=== PATIENT | female | born 1980 | race Caucasian/White ===

== ENCOUNTER 2018-02-11 10:05 | Emergency (ER) | payer MEDICAID, OTHER ==
[~2018-02-11] VITALS: Ht 185.4 cm; Wt 127.0 kg
[~2018-02-11 10:05] MED LIST: ACHD5005 PO; AMOX500C2 PO; BPR100T PO; CEPH500C PO; CLIN300C3 PO; CPR500T PO; CYCL10TA9 PO; DESV100T PO; HYDR1CAP2 PO; HYDR1TAB PO; IBP800T PO; METH4TAB PO; NAPR-243 PO; NAPR-915 PO; PENI500T PO; PRD20T PO; SULF-222 PO; SULF1TAB35 PO; SULF1TAB38 PO; TRAM-42 PO; TRAM50TA2 PO; TRM50T PO
--- OUTSIDE RECORDS SUMMARY | 2018-02-11 10:12 | XMS REPORT ---
Author Author JENNIFER VU [facility] Address [address] [place] [address] Care Team Providers Care Mixer Operator Helper Hot Metal Name Role Phone JENNIFER VU Unavailable PROBLEMS Type Condition ICD9-CM Code [id number] Code Onset Dates Condition Status SNOMED Code Problem Acute pharyngitis 462 Active 920242605 Problem Obesity, unspecified 278.00 Active 575953872 Problem Nondependent tobacco use disorder 305.1 Active 247132272 Problem Depressive disorder, not elsewhere classified F32.9 Active 12448430 Problem Counseling on substance use and abuse V65.42 Active 934281853 Problem Morbid obesity due to excess calories E66.01 Active 219305359 Problem Screening examination for venereal disease V74.5 Active 318419137 Problem Unspecified breast screening V76.10 Active 592599693 Problem Severe single current episode of major depressive disorder, without psychotic features F32.2 Active 56759415 Problem Anxiety, generalized F41.1 Active 34841611 Problem Anxiety disorder, unspecified F41.9 Active 284245779 Problem Bipolar 1 disorder, depressed, moderate F31.32 Active 07959701 Problem Other dyspnea and respiratory abnormalities 786.09 Active 013260435 Problem Other malaise and fatigue 780.79 Active 316053445 Problem Routine general medical examination at health care facility V70.0 Active 395976381 Problem Diarrhea 787.91 Active 41652553 Problem Contact dermatitis and other eczema due to solvents 692.2 Active Problem Cellulitis and abscess of unspecified site 682.9 Active 499147898 Problem Unspecified fasciitis 729.4 Active 75787717 Problem Cellulitis and abscess of trunk 682.2 Active 367642186 Problem Pain in joint, ankle and foot 719.47 Active 815453930 Problem Acute upper respiratory infections of unspecified site 465.9 Active 16136686 ALLERGIES Substance Reaction Event Type Date Status Cephalexin Unknown Drug Allergy Dec, Active SOCIAL HISTORY No smoking Hx information available PLAN OF CARE Activity Details Follow Up prn Reason: VITAL SIGNS Height 73 in 2017-01-01 Weight 297.8 lbs 2017-01-01 Temperature 97.8 degrees Fahrenheit 2017-01-01 Heart Rate 74 bpm 2017-01-01 Respiratory Rate 20 2017-01-01 BMI 39.29 kg/m2 2017-01-01 Blood pressure systolic 124 mmHg 2017-01-01 Blood pressure diastolic 80 mmHg 2017-01-01 MEDICATIONS Medication Instructions Dosage Frequency Start Date End Date Duration Status Cetirizine HCl 10 MG Orally Once a day 1 tablet 24h Dec, 30 day (s) Active Albuterol Sulfate 90 mcg/actuation take 2 puffs by Inhalation route every 4 -6 hours as neededPRNcough or wheezing Nov, Active Lexapro 10 MG Orally Once a day 1 tablet 24h Active Augmentin 875-125 MG Orally every 12 hrs 1 tablet 12h Dec,Jan 10 day(s) Active RESULTS No Results PROCEDURES Procedure Date Ordered Related Diagnosis Body Site Office Visit, Est Pt., Level 3 Jan 01, 2017 IMMUNIZATIONS No Known Immunizations
--- OUTSIDE RECORDS SUMMARY | 2018-02-11 10:12 | XMS REPORT ---
Author Author KIRIT LIND Organization [facility] Address [address] [place] [address] Care Team Providers Care Networks Computer Consultant Name Role Phone KIRIT LIND Unavailable PROBLEMS Type Condition ICD9-CM Code [id number] Code Onset Dates Condition Status SNOMED Code Problem Acute pharyngitis 462 Active 078321453 Problem Obesity, unspecified 278.00 Active 881108114 Problem Nondependent tobacco use disorder 305.1 Active 350600095 Problem Depressive disorder, not elsewhere classified F32.9 Active 75425831 Problem Counseling on substance use and abuse V65.42 Active 363720751 Problem Morbid obesity due to excess calories E66.01 Active 267904879 Problem Screening examination for venereal disease V74.5 Active 467495516 Problem Unspecified breast screening V76.10 Active 247266924 Problem Severe single current episode of major depressive disorder, without psychotic features F32.2 Active 69701191 Problem Anxiety, generalized F41.1 Active 43698266 Problem Anxiety disorder, unspecified F41.9 Active 066089664 Problem Bipolar 1 disorder, depressed, moderate F31.32 Active 36880685 Problem Other dyspnea and respiratory abnormalities 786.09 Active 429137148 Problem Other malaise and fatigue 780.79 Active 706721852 Problem Routine general medical examination at health care facility V70.0 Active 780800145 Problem Diarrhea 787.91 Active 81748574 Problem Contact dermatitis and other eczema due to solvents 692.2 Active Problem Cellulitis and abscess of unspecified site 682.9 Active 194718536 Problem Unspecified fasciitis 729.4 Active 17990062 Problem Cellulitis and abscess of trunk 682.2 Active 608715964 Problem Pain in joint, ankle and foot 719.47 Active 254561783 Problem Acute upper respiratory infections of unspecified site 465.9 Active 34773521 ALLERGIES No Information SOCIAL HISTORY Never Assessed PLAN OF CARE VITAL SIGNS MEDICATIONS Medication Instructions Dosage Frequency Start Date End Date Duration Status Lexapro 10 mg Orally Once a day 1 tablet 24h 30 days Active RESULTS No Results PROCEDURES No Known procedures IMMUNIZATIONS No Known Immunizations MEDICAL (GENERAL) HISTORY Type Description Date Medical History Asthma Medical History ADHD Medical History Depression Surgical History Tonsillectomy & adenoidectomy 1996 Surgical History tubal ligation 2002 Hospitalization History past childbirth
--- OUTSIDE RECORDS SUMMARY | 2018-02-11 10:12 | XMS REPORT ---
Author Author TOM CARRERA [facility] [employer] Address Unknown Phone Unavailable Care Team Providers Care Paint Formulator Name Role Phone TOM CARRERA CP Unavailable Allergies No Known Allergies Problems Problem Type Condition Code Onset Dates Condition Status Problem Diarrhea 787.91 Active Problem Counseling on substance use and abuse V65.42 Active Problem Acute pharyngitis 462 Active Problem Cellulitis and abscess of unspecified site 682.9 Active Problem Unspecified fasciitis 729.4 Active Problem Contact dermatitis and other eczema due to solvents 692.2 Active Problem Other malaise and fatigue 780.79 Active Problem Unspecified breast screening V76.10 Active Problem Cellulitis and abscess of trunk 682.2 Active Problem Other dyspnea and respiratory abnormalities 786.09 Active Problem Routine general medical examination at health care facility V70.0 Active Problem Screening examination for venereal disease V74.5 Active Problem Nondependent tobacco use disorder 305.1 Active Problem Obesity, unspecified 278.00 Active Problem Acute upper respiratory infections of unspecified site 465.9 Active Problem Pain in joint, ankle and foot 719.47 Active Medications No Known Medications Results No Known Results Summary Purpose [employer] Submission
--- OUTSIDE RECORDS SUMMARY | 2018-02-11 10:12 | XMS REPORT ---
Author Author GUILLE YAO Organization [employer] Address Unknown Phone Unavailable Care Team Providers Care Dairy Tester Name Role Phone GUILLE YAO CP Unavailable Allergies, Adverse Reactions, Alerts Substance Reaction Event Type Cephalexin Info Not Available Drug Allergy Problems Problem Type Condition Code Onset Dates [...] Other dyspnea and respiratory abnormalities 786.09 Active Assessment Ringworm B35.9 Active Problem Routine general medical examination at health care facility V70.0 Active Problem Screening examination for venereal disease V74.5 Active Problem Nondependent tobacco use disorder 305.1 Active Problem Obesity, unspecified 278.00 Active Problem Acute upper respiratory infections of unspecified site 465.9 Active Problem Pain in joint, ankle and foot 719.47 Active Medications Medication Code System Code Instructions Start Date End Date Status Dosage Diflucan [facility] [address]-04 100 MG Orally on first day and then 1 a day for 13 more day March 30, 2016 2 tablet Lotrimin AF [facility] [address]-50 1 % Externally Twice a day March 30, 2016 April 13, 2016 1 application to affected area Procedures Procedure Coding System Code Date Office Visit, Est Pt., Level 3 CPT-4 75424 March 30, 2016 Vital Signs Date/Time: March 30, 2016 Temperature 97.8 F Weight 300.0 lbs Height 73 in BMI 39.58 Index Blood Pressure Diastolic 78 mmHg Blood Pressure Systolic 120 mmHg Cardiac Monitoring Heart Rate 68 bpm Results No Known Results Summary Purpose [employer] Submission
--- OUTSIDE RECORDS SUMMARY | 2018-02-11 10:12 | XMS REPORT ---
Author Author KEON MCGEE [facility] Address [address] [place] [address] Care Team Providers Care Graduate Studies Dean Name Role Phone KEON MCGEE Unavailable PROBLEMS Type Condition ICD9-CM Code JPJ33-AX Code Onset Dates Condition Status SNOMED Code Problem Acute pharyngitis 462 Active 789029453 Problem Obesity, unspecified 278.00 Active 257346273 Problem Nondependent tobacco use disorder 305.1 Active 698719406 Problem Depressive disorder, not elsewhere classified F32.9 Active 99962411 Problem Counseling on substance use and abuse V65.42 Active 248809118 Problem Morbid obesity due to excess calories E66.01 Active 734163076 Problem Screening examination for venereal disease V74.5 Active 453051504 Problem Unspecified breast screening V76.10 Active 624662947 Problem Severe single current episode of major depressive disorder, without psychotic features F32.2 Active 98013046 Problem Anxiety, generalized F41.1 Active 00121071 Problem Anxiety disorder, unspecified F41.9 Active 492162553 Problem Bipolar 1 disorder, depressed, moderate F31.32 Active 09516775 Problem Other dyspnea and respiratory abnormalities 786.09 Active 041568673 Problem Other malaise and fatigue 780.79 Active 846097508 Problem Routine general medical examination at health care facility V70.0 Active 446488550 Problem Diarrhea 787.91 Active 19298354 Problem Contact dermatitis and other eczema due to solvents 692.2 Active Problem Cellulitis and abscess of unspecified site 682.9 Active 663232250 Problem Unspecified fasciitis 729.4 Active 54800416 Problem Cellulitis and abscess of trunk 682.2 Active 257249782 Problem Pain in joint, ankle and foot 719.47 Active 123927917 Problem Acute upper respiratory infections of unspecified site 465.9 Active 27762911 ALLERGIES No Information SOCIAL HISTORY Never Assessed PLAN OF CARE Activity Details Follow Up Next available, 2 Weeks Reason:Depression VITAL SIGNS MEDICATIONS Unknown Medications RESULTS No Results PROCEDURES Procedure Date Ordered Result Body Site Psychotherapy, patient &/family, 30 minutes, established patient February 20, 2017 IMMUNIZATIONS No Known Immunizations MEDICAL (GENERAL) HISTORY Type Description Date Medical History Asthma Medical History ADHD Medical History Depression Surgical History Tonsillectomy & adenoidectomy 1996 Surgical History tubal ligation 2002 Hospitalization History past childbirth
--- OUTSIDE RECORDS SUMMARY | 2018-02-11 10:12 | XMS REPORT ---
Author Author KEON MCGEE [facility] Address [address] [place] [address] Care Team Providers Care Burr Bench Operator Name Role Phone KEON MCGEE Unavailable PROBLEMS Type Condition ICD9-CM Code XFD25-SG Code Onset Dates Condition Status SNOMED Code Problem Acute pharyngitis 462 Active 115205318 Problem Obesity, unspecified 278.00 Active 241213913 Problem Nondependent tobacco use disorder 305.1 Active 031919864 Problem Depressive disorder, not elsewhere classified F32.9 Active 06776594 Problem Counseling on substance use and abuse V65.42 Active 531260069 Problem Morbid obesity due to excess calories E66.01 Active 889016341 Problem Screening examination for venereal disease V74.5 Active 498963788 Problem Unspecified breast screening V76.10 Active 800928810 Problem Severe single current episode of major depressive disorder, without psychotic features F32.2 Active 50477368 Problem Anxiety, generalized F41.1 Active 44369988 Problem Anxiety disorder, unspecified F41.9 Active 734303722 Problem Bipolar 1 disorder, depressed, moderate F31.32 Active 26263058 Problem Other dyspnea and respiratory abnormalities 786.09 Active 262852744 Problem Other malaise and fatigue 780.79 Active 966260333 Problem Routine general medical examination at health care facility V70.0 Active 169915775 Problem Diarrhea 787.91 Active 92835795 Problem Contact dermatitis and other eczema due to solvents 692.2 Active Problem Cellulitis and abscess of unspecified site 682.9 Active 164296640 Problem Unspecified fasciitis 729.4 Active 90540586 Problem Cellulitis and abscess of trunk 682.2 Active 483086637 Problem Pain in joint, ankle and foot 719.47 Active 771735663 Problem Acute upper respiratory infections of unspecified site 465.9 Active 82042047 ALLERGIES Substance Reaction Event Type Date Status Cephalexin Unknown Drug Allergy Jan, Active SOCIAL HISTORY Never Assessed PLAN OF CARE Activity Details Follow Up Next available, 2 Weeks Reason:depression anxiety VITAL SIGNS MEDICATIONS Unknown Medications RESULTS No Results PROCEDURES Procedure Date Ordered Result Body Site Psych diagnostic evaluation, new patient February 11, 2017 IMMUNIZATIONS No Known Immunizations MEDICAL (GENERAL) HISTORY Type Description Date Medical History Asthma Medical History ADHD Medical History Depression Surgical History Tonsillectomy & adenoidectomy 1996 Surgical History tubal ligation 2002 Hospitalization History past childbirth
--- OUTSIDE RECORDS SUMMARY | 2018-02-11 10:13 | XMS REPORT ---
Author Author YARA OWENS Organization [employer] Address Unknown Phone Unavailable Care Team Providers Care Medical Assistant Supervisor Name Role Phone YARA OWENS CP Unavailable Allergies, Adverse Reactions, Alerts Substance [...] dyspnea and respiratory abnormalities 786.09 Active Assessment Anger R45.4 Active Problem Routine general medical examination at health care facility V70.0 Active Problem Screening examination for venereal disease V74.5 Active Problem Nondependent tobacco use disorder 305.1 Active Problem Obesity, unspecified 278.00 Active Problem Acute upper respiratory infections of unspecified site 465.9 Active Problem Pain in joint, ankle and foot 719.47 Active Medications Medication Code System Code Instructions Start Date End Date Status Dosage Albuterol Sulfate [facility] [address]-34 90 mcg/actuation Nov 14, 2012 take 2 puffs by Inhalation route every 4-6 hours as needed PRNcough or wheezing Procedures Procedure Coding System Code Date Office Visit, Est Pt., Level 3 CPT-4 02313 Jul 28, 2016 Vital Signs Date/Time: Jul 28, 2016 Cardiac Monitoring Heart Rate 94 bpm Weight 290.6 lbs Height 73 in BMI 38.34 Index Blood Pressure Diastolic 82 mmHg Blood Pressure Systolic 130 mmHg Results No Known Results Summary Purpose [employer] Submission
--- OUTSIDE RECORDS SUMMARY | 2018-02-11 10:13 | XMS REPORT ---
Author Author VANESSA CARLOS [facility] Address [address] [place] [address] Care Team Providers Care Habilitation Assistant Name Role Phone VANESSA CARLOS Unavailable PROBLEMS Type Condition ICD9-CM Code VRW79-TO Code Onset Dates Condition Status SNOMED Code Problem Acute pharyngitis 462 Active 557237919 Problem Obesity, unspecified 278.00 Active 720473118 Problem Nondependent tobacco use disorder 305.1 Active 367171127 Problem Depressive disorder, not elsewhere classified F32.9 Active 66245622 Problem Counseling on substance use and abuse V65.42 Active 834205390 Problem Morbid obesity due to excess calories E66.01 Active 410879015 Problem Screening examination for venereal disease V74.5 Active 258767322 Problem Unspecified breast screening V76.10 Active 824298367 Problem Severe single current episode of major depressive disorder, without psychotic features F32.2 Active 04833786 Problem Anxiety, generalized F41.1 Active 09402693 Problem Anxiety disorder, unspecified F41.9 Active 250319078 Problem Bipolar 1 disorder, depressed, moderate F31.32 Active 29261067 Problem Other dyspnea and respiratory abnormalities 786.09 Active 159598360 Problem Other malaise and fatigue 780.79 Active 805413387 Problem Routine general medical examination at health care facility V70.0 Active 245478124 Problem Diarrhea 787.91 Active 70506430 Problem Contact dermatitis and other eczema due to solvents 692.2 Active Problem Cellulitis and abscess of unspecified site 682.9 Active 525124278 Problem Unspecified fasciitis 729.4 Active 46567401 Problem Cellulitis and abscess of trunk 682.2 Active 525159898 Problem Pain in joint, ankle and foot 719.47 Active 694802352 Problem Acute upper respiratory infections of unspecified site 465.9 Active 09438471 ALLERGIES Substance Reaction Event Type Date Status Cephalexin Unknown Drug Allergy April, Active SOCIAL HISTORY Never Assessed PLAN OF CARE VITAL SIGNS Height 73 in 2017-04-17 Weight 311.4 lbs 2017-04-17 Temperature 97.6 degrees Fahrenheit 2017-04-17 Heart Rate 76 bpm 2017-04-17 Respiratory Rate 20 2017-04-17 BMI 41.08 kg/m2 2017-04-17 Blood pressure systolic 120 mmHg 2017-04-17 Blood pressure diastolic 80 mmHg 2017-04-17 MEDICATIONS Medication Instructions Dosage Frequency Start Date End Date Duration Status Doxycycline Hyclate 100 mg Orally every 12 hrs 1 capsule 12h April, April, 10 days Active Promethazine-Codeine 6.25-10 MG/5ML Orally every 6 hrs 5 ml as needed 6h April, Active RESULTS No Results PROCEDURES No Known procedures IMMUNIZATIONS No Known Immunizations MEDICAL (GENERAL) HISTORY Type Description Date Medical History Asthma Medical History ADHD Medical History Depression Surgical History Tonsillectomy & adenoidectomy 1996 Surgical History tubal ligation 2002 Hospitalization History past childbirth
--- OUTSIDE RECORDS SUMMARY | 2018-02-11 10:13 | XMS REPORT ---
Author Author KIRIT LIND Organization [facility] Address [address] [place] [address] Care Team Providers Care Bilingual Interpreter Name Role Phone KIRIT LIND Unavailable PROBLEMS Type Condition ICD9-CM Code PJL36-UK Code Onset Dates Condition Status SNOMED Code Problem Acute pharyngitis 462 Active 464392654 Problem Obesity, unspecified 278.00 Active 787184246 Problem Nondependent tobacco use disorder 305.1 Active 550688136 Problem Depressive disorder, not elsewhere classified F32.9 Active 45231629 Problem Counseling on substance use and abuse V65.42 Active 171040084 Problem Morbid obesity due to excess calories E66.01 Active 920483950 Problem Screening examination for venereal disease V74.5 Active 554358370 Problem Unspecified breast screening V76.10 Active 877461023 Problem Severe single current episode of major depressive disorder, without psychotic features F32.2 Active 27205924 Problem Anxiety, generalized F41.1 Active 41755090 Problem Anxiety disorder, unspecified F41.9 Active 333709827 Problem Bipolar 1 disorder, depressed, moderate F31.32 Active 29351305 Problem Other dyspnea and respiratory abnormalities 786.09 Active 004244514 Problem Other malaise and fatigue 780.79 Active 221361280 Problem Routine general medical examination at health care facility V70.0 Active 867174794 Problem Diarrhea 787.91 Active 25228386 Problem Contact dermatitis and other eczema due to solvents 692.2 Active Problem Cellulitis and abscess of unspecified site 682.9 Active 489555124 Problem Unspecified fasciitis 729.4 Active 46588037 Problem Cellulitis and abscess of trunk 682.2 Active 688520798 Problem Pain in joint, ankle and foot 719.47 Active 052402291 Problem Acute upper respiratory infections of unspecified site 465.9 Active 26413316 ALLERGIES No Information SOCIAL HISTORY Never Assessed PLAN OF CARE VITAL SIGNS MEDICATIONS Unknown Medications RESULTS No Results PROCEDURES No Known procedures IMMUNIZATIONS No Known Immunizations MEDICAL (GENERAL) HISTORY Type Description Date Medical History Asthma Medical History ADHD Medical History Depression Surgical History Tonsillectomy & adenoidectomy 1996 Surgical History tubal ligation 2003 Hospitalization History past childbirth
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
--- NOTE | 2018-02-11 10:54 | ED General ---
General Chief Complaint: Ear Problems Stated Complaint: EAR ACHE,EAR BLEEDING PER PT Nursing Triage Note: PT CO OF L EAR PAIN AND DRAINAGE SINCE YESTERDAY, PT STATES HAS FELT FEVERISH AT TIMES Nursing Sepsis Screen: No Definite Risk Source of Information: Patient Exam Limitations: No Limitations History of Present Illness Date Seen by Provider: Feb 11, 2018 Time Seen by Provider: 10:36 Initial Comments This 37-year-old woman presents to the emergency room with complaints of intense left ear pain that started around 03:00 yesterday. She had upper respiratory infection last week as well. She took ibuprofen and 01:00 and Benadryl but pain is still intense. She has had associated nausea without vomiting. She has some persistent nasal congestion. Allergies and Home Medications Allergies Coded Allergies: cephalexin (Verified Allergy, Unknown, 02/11/18) clindamycin (Verified Allergy, Unknown, 10/27/16) Home Medications Amoxicillin 500 Mg Tablet, 1,000 MG PO BID Prescribed by: TJ PARADA on 02/11/18 1057 Naproxen 500 Mg Tablet, 500 MG PO BID Prescribed by: DARVIN WOODARD on 10/27/16 1853 Ondansetron 4 Mg Tab.rapdis, 4 MG SL Q4H PRN for NAUSEA/VOMITING-1ST LINE Prescribed by: TJ PARADA on 02/11/18 1059 Tramadol HCl 50 Mg Tablet, 50 MG PO Q4H Prescribed by: DARVIN WOODARD on 10/27/16 1853 Tramadol HCl 50 Mg Tablet, 50 MG PO Q6H PRN for PAIN-BREAKTHROUGH Prescribed by: TJ PARADA on 02/11/18 1058 Patient Home Medication List Home Medication List Reviewed: Yes Constitutional: no symptoms reported EENTM: see HPI Respiratory: no symptoms reported Cardiovascular: no symptoms reported Gastrointestinal: see HPI Genitourinary: no symptoms reported : No Musculoskeletal: no symptoms reported Skin: no symptoms reported Psychiatric/Neurological: No Symptoms Reported Hematologic/Lymphatic: No Symptoms Reported Past Ktdoeyf-Tdqwup-Nfnkar Hx Patient Social History Alcohol Use: Rarely Uses Recreational Drug Use: No Smoking Status: Current Everyday Smoker Type Used: Cigarettes Recent Foreign Travel: No Contact w/Someone Who Travel: No Recent Infectious Disease Expo: No Recent Hopitalizations: No Physical Abuse: No Sexual Abuse: No Immunizations Up To Date Tetanus Booster (TDap): Less than 5yrs Seasonal Allergies Seasonal Allergies: Yes Surgeries History of Surgeries: Yes Surgeries: Adenoidectomy, Tonsillectomy, Tubal Ligation Respiratory History of Respiratory Disorde: Yes Respiratory Disorders: Asthma Cardiovascular History of Cardiac Disorders: Yes Cardiac Disorders: Hypertension Neurological History of Neurological Disord: No Reproductive System Hx Reproductive Disorders: No Sexually Transmitted Disease: No [employer] History: Tubal Ligation Genitourinary History of Genitourinary Disor: No Gastrointestinal History of Gastrointestinal Di: No Musculoskeletal History of Musculoskeletal Dis: Yes Musculoskeletal Disorders: Arthritis Endocrine History of Endocrine Disorders: No HEENT History of HEENT Disorders: No Cancer History of Cancer: No Psychosocial History of Psychiatric Problem: Yes Behavioral Health Disorders: Anxiety, Bipolar, Depression Suicide Risk Score: 0 Integumentary History of Skin or Integumenta: No Blood Transfusions History of Blood Disorders: No Adverse Reaction to a Blood Tr: No Physical Exam Vital Signs Vital Signs - First Documented 02/11/18 10:10 Temp 98.4 Pulse 77 Resp 18 B/P (MAP) 144/98 (113) Pulse Ox 99 Capillary Refill : Less Than 3 Seconds General Appearance: WD/WN, Mild Distress (Tearful) HEENT: PERRL/EOMI, Normal ENT Inspection, Pharynx Normal, TM Abnormal (L) ( suspected ruptured tympanic membrane with some associated erythema and purulent drainage in the canal.) Neck: Normal Inspection, Supple, Tender Lateral Respiratory: Lungs Clear, Normal Breath Sounds, No Accessory Muscle Use, No Respiratory Distress Cardiovascular: Regular Rate, Rhythm, No Edema, No Murmur Extremity: Normal Inspection Neurologic/Psychiatric: Alert, Oriented x3, No Motor/Sensory Deficits, Normal 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, 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 Norm as Tested Skin: Normal Color, Warm/Dry Progress/Results/Core Measures Suspected Sepsis Recent Fever Within 48 Hours: No Infection Criteria Present: None New/Unexplained Altered Menta: No Sepsis Screen: No Definite Risk Sepsis Diagnosis: SIRS Temperature:98.4 Pulse: 77 Respiratory Rate: 18 Blood Pressure 144 /98 Mean: 113 Results/Orders My Orders Orders - TJ CHAMBERS MD Ketorolac Injection (Toradol Injection) (02/11/18 11:00) Medications Given in ED Current Medications Medications Dose Ordered Sig/Michelle Route Start Time Stop Time Status Last Admin Dose Admin Ketorolac Tromethamine 30 mg ONCE ONCE IM 02/11/18 11:00 02/11/18 11:01 DC 02/11/18 10:56 30 MG Vital Signs/I&O Vital Sign - Last 12Hours 02/11/18 10:10 Temp 98.4 Pulse 77 Resp 18 B/P (MAP) 144/98 (113) Pulse Ox 99 Capillary Refill : Less Than 3 Seconds Blood Pressure Mean: 113 Progress Note : Progress Note Patient was treated with Toradol and antibiotics prescribed. Follow-up for reexamination was stressed. Departure Impression Impression: Primary Impression: Left otitis media with spontaneous rupture of eardrum Additional Impression: Nausea Disposition: HOME, SELF-CARE Condition: Improved Departure-Patient Inst. Decision time for Depature: 10:45 Referrals: [facility] (PCP/Family) Primary Care Physician Patient Instructions: Ear Infections (Otitis Media) (DC), Ruptured Eardrum (DC) Add. Discharge Instructions: Use ibuprofen up to 600 mg every 6 hours as needed for pain. Add Tylenol ( acetaminophen) up to 1000 mg every 6 hours as needed for additional pain relief. Use Ultram (tramadol) for pain not relieved by wnou-orc-ojatere medications. Complete the entire course of your antibiotics as prescribed. Follow-up with your primary care provider in 1 to 2 weeks to have your ear reexamined. Call today to schedule the appointment. Return to care if symptoms worsen. Do not place Q-tips or any other foreign objects in your ear. You may use cotton balls on the external ear to catch drainage, but do not place them in the ear canal. Keep the ear as dry as possible until healed. Do not submerge under water. All discharge instructions reviewed with patient and/or family. Voiced understanding. Scripts Ondansetron (Zofran Odt) 4 Mg Tab.rapdis 4 MG SL Q4H Y for NAUSEA/VOMITING-1ST LINE, #10 TAB Prov: TJ CHAMBERS MD 02/11/18 Tramadol HCl (Ultram) 50 Mg Tablet 50 MG PO Q6H Y for PAIN-BREAKTHROUGH, #8 TAB Prov: TJ CHAMBERS MD 02/11/18 Amoxicillin (Amoxicillin) 500 Mg Tablet 1000 MG PO BID, #40 TAB Prov: TJ CHAMBERS MD 02/11/18 Work/School Note: Work Release Form Date Seen in the Emergency Department: Feb 11, 2018 Return to Work: Feb 12, 2018 Restrictions: No Restrictions TJ CHAMBERS MD Feb 11, 2018 10:54
[2018-02-11] MEDS ORDERED: AMOX500T2 PO ×2 (10:57→11:19)
[2018-02-11] MEDS ORDERED: TRAM-42 PO (10:58)
[2018-02-11] MEDS ORDERED: ONDA4TAB8 SL ×2 (10:59→11:19)
[2018-02-11] MEDS ORDERED: KETOROLAC 30 MG/ML VIAL IM ONE (11:00)
[2018-02-11 11:17] VITALS: BP 144/98
== END 2018-02-11 11:17 | disposition home or self-care (01) ==
LOC: EDUNIT# 10:05 → ER 10:07
DX: H66.92 Otitis media, unspecified, left ear (principal); R11.0 Nausea; F41.9 Anxiety disorder, unspecified; F31.9 Bipolar disorder, unspecified; I10 Essential (primary) hypertension; J45.909 Unspecified asthma, uncomplicated; F17.210 Nicotine dependence, cigarettes, uncomplicated; Z98.51 Tubal ligation status; Z90.89 Acquired absence of other organs; Z88.1 Allergy status to other antibiotic agents
CPT/HCPCS: 96372; 99282

== ENCOUNTER 2018-02-17 20:11 | Emergency (ER) | payer OTHER ==
[~2018-02-17] VITALS: Ht 185.4 cm; Wt 127.0 kg
[~2018-02-17 20:11] MED LIST changes: +AMOX500T2 PO; +ONDA4TAB8 SL
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
[2018-02-17] MEDS ORDERED: RX-CIPROFLOXACIN (CILOXAN) 0.3% OP SOLN 2.5 ML OP STA (20:26)
[2018-02-17] MEDS ORDERED: RX-HYDROCODONE/APAP 5/325 MG #4 TAB PK PO PRN (20:30)
[2018-02-17] MEDS ORDERED: HYDR-757 PO (20:30)
--- NOTE | 2018-02-17 20:30 | ED EENT ---
History of Present Illness General Chief Complaint: Ear Problems Stated Complaint: L EARDRUM PAIN Nursing Triage Note: PT HERE TO REPORT PERSISTANT PAIN L EAR SINCE ED VISIT 02/11/18. PT HAD ONSET 02/10/18, NO INJURY Source: patient Exam Limitations: no limitations History of Present Illness Date Seen by Provider: Feb 17, 2018 Time Seen by Provider: 20:27 Initial Comments To ER with left ear pain. She was seen here on the for a spontaneous rupture of the left tympanic membrane. She was given amoxicillin, Ultram. She is out of the Ultram but states he didn't really help anyway. She is still on the antibiotics. Timing/Duration: abrupt Severity: moderate Allergies and Home Medications Allergies Coded Allergies: cephalexin (Verified Allergy, Unknown, 02/11/18) clindamycin (Verified Allergy, Unknown, 10/27/16) Home Medications Amoxicillin 500 Mg Tablet, 1,000 MG PO BID Prescribed by: TJ PARADA on 02/11/18 1119 Hydrocodone/Acetaminophen 1 Each Tablet, 1 EACH PO Q4H PRN for PAIN-MODERATE Prescribed by: HUGH RONQUILLO on 02/17/18 2030 Naproxen 500 Mg Tablet, 500 MG PO BID Prescribed by: DARVIN WOODARD on 10/27/16 1853 Ondansetron 4 Mg Tab.rapdis, 4 MG SL Q4H PRN for NAUSEA/VOMITING-1ST LINE Prescribed by: TJ PARADA on 02/11/18 1119 Patient Home Medication List Home Medication List Reviewed: Yes Review of Systems Constitutional: see HPI Eyes: No Symptoms Reported Ears: See HPI, Pain Nose: no symptoms reported Mouth: no symptoms reported Throat: no symptoms reported Respiratory: no symptoms reported Cardiovascular: no symptoms reported Musculoskeletal: no symptoms reported Past Ijinyny-Xawloo-Ishtlz Hx Patient Social History Alcohol Use: Occasionally Uses Recreational Drug Use: No Smoking Status: Current Everyday Smoker Type Used: Cigarettes 2nd Hand Smoke Exposure: No Recent Foreign Travel: No Contact w/Someone Who Travel: No Recent Infectious Disease Expo: No Recent Hopitalizations: No Immunizations Up To Date Tetanus Booster (TDap): Less than 5yrs Seasonal Allergies Seasonal Allergies: Yes Surgeries History of Surgeries: Yes Surgeries: Adenoidectomy, Tonsillectomy, Tubal Ligation Respiratory History of Respiratory Disorde: Yes Respiratory Disorders: Asthma Cardiovascular History of Cardiac Disorders: Yes Cardiac Disorders: Hypertension Neurological History of Neurological Disord: No Reproductive System Hx Reproductive Disorders: No Sexually Transmitted Disease: No CARDIOLOGY ASSOCIATE History: Tubal Ligation Genitourinary History of Genitourinary Disor: No Gastrointestinal History of Gastrointestinal Di: No Musculoskeletal History of Musculoskeletal Dis: Yes Musculoskeletal Disorders: Arthritis Endocrine History of Endocrine Disorders: No HEENT History of HEENT Disorders: No Cancer History of Cancer: No Psychosocial History of Psychiatric Problem: Yes Behavioral Health Disorders: Anxiety, Bipolar, Depression Integumentary History of Skin or Integumenta: No Blood Transfusions History of Blood Disorders: No Adverse Reaction to a Blood Tr: No Physical Exam Vital Signs Vital Signs - First Documented 02/17/18 20:14 Temp 98.8 Pulse 81 Resp 16 B/P (MAP) 142/95 (111) Pulse Ox 97 O2 Delivery Room Air General Appearance: WD/WN, no apparent distress Eyes: bilateral eye normal inspection, bilateral eye PERRL, bilateral eye EOMI Ears: right ear auricle normal, right ear canal normal, left ear other (the tympanic membrane appears intact but there is maceration and erythema of the external ear canal), bilateral ear TM normal Neck: non-tender, full range of motion Respiratory: no respiratory distress, no accessory muscle use Gastrointestinal: normal bowel sounds, non tender Neurologic/Psychiatric: alert, normal mood/affect, oriented x 3 Skin: normal color, warm/dry Progress/Results/Core Measures Results/Orders My Orders Orders - HUGH RONQUILLO APRN Rx-Ciprofloxacin Ophth Soln (Rx-Ciloxan (02/17/18 20:26) Rx-Hydrocodone/Apap 5-325 Mg (Rx-Vicodin (02/17/18 20:30) Medications Given in ED Current Medications Medications Dose Ordered Sig/Michelle Route Start Time Stop Time Status Last Admin Dose Admin Acetaminophen/ Hydrocodone Bitart 1 ea Q4H PRN PO 02/17/18 20:30 02/17/18 20:34 DC 02/17/18 20:33 1 EA Vital Signs/I&O Vital Sign - Last 12Hours 02/17/18 02/17/18 20:14 20:33 Temp 98.8 98.8 Pulse 81 81 Resp 16 16 B/P (MAP) 142/95 (111) 142/95 (111) Pulse Ox 97 97 O2 Delivery Room Air Blood Pressure Mean: 111 Departure Impression Impression: Primary Impression: Otitis externa Disposition: 01 HOME, SELF-CARE Condition: Stable Departure-Patient Inst. Decision time for Depature: 20:28 Referrals: [facility] (PCP/Family) Primary Care Physician Patient Instructions: Outer Ear Infection (DC) Add. Discharge Instructions: 1. Apply the antibiotic drops twice daily for 7 days. Follow-up with your doctor this week. All discharge instructions reviewed with patient and/or family. Voiced understanding. Scripts Hydrocodone/Acetaminophen (Leblanc 5-325 Tablet) 1 Each Tablet 1 EACH PO Q4H Y for PAIN-MODERATE, #10 TAB Prov: HUGH RONQUILLO APRN 02/17/18 HUGH RONQUILLO APRN Feb 17, 2018 20:30
[2018-02-17 20:33] VITALS: BP 142/95
== END 2018-02-17 20:33 | disposition home or self-care (01) ==
LOC: EDUNIT# 20:11 → ER 20:12
DX: H60.92 Unspecified otitis externa, left ear (principal); F41.9 Anxiety disorder, unspecified; F31.9 Bipolar disorder, unspecified; I10 Essential (primary) hypertension; J45.909 Unspecified asthma, uncomplicated; F17.210 Nicotine dependence, cigarettes, uncomplicated; Z98.51 Tubal ligation status; Z90.89 Acquired absence of other organs; Z88.1 Allergy status to other antibiotic agents
CPT/HCPCS: 99283

== ENCOUNTER 2018-03-14 00:04 | Emergency (ER) | payer OTHER ==
[~2018-03-14] VITALS: Ht 185.4 cm; Wt 127.0 kg
[~2018-03-14 00:04] MED LIST changes: +HYDR-757 PO
--- OUTSIDE RECORDS SUMMARY | 2018-03-14 00:09 | XMS REPORT ---
Author Author KIRIT LIND Organization [facility] Address [address] [place] [address] Care Team Providers Care Coal Trimmer Name Role Phone KIRIT LIND Unavailable PROBLEMS Type Condition ICD9-CM Code DOA12-IK Code Onset Dates Condition Status SNOMED Code Problem Morbid obesity due to excess calories E66.01 Active 815732972 Problem Bipolar 1 disorder, depressed, moderate F31.32 Active 32283620 Problem Severe single current episode of major depressive disorder, without psychotic features F32.2 Active 63961113 Problem Anxiety, generalized F41.1 Active 85907291 ALLERGIES No Information ENCOUNTERS Encounter Location Date Diagnosis [facility] [address] [address] Jan, Other infective acute otitis externa of left ear H60.392 ; Left foot pain M79.672 and Anxiety F41.9 [facility] [address] [address] Jan, Acute suppurative otitis media of left ear with spontaneous rupture of tympanic membrane, recurrence not specified H66.012 [facility] [address] [place] [id number] [place] [address] Jan, [facility] [address] [address] Sep, [facility] [id number] [place] [address] May, Sore throat J02.9 [facility] [id number] [place] [address] April, Depressive disorder, not elsewhere classified F32.9 [facility] [address] [address] April, [place] eye disease of left eye H10.022 and Bronchitis J40 [address] [address] April, [place] [address] [address] April, Well woman exam Z01.[address] [address] Mar, Anxiety disorder, unspecified F41.9 ; Morbid obesity due to excess calories E66.01 and Left foot pain M79.[address] [address] Jan, [place] [address] [address] Jan, Anxiety, generalized F41.1 ; Severe single current episode of major depressive disorder, without psychotic features F32.2 and Bipolar 1 disorder, depressed, moderate F31.32 [place] [address] [place] [id number] [place] [address] Jan, Anxiety, generalized F41.1 ; Severe single current episode of major depressive disorder, without psychotic features F32.2 and Bipolar 1 disorder, depressed, moderate F31.32 [facility] [place] [id number] [place] [address] Dec, Acute non-recurrent frontal sinusitis J01.[address] [facility] [address] [place], [place] [id number] [place] [address] Oct, Acute non-recurrent frontal sinusitis J01.10 [facility] [address] [place] [address] Jul, Anger R45.4 [facility] [address] [place] [phone] 15 May, 2016 Allergy, insect bite Z91.038 and Tinea pedis of left foot B35.3 [facility] [address] [id number] [place] [address] 29 Mar, 2016 Ringworm B35.9 [facility] [address] [id number] [place] [address] 26 Sep, 2015 [facility] [address] [facility] [id number] [place] [address] 14 Mar, 2015 [facility] [address] [id number] [place] [address] 13 Mar, 2015 [facility] [address] [id number] [place] [address] 14 Dec, 2014 [facility] [address] [facility] [id number] [place] [address] Dec, [facility] [address] [facility] [id number] [place] [address] 31 Nov, 2014 [facility] [address] [facility] [id number] [place] [address] 31 Nov, 2014 [facility] [address] [facility] [id number] [place] [address] 17 Nov, 2014 [facility] [address] [facility] [id number] [place] [address] 17 Nov, 2014 [facility] [address] [facility] [id number] [place] [address] 16 Nov, 2014 [facility] [address] [facility] [id number] [place] [address] 16 Nov, 2014 [facility] [address] [facility] [id number] [place] [address] 15 Nov, 2014 [facility] [address] [facility] [id number] [place] [address] 15 Nov, 2014 [facility] [address] [facility] [id number] [place] [address] 09 Sep, 2014 [facility] [address] [id number] [place] [address] Sep, [facility] [address] [id number] [place] [address] Mar, [facility] [address] [id number] [place] [address] 15 Mar, 2014 [facility] [address] [id number] [place] [address] Nov, [facility] [address] [id number] [place] Nov, [facility] [address] [id number] [place] [address] Nov, [facility] [address] [id number] [place] [address] Nov, [facility] [address] [id number] [place] [address] Nov, [facility] [address] [id number] [place] [address] Nov, [facility] [address] [id number] [place] [address] Nov, [facility] [address] [facility] [id number] [place] [address] Oct, [facility] [address] [id number] [place] [address] Oct, [facility] [address] [id number] [place] [address] Oct, [facility] [address] [id number] [place] [address] Oct, [facility] [address] [id number] [place] [address] Oct, [facility] [address] [id number] [place] [address] Oct, [facility] [address] [id number] [place] [address] Sep, [facility] [place] [facility] [address] [id number] [place] [address] May, [facility] [place] [facility] [address] [id number] [place] [address] May, [facility] [place] [facility] [address] [id number] [place] [address] May, [facility] [place] [facility] [address] [id number] [place] [address] Mar, [facility] [place] [facility] [address] [id number] [place] [address] 15 Dec, 2012 [facility] [place] [facility] [address] [id number] [place] [address] Dec, [facility] [place] [facility] [address] [id number], [place] [address] Dec, [facility] [place] [facility] [address] [id number] [place] [address] Dec, [facility] [place] [facility] [address] [id number], [place] [address] Dec, [facility] [place] [facility] [address] [id number], [place] [address] Dec, [facility] [place] [facility] [address] [id number], [place] [address] 05 Dec, 2012 [facility] [place] [facility] [address] [id number], [place] [address] Dec, [facility] [place] [facility] [address] [id number], [place] [address] Dec, [facility] [place] [facility] [address] [id number], [place] [address] 14 Nov, 2012 [facility] [place] [facility] [address] [id number], [place] [address] Nov, [facility] [address] [facility] [id number] [place] [address] Sep, [facility] [address] [facility] [id number] [place] [address] Sep, IMMUNIZATIONS No Known Immunizations SOCIAL HISTORY Never Assessed REASON FOR VISIT Well Woman Exam, vaginal discharge -- megan cloud, wants to be check for std's PLAN OF CARE Activity Details Follow Up 1 Year with [employer] Reason: VITAL SIGNS Height 73 in 2017-04-04 Weight 312.0 lbs 2017-04-04 Temperature 97.3 degrees Fahrenheit 2017-04-04 BMI 41.16 kg/m2 2017-04-04 Blood pressure systolic 136 mmHg 2017-04-04 Blood pressure diastolic 82 mmHg 2017-04-04 MEDICATIONS Medication Instructions Dosage Frequency Start Date End Date Duration Status Lexapro 20 MG Orally Once a day 1 tablet 24h 30 days Active Albuterol Sulfate 90 mcg/actuation take 2 puffs by Inhalation route every 4 -6 hours as neededPRNcough or wheezing Nov, Active RESULTS Name Result Date Reference Range CULTURE, GENITAL 2017-04-04 Genital Culture, Routine Final report Result 1 TRICHOMONAS (IN HOUSE) 2017-04-04 TRICHOMONAS negative Control + Lot # [id number] Exp date 05/01/18 PDF Report 2017-04-05 PDF Report1 LCLS BACTERIAL VAGINOSIS (IN HOUSE) 2017-04-04 RESULTS negative Control + Lot # [id number] Exp date 09/2017 PAP TEST W/ HPV REGARDLESS 2017-04-05 DIAGNOSIS: Specimen adequacy: Clinician provided ICD10: Performed by: . . Pathologist provided ICD10: Note: HPV, high-risk Negative Negative GC/CHLAM PROBE (STATE) 2017-04-04 CHLAMYDIA negative GC negative PROCEDURES Procedure Date Ordered Result Body Site SPECIMEN HANDLING April 04, 2017 CULTURE, BACTERIA, OTHER April 04, 2017 FAUSTIN VAG, DNA, DIR PROBE April 04, 2017 No Charge April 04, 2017 TRICHOMONAS ASSAY W/OPTIC April 04, 2017 INSTRUCTIONS MEDICATIONS ADMINISTERED No Known Medications MEDICAL (GENERAL) HISTORY Type Description Date Medical History Asthma Medical History ADHD Medical History Depression Surgical History Tonsillectomy & adenoidectomy 1996 Surgical History tubal ligation 2002 Hospitalization History past childbirth
--- OUTSIDE RECORDS SUMMARY | 2018-03-14 00:11 | XMS REPORT | Continuity of Care Document ---
Author Author [facility] Address Unknown Phone Unavailable Allergies Active Description Code Type Severity Reaction Onset Reported/Identified Relationship to Patient Clinical Status Yes NKANo Known Allergies NKA Miscellaneous Allergy Mild N/A 05/01/2010 Yes amoxicillin [id number] Drug Allergy Moderate RASH 12/10/2011 Yes Cephalexin Drug Allergy 12/16/2012 Yes Cephalexin Drug Allergy N/A N/A 12/16/2012 Yes clindamycin [id number] Drug Allergy Unknown N/A 10/27/2016 Yes cephalexin [id number] Drug Allergy Unknown N/A 02/11/2018 Medications There [...] GARCIA DO 724.5 BACKACHE UNSPECIFIED 08/09/2008 BIN GOLF COURSE EQUIPMENT OPERATOR, RASHEL R 241.0 THYROID NODULE 08/09/2008 RASHEL [...] CELLULITIS AND ABSCESS OF UNSPECIFIED SITES 12/03/2012 CARMNE OBRIEN APRN 692.2 CONTACT DERMATITIS AND OTHER [...] SIOMARA PITTS MD 462 ACUTE PHARYNGITIS 11/15/2014 SOIMARA PITTS MD V65.42 COUNSELING - SMOKING CESSATION [...] Charles Ot 729.5 04/06/2015 MARK ANTHONY LING CANCER PROGRAM DIRECTOR Ot 728.71 04/06/2015 MARK ANTHONY LING CANCER PROGRAM DIRECTOR Ot V57.1 04/14/2015 MARK ANTHONY LING CANCER PROGRAM DIRECTOR Ot 728.71 04/14/2015 MARK ANTHONY LING CANCER PROGRAM DIRECTOR Ot V57.1 04/14/2015 MARK ANTHONY LING CANCER PROGRAM DIRECTOR Ot 728.71 04/14/2015 MARK ANTHONY LING CANCER PROGRAM DIRECTOR Ot V57.1 05/02/2015 MARK ANTHONY LING CANCER PROGRAM DIRECTOR Ot 728.71 05/02/2015 MARK ANTHONY LING CANCER PROGRAM DIRECTOR Ot V57.1 05/02/2015 MARK ANTHONY LING CANCER PROGRAM DIRECTOR Ot 728.71 05/02/2015 MARK ANTHONY LING CANCER PROGRAM DIRECTOR Ot V57.1 05/04/2015 MARK ANTHONY LING CANCER PROGRAM DIRECTOR Ot 728.71 05/04/2015 MARK ANTHONY LING CANCER PROGRAM DIRECTOR Ot V57.1 05/17/2015 MARK ANTHONY LING CANCER PROGRAM DIRECTOR Ot 728.71 PLANTAR FIBROMATOSIS 05/17/2015 MARK ANTHONY LING CANCER PROGRAM DIRECTOR Ot V57.1 PHYSICAL THERAPY NEC 07/03/2015 ALBA [...] Soto Ot 715.37 LOC OSTEOARTH NOS-ANKLE 10/27/2016 GELLENDER , PAULINE Soto Ot 729.5 PAIN IN LIMB 10/27/2016 YAMILET DO, DRAVIN K Ot F17.210 NICOTINE DEPENDENCE, CIGARETTES, UNCOMPL [...] DARVIN K Ot Y92.[address] IN [facility] NON-INSTITUT (PRIVATE 10/27/2016 YAMILET DO, [...] DARVIN K Ot Y92.[address] IN [facility] NON-INSTITUT (PRIVATE 10/30/2016 YAMILET DO, DARVIN K Ot Y93.9 ACTIVITY, UNSPECIFIED 10/30/2016 YAMILET DO, DARVIN K Ot Y99.8 OTHER EXTERNAL CAUSE STATUS 02/11/2018 REYES SALVADOR, TJ Ayala Ot F17.210 NICOTINE DEPENDENCE, CIGARETTES, UNCOMPL 02/11/2018 REYES SALVADOR, TJ Ayala Ot F31.9 BIPOLAR DISORDER, UNSPECIFIED 02/11/2018 TJ CHAMBERS MD Ot F41.9 ANXIETY DISORDER, UNSPECIFIED 02/11/2018 TJ CHAMBERS MD Ot H66.92 OTITIS MEDIA, UNSPECIFIED, LEFT EAR 02/11/2018 TJ CHAMBERS MD Ot H92.02 OTALGIA, LEFT EAR 02/11/2018 TJ CHAMBERS MD Ot I10 ESSENTIAL (PRIMARY) HYPERTENSION 02/11/2018 TJ CHAMBERS MD Ot J45.909 UNSPECIFIED ASTHMA, UNCOMPLICATED 02/11/2018 TJ CHAMBERS MD Ot R11.0 NAUSEA 02/11/2018 TJ CHAMBERS MD Ot Z88.1 ALLERGY STATUS TO OTHER ANTIBIOTIC AGENT 02/11/2018 TJ CHAMBERS MD Ot Z90.89 ACQUIRED ABSENCE OF OTHER ORGANS 02/11/2018 TJ CHAMBERS MD Ot Z98.51 TUBAL LIGATION STATUS 02/11/2018 PAULINE WILLIS DO Ot 715.37 LOC OSTEOARTH NOS-ANKLE 02/11/2018 PAULINE WILLIS DO Ot 729.5 PAIN IN LIMB 02/13/2018 REYES SALVADOR, TJ Ayala Ot F17.210 NICOTINE DEPENDENCE, CIGARETTES, UNCOMPL 02/13/2018 TJ CHAMBERS MD Ot F31.9 BIPOLAR DISORDER, UNSPECIFIED 02/13/2018 TJ CHAMBERS MD Ot F41.9 ANXIETY DISORDER, UNSPECIFIED 02/13/2018 TJ CHAMBERS MD Ot H66.92 OTITIS MEDIA, UNSPECIFIED, LEFT EAR 02/13/2018 TJ CHAMBERS MD Ot H92.02 OTALGIA, LEFT EAR 02/13/2018 TJ CHAMBERS MD Ot I10 ESSENTIAL (PRIMARY) HYPERTENSION 02/13/2018 TJ CHAMBERS MD Ot J45.909 UNSPECIFIED ASTHMA, UNCOMPLICATED 02/13/2018 TJ CHAMBERS MD Ot R11.0 NAUSEA 02/13/2018 TJ CHAMBERS MD T Ot Z88.1 ALLERGY STATUS TO OTHER ANTIBIOTIC AGENT 02/13/2018 TJ CHAMBERS MD T Ot Z90.89 ACQUIRED ABSENCE OF OTHER ORGANS 02/13/2018 TJ CHAMBERS MD T Ot Z98.51 TUBAL LIGATION STATUS 02/13/2018 TJ CHAMBERS MD T Ot F17.210 NICOTINE DEPENDENCE, CIGARETTES, UNCOMPL 02/13/2018 TJ CHAMBERS MD T Ot F31.9 BIPOLAR DISORDER, UNSPECIFIED 02/13/2018 TJ CHAMBERS MD T Ot F41.9 ANXIETY DISORDER, UNSPECIFIED 02/13/2018 TJ CHAMBERS MD T Ot H66.92 OTITIS MEDIA, UNSPECIFIED, LEFT EAR 02/13/2018 TJ CHAMBERS MD T Ot H92.02 OTALGIA, LEFT EAR 02/13/2018 TJ CHAMBERS MD T Ot I10 ESSENTIAL (PRIMARY) HYPERTENSION 02/13/2018 TJ CHAMBERS MD T Ot J45.909 UNSPECIFIED ASTHMA, UNCOMPLICATED 02/13/2018 TJ CHAMBERS MD T Ot R11.0 NAUSEA 02/13/2018 TJ CHAMBERS MD T Ot Z88.1 ALLERGY STATUS TO OTHER ANTIBIOTIC AGENT 02/13/2018 TJ CHAMBERS MD T Ot Z90.89 ACQUIRED ABSENCE OF OTHER ORGANS 02/13/2018 TJ CHAMBERS MD T Ot Z98.51 TUBAL LIGATION STATUS 02/17/2018 HUGH RONQUILLO GOLF COURSE EQUIPMENT OPERATOR Ot F17.210 NICOTINE DEPENDENCE, CIGARETTES, UNCOMPL 02/17/2018 HUGH RONQUILLO GOLF COURSE EQUIPMENT OPERATOR Ot F31.9 BIPOLAR DISORDER, UNSPECIFIED 02/17/2018 HUGH RONQUILLO GOLF COURSE EQUIPMENT OPERATOR Ot F41.9 ANXIETY DISORDER, UNSPECIFIED 02/17/2018 HUGH RONQUILLO GOLF COURSE EQUIPMENT OPERATOR Ot H60.92 UNSPECIFIED OTITIS EXTERNA, LEFT EAR 02/17/2018 HUGH RONQUILLO GOLF COURSE EQUIPMENT OPERATOR Ot H92.02 OTALGIA, LEFT EAR 02/17/2018 HUGH RONQUILLO GOLF COURSE EQUIPMENT OPERATOR Ot I10 ESSENTIAL (PRIMARY) HYPERTENSION 02/17/2018 HUGH RONQUILLO GOLF COURSE EQUIPMENT OPERATOR Ot J45.909 UNSPECIFIED ASTHMA, UNCOMPLICATED 02/17/2018 HUGH RONQUILLO APRN Ot Z88.1 ALLERGY STATUS TO OTHER ANTIBIOTIC AGENT 02/17/2018 HUGH RONQUILLO APRN Ot Z90.89 ACQUIRED ABSENCE OF OTHER ORGANS 02/17/2018 HUGH RONQUILLO APRN Ot Z98.51 TUBAL LIGATION STATUS 02/19/2018 HUGH RONQUILLO APRN Ot F17.210 NICOTINE DEPENDENCE, CIGARETTES, UNCOMPL 02/19/2018 HUGH RONQUILLO APRN Ot F31.9 BIPOLAR DISORDER, UNSPECIFIED 02/19/2018 HUGH RONQUILLO APRN Ot F41.9 ANXIETY DISORDER, UNSPECIFIED 02/19/2018 HUGH RONQUILLO APRN Ot H60.92 UNSPECIFIED OTITIS EXTERNA, LEFT EAR 02/19/2018 HUGH RONQUILLO APRN Ot H92.02 OTALGIA, LEFT EAR 02/19/2018 HUGH RONQUILLO APRN Ot I10 ESSENTIAL (PRIMARY) HYPERTENSION 02/19/2018 HUGH RONQUILLO APRN Ot J45.909 UNSPECIFIED ASTHMA, UNCOMPLICATED 02/19/2018 HUGH RONQUILLO APRN Ot Z88.1 ALLERGY STATUS TO OTHER ANTIBIOTIC AGENT 02/19/2018 HUGH RONQUILLO APRN Ot Z90.89 ACQUIRED ABSENCE OF OTHER ORGANS 02/19/2018 HUGH RONQUILLO APRN Ot Z98.51 TUBAL LIGATION STATUS 03/14/2018 PAULINE WILLIS DO Ot 715.37 LOC OSTEOARTH NOS-ANKLE 03/14/2018 PAULINE WILLIS DO Ot 729.5 PAIN IN LIMB Procedures Code Description [place] [address] CMP 11/14/2012 50105 TSH 11/14/2012 46103 CBC 11/14/2012 68103 PULMONARY FUNCTION TEST (IN- HOUSE) 11/14/2012 47666 OXIMETRY 11/14/2012 48370 CULTURE UROGENITAL 12/03/2012 10438 GC/CHLAM PROBE (STATE) 12/03/2012 69469 PAP SMEAR 12/03/2012 Q0091 PAP SMEAR OBTAIN SMEAR 12/03/2012 44911 CULTURE WOUND (AEROBIC) 12/10/2012 08355 XRAY FOOT RIGHT 2 VIEWS 05/05/2013 96532 PULMONARY FUNCTION TEST (IN- HOUSE) 05/29/2013 78695 BRONCHODILATION PRE/POST 05/29/2013 58222 RESPIRATORY FLOW VOLUME LOOP 05/29/2013 70783 PULMONARY EDUCATION 05/29/2013 91612 ROUTINE VENIPUNCTURE 10/22/2013 18125 PAP SMEAR 10/22/2013 19876 URINE TEST (IN- HOUSE) 10/22/2013 48464 URINE DRUG SCREEN (IN-HOUSE ) 10/22/2013 04122 CBC 10/22/2013 2932380 GFR CALC (RESULT ONLY) 10/22/2013 03755 CMP 10/22/2013 40454 LIPID PANEL 10/22/2013 07692 TSH 10/22/2013 63938 HEPATITIS PROFILE 10/22/2013 82011 HIV ANTIBODIES (RML) 10/23/2013 10051 SYPHILLIS TEST 10/23/2013 83207 CULTURE UROGENITAL 10/25/2013 80006 ROUTINE VENIPUNCTURE 11/16/2014 15133 XRAY FOOT RIGHT 2 VIEWS 11/16/2014 52258 TSH 11/16/2014 30011 CBC 11/16/2014 3880891 GFR CALC (RESULT ONLY) 11/16/2014 09582 CMP 11/16/2014 18189 LIPID PANEL 11/16/2014 Results Test Result Range Genital Culture, Routine - 04/04/17 17:16 Genital Culture, Routine Note Pap Lb, HPV-hr - 04/05/17 00:00 HPV, high-risk Negative Negative DIAGNOSIS: Comment Specimen adequacy: Comment Clinician provided ICD10: Comment Performed by: Comment . . Pathologist provided ICD10: Comment Note: Comment Encounters ACCT No. Visit Date/Time Discharge Status Pt. Type Provider Facility Loc./Unit Complaint [id number] 11/16/2014 10:57:00 11/16/2014 23:59:59 CLS Outpatient SIOMARA PITTS MD [id number] 11/16/2014 10:57:00 11/16/2014 23:59:59 CLS Outpatient SIOMARA PITTS MD [id number] 10/22/2013 10:51:00 10/22/2013 23:59:59 CLS Outpatient EVE GARCIA DO [id number] 10/22/2013 10:51:00 10/22/2013 23:59:59 CLS Outpatient RASHEL STEWARD APRN [id number] 05/05/2013 16:03:00 05/05/2013 23:59:59 CLS Outpatient CHERELLE WEEKS APRN [id number] 12/16/2012 13:34:00 12/16/2012 23:59:59 CLS Outpatient CARMEN OBRIEN APRN [id number] 12/10/2012 15:14:00 12/10/2012 23:59:59 CLS Outpatient [id number] 12/03/2012 10:14:00 12/03/2012 23:59:59 CLS Outpatient EVE GARCIA DO [id number] 11/14/2012 14:42:00 11/14/2012 23:59:59 CLS Outpatient [id number] 05/29/2013 15:54:00 Document Registration [id number] 05/29/2013 09:39:00 Document Registration [id number] 05/05/2013 16:03:00 Document Registration [id number] 04/08/2017 13:05:00 Document Registration [id number] 02/17/2018 20:12:00 02/17/2018 20:33:00 DIS Emergency HUGH RONQUILLO APRN [facility] ER L EARDRUM PAIN [id number] 02/11/2018 10:07:00 02/11/2018 11:17:00 DIS Emergency REYES SALVADOR, TJ Ayala [facility] ER EAR ACHE,EAR BLEEDING PER PT [id number] 10/27/2016 18:21:00 10/27/2016 19:05:00 DIS Emergency YAMILET DARVIN SAENZ [facility] ER L FOOT/LEG PAIN [id number] 12/01/2015 12:40:00 12/01/2015 14:29:00 DIS Emergency HUGH RONQUILLO APRN [facility] ER BOTH HANDS ALLERGIC REACTION [id number] 07/03/2015 21:57:00 07/04/2015 00:26:00 DIS Emergency MERE HAYNES [facility] ER NAUSEA/NOT FEELING WELL [id number] 05/03/2015 10:35:00 05/17/2015 10:38:00 DIS Outpatient MARK ANTHONY LING [facility] REHAB B FOOT PAIN PLANTAR FASCITIS [id number] 02/25/2015 15:59:00 02/25/2015 23:59:59 CLS Outpatient PAULINE WILLIS DO [facility] RAD FEET PAIN LAST 4 MONTHS [id number] 06/18/2013 16:57:00 06/18/2013 23:59:59 CLS Outpatient [id number] 05/31/2013 18:33:00 05/31/2013 19:40:00 DIS Emergency MERE HAYNES [facility] ER BITE ON L LEG [id number] 05/30/2013 04:57:00 05/30/2013 05:40:00 DIS Emergency BIBI JEWELL MD [facility] ER SOA,HUMAN BITE ON LEFT LEG [id number] 03/14/2018 00:06:00 ACT Emergency YAMILET DO, DARVIN K [facility] ER POSS PNEUMONIA [id number] 02/25/2015 15:59:00 Document Registration [id number] 12/10/2011 13:03:00 Document Registration [id number] 12/09/2011 23:39:00 Document Registration [id number] 05/08/2011 15:32:00 Document Registration [id number] 05/07/2011 07:42:00 Document Registration [id number] 04/12/2011 22:00:00 Document Registration [id number] 10/07/2010 18:05:00 Document Registration [id number] 07/21/2010 08:52:00 Document Registration [id number] 05/01/2010 16:54:00 Document Registration [id number] 04/10/2010 11:58:00 Document Registration [id number] 07/04/2015 01:39:55 ACT Document Registration [id number] 02/24/2018 09:40:00 02/24/2018 23:59:59 [facility] [id number] 04/10/2017 18:08:00 Document Registration
[2018-03-14] MEDS ORDERED: ESCI20TA45 (00:18)
[2018-03-14] MEDS ORDERED: BENZONATATE 100 MG (TESSALON) CAPSULE PO SCH (00:30)
[2018-03-14] MEDS ORDERED: PROMETHAZINE/ CODEINE SYRUP 5 ML UDC PO ONE (00:30)
[2018-03-14] MEDS ORDERED: RX-DOXYCYCLINE 100 MG (VIBRAMYCIN) TAB PPK#2 PO STA (01:42)
[2018-03-14] MEDS ORDERED: AMOX-358 PO (01:48)
[2018-03-14] MEDS ORDERED: BENZ-13 PO (01:48)
[2018-03-14] MEDS ORDERED: FLUT9.9S NS (01:48)
[2018-03-14] MEDS ORDERED: METH4TAB PO (01:48)
[2018-03-14] MEDS ORDERED: BUDE90AE2 IH (01:48)
[2018-03-14] MEDS ORDERED: D-ME118S7 PO (01:48)
--- NOTE | 2018-03-14 01:48 | ED Cough/URI ---
General Chief Complaint: Cough/Cold/Flu Symptoms Stated Complaint: POSS PNEUMONIA Source: patient Exam Limitations: no limitations History of Present Illness Date Seen by Provider: Mar 14, 2018 Time Seen by Provider: 00:20 Initial Comments PT ARRIVES VIA POV FROM HOME C/O NON-PRODUCTIVE COUGH AND CONGESTION X 5-6 DAYS, WORSE FOR THE LAST COUPLE OF DAYS C/O SINUS PAIN AND YELLOW DRAINAGE C/O LEFT EAR PAIN--HAD LEFT EARDRUM RUPTURE APPROXIMATELY A MONTH AGO, HAS APPOINTMENT WITH DR. JACKSON C/O SORE THROAT C/O YELLOW DRAINAGE FROM EYES HAS HAD SUBJECTIVE FEVER AND NIGHT SWEATS. STATES SHE CAN'T SLEEP DUE TO COUGH AND AT TIMES CAN'T CATCH HER BREATH DUE TO COUGH NO CHEST PAIN PT HAS HISTORY OF ASTHMA, AND HAS ALBUTEROL INHALER, LAST USED AROUND 1999 TONIGHT. HAS ALSO USED SON'S NEBULIZER X 1 TONIGHT--NO SIGNIFICANT IMPROVEMENT PT CONTINUES TO SMOKE 1 PPD LMP 2 WEEKS AGO. NORMAL. S/P BTL PCP: [facility] Allergies and Home Medications Allergies Coded Allergies: cephalexin (Verified Allergy, Unknown, 02/11/18) clindamycin (Verified Allergy, Unknown, 10/27/16) Home Medications Amoxicillin/Potassium Clav 1 Each Tablet, 1 EACH PO BID Prescribed by: DARVIN WOODARD on 03/14/18147 Benzonatate 100 Mg Capsule, 1-2 TAB PO TID Prescribed by: DARVIN WOODARD on 03/14/18147 Budesonide 90 Mcg Aer.pow.ba, 90 MCG IH BID Prescribed by: DARVIN WOODARD on 03/14/18147 D-Methorphan Hb/Prometh HCl 118 Ml Syrup, 1-2 TSP PO Q4H Prescribed by: DARVIN WOODARD on 03/14/18147 Fluticasone Propionate 9.9 Ml [place].susp, 2 SPRAYS NS BID Prescribed by: DARVIN WOODARD on 03/14/18147 Methylprednisolone 4 Mg Tab.ds.pk, 4 MG PO UD Prescribed by: DARVIN WOODARD on 03/14/18147 Patient Home Medication List Home Medication List Reviewed: Yes Review of Systems Constitutional: see HPI, diaphoresis, fever, malaise, weakness EENTM: see HPI, hearing loss (ON LEFT), ear pain, nose congestion, throat pain Respiratory: see HPI, cough, short of breath, wheezing Cardiovascular: no symptoms reported Gastrointestinal: no symptoms reported Genitourinary: no symptoms reported : No LMP: Mar 02, 2018 Musculoskeletal: no symptoms reported Skin: no symptoms reported Psychiatric/Neurological: No Symptoms Reported Hematologic/Lymphatic: No Symptoms Reported Immunological/Allergic: no symptoms reported Past Ytsxwqw-Lifwpb-Fegwxi Hx Patient Social History Alcohol Use: Denies Use Recreational Drug Use: No Smoking Status: Current Everyday Smoker (1 PPD) Type Used: Cigarettes (1 PPD) 2nd Hand Smoke Exposure: No Recent Foreign Travel: No Contact w/Someone Who Travel: No Recent Hopitalizations: No Immunizations Up To Date Tetanus Booster (TDap): Less than 5yrs Seasonal Allergies Seasonal Allergies: Yes Past Medical History Surgeries: Yes Adenoidectomy, Tonsillectomy, Tubal Ligation Respiratory: Yes Asthma Cardiac: Yes Hypertension Neurological: No : No Reproductive Disorders: No [employer] 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 LEFT TM INFLAMED AND DULL/SCLEROTIC. NASAL MUCOSAL EDEMA, CLEAR RHINORRHEA. MODERATE RIGHT MAXILLARY SINUS TENDERNESS. ) Neck: non-tender, full range of motion, supple, normal inspection; No lymphadenopathy (R), No lymphadenopathy (L) Respiratory: normal breath sounds, no respiratory distress, no accessory muscle use Cardiovascular: regular rate, rhythm, no murmur Gastrointestinal: normal bowel sounds, non tender, soft Extremities: normal inspection, no pedal edema, normal capillary refill Neurologic/Psychiatric: machine inker II-XII nml as tested, no motor/sensory deficits, alert, normal mood/affect, oriented x 3 Skin: normal color, warm/dry Progress/Results/Core Measures Suspected Sepsis SIRS Temperature: Pulse: Respiratory Rate: Blood Pressure / Mean: Results/Orders Micro Results Microbiology 03/14/18 Influenza Types A,B Antigen (KATELYNN) - Final, Complete My Orders Orders - DARVIN WOODARD DO Influenza A And B Antigens (03/14/18 00:27) Chest Pa/Lat (2 View) (03/14/18 00:27) Benzonatate Capsule (Tessalon Perles) (03/14/18 00:30) Promethazine/ Codeine Syrup (Phenergan W (03/14/18 00:30) Rx-Doxycycline Tablet (Rx-Vibramycin Tab (03/14/18 01:42) Amoxicillin/Clavulanate Tablet (Augmenti (03/14/18 07:00) Amoxicillin/Clavulanate Tablet (Augmenti (03/14/18 01:55) Medications Given in ED Current Medications Medications Dose Ordered Sig/Michelle Route Start Time Stop Time Status Last Admin Dose Admin Promethazine HCl/ Codeine 5 ml ONCE ONCE PO 03/14/18 00:30 03/14/18 00:32 DC 03/14/18 00:37 5 ML Vital Signs/I&O 03/14/18 03/14/18 03/14/18 00:12 00:12 06:38 Temp 98.1 98.1 Pulse 97 97 Resp 20 20 B/P (MAP) 149/92 (111) 149/92 (111) Pulse Ox 98 98 O2 Delivery Room Air Room Air Room Air Capillary Refill : Progress Note : Progress Note COUGH RESOLVED WITH MEDICATIONS Diagnostic Imaging Comments CXR--NO ACUTE PROCESS, PENDING RADIOLOGIST REVIEW Reviewed: Reviewed by Me Departure Impression Primary Impression: Bronchitis Additional Impressions: Sinusitis Left otitis media Disposition: HOME, SELF-CARE Condition: Improved Departure-Patient Inst. Referrals: [facility] (PCP/Family) Primary Care Physician Patient Instructions: Acute Bronchitis, Adult (DC), Sinusitis, Adult (DC) Add. Discharge Instructions: TYLENOL AND MOTRIN NEEDED FOR PAIN OR FEVER CONTINUE ALBUTEROL INHALER PRESCRIBED--2 PUFFS EVERY 4 HOURS NEEDED FOR BREATHING, WITH SPACER LOTS OF CLEAR LIQUIDS--WATER, BROTH, JELLO, GATORADE FOLLOW UP WITH YOUR DR IN 3-4 DAYS IF NO BETTER All discharge instructions reviewed with patient and/or family. Voiced understanding. Scripts Benzonatate (Tessalon Perle) 100 Mg Capsule 1-2 TAB PO TID for Cough, #30 CAP Prov: DARVIN WOODARD DO 03/14/18 Budesonide (Pulmicort Flexhaler) 90 Mcg Aer.pow.ba 90 MCG IH BID, #1 GM Prov: DARVIN WOODARD DO 03/14/18 D-Methorphan Hb/Prometh HCl (Promethazine-Dm Syrup) 118 Ml Syrup 1-2 TSP PO Q4H for Cough, #120 ML Prov: DARVIN WOODARD DO 03/14/18 Methylprednisolone (Medrol) 4 Mg Tab.ds.pk 4 MG PO UD, #1 PKG Prov: DARVIN WOODARD DO 03/14/18 Fluticasone Propionate (Flonase Allergy Relief) 9.9 Ml [place].susp 2 SPRAYS NS BID, #1 SPRAY Prov: DARVIN WOODARD DO 03/14/18 Amoxicillin/Potassium Clav (Augmentin 875-125 Tablet) 1 Each Tablet 1 EACH PO BID for INFECTION, #20 TAB Prov: DARVIN WOODARD DO 03/14/18 DARVIN WOODARD DO Mar 14, 2018 01:48
[2018-03-14] MEDS ORDERED: AUGMENTIN 875 MG TAB (AMOXICILLIN/CLAVULANATE) ONE (01:55)
[2018-03-14 06:38] VITALS: BP 149/92
--- NOTE | 2018-03-14 06:54 | Diagnostic Imaging Report ---
INDICATION: Cough and congestion. COMPARISON: None FINDINGS: 2 views of the chest are obtained. Heart size is normal. The pulmonary vessels appear unremarkable. There is no pneumothorax, mediastinal widening or pleural fluid. Lungs are clear. Osseous structures appear unremarkable. IMPRESSION: Negative chest. Dictated by: Dictated on workstation # [id number]
[2018-03-14] MEDS ORDERED: AUGMENTIN 875 MG TAB (AMOXICILLIN/CLAVULANATE) PO SCH (07:00)
== END 2018-03-14 02:01 | disposition home or self-care (01) ==
LOC: EDUNIT# 00:04 → ER 00:06
DX: J40 Bronchitis, not specified as acute or chronic (principal); J32.9 Chronic sinusitis, unspecified; H66.92 Otitis media, unspecified, left ear; F41.9 Anxiety disorder, unspecified; F31.9 Bipolar disorder, unspecified; I10 Essential (primary) hypertension; F17.210 Nicotine dependence, cigarettes, uncomplicated; Z98.51 Tubal ligation status; Z90.89 Acquired absence of other organs; Z88.1 Allergy status to other antibiotic agents
CPT/HCPCS: 71046; 87804

== ENCOUNTER 2018-03-28 00:33 | Emergency (ER) | payer OTHER ==
[~2018-03-28] VITALS: Ht 185.4 cm; Wt 127.0 kg
[~2018-03-28 00:33] MED LIST changes: +AMOX-358 PO; +BENZ-13 PO; +BUDE90AE2 IH; +D-ME118S7 PO; +ESCI20TA45; +FLUT9.9S NS
[2018-03-28] MEDS ORDERED: HYDROcodone/APAP 7.5 MG/325 MG (LORTAB, LORCET PLUS) TABLET PO STA (00:52)
[2018-03-28] MEDS ORDERED: KETOROLAC 60 MG/2 ML VIAL IM STA (00:52)
--- NOTE | 2018-03-28 00:58 | ED Lower Extremity ---
General Chief Complaint: Lower Extremity Stated Complaint: POSS BLOOD CLOT,RT LEG,PAIN Nursing Triage Note: pt presents to er with complaint of severe right lower leg pain. Nursing Sepsis Screen: No Definite Risk Source: patient Exam Limitations: no limitations History of Present Illness Date Seen by Provider: Mar 28, 2018 Time Seen by Provider: 00:45 Initial Comments Here with report of right leg pain that starts at the bottom of her foot goes up to above the knee. This is been going on for several days but much worse tonight. She did try ibuprofen 400 mg several hours ago as well as a bath and Epsom salts and then ice packs afterwards and this has relieved her pain. 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 She states that she works 6-7 days a week. No report of swelling or injury. Onset: other (last several days) Severity: moderate Pain/Injury Location: right leg Method of Injury: unknown Modifying Factors: Improves With Immobilization; Worse With Movement Allergies and Home Medications Allergies Coded Allergies: cephalexin (Verified Allergy, Unknown, 02/11/18) clindamycin (Verified Allergy, Unknown, 10/27/16) Patient Home Medication List Home Medication List Reviewed: Yes Constitutional: see HPI; No chills, No fever Respiratory: No cough, No short of breath Cardiovascular: No chest pain, No edema Gastrointestinal: No abdominal pain, No nausea, No vomiting Musculoskeletal: see HPI; No back pain; joint pain, muscle pain Skin: No change in color, No lesions Psychiatric/Neurological: No Symptoms Reported All Other Systems Reviewed Negative Unless Noted: Yes Past Trbnrwa-Suyqww-Ebnzel Hx Past Med/Social Hx: Reviewed Nursing Past Med/Soc Hx Patient Social History Alcohol Use: Occasionally Uses Recreational Drug Use: No Smoking Status: Current Everyday Smoker Type Used: Cigarettes 2nd Hand Smoke Exposure: No Recent Foreign Travel: No Contact w/Someone Who Travel: No Recent Infectious Disease Expo: No Recent Hopitalizations: No Immunizations Up To Date Tetanus Booster (TDap): Less than 5yrs Seasonal Allergies Seasonal Allergies: Yes Past Medical History Surgeries: Yes Adenoidectomy, Tonsillectomy, Tubal Ligation Respiratory: Yes Asthma Cardiac: Yes Hypertension Neurological: No 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 Sexually Transmitted Disease: No Genitourinary: No Gastrointestinal: No Musculoskeletal: Yes Arthritis Endocrine: No HEENT: No Cancer: No Psychosocial: Yes Anxiety, Bipolar, Depression Integumentary: No Blood Disorders: No Adverse Reaction/Blood Tranf: No Family Medical History Reviewed Nursing Family Hx No Pertinent Family Hx Physical Exam Vital Signs Vital Signs - First Documented 03/28/18 00:41 Temp 96.4 Pulse 64 Resp 20 B/P (MAP) 127/76 (93) Pulse Ox 98 O2 Delivery Room Air Capillary Refill : Less Than 3 Seconds General Appearance: WD/WN, no apparent distress Cardiovascular: regular rate, rhythm, no murmur Respiratory: lungs clear, normal breath sounds Gastrointestinal: non tender, soft Back: normal inspection, no CVA tenderness, no vertebral tenderness Legs: bilateral leg other (legs are of equal size. No redness noted. Reports tenderness to the right leg from the foot to above the knee. No appreciable swelling noted.) Neurologic/Psychiatric: alert, oriented x 3 Skin: normal color, warm/dry Progress/Results/Core Measures Lab Results Laboratory Tests Test 03/28/18 01:00 Range/Units White Blood Count 9.9 4.3-11.0 10^3/uL Red Blood Count 4.04 L 4.35-5.85 10^6/uL Hemoglobin 13.0 11.5-16.0 G/DL Hematocrit 39 35-52 % Mean Corpuscular Volume 96 80-99 FL Mean Corpuscular Hemoglobin 32 25-34 PG Mean Corpuscular Hemoglobin Concent 34 32-36 G/DL Red Cell Distribution Width 12.9 10.0-14.5 % Platelet Count 269 130-400 10^3/uL Mean Platelet Volume 10.7 H 7.4-10.4 FL Neutrophils (%) (Auto) 56 42-75 % Lymphocytes (%) (Auto) 32 12-44 % Monocytes (%) (Auto) 10 0-12 % Eosinophils (%) (Auto) 2 0-10 % Basophils (%) (Auto) 0 0-10 % Neutrophils # (Auto) 5.5 1.8-7.8 X 10^3 Lymphocytes # (Auto) 3.2 1.0-4.0 X 10^3 Monocytes # (Auto) 1.0 0.0-1.0 X 10^3 Eosinophils # (Auto) 0.2 0.0-0.3 10^3/uL Basophils # (Auto) 0.0 0.0-0.1 10^3/uL D-Dimer 0.28 0.00-0.49 UG/ML Sodium Level 140 135-145 MMOL/L Potassium Level 3.8 3.6-5.0 MMOL/L Chloride Level 108 H 98-107 MMOL/L Carbon Dioxide Level 22 21-32 MMOL/L Anion Gap 10 5-14 MMOL/L Blood Urea Nitrogen 17 7-18 MG/DL Creatinine 0.76 0.60-1.30 MG/DL Estimat Glomerular Filtration Rate > 60 BUN/Creatinine Ratio 22 Glucose Level 100 70-105 MG/DL Calcium Level 8.7 8.5-10.1 MG/DL My Orders Orders - BIBI JEWELL MD Basic Metabolic Panel (03/28/18 00:52) Cbc With Automated Diff (03/28/18 00:52) Fibrin Degradation Products (03/28/18 00:52) Hydrocodone/Apap 7.5/325 Tab (Lortab 7. (03/28/18 00:52) Ketorolac Injection (Toradol Injection) (03/28/18 00:52) Vital Signs/I&O 03/28/18 00:41 Temp 96.4 Pulse 64 Resp 20 B/P (MAP) 127/76 (93) Pulse Ox 98 O2 Delivery Room Air Blood Pressure Mean: 93 Progress Note : Progress Note Seen and evaluated. Due to complaints, we will evaluate for the possibility of blood clots. Patient is not short of air and she is with normal heart rate. She is afebrile. No evidence of infection. The leg is not swollen. I believe she is low risk for blood clot but we will check d-dimer and basic labs. Toradol 60 mg IM and hydrocodone 7.5 one tab by mouth given. Monitor patient. 0145: States pain a little bit better but not resolved. No indication of blood clots by lab and no indication of electrolyte abnormality or infection either. Patient does complain of pain that emanates from the base of the foot and this may be plantar fasciitis with referred pain as well. We did discuss that. We discussed outpatient treatment options. I will prescribe Naprosyn and tramadol for severe pain. Discharged home with return precautions. Patient verbalize understanding of instructions and agreement with plan. I did apply Antoine wrap per patient request for comfort. Departure Impression Primary Impression: Plantar fasciitis Additional Impression: Leg pain, right Disposition: HOME, SELF-CARE Condition: Stable Departure-Patient Inst. Decision time for Depature: 01:46 Referrals: [facility] (PCP/Family) Primary Care Physician Patient Instructions: Heel Pain (Caused by Plantar Fasciitis) (DC), Plantar Fasciitis Exercises Add. Discharge Instructions: All discharge instructions reviewed with patient and/or family. Voiced understanding. Take medications as directed. You may also take Tylenol/acetaminophen 1000 mg every 8 hours as needed for pain. Follow-up with your doctor for further evaluation and recheck in the next few days. Return for worse pain, fever, vomiting, weakness, rhythm problems or other concerns as needed. BIBI JEWELL MD Mar 28, 2018 00:58
[2018-03-28 01:10] LABS: BASOPHILS % (AUTO) 0 % (0-10); EOSINOPHILS # (AUTO) 0.2 10^3/uL (0.0-0.3); EOSINOPHILS % (AUTO) 2 % (0-10); HEMATOCRIT 39 % (35-52); LYMPHOCYTES # (AUTO) 3.2 X 10^3 (1.0-4.0); LYMPHOCYTES % (AUTO) 32 % (12-44); MEAN CORPUSCULAR HEMOGLOBIN 32 PG (25-34); MEAN CORPUSCULAR HGB CONC 34 G/DL (32-36); MEAN CORPUSCULAR VOLUME 96 FL (80-99); MEAN PLATELET VOLUME 10.7 FL (7.4-10.4); MONOCYTES % (AUTO) 10 % (0-12); NEUTROPHILS # (AUTO) 5.5 X 10^3 (1.8-7.8); NEUTROPHILS % (AUTO) 56 % (42-75); PLATELET COUNT 269 10^3/uL (130-400); RED BLOOD COUNT 4.04 10^6/uL (4.35-5.85); RED CELL DISTRIBUTION WIDTH 12.9 % (10.0-14.5); WHITE BLOOD COUNT 9.9 10^3/uL (4.3-11.0)
[2018-03-28 01:27] LABS: BUN/CREATININE RATIO 22; CALCIUM 8.7 MG/DL (8.5-10.1); CARBON DIOXIDE 22 MMOL/L (21-32); CHLORIDE 108 MMOL/L (98-107); CREATININE SERUM 0.76 MG/DL (0.60-1.30); GFR ESTIMATED > 60; GLUCOSE 100 MG/DL (70-105); POTASSIUM 3.8 MMOL/L (3.6-5.0); SODIUM 140 MMOL/L (135-145)
[2018-03-28] MEDS ORDERED: NAPR-1071 PO (01:49)
[2018-03-28] MEDS ORDERED: TRAM50TA2 PO (01:49)
[2018-03-28 01:55] VITALS: BP 127/76
== END 2018-03-28 01:55 | disposition home or self-care (01) ==
LOC: EDUNIT# 00:33 → ER 00:36
DX: M72.2 Plantar fascial fibromatosis (principal); J45.909 Unspecified asthma, uncomplicated; I10 Essential (primary) hypertension; F31.9 Bipolar disorder, unspecified; F41.9 Anxiety disorder, unspecified; F17.210 Nicotine dependence, cigarettes, uncomplicated; Z88.1 Allergy status to other antibiotic agents; Z90.89 Acquired absence of other organs; Z98.51 Tubal ligation status
CPT/HCPCS: 36415; 80048; 85025; 85379; 96372; 99284

== ENCOUNTER 2019-05-03 16:37 | Emergency (ER) | payer OTHER ==
[~2019-05-03] VITALS: Ht 185.4 cm; Wt 136.1 kg
[~2019-05-03 16:37] MED LIST changes: -BENZ-13 PO; +BENZ100C18 PO; +HYDR-4226 PO; -HYDR-757 PO; +NAPR-1071 PO
[2019-05-03 16:56] VITALS: BP 115/106
--- NOTE | 2019-05-03 17:00 | NUR ---
NOTIFIED OF BUSY ER WITH LONG WAIT TIME.
--- NOTE | 2019-05-03 17:45 | NUR ---
DR KASPER IN ROOM
[2019-05-03] MEDS ORDERED: BUPIVACAINE 0.5% 30 ML (SENSORCAINE) VIAL INJ ONE (18:00)
[2019-05-03] MEDS ORDERED: LIDOCAINE/EPI 2% 1:100,00 (XYLOCAINE) 20 ML VIAL INJ ONE (18:00)
[2019-05-03] MEDS ORDERED: methylPREDNISolone 80 MG/ML (DEPO MEDROL) VIAL IA ONE (18:00)
--- NOTE | 2019-05-03 18:09 | ED Lower Extremity ---
General Chief Complaint: Lower Extremity Stated Complaint: R SIDE SCIATICA/R LEG SWELLING/FEVER Nursing Triage Note: COMPLAINS OF RIGHT SCIATICA PAIN STARTING AT 1800 / Nursing Sepsis Screen: No Definite Risk Source: patient Exam Limitations: no limitations History of Present Illness Date Seen by Provider: May 03, 2019 Time Seen by Provider: 17:50 Initial Comments Patient presents ER by private conveyance with chief complaint of one-day worsening progressively re-incidence of her sciatic pain and low back pain. She says sciatic pains down her right leg radiating down to her heel. She has some numbness in her right lower leg. She is able to walk as I had any falls no recent trauma back injuries or car wrecks. 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 She works at the [employer]. She spent all day yesterday taking hot baths using topical creams and trying to sleep it off in bed. She does not use Tylenol but she does have Naprosyn at home. She diarrhea and denies any saddle anesthesia, urinary incontinence or hesitancy, bowel in continence. She's had imaging done before at the urgent care she says but when she brought this problem up with her primary care doctor she says they did not do anything about it. She does however have a referral to a specialist at [facility] at the end of the month for her back pain. 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 She's had her tubes tied. Allergies and Home Medications Allergies Coded Allergies: cephalexin (Verified Allergy, Unknown, 02/11/18) clindamycin (Verified Allergy, Unknown, 10/27/16) Home Medications Naproxen 500 Mg Tablet, 500 MG PO BID PRN for PAIN-MILD TO MODERATE Prescribed by: BIBI JEWELL on 03/28/18148 Tramadol HCl 50 Mg Tablet, 50 MG PO Q6H PRN for PAIN Prescribed by: BIBI JEWELL on 03/28/18148 Patient Home Medication List Home Medication List Reviewed: Yes Review of Systems Constitutional: No chills, No malaise EENTM: No ear discharge, No ear pain Respiratory: No cough, No short of breath Cardiovascular: No chest pain, No edema Gastrointestinal: No abdominal pain, No nausea Genitourinary: No discharge, No dysuria : No Control/STD Prophylaxis: Other (tubal ligation) Past Qbbxbgl-Anyyjn-Djvnfa Hx Patient Social History Alcohol Use: Occasionally Uses Recreational Drug Use: No Smoking Status: Current Everyday Smoker Type Used: Cigarettes 2nd Hand Smoke Exposure: No Recent Foreign Travel: No Contact w/Someone Who Travel: No Recent Infectious Disease Expo: No Recent Hopitalizations: No Immunizations Up To Date Tetanus Booster (TDap): Less than 5yrs Seasonal Allergies Seasonal Allergies: Yes Past Medical History Surgeries: Yes Adenoidectomy, Tonsillectomy, Tubal Ligation Respiratory: Yes Asthma Cardiac: Yes Hypertension Neurological: No : No Last Menstrual Period: April 29, 2019 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 oz. [id number]; 44.19 BMI Method:Stated General Appearance: WD/WN, obese HEENT: PERRL/EOMI, pharynx normal Neck: full range of motion, normal inspection Cardiovascular: normal peripheral pulses, regular rate, rhythm, no edema Respiratory: no respiratory distress, no accessory muscle use Back: normal inspection, vertebral tenderness (lumbar spine midline as well as the right L5-S1 facet joint direct palpation re-creates her symptoms down her leg.) Hips: bilateral hip non-tender, bilateral hip normal inspection, bilateral hip normal range of motion, bilateral hip no evidence of injury Legs: bilateral leg other (multiple varicosities but no swelling left to right.) Ankles: left ankle other (modest size 4 cm palpable varicosity left posterior ankle) Feet: bilateral foot non-tender, bilateral foot normal inspection, bilateral foot normal range of motion, bilateral foot no evidence of injury Reflexes: 2+ knee (R), 2+ knee (L) Neurologic/Tendon: normal sensation, normal motor functions, responds to pain Neurologic/Psychiatric: alert, normal mood/affect, oriented x 3 Skin: normal color, warm/dry Procedures/Interventions Progress Patient's skin was cleaned thoroughly with Betadine and alcohol. Risks, benefits and alternatives were explained and she consented to the procedure. We then used a 3-1/2 inch 22-gauge spinal needle to deliver the 80 mg of Depo-Medrol and 2- 1/2 cc of half percent Marcaine and 2 and half cc of 2% lidocaine with epinephrine to the L5-S1 facet joint on the right side. Patient began to experience some relief. Progress/Results/Core Measures Results/Orders My Orders Orders - JASMEET KASPER Bupivacaine 0.5% Injection (Sensorcaine (05/03/19 18:00) Lidocaine/Epi 2% 1:100,000 (Xylocaine/Ep (05/03/19 18:00) Methylprednisolone Acetate Inj (Depo-Med (05/03/19 18:00) Vital Signs/I&O 05/03/19 16:56 Temp 98.0 Pulse 68 Resp 16 B/P (MAP) 115/106 (109) Pulse Ox 96 O2 Delivery Room Air Blood Pressure Mean: 109 Progress Progress Note : Time: 18:09 Progress Note Recurrent encourage her to do at least 2-4 weeks of Naprosyn full-strength johnson ly. We will give her an injection in her back and some Marcaine, lidocaine and Depo-Medrol and put her on prednisone for the next few days. Departure Impression Primary Impression: Lumbago with sciatica, right side Qualified Codes: M54.41 - Lumbago with sciatica, right side Disposition: 01 HOME, SELF-CARE Condition: Stable Departure-Patient Inst. Decision time for Depature: 18:24 Referrals: [facility] (PCP/Family) Primary Care Physician Patient Instructions: Low Back Pain (DC) Add. Discharge Instructions: Start taking the Naprosyn 2 capsules [id number] 220 mg twice a day on a schedule for the next 2-4 weeks. If you have a history of acid reflux then you should probably lease picker some omeprazole and take once a day as well. You can lease picker the prednisone and take it 2 tablets daily for the next 5 days. Use heating pads while home or work you can use topical creams such as icy hot. Wear a back brace on the days that helps. If you have muscle spasms you can take the cyclobenzaprine 1 tablet every 8 hours. This medication may cause drowsiness. Keep your follow-up appointment with specialist. Consider following up with a chiropractor. Return to the ER if you have loss of control of your bowels or bladder, inability to walk or complete numbness of both legs. If at the end of 2-4 weeks or still having pain you should also consider follow- up with primary care and discuss things like physical therapy. All discharge instructions reviewed with patient and/or family. Voiced understanding. Scripts Prednisone (Prednisone) 20 Mg Tab 40 MG PO DAILY for 5 Days, #10 TAB 0 Refills Prov: JASMEET KASPER 05/03/19 Naproxen (Naprosyn) 500 Mg Tablet 500 MG PO BID for 30 Days, #60 TAB 0 Refills Prov: JASMEET KASPER 05/03/19 Cyclobenzaprine HCl (Cyclobenzaprine HCl) 10 Mg Tablet 10 MG PO Q8H PRN for SPASMS, #15 TAB 0 Refills Prov: JASMEET KASPER 05/03/19 JASMEET KASPER May 03, 2019 18:09
[2019-05-03] MEDS ORDERED: PRD20T PO (18:26)
[2019-05-03] MEDS ORDERED: NAPR-1071 PO (18:26)
[2019-05-03] MEDS ORDERED: CYCL10TA9 PO (18:26)
[2019-05-03] MEDS ORDERED: KETOROLAC 30 MG/ML VIAL IM ONE (19:15)
--- NOTE | 2019-05-06 10:16 | NUR ---
CM/SS. Patient called Care Management to request assistance with Rx. Reviewed ED visit from 05/03/19, apparently patient had not yet gotten Rx filled. Patient is current with [facility]. Explored with them about getting Rx, patient would need to be seen there before approval of prescriptions and any assistance through their pharmacy. Patient demographics indicate insurance but patient claims she does not have it at this time. PALS: Approved for two Rx only, faxed voucher to [facility]. Patient to get Naproxen OTC. Updated patient of limited assistance, referred her back to [facility] for followup care and further assist. She indicates she has appt with specialist 06/02/19.
== END 2019-05-03 19:26 | disposition home or self-care (01) ==
LOC: EDUNIT# 16:37 → ER 16:39
DX: M54.41 Lumbago with sciatica, right side (principal); J45.909 Unspecified asthma, uncomplicated; I10 Essential (primary) hypertension; F41.9 Anxiety disorder, unspecified; F31.9 Bipolar disorder, unspecified; F17.210 Nicotine dependence, cigarettes, uncomplicated; Z88.1 Allergy status to other antibiotic agents; Z90.89 Acquired absence of other organs; Z98.51 Tubal ligation status
CPT/HCPCS: 96372; 99283

== ENCOUNTER 2019-07-01 13:24 | Emergency (ER) | payer BC, OTHER ==
[~2019-07-01] VITALS: Ht 185.4 cm; Wt 147.9 kg
[2019-07-01] MEDS ORDERED: METH-313 PO (14:09)
[2019-07-01] MEDS ORDERED: PRD20T PO (14:09)
[2019-07-01] MEDS ORDERED: NAPR-1071 PO (14:09)
--- NOTE | 2019-07-01 14:09 | ED Back Pain ---
General Chief Complaint: General Problems/Pain Stated Complaint: SHOULDER PAIN Nursing Triage Note: PATIENT STATES THAT SHE HAS A HISTORY OF SCIATIC PAIN. RECENTLY SHE HAS HAD PAIN THAT RADIATES TO HER SHOULDER BLADES. SHE STATES THE PAIN IS UNBARABLE. SHE ALSO REPORTS INCREASED ANXIETY, INCREASED WEIGHT GAIN AND PAIN IN HER FEET. SHE STATES SHE HAD LABS AT [facility] LAST WEEK THAT WERE ALL NORMAL. Nursing Sepsis Screen: No Definite Risk Source of Information: Patient Exam Limitations: No Limitations History of Present Illness Date Seen by Provider: Jul 01, 2019 Time Seen by Provider: 14:04 Initial Comments ER with low back pain that has recently started to spread up her back Affecting both of her shoulder blades. No recent injury or falls. She is scheduled to see a "specialist" and Angel who is scheduling her for an MRI. Location: Lumbar Spine, Paraspinous Muscles, T-Spine Timing/Duration: 1 Week, Getting Worse Severity: Moderate Pain/Injury Location: Back Associated Symptoms: denies symptoms Allergies and Home Medications Allergies Coded Allergies: cephalexin (Verified Allergy, Unknown, 02/11/18) clindamycin (Verified Allergy, Unknown, 10/27/16) Home Medications Cyclobenzaprine HCl 10 Mg Tablet, 10 MG PO Q8H PRN for SPASMS Prescribed by: JASMEET KASPER on 05/03/191825 Naproxen 500 Mg Tablet, 500 MG PO BID PRN for PAIN-MILD TO MODERATE Prescribed by: BIBI JEWELL on 03/28/18148 Naproxen 500 Mg Tablet, 500 MG PO BID Prescribed by: JASMEET KASPER on 05/03/191825 Prednisone 20 Mg Tab, 40 MG PO DAILY Prescribed by: JASMEET KASPER on 05/03/191825 Tramadol HCl 50 Mg Tablet, 50 MG PO Q6H PRN for PAIN Prescribed by: BIBI JEWELL on 03/28/18148 Patient Home Medication List Home Medication List Reviewed: Yes Review of Systems Constitutional: see HPI EENTM: see HPI Respiratory: no symptoms reported Cardiovascular: no symptoms reported Genitourinary: no symptoms reported Musculoskeletal: see HPI, back pain Skin: no symptoms reported Psychiatric/Neurological: No Symptoms Reported Past Zekmftj-Videhu-Uwsdsc Hx Patient Social History Alcohol Use: Occasionally Uses Recreational Drug Use: No Smoking Status: Current Everyday Smoker Type Used: Cigarettes 2nd Hand Smoke Exposure: No Recent Foreign Travel: No Contact w/Someone Who Travel: No Recent Infectious Disease Expo: No Recent Hopitalizations: No Immunizations Up To Date Tetanus Booster (TDap): Less than 5yrs Seasonal Allergies Seasonal Allergies: Yes Past Medical History Surgeries: Yes Adenoidectomy, Tonsillectomy, Tubal Ligation Respiratory: Yes Asthma Cardiac: Yes Hypertension Neurological: No Reproductive Disorders: No 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 0oz. 147.673111zr; 44.19 BMI Method:Stated General Appearance: No Apparent Distress, WD/WN Neck: Full Range of Motion, Normal Inspection Respiratory: No Accessory Muscle Use, No Respiratory Distress Gastrointestinal: Non Tender, Soft Back: Normal Inspection Extremity: Normal Capillary Refill, Normal Inspection Neurologic/Psychiatric: Alert, Oriented x3 Skin: Normal Color, Warm/Dry Progress/Results/Core Measures Results/Orders Vital Signs/I&O 07/01/19 13:38 Temp 96.6 Pulse 81 Resp 22 B/P (MAP) 143/102 (116) Pulse Ox 98 Blood Pressure Mean: 116 Departure Impression Primary Impression: Back pain Qualified Codes: M54.6 - Pain in thoracic spine Disposition: 01 HOME, SELF-CARE Condition: Stable Departure-Patient Inst. Decision time for Depature: 14:08 Referrals: [facility] (PCP/Family) Primary Care Physician Patient Instructions: Upper Back Pain (DC) Add. Discharge Instructions: 1. Stop the Flexeril, replace it with methocarbamol. 2. Return to ER for any concerns, follow-up with your doctor this week. All discharge instructions reviewed with patient and/or family. Voiced understanding. Scripts Methocarbamol (Robaxin-750) 750 Mg Tablet 750 MG PO Q4H PRN for PAIN-MODERATE TO SEVERE, #30 TAB Prov: HUGH RONQUILLO APRN 07/01/19 Naproxen (Naprosyn) 500 Mg Tablet 500 MG PO BID PRN for PAIN-MODERATE TO SEVERE, #30 TAB 0 Refills Prov: HUGH RONQUILLO APRN 07/01/19 Prednisone (Prednisone) 20 Mg Tab 40 MG PO DAILY, #6 TAB 0 Refills Prov: HUGH RONQUILLO APRN 07/01/19 Work/School Note: Work Release Form Date Seen in the Emergency Department: Jul 01, 2019 Return to Work: Jul 03, 2019 HUGH RONQUILLO APRN Jul 01, 2019 14:09
[2019-07-01] MEDS ORDERED: KETOROLAC 30 MG/ML VIAL IM ONE (14:15)
[2019-07-01 14:20] VITALS: BP 143/102
[2019-07-03] MEDS ORDERED: NITR-65 PO (18:00)
== END 2019-07-01 14:21 | disposition home or self-care (01) ==
LOC: EDUNIT# 13:24 → ER 13:25
DX: M54.5 Low back pain (principal); M54.6 Pain in thoracic spine; I10 Essential (primary) hypertension; J45.909 Unspecified asthma, uncomplicated; F41.9 Anxiety disorder, unspecified; F31.9 Bipolar disorder, unspecified; F17.210 Nicotine dependence, cigarettes, uncomplicated; Z90.89 Acquired absence of other organs; Z98.51 Tubal ligation status; Z88.1 Allergy status to other antibiotic agents; Z79.52 Long term (current) use of systemic steroids
CPT/HCPCS: 96372; 99284

== ENCOUNTER 2019-07-03 15:20 | Emergency (ER) | payer BC | END 2019-07-03 18:16 | disposition home or self-care (01) | LOC: ER 15:20 ==

== ENCOUNTER 2019-08-19 12:59 | Emergency (ER) | payer BC ==
[~2019-08-19] VITALS: Ht 182 cm; Wt 148.0 kg
[~2019-08-19 12:59] MED LIST changes: -D-ME118S7 PO; +METH-313 PO; +NITR-65 PO; +PROM118S4 PO
[2019-08-19] MEDS ORDERED: PROMETHAZINE INJ 25 MG/ML (PHENERGAN) AMP IVP ONE (15:00)
[2019-08-19] MEDS ORDERED: NS IV 1000 ML 1,000 ML IV SCH (15:00)
--- NOTE | 2019-08-19 15:08 | ED General ---
General Chief Complaint: General Problems/Pain Stated Complaint: POSS DEHYDRATION;LOWER BACK PAIN Nursing Triage Note: STATES SHE THINKS SHE GOT TO HOT AT WORK YESTERDAY AND IS DEHYDRATED. HAS NOT FELT WELL SINCE AND CONTINUES TO VOMIT DESPITE THE MEDS THAT WERE GIVEN AT THE CLINIC YESTERDAY. HAS NOT VOMITED IN THE 1.5 HRS THAT SHE HAS BEEN HERE. ALSO COMPLAINS OF SCIATICA AND WOULD LIKE A STEROID SHOT. Nursing Sepsis Screen: No Definite Risk Source of Information: Patient Exam Limitations: No Limitations History of Present Illness Date Seen by Provider: Aug 19, 2019 Time Seen by Provider: 15:06 Initial Comments To ER with nausea and fatigue, she suspects she is dehydrated. This occurred after exposure to excessive heat yesterday in her in air-conditioned environment at [employer] here in [place]. She was given Zofran for nausea by primary care yesterday evening which didn't help. She is not nauseous now however. Timing/Duration: 1-2 Days Severity: Moderate Allergies and Home Medications Allergies Coded Allergies: cephalexin (Verified Allergy, Unknown, 02/11/18) clindamycin (Verified Allergy, Unknown, 10/27/16) Patient Home Medication List Home Medication List Reviewed: Yes Review of Systems Review of Systems Constitutional: see HPI EENTM: see HPI Respiratory: no symptoms reported Cardiovascular: no symptoms reported Gastrointestinal: nausea Genitourinary: no symptoms reported Musculoskeletal: no symptoms reported Skin: no symptoms reported Past Xoywnvs-Eqzkvo-Wkhrpi Hx Patient Social History Alcohol Use: Occasionally Uses Recreational Drug Use: No Drug of Choice: THC Smoking Status: Current Everyday Smoker Type Used: Cigarettes 2nd Hand Smoke Exposure: No Recent Foreign Travel: No Contact w/Someone Who Travel: No Recent Infectious Disease Expo: No Recent Hopitalizations: No Immunizations Up To Date Tetanus Booster (TDap): Less than 5yrs Seasonal Allergies Seasonal Allergies: Yes Past Medical History Surgeries: Yes Adenoidectomy, Tonsillectomy, Tubal Ligation Respiratory: Yes Asthma Cardiac: Yes Hypertension Neurological: No Last Menstrual Period: Aug 16, 2019 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 0oz. 144.383500mu; 44.00 BMI Method:Stated General Appearance: No Apparent Distress, WD/WN Eyes: Bilateral Eye Normal Inspection, Bilateral Eye PERRL, Bilateral Eye EOMI Neck: Full Range of Motion, Normal Inspection Respiratory: Normal Breath Sounds, No Accessory Muscle Use, No Respiratory Distress Cardiovascular: Regular Rate, Rhythm, Normal Peripheral Pulses Gastrointestinal: Normal Bowel Sounds, Non Tender, Soft Extremity: Normal Capillary Refill, Normal Inspection Neurologic/Psychiatric: Alert, Oriented x3 Skin: Normal Color, Warm/Dry Progress/Results/Core Measures Suspected Sepsis Recent Fever Within 48 Hours: No Infection Criteria Present: None New/Unexplained Altered Menta: No Sepsis Screen: No Definite Risk SIRS Temperature: Pulse: 83 Respiratory Rate: 16 Laboratory Tests 08/19/19 15:00: White Blood Count 8.2 Blood Pressure 162 /105 Mean: 124 Laboratory Tests 08/19/19 15:00: Creatinine 0.65, Platelet Count 242 Results/Orders Lab Results Laboratory Tests Test 08/19/19 15:00 Range/Units White Blood Count 8.2 4.3-11.0 10^3/uL Red Blood Count 4.31 L 4.35-5.85 10^6/uL Hemoglobin 13.4 11.5-16.0 G/DL Hematocrit 41 35-52 % Mean Corpuscular Volume 96 80-99 FL Mean Corpuscular Hemoglobin 31 25-34 PG Mean Corpuscular Hemoglobin Concent 32 32-36 G/DL Red Cell Distribution Width 13.0 10.0-14.5 % Platelet Count 242 130-400 10^3/uL Mean Platelet Volume 10.8 H 7.4-10.4 FL Neutrophils (%) (Auto) 59 42-75 % Lymphocytes (%) (Auto) 26 12-44 % Monocytes (%) (Auto) 11 0-12 % Eosinophils (%) (Auto) 4 0-10 % Basophils (%) (Auto) 0 0-10 % Neutrophils # (Auto) 4.8 1.8-7.8 X 10^3 Lymphocytes # (Auto) 2.1 1.0-4.0 X 10^3 Monocytes # (Auto) 0.9 0.0-1.0 X 10^3 Eosinophils # (Auto) 0.4 H 0.0-0.3 10^3/uL Basophils # (Auto) 0.0 0.0-0.1 10^3/uL Sodium Level 137 135-145 MMOL/L Potassium Level 3.8 3.6-5.0 MMOL/L Chloride Level 106 98-107 MMOL/L Carbon Dioxide Level 27 21-32 MMOL/L Anion Gap 4 L 5-14 MMOL/L Blood Urea Nitrogen 7 7-18 MG/DL Creatinine 0.65 0.60-1.30 MG/DL Estimat Glomerular Filtration Rate > 60 BUN/Creatinine Ratio 11 Glucose Level 85 70-105 MG/DL Calcium Level 8.7 8.5-10.1 MG/DL My Orders Orders - HUGH RONQUILLO APRN Cbc With Automated Diff (08/19/19 15:00) Basic Metabolic Panel (08/19/19 15:00) Ed Iv/Invasive Line Start (08/19/19 15:00) Promethazine Injection (Phenergan Injec (08/19/19 15:00) Ns Iv 1000 Ml (Sodium Chloride 0.9%) (08/19/19 15:00) Vital Signs/I&O 08/19/19 13:16 Temp 36.7 Pulse 83 Resp 16 B/P (MAP) 162/105 (124) Pulse Ox 98 O2 Delivery Room Air Capillary Refill : Less Than 3 Seconds Blood Pressure Mean: 124 Departure Impression Primary Impression: Malaise and fatigue Disposition: 01 HOME, SELF-CARE Condition: Stable Departure-Patient Inst. Decision time for Depature: 15:08 Referrals: [facility] (PCP/Family) Primary Care Physician Patient Instructions: Fatigue (DC) Scripts Naproxen (Naprosyn) 500 Mg Tablet 500 MG PO BID PRN for PAIN-MODERATE, #30 TAB 0 Refills Prov: HUGH RONQUILLO APRN 08/19/19 Work/School Note: Work Release Form Date Seen in the Emergency Department: Aug 20, 2019 Return to Work: Aug 19, 2019 HUGH RONQUILLO APRN Aug 19, 2019 15:08
[2019-08-19 15:17] LABS: BASOPHILS % (AUTO) 0 % (0-10); EOSINOPHILS # (AUTO) 0.4 10^3/uL (0.0-0.3); EOSINOPHILS % (AUTO) 4 % (0-10); HEMATOCRIT 41 % (35-52); HEMOGLOBIN 13.4 G/DL (11.5-16.0); LYMPHOCYTES # (AUTO) 2.1 X 10^3 (1.0-4.0); LYMPHOCYTES % (AUTO) 26 % (12-44); MEAN CORPUSCULAR HEMOGLOBIN 31 PG (25-34); MEAN CORPUSCULAR HGB CONC 32 G/DL (32-36); MEAN CORPUSCULAR VOLUME 96 FL (80-99); MEAN PLATELET VOLUME 10.8 FL (7.4-10.4); MONOCYTES # (AUTO) 0.9 X 10^3 (0.0-1.0); MONOCYTES % (AUTO) 11 % (0-12); NEUTROPHILS # (AUTO) 4.8 X 10^3 (1.8-7.8); NEUTROPHILS % (AUTO) 59 % (42-75); PLATELET COUNT 242 10^3/uL (130-400); WHITE BLOOD COUNT 8.2 10^3/uL (4.3-11.0)
--- NOTE | 2019-08-19 15:30 | NUR ---
APPX 3/4 OF FLUIDS HAVE WENT IN. ENCOURAGED PT TO STRAIGHTEN ARM. PT STATES SHE IS DRINKING FLUIDS WITHOUT NAUSEA.
[2019-08-19 15:41] LABS: BUN/CREATININE RATIO 11; CALCIUM 8.7 MG/DL (8.5-10.1); CARBON DIOXIDE 27 MMOL/L (21-32); CHLORIDE 106 MMOL/L (98-107); CREATININE SERUM 0.65 MG/DL (0.60-1.30); GFR ESTIMATED > 60; GLUCOSE 85 MG/DL (70-105); POTASSIUM 3.8 MMOL/L (3.6-5.0); SODIUM 137 MMOL/L (135-145)
[2019-08-19] MEDS ORDERED: NAPR-1071 PO (15:49)
[2019-08-19 15:50] VITALS: BP 162/105
== END 2019-08-19 15:50 | disposition home or self-care (01) ==
LOC: EDUNIT# 12:59 → ER 13:00
DX: R53.81 Other malaise (principal); R53.83 Other fatigue; I10 Essential (primary) hypertension; J45.909 Unspecified asthma, uncomplicated; F31.9 Bipolar disorder, unspecified; F41.9 Anxiety disorder, unspecified; F17.210 Nicotine dependence, cigarettes, uncomplicated; Z88.1 Allergy status to other antibiotic agents; Z90.89 Acquired absence of other organs; Z98.51 Tubal ligation status
CPT/HCPCS: 36415; 80048; 85025; 96360

== ENCOUNTER 2019-09-12 20:11 | Emergency (ER) | payer BC ==
[~2019-09-12] VITALS: Ht 186 cm; Wt 151.6 kg
[2019-09-12] MEDS ORDERED: GABA-488 PO (20:24)
[2019-09-12] MEDS ORDERED: VENL37.52 PO (20:24)
[2019-09-12] MEDS ORDERED: BUSP5TAB59 PO (20:24)
[2019-09-12 20:55] LABS: BASOPHILS % (AUTO) 0 % (0-10); EOSINOPHILS # (AUTO) 0.3 10^3/uL (0.0-0.3); EOSINOPHILS % (AUTO) 3 % (0-10); HEMATOCRIT 42 % (35-52); HEMOGLOBIN 13.9 G/DL (11.5-16.0); LYMPHOCYTES # (AUTO) 2.1 X 10^3 (1.0-4.0); LYMPHOCYTES % (AUTO) 26 % (12-44); MEAN CORPUSCULAR HEMOGLOBIN 32 PG (25-34); MEAN CORPUSCULAR HGB CONC 33 G/DL (32-36); MEAN CORPUSCULAR VOLUME 96 FL (80-99); MEAN PLATELET VOLUME 10.7 FL (7.4-10.4); MONOCYTES # (AUTO) 0.8 X 10^3 (0.0-1.0); MONOCYTES % (AUTO) 10 % (0-12); NEUTROPHILS # (AUTO) 4.8 X 10^3 (1.8-7.8); NEUTROPHILS % (AUTO) 60 % (42-75); PLATELET COUNT 237 10^3/uL (130-400); RED CELL DISTRIBUTION WIDTH 13.1 % (10.0-14.5)
[2019-09-12 21:13] LABS: BUN/CREATININE RATIO 17; CALCIUM 9.1 MG/DL (8.5-10.1); CARBON DIOXIDE 23 MMOL/L (21-32); CHLORIDE 109 MMOL/L (98-107); CREATININE SERUM 0.81 MG/DL (0.60-1.30); GFR ESTIMATED > 60; GLUCOSE 98 MG/DL (70-105); POTASSIUM 4.1 MMOL/L (3.6-5.0); SODIUM 141 MMOL/L (135-145)
--- NOTE | 2019-09-12 21:15 | ED Lower Extremity ---
General Chief Complaint: Lower Extremity Stated Complaint: PAIN IN FEET AND LEGS Nursing Triage Note: C/O SWELLING/ITCHING/NUMBNESS TO BILATERAL LOWER EXT. X2 WEEKS, DENIES INJURY Nursing Sepsis Screen: No Definite Risk Source: patient Exam Limitations: no limitations History of Present Illness Date Seen by Provider: Sep 12, 2019 Time Seen by Provider: 21:11 Initial Comments To ER with bilateral lower extremity swelling itching and tingling for about 2 weeks. She also needs a work note. Onset: other Severity: moderate Pain/Injury Location: bilateral leg Modifying Factors: Worse With Movement Allergies and Home Medications Allergies Coded Allergies: cephalexin (Verified Allergy, Unknown, 02/11/18) clindamycin (Verified Allergy, Unknown, 10/27/16) Home Medications Naproxen 500 Mg Tablet, 500 MG PO BID PRN for PAIN-MODERATE Prescribed by: HUGH RONQUILLO on 08/19/19 1549 Patient Home Medication List Home Medication List Reviewed: Yes Review of Systems Constitutional: see HPI EENTM: see HPI Respiratory: no symptoms reported Cardiovascular: no symptoms reported Genitourinary: no symptoms reported Musculoskeletal: see HPI Psychiatric/Neurological: No Symptoms Reported Past Fvmdzxl-Ecqxbj-Gdqnms Hx Patient Social History Alcohol Use: Denies Use Recreational Drug Use: No Drug of Choice: THC Smoking Status: Current Everyday Smoker Type Used: Cigarettes 2nd Hand Smoke Exposure: No Recent Foreign Travel: No Contact w/Someone Who Travel: No Recent Infectious Disease Expo: No Recent Hopitalizations: No Physical Abuse: No Sexual Abuse: No Mistreated: No Fear: No Immunizations Up To Date Tetanus Booster (TDap): Less than 5yrs Seasonal Allergies Seasonal Allergies: Yes Past Medical History Surgeries: Yes Adenoidectomy, Tonsillectomy, Tubal Ligation Respiratory: Yes Asthma Cardiac: Yes Hypertension Neurological: No : No 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 0oz. 144.200417fc; 43.00 BMI Method:Stated General Appearance: WD/WN, no apparent distress Respiratory: no respiratory distress, no accessory muscle use Hips: bilateral hip non-tender, bilateral hip normal inspection, bilateral hip normal range of motion Legs: bilateral leg other (prominent varicosities in both lower extremities with no erythema ecchymosis or sign of acute injury) Knees: bilateral knee non-tender, bilateral knee normal inspection, bilateral knee normal range of motion Ankles: bilateral ankle non-tender, bilateral ankle normal inspection, bilateral ankle normal range of motion Feet: bilateral foot non-tender (dorsalis pedis +1 bilateral) Neurologic/Psychiatric: alert, normal mood/affect, oriented x 3 Skin: normal color, warm/dry Progress/Results/Core Measures Results/Orders Lab Results Laboratory Tests Test 09/12/19 20:45 Range/Units White Blood Count 8.0 4.3-11.0 10^3/uL Red Blood Count 4.40 4.35-5.85 10^6/uL Hemoglobin 13.9 11.5-16.0 G/DL Hematocrit 42 35-52 % Mean Corpuscular Volume 96 80-99 FL Mean Corpuscular Hemoglobin 32 25-34 PG Mean Corpuscular Hemoglobin Concent 33 32-36 G/DL Red Cell Distribution Width 13.1 10.0-14.5 % Platelet Count 237 130-400 10^3/uL Mean Platelet Volume 10.7 H 7.4-10.4 FL Neutrophils (%) (Auto) 60 42-75 % Lymphocytes (%) (Auto) 26 12-44 % Monocytes (%) (Auto) 10 0-12 % Eosinophils (%) (Auto) 3 0-10 % Basophils (%) (Auto) 0 0-10 % Neutrophils # (Auto) 4.8 1.8-7.8 X 10^3 Lymphocytes # (Auto) 2.1 1.0-4.0 X 10^3 Monocytes # (Auto) 0.8 0.0-1.0 X 10^3 Eosinophils # (Auto) 0.3 0.0-0.3 10^3/uL Basophils # (Auto) 0.0 0.0-0.1 10^3/uL Sodium Level 141 135-145 MMOL/L Potassium Level 4.1 3.6-5.0 MMOL/L Chloride Level 109 H 98-107 MMOL/L Carbon Dioxide Level 23 21-32 MMOL/L Anion Gap 9 5-14 MMOL/L Blood Urea Nitrogen 14 7-18 MG/DL Creatinine 0.81 0.60-1.30 MG/DL Estimat Glomerular Filtration Rate > 60 BUN/Creatinine Ratio 17 Glucose Level 98 70-105 MG/DL Calcium Level 9.1 8.5-10.1 MG/DL My Orders Orders - HUGH RONQUILLO APRN Cbc With Automated Diff (09/12/19 20:39) Basic Metabolic Panel (09/12/19 20:39) Vital Signs/I&O 09/12/19 20:16 Temp 36.7 Pulse 91 Resp 20 B/P (MAP) 138/82 (100) Pulse Ox 100 O2 Delivery Room Air Blood Pressure Mean: 100 Departure Impression Primary Impression: Venous insufficiency of both lower extremities Disposition: 01 HOME, SELF-CARE Condition: Stable Departure-Patient Inst. Decision time for Depature: 21:14 Referrals: [facility] [place] (PCP/Family) Primary Care Physician Patient Instructions: Varicose Veins and Other Vein Disease in the Legs Add. Discharge Instructions: 1. Wear the compression stockings during the day, off at night All discharge instructions reviewed with patient and/or family. Voiced understanding. Work/School Note: Work Release Form Date Seen in the Emergency Department: O ct 2018 Return to Work: Sep 13, 2019 HUGH RONQUILLO APRN Sep 12, 2019 21:15
[2019-09-12 21:23] VITALS: BP 138/82
== END 2019-09-12 21:25 | disposition home or self-care (01) ==
LOC: EDUNIT# 20:11 → ER 20:13
DX: I87.2 Venous insufficiency (chronic) (peripheral) (principal); I10 Essential (primary) hypertension; J45.909 Unspecified asthma, uncomplicated; F41.9 Anxiety disorder, unspecified; F31.9 Bipolar disorder, unspecified; F17.210 Nicotine dependence, cigarettes, uncomplicated; Z90.89 Acquired absence of other organs; Z98.51 Tubal ligation status; Z88.1 Allergy status to other antibiotic agents
CPT/HCPCS: 36415; 80048; 85025

== ENCOUNTER 2019-09-21 14:27 | Emergency (ER) | payer BC ==
[~2019-09-21] VITALS: Ht 185 cm; Wt 147.0 kg
[~2019-09-21 14:27] MED LIST changes: +BUSP5TAB59 PO; +GABA-488 PO; +VENL37.52 PO
--- NOTE | 2019-09-21 15:20 | ED General ---
General Chief Complaint: General Problems/Pain Stated Complaint: FEET/LEG NUMBNESS;LOWER BACK PAIN Nursing Triage Note: Pt ambulates to triage with C/O bilat leg numbness/pain x 1 month. Pt states she was seen in ER last week and was directed to wear HIGINIO hose and states that has not helped. Pt rates pain 8/10 with stabbing sensation. Pt also states she has chronic lower back pain. Nursing Sepsis Screen: No Definite Risk History of Present Illness Date Seen by Provider: Sep 21, 2019 Time Seen by Provider: 14:50 Initial Comments 39-year-old female presents for bilateral leg pain. She is previously been seen for chronic low back pain and venous insufficiency. She didn't follow- up with her PCP last week and is supposed to wearing HIGINIO hose. She does not have them at this time. She denies any new injuries. She is requesting a work note. Timing/Duration: Intermittent Severity: Mild Associated Systoms: Denies Symptoms Allergies and Home Medications Allergies Coded Allergies: cephalexin (Verified Allergy, Unknown, 02/11/18) clindamycin (Verified Allergy, Unknown, 10/27/16) Home Medications Naproxen 500 Mg Tablet, 500 MG PO BID PRN for PAIN-MODERATE Prescribed by: HUGH RONQUILLO on 08/19/19 1549 Patient Home Medication List Home Medication List Reviewed: Yes Review of Systems Review of Systems Constitutional: no symptoms reported, see HPI Cardiovascular: see HPI, other (varicosities bilateral lower extremities) Musculoskeletal: back pain (chronic) All Other Systems Reviewed Negative Unless Noted: Yes Past Qkjpzks-Ubdjjd-Grflwa Hx Past Med/Social Hx: Reviewed Nursing Past Med/Soc Hx Patient Social History Drug of Choice: THC Type Used: Cigarettes 2nd Hand Smoke Exposure: No Recent Foreign Travel: No Contact w/Someone Who Travel: No Recent Infectious Disease Expo: No Recent Hopitalizations: No Physical Abuse: No Sexual Abuse: No Mistreated: No Fear: No Immunizations Up To Date Tetanus Booster (TDap): Less than 5yrs Seasonal Allergies Seasonal Allergies: Yes Past Medical History Surgeries: Yes Adenoidectomy, Tonsillectomy, Tubal Ligation Respiratory: Yes Asthma Cardiac: No Hypertension Neurological: No Reproductive Disorders: 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 0oz. 144.705519vq; 42.00 BMI Method:Stated General Appearance: No Apparent Distress, WD/WN Neck: Full Range of Motion, Normal Inspection, Non Tender Respiratory: Chest Non Tender, Lungs Clear, Normal Breath Sounds Cardiovascular: Regular Rate, Rhythm, No Murmur, Normal Peripheral Pulses Back: Normal Inspection, No Vertebral Tenderness; No Decreased Range of Motion; Muscle Spasm; No Vertebral Tenderness Extremity: Normal Capillary Refill, Normal Inspection, Normal Range of Motion, Non Tender, No Calf Tenderness, Pedal Edema (1+), Other (multiple varicosities noted in bilateral lower extremities. Pedal pulses 2+ and symmetric.) Neurologic/Psychiatric: Alert, Oriented x3, No Motor/Sensory Deficits, Normal Mood/Affect Skin: Normal Color, Warm/Dry Comments Patient able to ambulate with a steady gait. She can rise on to her toes and heels for ambulation. Power is grade V/V L4-S1. Neg SLR. Progress/Results/Core Measures Suspected Sepsis Recent Fever Within 48 Hours: No Infection Criteria Present: None New/Unexplained Altered Menta: No Sepsis Screen: No Definite Risk SIRS Temperature: Pulse: 88 Respiratory Rate: 18 Blood Pressure 135 /83 Mean: 100 Results/Orders My Orders Orders - DENNIS STUART Ketorolac Injection (Toradol Injection) (09/21/19 15:21) Vital Signs/I&O 09/21/19 09/21/19 14:42 15:37 Temp 36.2 36.2 Pulse 88 88 Resp 18 18 B/P (MAP) 135/83 (100) 135/83 (100) Pulse Ox 98 98 O2 Delivery Room Air Room Air Capillary Refill : Less Than 3 Seconds Blood Pressure Mean: 100 Departure Impression Primary Impression: Back pain Qualified Codes: M54.42 - Lumbago with sciatica, left side; M54.41 - Lumbago with sciatica, right side; G89.29 - Other chronic pain Additional Impression: Venous (peripheral) insufficiency Disposition: 01 HOME, SELF-CARE Condition: Improved Departure-Patient Inst. Decision time for Depature: 15:00 Referrals: [facility] (PCP) Primary Care Physician Patient Instructions: Lateral Epicondylitis Exercises, Varicose Veins (DC) Add. Discharge Instructions: Alternate between ibuprofen 600 mg and Tylenol 650 mg every 4 hours for pain. Elevate your legs for 1-2 hours after work each day, lie on the floor and put legs up on the couch. Wear the support hose at all times when standing. Take Aspirin 81 mg, one daily. See a return checker who specializes in Peripheral Vascular/Varicose Veins, Obtain Referral from your PCP. Return to the emergency department for new, urgent health care needs. All discharge instructions reviewed with patient and/or family. Voiced understanding. Copy Copies To 1: KIRIT LIND MD, AMY ARNP Sep 21, 2019 15:20
[2019-09-21] MEDS ORDERED: KETOROLAC 30 MG/ML VIAL IM STA (15:21)
[2019-09-21 15:37] VITALS: BP 135/83
== END 2019-09-21 15:37 | disposition home or self-care (01) ==
LOC: EDUNIT# 14:27 → ER 14:28
DX: M54.5 Low back pain (principal); I87.2 Venous insufficiency (chronic) (peripheral); I10 Essential (primary) hypertension; F41.9 Anxiety disorder, unspecified; F31.9 Bipolar disorder, unspecified; Z88.1 Allergy status to other antibiotic agents; Z90.89 Acquired absence of other organs; Z98.51 Tubal ligation status
CPT/HCPCS: 99284

== ENCOUNTER 2020-01-12 15:36 | Emergency (ER) | payer SELFPAY ==
[~2020-01-12] VITALS: Ht 185 cm; Wt 150.0 kg
[2020-01-12] MEDS ORDERED: AMOX500C2 PO (16:27)
--- NOTE | 2020-01-12 16:28 | ED General ---
General Chief Complaint: General Problems/Pain Stated Complaint: TOOTH PAIN Nursing Triage Note: PT CO OF DENTAL PAIN HAD TOOTH PULLED ON 01/07 R BOTTOM TOOTH. CO OF R EAR PAIN. PT STATES HAS HAD FEVER SINCE TOOTH PULLED. PT REPORTS HAVING VAGINAL DISCHARGE WHITE IN COLOR. HAS HAD SINCE OCT. Nursing Sepsis Screen: No Definite Risk Source of Information: Patient Exam Limitations: No Limitations History of Present Illness Date Seen by Provider: Jan 12, 2020 Time Seen by Provider: 16:24 Initial Comments To ER with reports of right hand facial pain. This began after having a right lower molar pulled on 01/07/20, not on antibiotics. She is also had some vaginal discharge since October. No abdominal pain. Timing/Duration: 1-2 Days Severity: Moderate Associated Systoms: Denies Symptoms Allergies and Home Medications Allergies Coded Allergies: cephalexin (Verified Allergy, Unknown, 02/11/18) clindamycin (Verified Allergy, Unknown, 10/27/16) Home Medications Amoxicillin 500 Mg Capsule, 500 MG PO TID Prescribed by: HUGH RONQUILLO on 01/12/20 1627 Patient Home Medication List Home Medication List Reviewed: Yes Review of Systems Review of Systems Constitutional: see HPI EENTM: see HPI, dental problems, mouth pain; No mouth swelling Respiratory: no symptoms reported Cardiovascular: no symptoms reported Genitourinary: see HPI, discharge Musculoskeletal: no symptoms reported Skin: no symptoms reported, change in hair/nails Past Wg[place]pus-Pfgtbg-Cozkki Hx Patient Social History Alcohol Use: Rarely Uses Recreational Drug Use: No Drug of Choice: THC Smoking Status: Current Everyday Smoker Type Used: Cigarettes 2nd Hand Smoke Exposure: No Recent Foreign Travel: No Contact w/Someone Who Travel: No Recent Infectious Disease Expo: No Recent Hopitalizations: No Physical Abuse: No Sexual Abuse: No Immunizations Up To Date Tetanus Booster (TDap): Less than 5yrs Seasonal Allergies Seasonal Allergies: Yes Past Medical History Surgeries: Yes Adenoidectomy, Tonsillectomy, Tubal Ligation Respiratory: Yes Asthma Cardiac: No Hypertension Neurological: No Last Menstrual Period: Dec 16, 2019 Reproductive Disorders: No 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 0oz. 144.737236qc; 43.00 BMI Method:Stated General Appearance: No Apparent Distress, WD/WN, Obese Eyes: Bilateral Eye Normal Inspection, Bilateral Eye PERRL, Bilateral Eye EOMI HEENT: PERRL/EOMI, TMs Normal Neck: Full Range of Motion, Normal Inspection Respiratory: No Accessory Muscle Use, No Respiratory Distress Cardiovascular: Regular Rate, Rhythm, Normal Peripheral Pulses Gastrointestinal: Normal Bowel Sounds, Non Tender, Soft Genital/Rectal: Other (pelvic exam done with Sharee RN at the bedside to ensure there was no vaginal foreign body as the cause of discharge such as retained tampon. There was no retained tampon or other foreign body. No cervical motion tenderness, there was some whitish mucousy discharge.) Extremity: Normal Capillary Refill, Normal Inspection Neurologic/Psychiatric: Alert, Oriented x3 Skin: Normal Color, Warm/Dry Progress/Results/Core Measures Suspected Sepsis Recent Fever Within 48 Hours: Yes Infection Criteria Present: None New/Unexplained Altered Menta: No Sepsis Screen: No Definite Risk SIRS Temperature: Pulse: 69 Respiratory Rate: 18 Blood Pressure 132 /83 Mean: 99 Results/Orders Micro Results Microbiology 01/12/20 Wet Prep - Final, Complete My Orders Orders - HUGH RONQUILLO APRN Wet Prep (01/12/20 16:22) Genital Culture (01/12/20 16:22) Influenza A And B Antigens (01/12/20 16:41) Vital Signs/I&O 01/12/20 15:47 Temp 36.7 Pulse 69 Resp 18 B/P (MAP) 132/83 (99) Pulse Ox 100 Capillary Refill : Less Than 3 Seconds Blood Pressure Mean: 99 Departure Communication (Admissions) To the paracervical injection of 2 mL of 0.5% bupivacaine without epinephrine using a 27-gauge 1.5 inch needle at the C6 location 1 cm lateral to either side of the spinous process. This resulted in successful alleviation of her facial pain. Impression Primary Impression: Pain, dental Additional Impression: Vaginal discharge Disposition: 01 HOME, SELF-CARE Condition: Stable Departure-Patient Inst. Decision time for Depature: 16:27 Referrals: [facility] (PCP/Family) Primary Care Physician Patient Instructions: Vaginal Discharge in Adults, Dental Pain (DC) Add. Discharge Instructions: Tylenol and ibuprofen for pain. Antibiotics as directed. Follow-up with your doctor next week All discharge instructions reviewed with patient and/or family. Voiced understan manuel. Scripts Metronidazole (Flagyl) 500 Mg Tablet 500 MG PO BID, #14 TAB Prov: HUGH RONQUILLO APRN 01/12/20 Amoxicillin (Amoxicillin) 500 Mg Capsule 500 MG PO TID, #21 CAP 0 Refills Prov: HUGH RONQUILLO APRN 01/12/20 Work/School Note: Work Release Form Date Seen in the Emergency Department: Jan 12, 2020 Return to Work: Jan 13, 2020 HUGH RONQUILLO APRN Jan 12, 2020 16:27
[2020-01-12] MEDS ORDERED: METR500T PO (17:00)
[2020-01-12 17:25] VITALS: BP 132/83
--- OUTSIDE RECORDS SUMMARY | 2020-01-22 12:12 | XMS REPORT ---
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 Name Role Phone RASHEL Coffey Unavailable PROBLEMS Type Condition ICD9-CM Code XBJ32-BD Code Onset Dates Condition S tatus SNOMED Code Problem Morbid obesity due to excess calories E66.01 Active 108643658 Problem Anxiety, generalized F41.1 Active 93978979 Problem Major depressive disorder, recurrent sev ere without psychotic features F33.2 Active 04133112 Problem FILIBERTO (generalized anxiety disorder) F41.1 Active 11021789 Problem Tarsal tunnel syndrome of right side G57.51 Active 227699914609158 Problem 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 Active 76826153 Problem Anesthesia of skin R20.0 Active 3 28925313 Problem BMI 45.0-49.9, adult Z68.42 Active 719775142 Problem Paresthesia of skin R20.2 Active 80170002 Problem Sciatica of left side M54.32 Active 56296982 Problem Acute bilateral low back pain with left-sided sciatica M54.42 Active 064882920 Problem Acute bilateral low back pain with left-sided sciatica M54.42 Active 373412863 Problem Excessive daytime sleepiness G47.19 A ctive [id number] ALLERGIES No Information ENCOUNTERS Encounter Location Date Diagnosis [facility] [address] [id number] [place] [address] Jan, Acute bilateral low back pain with left- sided sciatica M54.42 ; Morbid obesity due to excess calories E66.01 and BMI 45.0-49.9, adult Z68.42 [facility] [address] [id number] [place] [id number] Jan, Dental examination Z01.20 and Caries K02 .9 [place] [address] [address] Jan, [place] [address] [address] Nov, Acute bilateral low back pain with left- sided sciatica M54.42 [place] [address] [address] Sep, [place] [address] [place] [id number] Sep, Bilateral lower extremity edema R60.0 ; 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 and Acute bilateral low back pain with left- sided sciatica M54.42 [place] [address] [address] 17 Aug, 2019 Non-intractable vomiting with nausea, un specified vomiting type R11.2 and Pruritic rash L28.2 [place] [address] [address] Aug, [place] [address] [address] 04 Aug, 2019 History of UTI Z87.440 ; Sleep apnea-lik e behavior G47.39 ; Excessive daytime sleepiness G47.19 and Morbid obesity E66.01 [facility] [place] [id number] [place] [address] Jul, Bronchitis J40 and Morbid ob esity E66.01 [place] [address] [address] Jul, Major depressive disorder, recurrent sev ere without psychotic features F33.2 ; FILIBERTO (generalized anxiety disorder) F41.1 and Morbid obesity E66.[address] [address] Jul, Urinary frequency R35.0 ; Morbid obesity E66.01 ; Major depressive disorder, recurrent severe without psychotic features F33.2 and Anxiety, generalized F41.1 [facility] [place] [address] [place] [address] Jul, Morbid obesity E66.01 and [place] I symptoms R39.9 [facility] [address] [address] Jun, [facility] [address] [address] Jun, Major depressive disorder, recurrent sev ere without psychotic features F33.2 ; FILIBERTO (generalized anxiety disorder) F41.1 ; Morbid obesity due to excess calories E66.01 ; Acute bilateral low back pain with left-sided sciatica M54.42 ; Fatigue, unspecified type R53.83 ; Tarsal tunnel syndrome of right side G57.51 and Morbid obesity E66.01 [facility] [address] [address] Jun, [facility] [address] [address] Jun, [facility] [address] [address] Jun, Fatigue, unspecified type R53.83 ; Pain in right foot M79.671 ; Pain of left foot M79.672 ; Morbid obesity E66.01 and Major depressive disorder, recurrent severe without psychotic features F33.2 [facility] [address] [address] Jun, [facility] [address] [address] Jun, Major depressive disorder, recurrent sev ere without psychotic features F33.2 [facility] [address] [address] May, [facility] [address] [address] April, [facility] [address] [address] April, [facility] [address] [address] April, Major depressive disorder, recurrent sev ere without psychotic features F33.2 and FILIBERTO (generalized anxiety disorder) F41.1 [place] [address] [address] April, Possible exposure to STD Z20.2 ; High ri sk heterosexual behavior Z72.51 and Morbid obesity E66.01 [place] [address] [address] April, Major depressive disorder, recurrent sev ere without psychotic features F33.2 ; FILIBERTO (generalized anxiety disorder) F41.1 and Morbid obesity E66.01 [facility] [address] [address] Mar, Acute hemorrhoid K64.9 and M orbid obesity E66.01 [place] [address] [address] Mar, Major depressive disorder, recurrent sev ere without psychotic features F33.2 ; FILIBERTO (generalized anxiety disorder) F41.1 and Morbid obesity E66.01 [place] [address] [address] Mar, [place] [address] [address] Mar, Major depressive disorder, recurrent sev ere without psychotic features F33.2 ; FILIBERTO (generalized anxiety disorder) F41.1 and Morbid obesity E66.01 [facility] [address] [place] [id number] [place] [address] Jan, Unspecified staphylococcus a s the cause of diseases classified elsewhere B95.8 and Cellulitis, unspecified L03.90 [place] [address] [address] Jan, Major depressive disorder, recurrent sev ere without psychotic features F33.2 ; FILIBERTO (generalized anxiety disorder) F41.1 and Morbid obesity E66.01 [place] [address] [address] Jan, [place] [address] [address] Jan, [place] [address] [address] Sep, [place] [address] [address] May, [place] [address] [address] April, Morbid obesity due to excess calories E6 6.01 ; Anxiety F41.9 ; Paresthesia of skin R20.2 and Anesthesia of skin R20.0 [place] [address] [address] Mar, [place] [address] [address] Jan, Other infective acute otitis externa of left ear H60.392 ; Left foot pain M79.672 and Anxiety F41.9 [facility] [address] [address] Jan, Acute suppurative otitis med ia of left ear with spontaneous rupture of tympanic membrane, recurrence not specified H66.012 [place] [address] [address] Jan, [place] [address] [address] Sep, [facility] [address] [place] [id number] [address] [place] [address] May, Sore throat J02.9 [place] [address] [address] April, Depressive disorder, not elsewhere class ified F32.9 [facility] [address] [place], [place] [id number] [address] [place] [address] April, [place] eye disease of left eye H10.022 and Bronchitis J40 [place] [address] [address] April, [address] [address] April, Well woman exam Z01.419 [place] [address] [address] Mar, Anxiety disorder, unspecified F41.9 ; Mo rbid obesity due to excess calories E66.01 and Left foot pain M79.672 [place] [address] [address] Jan, [place] [address] [address] Jan, Anxiety, generalized F41.1 ; Severe sing le current episode of major depressive disorder, without psychotic features F32.2 and Bipolar 1 disorder, depressed, moderate F31.32 [place] [address] [address] Jan, Anxiety, generalized F41.1 ; Severe sing le current episode of major depressive disorder, without psychotic features F32.2 and Bipolar 1 disorder, depressed, moderate F31.32 [facility] [address] [place] [address] Dec, Acute non-recurrent frontal sinusitis J01.10 [facility] [address] [place] [address] Oct, Acute non-recurrent frontal sinusitis J01.10 [facility] [address] [place] [address] Jul, Anger R45.4 [facility] [address] [place] [address] 15 May, 2016 Allergy, insect bite Z91.038 and Tinea pedis of left foot B35.3 [facility] [address] [place] [address] Mar, Ringworm B35.9 [facility] [address] [id number] [place] [address] 26 Sep, 2015 [facility] [address] [id number] [place] [address] 14 Mar, 2015 [facility] [address] [id number] [place] [address] 13 Mar, 2015 [facility] [address] [id number] [place] [address] 14 Dec, 2014 [facility] [address] [id number] [place] [address] 14 Dec, 2014 [facility] [address] [id number] [place] [address] 31 Nov, 2014 [facility] [address] [id number] [place] [address] 31 Nov, 2014 [facility] [address] [id number] [place] [address] 17 Nov, 2014 [facility] [address] [id number] [place] [address] 17 Nov, 2014 [facility] [address] [id number] [place] [address] 16 Nov, 2014 [facility] [address] [id number] [place] [address] 16 Nov, 2014 [facility] [address] [id number] [place] [address] 15 Nov, 2014 [facility] [address] [id number] [place] [address] 15 Nov, 2014 [facility] [address] [id number] [place] [address] 09 Sep, 2014 [facility] [address] [id number] [place] [address] 09 Sep, 2014 [facility] [address] [id number] [place] [address] 15 Mar, 2014 [facility] [address] [id number] [place] [address] 15 Mar, 2014 [facility] [address] [id number] [place] [address] Nov, [facility] [address] [id number] [place] [address] Nov, [facility] [address] [id number] [place] [address] Nov, [facility] [address] [id number] [place] [address] Nov, [facility] [address] [id number] [place] [address] Nov, [facility] [address] [id number] [place] [address] Nov, [facility] [address] [id number] [place] [address] Nov, [facility] [address] [id number] [place] [address] Oct, [facility] [address] [id number] [place] [address] Oct, [facility] [address] [id number] [place] [address] Oct, [facility] [address] [id number] [place] [address] Oct, [facility] [address] [place] [id number] [place] [address] Oct, [facility] [address] [id number] [place] [address] Oct, [facility] [address] [id number] [place] [address] Sep, [facility] [address] [id number] [place] [address] May, [facility] [address] [id number] [place] [address] May, [facility] [address] [place] [id number] [place] [address] 04 May, 2013 [facility] [address] [place] [id number] [place] [address] Mar, [facility] [address] [place] [id number] [place] [address] 15 Dec, 2012 [facility] [address] [place] [id number] [place] [address] Dec, [facility] [address] [place] [id number] [place] [address] Dec, [facility] [address] [place] [id number] [place] [address] Dec, [facility] [address] [place] [id number] [place] [address] Dec, [facility] [address] [place] [id number] [place] [address] Dec, [facility] [address] [place] [id number] [place] [address] Dec, [facility] [address] [place] [id number] [place] [address] Dec, [facility] [address] [place] [id number] [place] [address] Dec, [facility] [address] [place] [id number] [place] [address] Nov, [facility] [address] [place] [id number] [place] [address] Nov, [facility] [address] [place] [id number] [place] [address] Sep, [facility] [address] [place] [id number] [place] [address] Sep, IMMUNIZATIONS No Known Immunizations SOCIAL HISTORY Never Assessed REASON FOR VISIT PLAN OF CARE VITAL SIGNS MEDICATIONS Unknown Medications RESULTS No Results PROCEDURES No Known procedures INSTRUCTIONS MEDICATIONS ADMINISTERED No Known Medications MEDICAL (GENERAL) HISTORY Type Description Date Medical History Asthma Medical History ADHD Medical History Depression Surgical History Tonsillectomy & adenoidectomy 1996 Surgical History tubal ligation 2002 Hospitalization History past childbirth
--- OUTSIDE RECORDS SUMMARY | 2020-01-22 12:14 | XMS REPORT | Continuity of Care Document ---
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 SALVADOR, JASMEET [place] Ot F41. 9 ANXIETY DISORDER, UNSPECIFIED 05/09/2019 JASMEET KASPER MD Ot I10 ESSENTIAL (PRIMARY) HYPERTENSION 05/09/2019 JASMEET KASPER MD Ot J45.909 UNSPECIFIED ASTHMA, UNCOMPLICATED 05/09/2019 MAJO SALVADOR, JASMEET [place] Ot M54. 41 LUMBAGO WITH SCIATICA, RIGHT SIDE 05/09/2019 JASMEET KASPER MD Ot M54. 5 LOW BACK PAIN 05/09/2019 MAJO SALVADOR, JASMEET [place] Ot Z88. 1 ALLERGY STATUS TO OTHER ANTIBIOTIC AGENT 05/09/2019 MAJO SALVADOR, JASMEET [place] Ot Z90. 89 ACQUIRED ABSENCE OF OTHER ORGANS 05/09/2019 MAJO SALVADOR, JASMEET [place] Ot Z98. 51 TUBAL LIGATION STATUS 05/27/2019 GELLENDER DO, PAULINE A Ot 715.37 LOC OSTEOARTH NOS-ANKLE 05/27/2019 GELLENDER DO, PAULINE A Ot 729.5 PAIN IN LIMB 07/01/2019 GELLENDER DO, PAULINE A Ot 715.37 LOC OSTEOARTH NOS-ANKLE 07/01/2019 GELLENDER DO, PAULINE A Ot 729.5 PAIN IN LIMB 07/01/2019 HUGH RONQUILLO APRN Ot F17.210 NICOTINE DEPENDENCE, CIGARETTES, UNCOMPL 07/01/2019 HUGH RONQUILLO APRN Ot F31 .9 BIPOLAR DISORDER, UNSPECIFIED 07/01/2019 HUGH RONQUILLO APRN Ot F41 .9 ANXIETY DISORDER, UNSPECIFIED 07/01/2019 HUGH RONQUILLO APRN Ot I10 ESSENTIAL (PRIMARY) HYPERTENSION 07/01/2019 HUGH RONQUILLO APRN Ot J45.909 UNSPECIFIED ASTHMA, UNCOMPLICATED 07/01/2019 HUGH RONQUILLO APRN Ot M54 .5 LOW BACK PAIN 07/01/2019 HUGH RONQUILLO APRN Ot M54 .6 PAIN IN THORACIC SPINE 07/01/2019 HUGH RONQUILLO APRN Ot M54 .9 DORSALGIA, UNSPECIFIED 07/01/2019 HUGH RONQUILLO APRN Ot Z79.52 GROUP HOME (CURRENT) USE OF 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 07/01/2019 HUGH RONQUILLO APRN Ot Z88 .1 ALLERGY STATUS TO OTHER ANTIBIOTIC AGENT 07/01/2019 HUGH RONQUILLO APRN Ot Z90.89 ACQUIRED ABSENCE OF OTHER ORGANS 07/01/2019 HUGH RONQUILLO APRN Ot Z98.51 TUBAL LIGATION STATUS 07/03/2019 HUGH RONQUILLO APRN Ot F17.210 NICOTINE DEPENDENCE, CIGARETTES, UNCOMPL 07/03/2019 HUGH RONQUILLO APRN Ot F31 .9 BIPOLAR DISORDER, UNSPECIFIED 07/03/2019 HUGH RONQUILLO APRN Ot F41 .9 ANXIETY DISORDER, UNSPECIFIED 07/03/2019 HUGH RONQUILLO APRN Ot I10 ESSENTIAL (PRIMARY) HYPERTENSION 07/03/2019 HUGH RONQUILLO APRN Ot J45.909 UNSPECIFIED ASTHMA, UNCOMPLICATED 07/03/2019 HUGH RONQUILLO APRN Ot M54 .5 LOW BACK PAIN 07/03/2019 HUGH RONQUILLO APRN Ot M54 .6 PAIN IN THORACIC SPINE 07/03/2019 HUGH RONQUILLO APRN Ot M54 .9 DORSALGIA, UNSPECIFIED 07/03/2019 HUGH RONQUILLO APRN Ot 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 07/03/2019 HUGH RONQUILLO APRN Ot Z88 .1 ALLERGY STATUS TO OTHER ANTIBIOTIC AGENT 07/03/2019 HUGH RONQUILLO APRN Ot Z90.89 ACQUIRED ABSENCE OF OTHER ORGANS 07/03/2019 HUGH RONQUILLO APRN Ot Z98.51 TUBAL LIGATION STATUS 07/03/2019 PAULINE WILLIS DO Ot 715.37 LOC OSTEOARTH NOS-ANKLE 07/03/2019 PAULINE WILLIS DO Ot 729.5 PAIN IN LIMB 07/03/2019 DARVIN WOODARD DO Ot F12.10 CANNABIS ABUSE, UNCOMPLICATED 07/03/2019 DARVIN WOODARD DO Ot F17.210 NICOTINE DEPENDENCE, CIGARETTES, UNCOMPL 07/03/2019 DARVIN WOODARD DO Ot F31.9 BIPOLAR DISORDER, UNSPECIFIED 07/03/2019 DARVIN WOODARD DO Ot F41.9 ANXIETY DISORDER, UNSPECIFIED 07/03/2019 JOSELYN WOODARD DOA Nicolas Ot I10 ESSENTIAL (PRIMARY) HYPERTENSION 07/03/2019 YAMILET DO, ADRVIN K Ot J45.909 UNSPECIFIED ASTHMA, UNCOMPLICATED 07/03/2019 YAMILET DO, DARVIN K Ot M54.5 LOW BACK PAIN 07/03/2019 YAMILET DO, DARVIN K Ot M54.9 DORSALGIA, UNSPECIFIED 07/03/2019 YAMILET DO, DARVIN K Ot N39.0 URINARY TRACT INFECTION, SITE NOT SPECIF 07/03/2019 VINING DO DARVIN K Ot 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 07/03/2019 VINING DO DARVIN K Ot Z87.828 PERSONAL HISTORY OF OTH (HEALED) PHYSICA 07/03/2019 VINING DO DARVIN K Ot Z88.1 ALLERGY STATUS TO OTHER ANTIBIOTIC AGENT 07/03/2019 VINING DO DARVIN K Ot Z90.89 ACQUIRED ABSENCE OF OTHER ORGANS 07/03/2019 VINING DO DARVIN K Ot Z98.51 TUBAL LIGATION STATUS 07/08/2019 YAMILET DOJOSELYNA K Ot F12.10 CANNABIS ABUSE, UNCOMPLICATED 07/08/2019 [facility], DARVIN K Ot F17.210 NICOTINE DEPENDENCE, CIGARETTES, UNCOMPL 07/08/2019 VINING DO DARVIN K Ot F31.9 BIPOLAR DISORDER, UNSPECIFIED 07/08/2019 [facility] DARVIN K Ot F41.9 ANXIETY DISORDER, UNSPECIFIED 07/08/2019 VINING DO DARVIN K Ot I10 ESSENTIAL (PRIMARY) HYPERTENSION 07/08/2019 VINING DO, DARVIN K Ot J45.909 UNSPECIFIED ASTHMA, UNCOMPLICATED 07/08/2019 YAMILET DO, DARVIN K Ot M54.5 LOW BACK PAIN 07/08/2019 VINING DO, DARVIN K Ot M54.9 DORSALGIA, UNSPECIFIED 07/08/2019 YAMILET DO DARVIN K Ot N39.0 URINARY TRACT INFECTION, SITE NOT SPECIF 07/08/2019 YAMILET DO DARVIN K Ot Z79.52 GROUP HOME (CURRENT) USE OF 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 07/08/2019 VINING DO DARVIN K Ot Z87.828 PERSONAL HISTORY OF OTH (HEALED) PHYSICA 07/08/2019 YAMILET DO DARVIN K Ot Z88.1 ALLERGY STATUS TO OTHER ANTIBIOTIC AGENT 07/08/2019 VINING DO DARVIN K Ot Z90.89 ACQUIRED ABSENCE OF OTHER ORGANS 07/08/2019 YAMILET DARVIN SAENZ Ot Z98.51 TUBAL LIGATION STATUS 07/08/2019 YAMILET DARVIN SAENZ Ot F12.10 CANNABIS ABUSE, UNCOMPLICATED 07/08/2019 YAMILET DARVIN SAENZ Ot F17.210 NICOTINE DEPENDENCE, CIGARETTES, UNCOMPL 07/08/2019 YAMILET DARVIN SAENZ Ot F31.9 BIPOLAR DISORDER, UNSPECIFIED 07/08/2019 YAMILET DARVIN SAENZ Nicolas Ot F41.9 ANXIETY DISORDER, UNSPECIFIED 07/08/2019 YAMILET JOSELYN SAENZA Nicolas Ot I10 ESSENTIAL (PRIMARY) HYPERTENSION 07/08/2019 YAMILET DARVIN Nicolas Ot J45.909 UNSPECIFIED ASTHMA, UNCOMPLICATED 07/08/2019 YAMILET DARVIN SAENZ Ot M54.5 LOW BACK PAIN 07/08/2019 YAMILET DARVIN Valenzuela Ot M54.9 DORSALGIA, UNSPECIFIED 07/08/2019 YAMILET DARVIN SAENZ Ot N39.0 URINARY TRACT INFECTION, SITE NOT SPECIF 07/08/2019 YAMILET SAENZ DARVIN Valenzuela Ot 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 07/08/2019 YAMILET DARVIN Valenzuela Ot Z87.828 PERSONAL HISTORY OF OTH (HEALED) PHYSICA 07/08/2019 YAMILET DARVIN SAENZ Ot Z88.1 ALLERGY STATUS TO OTHER ANTIBIOTIC AGENT 07/08/2019 YAMILET DARVIN SAENZ Ot Z90.89 ACQUIRED ABSENCE OF OTHER ORGANS 07/08/2019 YAMILET DARVIN SAENZ Ot Z98.51 TUBAL LIGATION STATUS 08/19/2019 HUGH RONQUILLO APRN Ot F17.210 NICOTINE DEPENDENCE, CIGARETTES, UNCOMPL 08/19/2019 HUGH RONQUILLO APRN Ot F31 .9 BIPOLAR DISORDER, UNSPECIFIED 08/19/2019 HUGH RONQUILLO APRN Ot F41 .9 ANXIETY DISORDER, UNSPECIFIED 08/19/2019 HUGH RONQUILLO APRN Ot I10 ESSENTIAL (PRIMARY) HYPERTENSION 08/19/2019 HUGH RONQUILLO APRN Ot J45.909 UNSPECIFIED ASTHMA, UNCOMPLICATED 08/19/2019 HUGH RONQUILLO APRN Ot R53.81 OTHER MALAISE 08/19/2019 HUGH RONQUILLO APRN Ot R53.83 OTHER FATIGUE 08/19/2019 HUGH RONQUILLO APRN Ot Z88 .1 ALLERGY STATUS TO OTHER ANTIBIOTIC AGENT 08/19/2019 HUGH RONQUILLO APRN Ot Z90.89 ACQUIRED ABSENCE OF OTHER ORGANS 08/19/2019 HUGH RONQUILLO APRN Ot Z98.51 TUBAL LIGATION STATUS 08/21/2019 HUGH RONQUILLO APRN Ot F17.210 NICOTINE DEPENDENCE, CIGARETTES, UNCOMPL 08/21/2019 HUGH RONQUILLO APRN Ot F31 .9 BIPOLAR DISORDER, UNSPECIFIED 08/21/2019 HUGH RONQUILLO APRN Ot F41 .9 ANXIETY DISORDER, UNSPECIFIED 08/21/2019 HUGH RONQUILLO APRN Ot I10 ESSENTIAL (PRIMARY) HYPERTENSION 08/21/2019 HUGH RONQUILLO APRN Ot J45.909 UNSPECIFIED ASTHMA, UNCOMPLICATED 08/21/2019 HUGH RONQUILLO APRN Ot R53.81 OTHER MALAISE 08/21/2019 HUGH RONQUILLO APRN Ot R53.83 OTHER FATIGUE 08/21/2019 HUGH RONQUILLO APRN Ot Z88 .1 ALLERGY STATUS TO OTHER ANTIBIOTIC AGENT 08/21/2019 HUGH RONQUILLO APRN Ot Z90.89 ACQUIRED ABSENCE OF OTHER ORGANS 08/21/2019 HUGH RONQUILLO APRN Ot Z98.51 TUBAL LIGATION STATUS 09/12/2019 HUGH RONQUILLO APRN Ot F17.210 NICOTINE DEPENDENCE, CIGARETTES, UNCOMPL 09/12/2019 HUGH RONQUILLO APRN Ot F31 .9 BIPOLAR DISORDER, UNSPECIFIED 09/12/2019 HUGH RONQUILLO APRN Ot F41 .9 ANXIETY DISORDER, UNSPECIFIED 09/12/2019 HUGH RONQUILLO APRN Ot I10 ESSENTIAL (PRIMARY) HYPERTENSION 09/12/2019 HUGH RONQUILLO APRN Ot I87 .2 VENOUS INSUFFICIENCY (CHRONIC) (PERIPHER 09/12/2019 HUGH RONQUILLO APRN Ot J45.909 UNSPECIFIED ASTHMA, UNCOMPLICATED 09/12/2019 HUGH RONQUILLO APRN Ot M79.671 PAIN IN RIGHT FOOT 09/12/2019 HUGH RONQUILLO APRN Ot Z88 .1 ALLERGY STATUS TO OTHER ANTIBIOTIC AGENT 09/12/2019 HUGH RONQUILLO APRN Ot Z90.89 ACQUIRED ABSENCE OF OTHER ORGANS 09/12/2019 HUGH RONQUILLO APRN Ot Z98.51 TUBAL LIGATION STATUS 09/16/2019 HUGH RONQUILLO DOLL DRESSER Ot F17.210 NICOTINE DEPENDENCE, CIGARETTES, UNCOMPL 09/16/2019 HUGH RONQUILLO APRN Ot F31 .9 BIPOLAR DISORDER, UNSPECIFIED 09/16/2019 HUGH RONQUILLO DOLL DRESSER Ot F41 .9 ANXIETY DISORDER, UNSPECIFIED 09/16/2019 HUGH RONQUILLO DOLL DRESSER Ot I10 ESSENTIAL (PRIMARY) HYPERTENSION 09/16/2019 HUGH RONQUILLO APRN Ot I87 .2 VENOUS INSUFFICIENCY (CHRONIC) (PERIPHER 09/16/2019 HUGH RONQUILLO APRN Ot J45.909 UNSPECIFIED ASTHMA, UNCOMPLICATED 09/16/2019 HUGH RONQUILLO APRN Ot M79.671 PAIN IN RIGHT FOOT 09/16/2019 HUGH RONQUILLO APRN Ot Z88 .1 ALLERGY STATUS TO OTHER ANTIBIOTIC AGENT 09/16/2019 HUGH RONQUILLO APRN Ot Z90.89 ACQUIRED ABSENCE OF OTHER ORGANS 09/16/2019 HUGH RONQUILLO APRN Ot Z98.51 TUBAL LIGATION STATUS 09/21/2019 PAULINE WILLIS DO Ot 715.37 LOC OSTEOARTH NOS-ANKLE 09/21/2019 PAULINE WILLIS DO Ot 729.5 PAIN IN LIMB 09/21/2019 NARCISO [employer] SALES REPRESENTATIVE Ot F31.9 BIPOLAR DISORDER, UNSPECIFIED 09/21/2019 NARCISO, DEN[employer] SALES REPRESENTATIVE Ot F41.9 ANXIETY DISORDER, UNSPECIFIED 09/21/2019 NARCISO, [employer] SALES REPRESENTATIVE Ot I10 ESSENTIAL (PRIMARY) HYPERTENSION 09/21/2019 NARCISO, DEN[employer]IS [employer] SALES REPRESENTATIVE Ot I87.2 VENOUS INSUFFICIENCY (CHRONIC) (PERIPHER 09/21/2019 NARCISO, [employer] SALES REPRESENTATIVE Ot M54.5 LOW BACK PAIN 09/21/2019 NARCISO, DEN[employer] SALES REPRESENTATIVE Ot Z88.1 ALLERGY STATUS TO OTHER ANTIBIOTIC AGENT 09/21/2019 NARCISO, [employer] SALES REPRESENTATIVE Ot Z90.89 ACQUIRED ABSENCE OF OTHER ORGANS 09/21/2019 NARCISO, [employer] SALES REPRESENTATIVE Ot Z98.51 TUBAL LIGATION STATUS 09/24/2019 NARCISO, [employer] SALES REPRESENTATIVE Ot F31.9 BIPOLAR DISORDER, UNSPECIFIED 09/24/2019 NARCISO, [employer] SALES REPRESENTATIVE Ot F41.9 ANXIETY DISORDER, UNSPECIFIED 09/24/2019 NARCISO, [employer] SALES REPRESENTATIVE Ot I10 ESSENTIAL (PRIMARY) HYPERTENSION 09/24/2019 NARCISO, [employer] SALES REPRESENTATIVE Ot I87.2 VENOUS INSUFFICIENCY (CHRONIC) (PERIPHER 09/24/2019 DENNIS STUART Ot M54.5 LOW BACK PAIN 09/24/2019 DENNIS STUART Ot Z88.1 ALLERGY STATUS TO OTHER ANTIBIOTIC AGENT 09/24/2019 DENNIS STUART Ot Z90.89 ACQUIRED ABSENCE OF OTHER ORGANS 09/24/2019 DENNIS STUART Ot Z98.51 TUBAL LIGATION STATUS Procedures Code Description [place] [address] CMP 11/14/2012 31692 TSH 11/14/2012 82405 CBC 11/14/2012 93622 PULM ONARY FUNCTION TEST (IN- HOUSE) 11/14/2012 77039 OXIMETRY 11/14/2012 96433 CULT URE UROGENITAL 12/03/2012 74809 GC/C HLAM PROBE (STATE) 12/03/2012 35043 PAP SMEAR 12/03/2012 Q0091 PAP SMEAR OBTAIN SMEAR 12/03/2012 69875 CULT URE WOUND (AEROBIC) 12/10/2012 32520 XRAY FOOT RIGHT 2 VIEWS 05/05/2013 87227 PULM ONARY FUNCTION TEST (IN- HOUSE) 05/29/2013 39575 BRON CHODILATION PRE/POST 05/29/2013 13368 RESP IRATORY FLOW VOLUME LOOP 05/29/2013 38546 PULM ONARY EDUCATION 05/29/2013 30670 ROUT INE VENIPUNCTURE 10/22/2013 63413 PAP SMEAR 10/22/2013 72619 URIN E TEST (IN- HOUSE) 10/22/2013 78362 URIN E DRUG SCREEN (IN-HOUSE) 10/22/2013 94091 CBC 10/22/2013 7180044 GF R CALC (RESULT ONLY) 10/22/2013 04749 CMP 10/22/2013 11050 LIPI D PANEL 10/22/2013 11901 TSH 10/22/2013 72088 HEPA TITIS PROFILE 10/22/2013 25271 HIV ANTIBODIES (RML) 10/23/2013 00786 SYPH ILLIS TEST 10/23/2013 52578 CULT URE UROGENITAL 10/25/2013 80267 ROUT INE VENIPUNCTURE 11/16/2014 21445 XRAY FOOT RIGHT 2 VIEWS 11/16/2014 01453 TSH 11/16/2014 44411 CBC 11/16/2014 5504859 GF R CALC (RESULT ONLY) 11/16/2014 75516 CMP 11/16/2014 82965 LIPI D PANEL 11/16/2014 Results Test Result Range Influenza virus A and B antigen detectio n - 03/14/18 00:37 FLU RESULT NEGATIVE FOR INFLUENZA A AND B ANTIGENS BY IA NR Complete blood count (CBC) with automate d white blood cell (WBC) differential - 03/28/18 01:00 Blood leukocytes automated count (number/volume) 9.9 10*3/uL 4.3-11.0 Blood erythrocytes automated count (number/volume) 4.04 10*6/uL 4.35-5.85 Venous blood hemoglobin measurement (mass/volume) 13.0 g/dL 11.5-16.0 Blood hematocrit (volume fraction) 39 % 35-52 Automated erythrocyte mean corpuscular volume 96 [ foz_us] 80-99 Automated erythrocyte mean corpuscular h emoglobin (mass per erythrocyte) 32 pg 25-34 Automated erythrocyte mean corpuscular h emoglobin concentration measurement (mass/volume) 34 g/dL 32-36 Automated erythrocyte distribution width ratio 12. 9 % 10.0- 14.5 Automated blood platelet count (count/volume) 269 10*3/uL 130-400 Automated blood platelet mean volume measurement 10.7 [foz_us] 7.4-10.4 Automated blood neutrophils/100 leukocytes 56 % 42-75 Automated blood lymphocytes/100 leukocytes 32 % 12-44 Blood monocytes/100 leukocytes 10 % 0-12 Automated blood eosinophils/100 leukocytes 2 % 0-10 Automated blood basophils/100 leukocytes 0 % 0-10 Blood neutrophils automated count (number/volume) 5.5 10*3 1.8-7.8 Blood lymphocytes automated count (number/volume) 3.2 10*3 1.0-4.0 Blood monocytes automated count (number/volume) 1. 0 10*3 0.0-1.0 Automated eosinophil count 0.2 10*3/uL 0 .0-0.3 Automated blood basophil count (count/volume) 0.0 10*3/uL 0.0-0.1 Fibrin D-dimer FEU measurement in platel et poor plasma (mass/volume) - 03/28/18 01:00 Fibrin D-dimer FEU measurement in platelet poor plasma (mass/volume) 0.28 ug/mL 0.00-0.49 Whole blood basic metabolic panel - 03/03 06/18 01:00 Serum or plasma sodium measurement (moles/volume) 140 mmol/L 135-145 Serum or plasma potassium measurement (moles/volume) 3.8 mmol/L 3.6-5.0 Serum or plasma chloride measurement (moles/volume) 108 mmol/L 98-107 Carbon dioxide 22 mmol/L 21-32 Serum or plasma anion gap determination (moles/volume) 10 mmol/L 5-14 Serum or plasma urea nitrogen measurement (mass/volume ) 17 mg/dL 7-18 Serum or plasma creatinine measurement (mass/volume) 0.76 mg/dL 0.60-1.30 Serum or plasma urea nitrogen/creatinine mass ratio 22 NRG Serum or plasma creatinine measurement w ith calculation of estimated glomerular filtration rate > NRG Serum or plasma glucose measurement (mass/volume) 100 mg/dL 70-105 Serum or plasma calcium measurement (mass/volume) 8.7 mg/dL 8.5-10.1 TSH - 04/22/18 15:34 TSH 1.39 mIU/L NRG HEP C ANTIBODY - 04/22/19 13:36 HEPATITIS C ANTIBODY NON-REACTIVE NON-R EACTIVE SIGNAL TO CUT-OFF 0.02 <1.00 GC/CHLAMYDIA (SWAB OR URINE)-RAPID - 13:36 CHLAMYDIA TRACHOMATIS RNA, TMA NOT DETECTED NOT DETECTED NEISSERIA GONORRHOEAE RNA, TMA NOT DETECTED NOT DETECTED COMMENT NRG CBC - 06/26/19 14:22 WHITE BLOOD CELL COUNT 9.1 Thousand/uL 3 .8-10.8 RED BLOOD CELL COUNT 4.36 Million/uL 3.8 0-5.10 HEMOGLOBIN 13.8 g/dL 11.7-15.5 HEMATOCRIT 42.0 % 35.0-45.0 MCV 96.3 fL 80.0-100.0 MCH 31.7 pg 27.0-33.0 MCHC 32.9 g/dL 32.0-36.0 RDW 12.0 % 11.0-15.0 PLATELET COUNT 270 Thousand/uL 140-400 MPV 11.3 fL 7.5-12.5 ABSOLUTE NEUTROPHILS 5524 cells/uL 1500- 7800 ABSOLUTE LYMPHOCYTES 2384 cells/uL 850-3 900 ABSOLUTE MONOCYTES 928 cells/uL 200-950 ABSOLUTE EOSINOPHILS 228 cells/uL 15-500 ABSOLUTE BASOPHILS 36 cells/uL 0-200 NEUTROPHILS 60.7 % NRG LYMPHOCYTES 26.2 % NRG MONOCYTES 10.2 % NRG EOSINOPHILS 2.5 % NRG BASOPHILS 0.4 % NRG Complete urinalysis with reflex to cultu re - 07/03/19 16:05 Urine color determination YELLOW NRG Urine clarity determination CLEAR NR G Urine pH measurement by test strip 6 5-9 Specific gravity of urine by test strip 1.020 1.016-1.022 Urine protein assay by test strip, semi-quantitative NEGATIVE NEGATIVE Urine glucose detection by automated test strip NE GATIVE NEGATIVE Erythrocytes detection in urine sediment by light micr oscopy 4+ NEGATIVE Urine ketones detection by automated test strip NE GATIVE NEGATIVE Urine nitrite detection by test strip NEGATIVE NEGATIVE Urine total bilirubin detection by test strip NEGA TIVE NEGATIVE Urine urobilinogen measurement by automated test strip (mass/volume) NORMAL NORMAL Urine leukocyte esterase detection by dipstick 1+ NEGATIVE Automated urine sediment erythrocyte cou nt by microscopy (number/high power field) [HPF] NRG Automated urine sediment leukocyte count by microscopy (number/high power field) [HPF] NRG Bacteria detection in urine sediment by light microsco py TRACE NRG Squamous epithelial cells detection in u rine sediment by light microscopy 10-25 NRG Crystals detection in urine sediment by light microsco py NONE NRG Casts detection in urine sediment by light microscopy NONE NRG Mucus detection in urine sediment by light microscopy SMALL NRG Complete urinalysis with reflex to culture YES NRG Urine drug screening test - 07/03/19 16: 05 Urine phencyclidine detection by screening method NEGATIVE NEGATIVE Urine benzodiazepines detection by screening method NEGATIVE NEGATIVE Urine cocaine detection NEGATIVE NEGATI VE Urine amphetamines detection by screening method N EGATIVE NEGATIVE Urine methamphetamine detection by screening method NEGATIVE NEGATIVE Urine cannabinoids detection by screening method P OSITIVE NEGATIVE Urine opiates detection by screening method NEGATI VE NEGATIVE Urine barbiturates detection NEGATIVE N EGATIVE Screening urine tricyclic antidepressants detection NEGATIVE NEGATIVE Urine methadone detection by screening method NEGA TIVE NEGATIVE Urine oxycodone detection NEGATIVE NEGA TIVE Urine propoxyphene detection NEGATIVE N EGATIVE Bacterial urine culture - 07/03/19 16:05 Bacterial urine culture [id number] NRG COLONY COUNT >100,000/ML NRG FTX;REPORTABLE SEE COMMENTS NRG CULTURE, URINE - 07/17/19 11:37 CULTURE, URINE, ROUTINE SEE NOTE NRG CULTURE, URINE - 08/05/19 16:33 CULTURE, URINE, ROUTINE SEE NOTE NRG Complete blood count (CBC) with automate d white blood cell (WBC) differential - 08/19/19 15:00 Blood leukocytes automated count (number/volume) 8.2 10*3/uL 4.3-11.0 Blood erythrocytes automated count (number/volume) 4.31 10*6/uL 4.35-5.85 Venous blood hemoglobin measurement (mass/volume) 13.4 g/dL 11.5-16.0 Blood hematocrit (volume fraction) 41 % 35-52 Automated erythrocyte mean corpuscular volume 96 [ foz_us] 80-99 Automated erythrocyte mean corpuscular h emoglobin (mass per erythrocyte) 31 pg 25-34 Automated erythrocyte mean corpuscular h emoglobin concentration measurement (mass/volume) 32 g/dL 32-36 Automated erythrocyte distribution width ratio 13. 0 % 10.0- 14.5 Automated blood platelet count (count/volume) 242 10*3/uL 130-400 Automated blood platelet mean volume measurement 10.8 [foz_us] 7.4-10.4 Automated blood neutrophils/100 leukocytes 59 % 42-75 Automated blood lymphocytes/100 leukocytes 26 % 12-44 Blood monocytes/100 leukocytes 11 % 0-12 Automated blood eosinophils/100 leukocytes 4 % 0-10 Automated blood basophils/100 leukocytes 0 % 0-10 Blood neutrophils automated count (number/volume) 4.8 10*3 1.8-7.8 Blood lymphocytes automated count (number/volume) 2.1 10*3 1.0-4.0 Blood monocytes automated count (number/volume) 0. 9 10*3 0.0-1.0 Automated eosinophil count 0.4 10*3/uL 0 .0-0.3 Automated blood basophil count (count/volume) 0.0 10*3/uL 0.0-0.1 Whole blood basic metabolic panel - 08/02 07/20 15:00 Serum or plasma sodium measurement (moles/volume) 137 mmol/L 135-145 Serum or plasma potassium measurement (moles/volume) 3.8 mmol/L 3.6-5.0 Serum or plasma chloride measurement (moles/volume) 106 mmol/L 98-107 Carbon dioxide 27 mmol/L 21-32 Serum or plasma anion gap determination (moles/volume) 4 mmol/L 5-14 Serum or plasma urea nitrogen measurement (mass/volume ) 7 mg/dL 7-18 Serum or plasma creatinine measurement (mass/volume) 0.65 mg/dL 0.60-1.30 Serum or plasma urea nitrogen/creatinine mass ratio 11 NRG Serum or plasma creatinine measurement w ith calculation of estimated glomerular filtration rate > NRG Serum or plasma glucose measurement (mass/volume) 85 mg/dL 70-105 Serum or plasma calcium measurement (mass/volume) 8.7 mg/dL 8.5-10.1 Complete blood count (CBC) with automate d white blood cell (WBC) differential - 09/12/19 20:45 Blood leukocytes automated count (number/volume) 8.0 10*3/uL 4.3-11.0 Blood erythrocytes automated count (number/volume) 4.40 10*6/uL 4.35-5.85 Venous blood hemoglobin measurement (mass/volume) 13.9 g/dL 11.5-16.0 Blood hematocrit (volume fraction) 42 % 35-52 Automated erythrocyte mean corpuscular volume 96 [ foz_us] 80-99 Automated erythrocyte mean corpuscular h emoglobin (mass per erythrocyte) 32 pg 25-34 Automated erythrocyte mean corpuscular h emoglobin concentration measurement (mass/volume) 33 g/dL 32-36 Automated erythrocyte distribution width ratio 13. 1 % 10.0- 14.5 Automated blood platelet count (count/volume) 237 10*3/uL 130-400 Automated blood platelet mean volume measurement 10.7 [foz_us] 7.4-10.4 Automated blood neutrophils/100 leukocytes 60 % 42-75 Automated blood lymphocytes/100 leukocytes 26 % 12-44 Blood monocytes/100 leukocytes 10 % 0-12 Automated blood eosinophils/100 leukocytes 3 % 0-10 Automated blood basophils/100 leukocytes 0 % 0-10 Blood neutrophils automated count (number/volume) 4.8 10*3 1.8-7.8 Blood lymphocytes automated count (number/volume) 2.1 10*3 1.0-4.0 Blood monocytes automated count (number/volume) 0. 8 10*3 0.0-1.0 Automated eosinophil count 0.3 10*3/uL 0 .0-0.3 Automated blood basophil count (count/volume) 0.0 10*3/uL 0.0-0.1 Whole blood basic metabolic panel - 09/01 01/20 20:45 Serum or plasma sodium measurement (moles/volume) 141 mmol/L 135-145 Serum or plasma potassium measurement (moles/volume) 4.1 mmol/L 3.6-5.0 Serum or plasma chloride measurement (moles/volume) 109 mmol/L 98-107 Carbon dioxide 23 mmol/L 21-32 Serum or plasma anion gap determination (moles/volume) 9 mmol/L 5-14 Serum or plasma urea nitrogen measurement (mass/volume ) 14 mg/dL 7-18 Serum or plasma creatinine measurement (mass/volume) 0.81 mg/dL 0.60-1.30 Serum or plasma urea nitrogen/creatinine mass ratio 17 NRG Serum or plasma creatinine measurement w ith calculation of estimated glomerular filtration rate > NRG Serum or plasma glucose measurement (mass/volume) 98 mg/dL 70-105 Serum or plasma calcium measurement (mass/volume) 9.1 mg/dL 8.5-10.1 Influenza virus A and B antigen detectio n - 01/12/20 15:56 FLU RESULT NEGATIVE FOR INFLUENZA A AND B ANTIGENS BY IA NRG Microscopic examination by wet preparati on - 01/12/20 16:20 WET PREP RESULTS NO YEAST OBSERVED, NO TRICH OMONAS OBSERVED NRG Bacteria identification in genital speci men by aerobe culture - 01/12/20 16:20 FREE TEXT EXTERNAL SEE COMMENTS NRG QUANTITY OF GROWTH Many NRG Bacteria identification in genital specimen by aerobe culture [id number] NRG Encounters ACCT No. Visit Date/Time Discharge Status Pt. Type Provider Facility Loc./Unit Complaint [id number] 01/14/2020 11:40:00 01/14/2020 23:59:5 9 CLS Outpatient [facility] [id number] 08/05/2019 15:40:00 Document Registration [id number] 07/17/2019 10:40:00 Document Registration [id number] 06/26/2019 13:40:00 Document Registration [id number] 04/22/2019 13:20:00 Document Registration [id number] 04/22/2018 14:40:00 Document Registration [id number] 01/12/2020 15:37:00 17:25:00 DIS Emergency HUGH RONQUILLO APRN [facility] ER TOOTH PAIN [id number] 09/21/2019 14:28:00 15:37:00 DIS Emergency NARCISO DENNIS BLANCA [facility] ER FEET/LEG NUMBNESS;LOWER BACK PAIN [id number] 09/12/2019 20:13:00 21:25:00 DIS Emergency HUGH RONQUILLO APRN [facility] ER PAIN IN FEET AND LEGS [id number] 08/19/2019 13:00:00 15:50:00 DIS Emergency HUGH RONQUILLO APRN [facility] ER POSS DEHYDRATION;LOWER BACK PAIN [id number] 07/03/2019 15:20:00 18:16:00 DIS Emergency DARVIN WOODARD DO [facility] ER SCIATIC NERVE PAIN [id number] 07/01/2019 13:25:00 14:21:00 DIS Emergency HUGH RONQUILLO APRN [facility] ER SHOULDER PAIN [id number] 05/03/2019 16:39:00 19:26:00 DIS Emergency JASMEET KASPER MD [facility] ER R SIDE SCIATICA/R LEG S WELLING/FEVER [id number] 04/30/2018 14:20:00 23:59:59 CLS Preadvan LIND MD, KIRIT addison [facility] RAD PARESTHESIA OF SKIN [id number] 03/28/2018 00:36:00 018 01:55:00 DIS Emergency BIBI JEWELL MD [facility] ER POSS BLOOD CLOT ,RT LEG,PAIN [id number] 03/14/2018 00:06:00 018 02:01:00 DIS Emergency DARVIN WOODARD DO [facility] ER POSS PNEUMONIA [id number] 02/17/2018 20:12:00 018 20:33:00 DIS Emergency HUGH RONQUILLO APRN [facility] ER L EARDRUM PAIN [id number] 02/11/2018 10:07:00 018 11:17:00 DIS Emergency TJ CHAMBERS MD [facility] ER EAR ACHE,EAR BL EEDING PER PT [id number] 10/27/2016 18:21:00 016 19:05:00 DIS Emergency DARVIN WOODARD DO [facility] ER L FOOT/LEG PAIN [id number] 12/01/2015 12:40:00 015 14:29:00 DIS Emergency HUGH RONQUILLO APRN [facility] ER BOTH HANDS ALLERGIC BALDEV CTION [id number] 07/03/2015 21:57:00 015 00:26:00 DIS Emergency MERE HAYNES [facility] ER NAUSEA/NOT FEELING WEL L [id number] 05/03/2015 10:35:00 015 10:38:00 DIS Outpatient MARK ANTHONY LING [facility] REHAB B FOOT PAIN PLANTAR FAS CITIS [id number] 02/25/2015 15:59:00 015 23:59:59 CLS Outpatient PAULINE WILLIS DO [facility] RAD FEET PAIN LAST 4 MONTHS [id number] 06/18/2013 16:57:00 013 23:59:59 CLS Outpatient [id number] 05/31/2013 18:33:00 013 19:40:00 DIS Emergency MERE HAYNES [facility] ER BITE ON L LEG [id number] 05/30/2013 04:57:00 013 05:40:00 DIS Emergency BIBI JEWELL MD [facility] ER SOA,HUMAN BITE ON LEFT LEG [id number] 02/25/2015 15:59:00 Document Registration [id number] 12/10/2011 13:03:00 Document Registration [id number] 12/09/2011 23:39:00 Document Registration [id number] 05/08/2011 15:32:00 Document Registration [id number] 05/07/2011 07:42:00 Document Registration [id number] 04/12/2011 22:00:00 Document Registration [id number] 10/07/2010 18:05:00 Document Registration [id number] 07/21/2010 08:52:00 Document Registration [id number] 05/01/2010 16:54:00 Document Registration [id number] 04/10/2010 11:58:00 Document Registration [id number] 11/16/2014 10:57:00 11/16/2014 23:59: 59 CLS Outpatient SIOMARA PITTS MD [id number] 11/16/2014 10:57:00 11/16/2014 23:59: 59 CLS Outpatient SIOMARA PITTS MD [id number] 10/22/2013 10:51:00 10/22/2013 23:59: 59 CLS Outpatient EVE GARCIA DO [id number] 10/22/2013 10:51:00 10/22/2013 23:59: 59 CLS Outpatient RASHEL STEWARD APRN [id number] 05/05/2013 16:03:00 05/05/2013 23:59: 59 CLS Outpatient CHERELLE WEEKS APRN [id number] 12/16/2012 13:34:00 12/16/2012 23:59: 59 CLS Outpatient CARMEN OBRIEN APRN [id number] 12/10/2012 15:14:00 12/10/2012 23:59: 59 CLS Outpatient [id number] 12/03/2012 10:14:00 12/03/2012 23:59: 59 CLS Outpatient EVE GARCIA DO [id number] 11/14/2012 14:42:00 11/14/2012 23:59: 59 CLS Outpatient [id number] 05/29/2013 15:54:00 Document Registration [id number] 05/29/2013 09:39:00 Document Registration [id number] 05/05/2013 16:03:00 Document Registration
== END 2020-01-12 17:25 | disposition home or self-care (01) ==
LOC: EDUNIT# 15:36 → ER 15:37
DX: K08.89 Other specified disorders of teeth and supporting structures (principal); N93.9 Abnormal uterine and vaginal bleeding, unspecified; F17.210 Nicotine dependence, cigarettes, uncomplicated; Z88.1 Allergy status to other antibiotic agents
CPT/HCPCS: 87070; 87077; 87205; 87210; 87804

== ENCOUNTER 2020-09-13 19:20 | Emergency (ER) | payer MEDICAID, OTHER ==
[~2020-09-13] VITALS: Ht 185.4 cm; Wt 127.0 kg
[~2020-09-13 19:20] MED LIST changes: +METR500T PO; -PROM118S4 PO; +PROM118S5 PO
--- NOTE | 2020-09-13 20:39 | ED Abdominal Pain ---
General Stated Complaint: RIGHT SIDED PAIN;R LOWER ABD PAIN;LOW BACK PAIN Source of Information: Patient Exam Limitations: No Limitations History of Present Illness Date Seen by Provider: Sep 13, 2020 Time Seen by Provider: 20:38 Initial Comments To ER with right lower abdomen, middle low back pain for 4 days. She also has vaginal discharge. No fevers chills or vomiting. Timing/Duration: 3-4 Days Severity/Quality: Moderate Location: RLQ Radiation: No Radiation Activities at Onset: None Allergies and Home Medications Allergies Coded Allergies: cephalexin (Verified Allergy, Unknown, 02/11/18) clindamycin (Verified Allergy, Unknown, 10/27/16) Home Medications Amoxicillin 500 Mg Capsule, 500 MG PO TID Prescribed by: HUGH RONQUILLO on 01/12/20 1627 Metronidazole 500 Mg Tablet, 500 MG PO BID Prescribed by: HUGH RONQUILLO on 01/12/20 1700 Patient Home Medication List Home Medication List Reviewed: Yes Review of Systems Review of Systems Constitutional: see HPI EENTM: No Symptoms Reported Respiratory: No Symptoms Reported Cardiovascular: No Symptoms Reported Gastrointestinal: See HPI, Abdominal Pain Genitourinary: No Symptoms Reported Musculoskeletal: no symptoms reported Skin: no symptoms reported Psychiatric/Neurological: No Symptoms Reported Endocrine: No Symptoms Reported Hematologic/Lymphatic: No Symptoms Reported Past Wdeqxyj-Bdzjjf-Tsutcq Hx Patient Social History Drug of Choice: THC Type Used: Cigarettes 2nd Hand Smoke Exposure: No Recent Foreign Travel: No Contact w/Someone Who Travel: No Recent Hopitalizations: No Immunizations Up To Date Tetanus Booster (TDap): Less than 5yrs Seasonal Allergies Seasonal Allergies: Yes Past Medical History Surgeries: Yes Adenoidectomy, Tonsillectomy, Tubal Ligation Respiratory: Yes Asthma Cardiac: No Hypertension Neurological: No Reproductive Disorders: No 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 0oz. 144.114606la; 43.00 BMI Method:Stated General Appearance: WD/WN, no apparent distress Respiratory: normal breath sounds, no respiratory distress, no accessory muscle use Gastrointestinal: normal bowel sounds, soft, tenderness Genital/Rectal: other (patient self swab for wet prep and gonorrhea chlamydia) Extremities: normal range of motion, non-tender Neurologic/Psychiatric: alert, normal mood/affect, oriented x 3 Skin: normal color, warm/dry Progress/Results/Core Measures Results/Orders Lab Results Laboratory Tests Test 09/13/20 20:30 09/13/20 20:40 09/13/20 20:50 Range/Units White Blood Count 10.5 4.3-11.0 10^3/uL Red Blood Count 4.69 3.80-5.11 10^6/uL Hemoglobin 14.4 11.5-16.0 g/dL Hematocrit 43 35-52 % Mean Corpuscular Volume 92 80-99 fL Mean Corpuscular Hemoglobin 31 25-34 pg Mean Corpuscular Hemoglobin Concent 33 32-36 g/dL Red Cell Distribution Width 12.6 10.0-14.5 % Platelet Count 264 130-400 10^3/uL Mean Platelet Volume 11.4 9.0-12.2 fL Immature Granulocyte % (Auto) 0 % Neutrophils (%) (Auto) 72 42-75 % Lymphocytes (%) (Auto) 17 12-44 % Monocytes (%) (Auto) 9 0-12 % Eosinophils (%) (Auto) 1 0-10 % Basophils (%) (Auto) 0 0-10 % Neutrophils # (Auto) 7.5 1.8-7.8 10^3/uL Lymphocytes # (Auto) 1.8 1.0-4.0 10^3/uL Monocytes # (Auto) 1.0 0.0-1.0 10^3/uL Eosinophils # (Auto) 0.1 0.0-0.3 10^3/uL Basophils # (Auto) 0.0 0.0-0.1 10^3/uL Immature Granulocyte # (Auto) 0.0 0.0-0.1 10^3/uL Sodium Level 138 135-145 MMOL/L Potassium Level 3.8 3.6-5.0 MMOL/L Chloride Level 105 98-107 MMOL/L Carbon Dioxide Level 24 21-32 MMOL/L Anion Gap 9 5-14 MMOL/L Blood Urea Nitrogen 11 7-18 MG/DL Creatinine 0.81 0.60-1.30 MG/DL Estimat Glomerular Filtration Rate > 60 BUN/Creatinine Ratio 14 Glucose Level 101 70-105 MG/DL Calcium Level 9.3 8.5-10.1 MG/DL Corrected Calcium 9.3 8.5-10.1 MG/DL Total Bilirubin 0.5 0.1-1.0 MG/DL Aspartate Amino Transf (AST/SGOT) 17 5-34 U/L Alanine Aminotransferase (ALT/SGPT) 17 0-55 U/L Alkaline Phosphatase 64 40-136 U/L Total Protein 7.3 6.4-8.2 GM/DL Albumin 4.0 3.2-4.5 GM/DL Urine Color YELLOW Urine Clarity SL CLOUDY Urine pH 6.0 5-9 Urine Specific [place] 1.025 H 1.016-1.022 Urine Protein NEGATIVE NEGATIVE Urine Glucose (UA) NEGATIVE NEGATIVE Urine Ketones NEGATIVE NEGATIVE Urine Nitrite NEGATIVE NEGATIVE Urine Bilirubin NEGATIVE NEGATIVE Urine Urobilinogen 1.0 < = 1.0 MG/DL Urine Leukocyte Esterase 2+ H NEGATIVE Urine RBC (Auto) 2+ H NEGATIVE Urine RBC 2-5 H /HPF Urine WBC 5-10 H /HPF Urine Squamous Epithelial Cells 10-25 H /HPF Urine Crystals PRESENT H /LPF Urine Amorphous Sediment FEW FRANKIE URATES H /LPF Urine Bacteria FEW H /HPF Urine Casts NONE /LPF Urine Mucus SMALL H /LPF Urine Culture Indicated YES Urine Opiates Screen NEGATIVE NEGATIVE Urine Oxycodone Screen NEGATIVE NEGATIVE Urine Methadone Screen NEGATIVE NEGATIVE Urine Propoxyphene Screen NEGATIVE NEGATIVE Urine Barbiturates Screen NEGATIVE NEGATIVE Ur Tricyclic Antidepressants Screen NEGATIVE NEGATIVE Urine Phencyclidine Screen NEGATIVE NEGATIVE Urine Amphetamines Screen NEGATIVE NEGATIVE Urine Methamphetamines Screen NEGATIVE NEGATIVE Urine Benzodiazepines Screen NEGATIVE NEGATIVE Urine Cocaine Screen NEGATIVE NEGATIVE Urine Cannabinoids Screen POSITIVE H NEGATIVE My Orders Orders - HUGH RONQUILLO APRN Cbc With Automated Diff (09/13/20 20:36) Comprehensive Metabolic Panel (09/13/20 20:36) Ed Iv/Invasive Line Start (09/13/20 20:36) Ua Culture If Indicated (09/13/20 20:36) Drug Screen Stat (Urine) (09/13/20 20:36) Wet Prep (09/13/20 20:36) Neisseria Gonorrhea Swab (09/13/20 20:36) Chlamydia Trachomatis Swab (09/13/20 20:36) Ketorolac Injection (Toradol Injection) (09/13/20 20:45) Orphenadrine Inj (Ed Only) (Norflex Inje (09/13/20 20:45) Urine Culture (09/13/20 20:50) Medications Given in ED Current Medications Medications Dose Ordered Sig/Michelle Route Start Time Stop Time Status Last Admin Dose Admin Ketorolac Tromethamine 60 mg ONCE ONCE IM 09/13/20 20:45 09/13/20 20:46 DC 09/13/20 21:01 60 MG Orphenadrine Citrate 60 mg ONCE ONCE IM 09/13/20 20:45 09/13/20 20:46 DC 09/13/20 21:03 60 MG Vital Signs/I&O 09/13/20 20:23 Temp 36.1 Pulse 74 Resp 20 B/P (MAP) 149/108 (122) Pulse Ox 97 O2 Delivery Room Air Departure Impression Primary Impression: Back pain Additional Impression: Abdominal pain Disposition: HOME, SELF-CARE Condition: Stable Departure-Patient Inst. Decision time for Depature: 22:22 Referrals: [facility] (PCP/Family) Primary Care Physician Patient Instructions: Acute Pain, Adult Add. Discharge Instructions: 1. Follow-up with your doctor this week. Antibiotics as directed. Return to ER for any concerns. Scripts Naproxen (Naprosyn) 500 Mg Tablet 500 MG PO BID PRN for PAIN-MODERATE (5-7), #30 TAB 0 Refills Prov: HUGH RONQUILLO APRN 09/13/20 Sulfamethoxazole/Trimethoprim (Bactrim Ds Tablet) 1 Each Tablet 1 EACH PO BID, #10 TAB Prov: HUGH RONQUILLO APRN 09/13/20 Work/School Note: Work Release Form Date Seen in the Emergency Department: Sep 13, 2020 Return to Work: Sep 14, 2020 HUGH RONQUILLO APRN Sep 13, 2020 20:39
[2020-09-13] MEDS ORDERED: ORPHENADRINE 60 MG/2 ML (NORFLEX) AMP (ED ONLY) IM ONE (20:45)
[2020-09-13] MEDS ORDERED: KETOROLAC 60 MG/2 ML VIAL IM ONE (20:45)
[2020-09-13 20:56] LABS: BASOPHILS % (AUTO) 0 % (0-10); EOSINOPHILS # (AUTO) 0.1 10^3/uL (0.0-0.3); EOSINOPHILS % (AUTO) 1 % (0-10); HEMATOCRIT 43 % (35-52); HEMOGLOBIN 14.4 g/dL (11.5-16.0); LYMPHOCYTES # (AUTO) 1.8 10^3/uL (1.0-4.0); LYMPHOCYTES % (AUTO) 17 % (12-44); MEAN CORPUSCULAR HEMOGLOBIN 31 pg (25-34); MEAN CORPUSCULAR HGB CONC 33 g/dL (32-36); MEAN CORPUSCULAR VOLUME 92 fL (80-99); MEAN PLATELET VOLUME 11.4 fL (9.0-12.2); MONOCYTES % (AUTO) 9 % (0-12); NEUTROPHILS # (AUTO) 7.5 10^3/uL (1.8-7.8); NEUTROPHILS % (AUTO) 72 % (42-75); PLATELET COUNT 264 10^3/uL (130-400); WHITE BLOOD COUNT 10.5 10^3/uL (4.3-11.0)
[2020-09-13 21:14] LABS: BILIRUBIN,URINE NEGATIVE (NEGATIVE); CLARITY,URINE SL CLOUDY; COLOR,URINE YELLOW; GLUCOSE, URINE (UA) NEGATIVE (NEGATIVE); KETONES,URINE NEGATIVE (NEGATIVE); LEUKOCYTE ESTERASE ,URINE 2+ (NEGATIVE); NITRITE,URINE NEGATIVE (NEGATIVE); PROTEIN,URINE NEGATIVE (NEGATIVE)
[2020-09-13 21:23] LABS: ALANINE AMINOTRANSFERASE 17 U/L (0-55); ALKALINE PHOSPHATASE 64 U/L (40-136); BILIRUBIN,TOTAL 0.5 MG/DL (0.1-1.0); BUN/CREATININE RATIO 14; CALCIUM 9.3 MG/DL (8.5-10.1); CARBON DIOXIDE 24 MMOL/L (21-32); CHLORIDE 105 MMOL/L (98-107); CREATININE SERUM 0.81 MG/DL (0.60-1.30); GFR ESTIMATED > 60; GLUCOSE 101 MG/DL (70-105); POTASSIUM 3.8 MMOL/L (3.6-5.0); SODIUM 138 MMOL/L (135-145); TOTAL PROTEIN 7.3 GM/DL (6.4-8.2)
[2020-09-13 22:07] LABS: AMPHETAMINE SCREEN, URINE NEGATIVE (NEGATIVE); BARBITURATE SCREEN URINE NEGATIVE (NEGATIVE); BENZODIAZEPINES SCREEN URINE NEGATIVE (NEGATIVE); CANNABINOID SCREEN, URINE POSITIVE (NEGATIVE); COCAINE SCREEN URINE NEGATIVE (NEGATIVE); METHADONE STAT NEGATIVE (NEGATIVE); METHAMPHETAMINE SCREEN URINE S NEGATIVE (NEGATIVE); OPIATE SCREEN URINE NEGATIVE (NEGATIVE); OXYCODONE STAT NEGATIVE (NEGATIVE); PROPOXYPHENE STAT NEGATIVE (NEGATIVE); TRICYCLIC ANTIDEPRESSANTS SCRE NEGATIVE (NEGATIVE)
[2020-09-13 22:15] LABS: BACTERIA,URINE FEW /HPF
[2020-09-13 22:16] LABS: AMORPHOUS SEDIMENT,UR FEW AMOR URATES /LPF
[2020-09-13] MEDS ORDERED: NAPR-1071 PO (22:24)
[2020-09-13] MEDS ORDERED: SULF1TAB35 PO (22:24)
[2020-09-13 22:31] VITALS: BP 147/120
== END 2020-09-13 22:31 | disposition home or self-care (01) ==
LOC: EDUNIT# 19:20 → ER 19:23
DX: M54.5 Low back pain (principal); R10.31 Right lower quadrant pain; Z88.1 Allergy status to other antibiotic agents
CPT/HCPCS: 36415; 80053; 80306; 81000; 85025; 87088; 87210; 87491; 87591

== ENCOUNTER 2020-09-29 21:11 | Emergency (ER) | payer MEDICAID ==
[~2020-09-29] VITALS: Ht 185 cm; Wt 158.7 kg
[2020-09-29] MEDS ORDERED: KETOROLAC 60 MG/2 ML VIAL IM ONE (23:00)
[2020-09-29] MEDS ORDERED: ORPHENADRINE 60 MG/2 ML (NORFLEX) AMP (ED ONLY) IM ONE (23:00)
[2020-09-29] MEDS ORDERED: diphenhydrAMINE 50 MG/ML INJ (BENADRYL) IM ONE (23:00)
[2020-09-30 00:07] LABS: BILIRUBIN,URINE NEGATIVE (NEGATIVE); CLARITY,URINE CLEAR; COLOR,URINE RED; GLUCOSE, URINE (UA) NEGATIVE (NEGATIVE); KETONES,URINE TRACE (NEGATIVE); LEUKOCYTE ESTERASE ,URINE TRACE (NEGATIVE); NITRITE,URINE POSITIVE (NEGATIVE); PROTEIN,URINE 2+ (NEGATIVE)
[2020-09-30 00:16] LABS: BACTERIA,URINE TRACE /HPF; RBC,URINE TNTC /HPF; WBC,URINE RARE /HPF
[2020-09-30 00:23] LABS: AMPHETAMINE SCREEN, URINE NEGATIVE (NEGATIVE); BARBITURATE SCREEN URINE NEGATIVE (NEGATIVE); BENZODIAZEPINES SCREEN URINE NEGATIVE (NEGATIVE); CANNABINOID SCREEN, URINE POSITIVE (NEGATIVE); COCAINE SCREEN URINE NEGATIVE (NEGATIVE); METHADONE STAT NEGATIVE (NEGATIVE); METHAMPHETAMINE SCREEN URINE S NEGATIVE (NEGATIVE); OPIATE SCREEN URINE NEGATIVE (NEGATIVE); OXYCODONE STAT NEGATIVE (NEGATIVE); PROPOXYPHENE STAT NEGATIVE (NEGATIVE); TRICYCLIC ANTIDEPRESSANTS SCRE NEGATIVE (NEGATIVE)
[2020-09-30] MEDS ORDERED: RX-CYCLOBENZAPRINE 10 MG (FLEXERIL) TAB PPK#3 PO STA (01:58)
[2020-09-30] MEDS ORDERED: RX-NAPROXEN (NAPROSYN) 250 MG TAB PPK#4 PO STA (01:58)
[2020-09-30] MEDS ORDERED: CYCL10TA9 PO (02:00)
[2020-09-30] MEDS ORDERED: METH4TAB PO (02:00)
--- NOTE | 2020-09-30 02:01 | ED Lower Extremity ---
General Chief Complaint: General Problems/Pain Stated Complaint: R SIDED PAIN IN LEGS AND ARM/LOWER BACK PAIN Nursing Triage Note: TO ED VIA POV AND REQUEST AID OUT OF PRIVATE VEHICLE AND INTO W/C. MX PAIN COMPLAINTS TO RIGHT SIDE OF BODY. Nursing Sepsis Screen: No Definite Risk Source: patient History of Present Illness Date Seen by Provider: Sep 29, 2020 Allergies and Home Medications Allergies Coded Allergies: cephalexin (Verified Allergy, Unknown, 02/11/18) clindamycin (Verified Allergy, Unknown, 10/27/16) Home Medications Amoxicillin 500 Mg Capsule, 500 MG PO TID Prescribed by: HUGH RONQUILLO on 01/12/20 1627 Cyclobenzaprine HCl 10 Mg Tablet, 10 MG PO Q8H PRN for SPASMS Prescribed by: DARVIN WOODARD on 09/30/20 020 Methylprednisolone 4 Mg Tab.ds.pk, 4 MG PO UD PER DOSE PACK INSTRUCTIONS Prescribed by: DARVIN WOODARD on 09/30/20 0200 Metronidazole 500 Mg Tablet, 500 MG PO BID Prescribed by: HUGH RONQUILLO on 01/12/20 1700 Naproxen 500 Mg Tablet, 500 MG PO BID PRN for PAIN-MODERATE (5-7) Prescribed by: HUGH RONQUILLO on 09/13/20 222 Sulfamethoxazole/Trimethoprim 1 Each Tablet, 1 EACH PO BID Prescribed by: HUGH RONQUILLO on 09/13/202223 Past Nyyrwhj-Zxutkp-Hdqeyq Hx Patient Social History Alcohol Use: Denies Use Recreational Drug Use: Yes Drug of Choice: THC Type Used: Cigarettes 2nd Hand Smoke Exposure: No Recent Foreign Travel: No Contact w/Someone Who Travel: No Recent Infectious Disease Expo: No Recent Hopitalizations: No Immunizations Up To Date Tetanus Booster (TDap): Less than 5yrs Seasonal Allergies Seasonal Allergies: Yes Past Medical History Surgeries: Yes Adenoidectomy, Tonsillectomy, Tubal Ligation Respiratory: Yes Asthma Cardiac: No Hypertension Neurological: No 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 0oz. 144.795472ii; 46.00 BMI Method:Stated Procedures/Interventions Splinting and Joint Reduction : Antoine wrap: Yes (RIGHT KNEE) Progress/Results/Core Measures Results/Orders Lab Results Laboratory Tests Test 09/29/20 23:55 Range/Units Urine Color RED H Urine Clarity CLEAR Urine pH 5.0 5-9 Urine Specific [place] >=1.030 1.016-1.022 Urine Protein 2+ H NEGATIVE Urine Glucose (UA) NEGATIVE NEGATIVE Urine Ketones TRACE H NEGATIVE Urine Nitrite POSITIVE H NEGATIVE Urine Bilirubin NEGATIVE NEGATIVE Urine Urobilinogen 1.0 < = 1.0 MG/DL Urine Leukocyte Esterase TRACE H NEGATIVE Urine RBC (Auto) 3+ H NEGATIVE Urine RBC TNTC H /HPF Urine WBC RARE /HPF Urine Squamous Epithelial Cells 2-5 /HPF Urine Crystals NONE /LPF Urine Bacteria TRACE /HPF Urine Casts NONE /LPF Urine Mucus SMALL H /LPF Urine Culture Indicated NO Urine Opiates Screen NEGATIVE NEGATIVE Urine Oxycodone Screen NEGATIVE NEGATIVE Urine Methadone Screen NEGATIVE NEGATIVE Urine Propoxyphene Screen NEGATIVE NEGATIVE Urine Barbiturates Screen NEGATIVE NEGATIVE Ur Tricyclic Antidepressants Screen NEGATIVE NEGATIVE Urine Phencyclidine Screen NEGATIVE NEGATIVE Urine Amphetamines Screen NEGATIVE NEGATIVE Urine Methamphetamines Screen NEGATIVE NEGATIVE Urine Benzodiazepines Screen NEGATIVE NEGATIVE Urine Cocaine Screen NEGATIVE NEGATIVE Urine Cannabinoids Screen POSITIVE H NEGATIVE My Orders Orders - DARVIN WOODARD DO Ketorolac Injection (Toradol Injection) (09/29/20 23:00) Orphenadrine Inj (Ed Only) (Norflex Inje (09/29/20 23:00) Diphenhydramine Injection (Benadryl Inje (09/29/20 23:00) Urine Bedside (09/29/20 23:53) Drug Screen Stat (Urine) (09/29/20 23:53) Ua Culture If Indicated (09/29/20 23:53) Knee, Right, 3 Views (09/30/20 00:01) Ct Thoracic Spine Wo (09/30/20 00:01) Ct Lumbar Spine Wo (09/30/20 00:01) Rx-Cyclobenzaprine Tablet (Rx-Flexeril T (09/30/20 01:58) Rx-Naproxen (Rx-Naprosyn) (09/30/20 01:58) Antoine Bandage (09/30/20 01:58) Medications Given in ED Current Medications Medications Dose Ordered Sig/Michelle Route Start Time Stop Time Status Last Admin Dose Admin Diphenhydramine HCl 50 mg ONCE ONCE IM 09/29/20 23:00 09/29/20 23:02 DC 09/29/20 23:42 50 MG Ketorolac Tromethamine 60 mg ONCE ONCE IM 09/29/20 23:00 09/29/20 23:02 DC 09/29/20 23:42 60 MG Orphenadrine Citrate 60 mg ONCE ONCE IM 09/29/20 23:00 09/29/20 23:02 DC 09/29/20 23:42 60 MG Vital Signs/I&O 09/29/20 09/30/20 22:00 02:23 Temp 36.9 36.9 Pulse 89 78 Resp 16 16 B/P (MAP) 127/85 (99) 125/84 (99) Pulse Ox 99 O2 Delivery Room Air Room Air Blood Pressure Mean: 99 Progress Progress Note : Progress Note GIVEN TORADOL, NORFLEX, BENADRYL WITH MUCH IMPROVEMENT IN PAIN. PT ABLE TO AMBULATE OUT OF ER ON HER OWN. Diagnostic Imaging Comments XRAYS RIGHT KNEE--NO ACUTE PROCESS, ARTHRITIC CHANGES, PENDING RADIOLOGIST REVIEW CT THORACIC SPINE--MILD DEGENERATIVE CHANGES, NO ACUTE PROCESS, [place] [facility] [place] 0148 CT LUMBAR SPINE--SEVERE RIGHT FORAMINAL STENOSIS L4-L5 AND L5-S1 FROM FACET/DISC DISEASE. MILD SPINAL CANAL STENOSIS AT L3-L4 AND L4-L5 FROM DISC BULGING--UNCHANGED FROM PREVIOUS STUDY--PER [facility] VIA FAX AT 0148 Reviewed: Reviewed by Me Departure Impression Primary Impression: Exacerbation of chronic back pain Additional Impression: EXACERABATION OF CHRONIC KNEE PAIN Disposition: HOME, SELF-CARE Condition: Improved Departure-Patient Inst. Referrals: [facility] (PCP/Family) Primary Care Physician Patient Instructions: Chronic Knee Pain (DC), Chronic Pain (DC), Low Back Pain (DC) Add. Discharge Instructions: ANTOINE WRAP TO KNEE NEEDED FOR PAIN ALTERNATE ICE AND HEAT TO SORE AREAS AT 20 MINUTE INTERVALS FOLLOW UP WITH [facility] IN 2-3 DAYS FOR FURTHER CARE All discharge instructions reviewed with patient and/or family. Voiced understanding. Scripts Cyclobenzaprine HCl (Cyclobenzaprine HCl) 10 Mg Tablet 10 MG PO Q8H PRN for SPASMS, #15 TAB 0 Refills Prov: DARVIN WOODARD DO 09/30/20 Methylprednisolone (Medrol) 4 Mg Tab.ds.pk 4 MG PO UD for 6 Days, #21 PKG PER DOSE PACK INSTRUCTIONS Prov: DARVIN WOODARD DO 09/30/20 DARVIN WOODARD DO Sep 30, 2020 02:01
[2020-09-30 02:23] VITALS: BP 125/84
--- NOTE | 2020-09-30 06:29 | Diagnostic Imaging Report ---
PROCEDURE: CT thoracic spine without contrast. TECHNIQUE: Multiple axial computerized tomography images were obtained from the base of the thoracic spine to the vertex without intravenous contrast. Auto Exposure Controls were utilized during the CT exam to meet ALARA standards for radiation dose reduction. INDICATION: Back pain. FINDINGS: Thoracic stature is normal. The alignment anatomic. There is mild rodriguez thoracic spondylosis without substantial degrees of canal or foraminal stenosis. No paraspinal mass, hemorrhage or fluid collection. No fracture. No bony destruction. IMPRESSION: Mild degenerative changes aligned anatomically. No acute appearing bony abnormality. Dictated by: Dictated on workstation # [id number]
--- NOTE | 2020-09-30 06:29 | Diagnostic Imaging Report ---
PROCEDURE: CT lumbar spine without contrast. TECHNIQUE: Multiple contiguous axial images were obtained through the lumbar spine without the use of intravenous contrast. Sagittal and coronal reformations were then performed. Auto Exposure Controls were utilized during the CT exam to meet ALARA standards for radiation dose reduction. INDICATION: Right leg pain. Exam compared with abdominal pelvic CT dated 07/03/2019; that study includes sagittal and coronal reconstructions. Lumbar vertebral statures are normal. The alignment is anatomic. No acute or suspect endplate irregularity. No suspicious lytic or sclerotic lesion. The pedicles and pars intact. There are degenerative changes greatest at L4-L5 and L5-S1. At L4-L5, there is vacuum gas phenomena, disc space narrowing, disc bulge and endplate osteophytes with severe right neural foraminal stenosis and at least some magnitude of impingement upon the right lateral recess. The canal is at least moderately stenosed. At L5-S1, there is mild canal stenosis with moderate to severe right neural foraminal narrowing and at least mild lateral recess impingement. When compared with prior, no convincing change, however, nonemergent correlating MRI recommended particularly if symptoms have progressed. IMPRESSION: 1. Stable alignment. No acute bony pathology. Lower lumbar degenerative changes result in substantial degrees of right-sided exit and descending nerve root encroachment at the L4-L5 and L5-S1 levels. 2. No acute appearing bony abnormality. Dictated by: Dictated on workstation # [id number]
--- NOTE | 2020-09-30 07:29 | Diagnostic Imaging Report ---
Indication: Pain. Findings: There are osteoarthritic changes to the knee. No fracture or dislocation however identified. Impression: No acute-appearing abnormality Dictated by: Dictated on workstation # [id number]
[2020-09-30] MEDS ORDERED: TRAM-42 PO (23:52)
[2020-09-30] MEDS ORDERED: TIZA4TAB4 PO (23:52)
[2020-10-01] MEDS ORDERED: NITR-65 PO (00:49)
== END 2020-09-30 02:23 | disposition home or self-care (01) ==
LOC: EDUNIT# 21:11 → ER 21:13
DX: G89.29 Other chronic pain (principal); M54.9 Dorsalgia, unspecified; M25.561 Pain in right knee; J45.909 Unspecified asthma, uncomplicated; Z79.52 Long term (current) use of systemic steroids; Z88.1 Allergy status to other antibiotic agents
CPT/HCPCS: 72128; 72131; 73562; 80306; 81000; 84703

== ENCOUNTER 2020-09-30 22:41 | Emergency (ER) | payer MEDICAID ==
[~2020-09-30] VITALS: Ht 185 cm; Wt 158.0 kg
[2020-09-30 23:30] VITALS: BP 132/90
[2020-09-30] MEDS ORDERED: ORPHENADRINE 60 MG/2 ML (NORFLEX) AMP (ED ONLY) IM ONE (23:45)
[2020-09-30] MEDS ORDERED: diphenhydrAMINE 50 MG/ML INJ (BENADRYL) IM ONE (23:45)
[2020-09-30] MEDS ORDERED: KETOROLAC 60 MG/2 ML VIAL IM ONE (23:45)
--- NOTE | 2020-09-30 23:48 | ED General ---
General Stated Complaint: RIGHT KNEE/LEG PAIN Allergies and Home Medications Allergies Coded Allergies: cephalexin (Verified Allergy, Unknown, 02/11/18) clindamycin (Verified Allergy, Unknown, 10/27/16) Home Medications Amoxicillin 500 Mg Capsule, 500 MG PO TID Prescribed by: HUGH RONQUILLO on 01/12/20 1627 Cyclobenzaprine HCl 10 Mg Tablet, 10 MG PO Q8H PRN for SPASMS Prescribed by: DARVIN WOODARD on 09/30/20 020 Methylprednisolone 4 Mg Tab.ds.pk, 4 MG PO UD PER DOSE PACK INSTRUCTIONS Prescribed by: DARVIN WOODARD on 09/30/20 020 Metronidazole 500 Mg Tablet, 500 MG PO BID Prescribed by: HUGH RONQUILLO on 01/12/20 1700 Naproxen 500 Mg Tablet, 500 MG PO BID PRN for PAIN-MODERATE (5-7) Prescribed by: HUGH RONQUILLO on 09/13/20 222 Sulfamethoxazole/Trimethoprim 1 Each Tablet, 1 EACH PO BID Prescribed by: HUGH RONQUILLO on 09/13/20 222 Tizanidine HCl 4 Mg Tablet, 4 MG PO TID Prescribed by: DARVIN WOODARD on 09/30/20 235 Tramadol HCl 50 Mg Tablet, 50 MG PO Q4H Prescribed by: DARVIN WOODARD on 09/30/20 235 Past Kyirljk-Junlvm-Mlvpyz Hx Patient Social History Drug of Choice: THC Type Used: Cigarettes 2nd Hand Smoke Exposure: No Recent Foreign Travel: No Contact w/Someone Who Travel: No Recent Hopitalizations: No Immunizations Up To Date Tetanus Booster (TDap): Less than 5yrs Seasonal Allergies Seasonal Allergies: Yes Past Medical History Surgeries: Yes Adenoidectomy, Tonsillectomy, Tubal Ligation Respiratory: Yes Asthma Cardiac: No Hypertension Neurological: No Reproductive Disorders: No [employer]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 0oz. 144.772237ho; 46.00 BMI Method:Stated Progress/Results/Core Measures Suspected Sepsis SIRS Temperature: Pulse: Respiratory Rate: Blood Pressure / Mean: Results/Orders Lab Results Laboratory Tests Test 10/01/20 00:07 Range/Units Urine Color RED H Urine Clarity SL CLOUDY Urine pH 5.0 5-9 Urine Specific Matthews 1.015 L 1.016-1.022 Urine Protein 3+ H NEGATIVE Urine Glucose (UA) NEGATIVE NEGATIVE Urine Ketones 1+ H NEGATIVE Urine Nitrite POSITIVE H NEGATIVE Urine Bilirubin 1+ H NEGATIVE Urine Urobilinogen 1.0 < = 1.0 MG/DL Urine Leukocyte Esterase 1+ H NEGATIVE Urine RBC (Auto) 3+ H NEGATIVE Urine RBC TNTC H /HPF Urine WBC 5-10 H /HPF Urine Squamous Epithelial Cells 2-5 /HPF Urine Crystals NONE /LPF Urine Bacteria MODERATE H /HPF Urine Casts NONE /LPF Urine Mucus SMALL H /LPF Urine Culture Indicated YES Urine Opiates Screen NEGATIVE NEGATIVE Urine Oxycodone Screen NEGATIVE NEGATIVE Urine Methadone Screen NEGATIVE NEGATIVE Urine Propoxyphene Screen NEGATIVE NEGATIVE Urine Barbiturates Screen NEGATIVE NEGATIVE Ur Tricyclic Antidepressants Screen NEGATIVE NEGATIVE Urine Phencyclidine Screen NEGATIVE NEGATIVE Urine Amphetamines Screen NEGATIVE NEGATIVE Urine Methamphetamines Screen NEGATIVE NEGATIVE Urine Benzodiazepines Screen NEGATIVE NEGATIVE Urine Cocaine Screen NEGATIVE NEGATIVE Urine Cannabinoids Screen POSITIVE H NEGATIVE My Orders Orders - DARVIN WOODARD DO Ketorolac Injection (Toradol Injection) (09/30/20 23:45) Orphenadrine Inj (Ed Only) (Norflex Inje (09/30/20 23:45) Diphenhydramine Injection (Benadryl Inje (09/30/20 23:45) Drug Screen Stat (Urine) (09/30/20 23:46) Ua Culture If Indicated (09/30/20 23:46) Antoine Bandage (09/30/20 23:50) Walker (09/30/20 23:50) Rx-Tramadol Hcl (Rx-Ultram) (09/30/20 23:53) Urine Culture (10/01/20 00:07) Medications Given in ED Current Medications Medications Dose Ordered Sig/Michelle Route Start Time Stop Time Status Last Admin Dose Admin Diphenhydramine HCl 50 mg ONCE ONCE IM 09/30/20 23:45 09/30/20 23:47 DC 10/01/20 00:19 50 MG Ketorolac Tromethamine 60 mg ONCE ONCE IM 09/30/20 23:45 09/30/20 23:47 DC 10/01/20 00:20 60 MG Orphenadrine Citrate 60 mg ONCE ONCE IM 09/30/20 23:45 09/30/20 23:47 DC 10/01/20 00:20 60 MG Vital Signs/I&O 09/30/20 23:30 Temp 37.7 Pulse 73 Resp 18 B/P (MAP) 132/90 (104) Pulse Ox 80 O2 Delivery Room Air Capillary Refill : Progress Note : Progress Note GIVEN NORFLEX, TORADOL, BENADRYL, HYDROXYZINE ANTOINE WRAP APPLIED Departure Impression Primary Impression: Exacerbation of chronic back pain Additional Impressions: EXACERBATION OF CHRONIC RIGHT KNEE PAIN UTI (urinary tract infection) Disposition: HOME, SELF-CARE Condition: Stable Departure-Patient Inst. Referrals: [facility] (PCP) Primary Care Physician KIRIT LIND MD (Family) Primary Care Physician Patient Instructions: Chronic Pain (DC), Getting In and Out of a Tub or Shower With Walker, Going Up and Down Curbs or Stairs With a Walker or Crutches, How to Use a Walker, How to Use an Elastic Bandage, Urinary Tract Infection, Adult (DC) Add. Discharge Instructions: ANTOINE WRAP TO KNEE AND USE WALKER AT ALL TIMES ICE TO AREA AT 20 MINUTE INTERVALS. YOU MAY ALSO ALTERNATE ICE WITH MOIST HEAT AT 20 MINUTE INTERVALS STOP FLEXERIL CONTINUE YOUR PREDNISONE PRESCRIBED FOLLOW UP WITH [facility] IN 2-3 DAYS FOR FURTHER CARE, OR SOONER OF WORSE Scripts Nitrofurantoin Monohyd/M-Cryst (Macrobid 100 mg Capsule) 100 Mg Capsule 1 TAB PO BID, #20 CAP Prov: YAMILETDARVIN K DO 10/01/20 Tramadol HCl (Ultram) 50 Mg Tablet 50 MG PO Q4H for Pain, #15 TAB Prov: YAMILETDARVIN K DO 09/30/20 Tizanidine HCl (Tizanidine HCl) 4 Mg Tablet 4 MG PO TID, #15 TAB Prov: JOSELYN WOODARDA K DO 09/30/20 YAMILETDARVIN K DO Sep 30, 2020 23:48
[2020-09-30] MEDS ORDERED: TIZA4TAB4 PO (23:52)
[2020-09-30] MEDS ORDERED: TRAM-42 PO (23:52)
[2020-09-30] MEDS ORDERED: RX-TRAMADOL 50 MG (ULTRAM) TAB PPK#4 PO PRN (23:53)
[2020-10-01 00:18] LABS: BILIRUBIN,URINE 1+ (NEGATIVE); CLARITY,URINE SL CLOUDY; COLOR,URINE RED; GLUCOSE, URINE (UA) NEGATIVE (NEGATIVE); KETONES,URINE 1+ (NEGATIVE); LEUKOCYTE ESTERASE ,URINE 1+ (NEGATIVE); NITRITE,URINE POSITIVE (NEGATIVE); PROTEIN,URINE 3+ (NEGATIVE)
[2020-10-01 00:20] LABS: BACTERIA,URINE MODERATE /HPF; RBC,URINE TNTC /HPF
[2020-10-01 00:28] LABS: AMPHETAMINE SCREEN, URINE NEGATIVE (NEGATIVE); BARBITURATE SCREEN URINE NEGATIVE (NEGATIVE); BENZODIAZEPINES SCREEN URINE NEGATIVE (NEGATIVE); CANNABINOID SCREEN, URINE POSITIVE (NEGATIVE); COCAINE SCREEN URINE NEGATIVE (NEGATIVE); METHADONE STAT NEGATIVE (NEGATIVE); METHAMPHETAMINE SCREEN URINE S NEGATIVE (NEGATIVE); OPIATE SCREEN URINE NEGATIVE (NEGATIVE); OXYCODONE STAT NEGATIVE (NEGATIVE); PROPOXYPHENE STAT NEGATIVE (NEGATIVE); TRICYCLIC ANTIDEPRESSANTS SCRE NEGATIVE (NEGATIVE)
--- NOTE | 2020-10-01 00:30 | NUR ---
Pt dorsalis pedis pulses intact. PMS intact bilaterally to lower extremities although pt reports pain with movement.
[2020-10-01] MEDS ORDERED: NITR-65 PO (00:49)
--- NOTE | 2020-10-01 01:45 | NUR ---
Pt ambulating from ER using walker without incident. Pt states she feels much better; rating her pain 5/10.
== END 2020-10-01 01:46 | disposition home or self-care (01) ==
LOC: EDUNIT# 22:41 → ER 22:42
DX: G89.29 Other chronic pain (principal); M54.9 Dorsalgia, unspecified; M25.561 Pain in right knee; J45.909 Unspecified asthma, uncomplicated; N39.0 Urinary tract infection, site not specified; Z88.1 Allergy status to other antibiotic agents
CPT/HCPCS: 80306; 81000; 87088; 99282

== ENCOUNTER 2020-10-03 15:58 | Emergency (ER) | payer MEDICAID ==
[~2020-10-03] VITALS: Ht 185.4 cm; Wt 158.7 kg
[2020-10-03 15:58] VITALS: BP 118/101
[~2020-10-03 15:58] MED LIST changes: +TIZA4TAB4 PO
[2020-10-03] MEDS ORDERED: GABAPENTIN 300 MG (NEURONTIN) CAP PO ONE (17:00)
[2020-10-03] MEDS ORDERED: ORPHENADRINE 60 MG/2 ML (NORFLEX) AMP (ED ONLY) IV ONE (17:00)
[2020-10-03] MEDS ORDERED: KETOROLAC 30 MG/ML VIAL IVP ONE (17:00)
--- NOTE | 2020-10-03 17:09 | ED Neurological Problem ---
General Chief Complaint: Lower Extremity Stated Complaint: R LEG PAIN Nursing Triage Note: Pt to ED via EMS for severe right leg pain. Pt reports pain radiates into right arm. Pt reports being discharged from hospital two days ago for same symptoms. Pt did not get Tramadol prescription filled because pt states, "It slipped my mind to call the pharmacy." Pt reports getting an injection in the ED last week that caused pt's L ring finger to swell. Nursing Sepsis Screen: No Definite Risk Source: patient Exam Limitations: no limitations (RODERICK HAWKINS STUDENT) History of Present Illness Date Seen by Provider: Oct 03, 2020 Time Seen by Provider: 16:26 Initial Comments Ms. Morton is 40 y/o F who presents to the ED with chief complaint of right sided body pain. She reports that she has had pain for 1 week on the right side of the body. She said that this pain has dramatically worsened since she was last seen in the ED on Saturday 3 days ago. She rates the pain as 10/10. She said that she also has numbness on the right side of her LE and UE. She also reports numbness on her LLE. She said that she was supposed to go to the health clinic today to grab her prescriptions for pain management and antibiotics for her UTI and gonorrhea infection. However she was unable to do this due to the pain. She said the pain feels like "knives stabbing my kneecap" and said that she cannot put weight on her right knee. She also reports some skin lesions that have appeared recently. She has 4th finger pain and tenderness on her left hand. She said this started 3 days ago after she got back from the ED and that it feels like her "finger is going to burst." She denies any fever, HARRIS, chest pain, shortness of breath, nausea, vomiting, or change in bowel movements. She does report decreased appetite and urinary frequency. (RODERICK HAWKINS MED STUDENT) Allergies and Home Medications Allergies Coded Allergies: cephalexin (Verified Allergy, Unknown, 02/11/18) clindamycin (Verified Allergy, Unknown, 10/27/16) hydroxyzine (Verified Allergy, Unknown, Rash, 10/03/20) Home Medications Amoxicillin 500 Mg Capsule, 500 MG PO TID Prescribed by: HUGH RONQUILLO on 01/12/20 5346 Cyclobenzaprine HCl 10 Mg Tablet, 10 MG PO Q8H PRN for SPASMS Prescribed by: DARVIN WOODARD on 09/30/20 020 Methylprednisolone 4 Mg Tab.ds.pk, 4 MG PO UD PER DOSE PACK INSTRUCTIONS Prescribed by: DARVIN WOODARD on 09/30/20 020 Metronidazole 500 Mg Tablet, 500 MG PO BID Prescribed by: HUGH RONQUILLO on 01/12/20 1700 Naproxen 500 Mg Tablet, 500 MG PO BID PRN for PAIN-MODERATE (5-7) Prescribed by: HUGH RONQUILLO on 09/13/20 222 Nitrofurantoin Monohyd/M-Cryst 100 Mg Capsule, 1 TAB PO BID Prescribed by: DARVIN WOODARD on 10/01/20 0049 Sulfamethoxazole/Trimethoprim 1 Each Tablet, 1 EACH PO BID Prescribed by: HUGH RONQUILLO on 09/13/202223 Tizanidine HCl 4 Mg Tablet, 4 MG PO TID Prescribed by: DARVIN WOODARD on 09/30/202351 Tramadol HCl 50 Mg Tablet, 50 MG PO Q4H Prescribed by: DARVIN WOODARD on 09/30/202352 Patient Home Medication List Home Medication List Reviewed: Yes (RODERICK HAWKINS MED STUDENT) Review of Systems Review of Systems Constitutional: No chills, No diaphoresis, No fever, No weakness Eyes: Denies Blurred Vision Ears, Nose, Mouth, Throat: no symptoms reported Respiratory: No cough, No short of breath Cardiovascular: No chest pain, No edema, No palpitations Gastrointestinal: No abdominal pain, No constipation, No diarrhea; loss of appetite; No nausea, No vomiting Genitourinary: No decreased output, No dysuria; frequency; No hematuria Musculoskeletal: back pain, muscle pain, neck pain Skin: lesions Psychiatric/Neurological: See HPI; Denies Headache; Numbness, Unable to Move Lower Ext (RLE pain with movement) Endocrine: Increased Thrist, Increased Urine (RODERICK HAWKINS MED STUDENT) Past Ocpaxqv-Anqumu-Zovczq Hx Patient Social History Alcohol Use: Occasionally Uses Recreational Drug Use: Yes (smoked 2 hrs STRADDLE BUG) Drug of Choice: THC Type Used: Cigarettes 2nd Hand Smoke Exposure: No Recent Foreign Travel: No Contact w/Someone Who Travel: No Recent Infectious Disease Expo: No Recent Hopitalizations: Yes (09/20 for R leg pain) (RODERICK HAWKINS STUDENT) Immunizations Up To Date Tetanus Booster (TDap): Less than 5yrs (RODERICK HAWKINS STUDENT) Seasonal Allergies Seasonal Allergies: Yes (RODERICK HAWKINS) Past Medical History Surgeries: Yes Adenoidectomy, Tonsillectomy, Tubal Ligation Respiratory: Yes Asthma Cardiac: No Hypertension Neurological: No Reproductive Disorders: No 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 Sexually Transmitted Disease: No Genitourinary: No Gastrointestinal: No Musculoskeletal: Yes Arthritis Endocrine: No HEENT: No Cancer: No Psychosocial: Yes Anxiety, Bipolar, Depression Integumentary: No Blood Disorders: No Adverse Reaction/Blood Tranf: No (RODERICK HAWKINS) Family Medical History No Pertinent Family Hx (RODERICK HAWKINS) Physical Exam Vital Signs Vital Signs - First Documented 10/03/20 15:58 Temp 36.6 Pulse 87 Resp 25 B/P (MAP) 118/101 (107) Pulse Ox 99 O2 Delivery Room Air (TJ CHAMBERS MD) Vital Signs Capillary Refill : Less Than 3 Seconds (RODERICK HAWKINS STUDENT) Height, Weight, BMI Height: 6'1.00" Weight: 318lbs. 0oz. 144.800605sg; 46.00 BMI Method:Stated General Appearance: moderate distress, obese HEENT: normal ENT inspection Neck: full range of motion, normal inspection Respiratory: chest non-tender, lungs clear, normal breath sounds, no respiratory distress, no accessory muscle use Cardiovascular: regular rate, rhythm, no murmur Gastrointestinal: normal bowel sounds, non tender, soft Back: No CVA tenderness (R), No CVA tenderness (L); decreased range of motion (Exam limited by pain with movement) Extremities: No normal range of motion, No non-tender (Exam limited by body habitus: very TTP of right knee and unable to flex right knee due to pain. no signs of eccymosis or erythema. Unable to assess signs of knee effusion due to body habitus) Motor/Sensory: no motor deficit, no sensory deficit Skin: ecchymosis (TTP at left 4th finger and base of 4th finger with erythema and warmth concerning for tenosynovitis), rash (Purpuritic, non-blanchable sub- centimeter lesions on distal extremities, no pus but appear to be in different stages of healing. ) (RODERICK HAWKINS MED STUDENT) Focused Exam Lactate Level 10/03/20 17:20: Lactic Acid Level 0.98 (TJ CHAMBERS MD) Lactic Acid Level Laboratory Tests Test 10/03/20 17:20 Lactic Acid Level 0.98 MMOL/L (0.50-2.00) (TJ CHAMBERS MD) Procedures/Interventions Progress After verbal informed consent patient agrees to aspiration of the right knee. Body habitus and swelling made identification of landmarks very difficult. After palpation of the knee an attempt was made at aspiration with an 18-gauge inch and a half needle. This was unsuccessful. Ultrasound was then used to specifically identify the patella. The insertion site was adjusted. An 18- gauge spinal needle was then used to aspirate the joint. Approximately 25 mL of greenish tinted purulent synovial fluid was aspirated. Patient did experience relief from the aspiration. The fluid was sent to the lab for analysis and cultures. Sterile procedure was used with Betadine prep and sterile gloves. L idocaine injections were used for local anesthetic. Morphine was used to pretreat prior to the procedure. (TJ CHAMBERS MD) Progress/Results/Core Measures Results/Orders Lab Results Laboratory Tests Test 10/03/20 17:00 10/03/20 17:20 10/03/20 17:40 10/03/20 19:26 Range/Units White Blood Count 13.2 H 4.3-11.0 10^3/uL Red Blood Count 4.23 3.80-5.11 10^6/uL Hemoglobin 13.1 11.5-16.0 g/dL Hematocrit 39 35-52 % Mean Corpuscular Volume 91 80-99 fL Mean Corpuscular Hemoglobin 31 25-34 pg Mean Corpuscular Hemoglobin Concent 34 32-36 g/dL Red Cell Distribution Width 13.1 10.0-14.5 % Platelet Count 296 130-400 10^3/uL Mean Platelet Volume 11.1 9.0-12.2 fL Immature Granulocyte % (Auto) 1 % Neutrophils (%) (Auto) 77 H 42-75 % Lymphocytes (%) (Auto) 10 L 12-44 % Monocytes (%) (Auto) 12 0-12 % Eosinophils (%) (Auto) 0 0-10 % Basophils (%) (Auto) 0 0-10 % Neutrophils # (Auto) 10.2 H 1.8-7.8 10^3/uL Lymphocytes # (Auto) 1.3 1.0-4.0 10^3/uL Monocytes # (Auto) 1.6 H 0.0-1.0 10^3/uL Eosinophils # (Auto) 0.0 0.0-0.3 10^3/uL Basophils # (Auto) 0.0 0.0-0.1 10^3/uL Immature Granulocyte # (Auto) 0.1 0.0-0.1 10^3/uL Prothrombin Time 16.8 H 12.2-14.7 SEC INR Comment 1.3 0.8-1.4 Activated Partial Thromboplast Time 33 24-35 SEC Sodium Level 138 135-145 MMOL/L Potassium Level 2.8 L 3.6-5.0 MMOL/L Chloride Level 98 98-107 MMOL/L Carbon Dioxide Level 29 21-32 MMOL/L Anion Gap 11 5-14 MMOL/L Blood Urea Nitrogen 10 7-18 MG/DL Creatinine 0.64 0.60-1.30 MG/DL Estimat Glomerular Filtration Rate > 60 BUN/Creatinine Ratio 16 Glucose Level 103 70-105 MG/DL Calcium Level 9.2 8.5-10.1 MG/DL Corrected Calcium 9.7 8.5-10.1 MG/DL Total Bilirubin 1.1 H 0.1-1.0 MG/DL Aspartate Amino Transf (AST/SGOT) 8 5-34 U/L Alanine Aminotransferase (ALT/SGPT) 12 0-55 U/L Alkaline Phosphatase 72 40-136 U/L C-Reactive Protein High Sensitivity 29.20 H 0.00-0.50 MG/DL Total Protein 7.2 6.4-8.2 GM/DL Albumin 3.4 3.2-4.5 GM/DL Serum Test, Qualitative NEGATIVE NEGATIVE Lactic Acid Level 0.98 0.50-2.00 MMOL/L Urine Color YELLOW Urine Clarity CLEAR Urine pH 6.5 5-9 Urine Specific [place] <=1.005 1.016-1.022 Urine Protein NEGATIVE NEGATIVE Urine Glucose (UA) NEGATIVE NEGATIVE Urine Ketones 1+ H NEGATIVE Urine Nitrite NEGATIVE NEGATIVE Urine Bilirubin NEGATIVE NEGATIVE Urine Urobilinogen 1.0 < = 1.0 MG/DL Urine Leukocyte Esterase NEGATIVE NEGATIVE Urine RBC (Auto) 2+ H NEGATIVE Urine RBC 2-5 H /HPF Urine WBC NONE /HPF Urine Squamous Epithelial Cells RARE /HPF Urine Crystals NONE /LPF Urine Bacteria NEGATIVE /HPF Urine Casts NONE /LPF Urine Mucus NEGATIVE /LPF Urine Culture Indicated NO Body Fluid Crystals NOT SEEN Test 10/03/20 19:27 Range/Units (TJ CHAMBERS MD) Micro Results Microbiology 10/03/20 Gram Stain, Resulted Pending 10/03/20 Body Fluid Culture - Preliminary, Resulted No growth 10/03/20 Blood Culture - Preliminary, Resulted No growth 10/03/20 Blood Culture - Preliminary, Resulted No growth (TJ CHAMBERS MD) My Orders Orders - TJ CHAMBERS MD Ua Culture If Indicated (10/03/20 16:45) Ed Iv/Invasive Line Start (10/03/20 16:46) Ketorolac Injection (Toradol Injection) (10/03/20 17:00) Orphenadrine Inj (Ed Only) (Norflex Inje (10/03/20 17:00) Gabapentin Capsule/Tablet (Neurontin Cap (10/03/20 17:00) Cbc With Automated Diff (10/03/20 16:49) Comprehensive Metabolic Panel (10/03/20 16:49) Hs C Reactive Protein (10/03/20 16:49) Blood Culture (10/03/20 17:17) Protime With Inr (10/03/20 17:17) Partial Thromboplastin Time (10/03/20 17:17) Chest 1 View, Ap/Pa Only (10/03/20 17:17) Vital Signs Adult Sepsis Patie Q15M (10/03/20 17:17) Remove Rings In Anticipation O (10/03/20 17:17) Lactic Acid Analyzer (10/03/20 17:17) Hcg,Qualitative Serum (10/03/20 17:36) Lidocaine 1% Inj 20 Ml (Xylocaine 1% Inj (10/03/20 18:00) Ceftriaxone For Iv Use (Rocephin For I (10/03/20 18:00) Vancomycin Injection (Vancomycin Injecti (10/03/20 18:00) Potassium Chloride (Tablet) (Klor Con Ta (10/03/20 18:00) Ns Iv 1000 Ml (Sodium Chloride 0.9%) (10/03/20 18:00) Morphine Injection (Morphine Injection (10/03/20 18:01) Potassium Chloride (Tablet) (K Dur Table (10/03/20 18:15) Vancomycin Injection (Vancomycin Injecti (10/03/20 19:00) Doxycycline Injection (Vibramycin Inject (10/03/20 20:30) General/Regular (10/03/20 Dinner) Body Fluid Culture (10/03/20 20:35) Crystals,Body Fluid (10/03/20 20:35) Neisseria Gonorrhea Swab (10/03/20 20:38) (TJ CHAMBERS MD) Medications Given in ED (TJ CHAMBERS MD) Vital Signs/I&O 10/03/20 15:58 Temp 36.6 Pulse 87 Resp 25 B/P (MAP) 118/101 (107) Pulse Ox 99 O2 Delivery Room Air (TJ CHAMBERS MD) Blood Pressure Mean: 107 Progress Progress Note : Progress Note Ms. Morton is a 40 y/o F who presented to the ED with chief complaint of right sided UE and LE pain especially in the R knee. With the 4th finger tenosynovitis, multiple non-blanching purpuritic spots and right knee pain we considered disseminated gonococcal infection since patient has not had treatment for her positive culture on 09/13. This could also be complicated by the L4-L5 foramen stenosis seen on CT a couple days ago. We will do infectious workup and consult [facility] for treatment of disseminated gonococcal infection with a cephalosporin allergy. Discussed patient's potential disseminated gonococcal infection with cephalosporin allergy with [facility] ID Dr. Fernando. She thought we can try to administer the ceftriaxone since this is a different formulation from the keflex that she is allergic to. She recommended that we treat with rocephin, doxycycline, vancomycin and aspirating right knee. Then we can customize treatment to knee aspiration. (RODERICK HAWKINS MED STUDENT) Progress Note : Time: 20:45 Progress Note Care of the patient is being transitioned to Dr. Jewell at this time while awaiting transfer. See notes in the medical student attestation below. (TJ CHAMBERS MD) Progress Note : Progress Note 045: I assumed care of the patient pending transfer. I did start 20-gauge Angiocath to the area above the left antecubital space via ultrasound guidance with good draw and flush. Patient's pain is improved. Pending transfer. (BIBI JEWELL MD) Diagnostic Imaging Diagonstic Imaging: Xray Plain Films/CT/US/NM/MRI: chest Comments [facility], [place] NAME: WINSOME MORTON [facility] REC#: [id number] PT STATUS: REG ER : 1980 PHYSICIAN: TJ CHAMBERS MD ADMIT DATE: 10/03/20/ER Signed Date of Exam:10/03/20 CHEST 1 VIEW, AP/PA ONLY INDICATION: Sepsis COMPARISON: 03/14/2018 TECHNIQUE: Single radiograph of the chest dated 10/03/2020 FINDINGS: The cardiac silhouette is mildly enlarged. Minimal central pulmonary vascular congestion. The lungs however appear clear of focal pulmonary opacity. No significant pleural effusion. No pneumothorax. No acute osseous abnormality. IMPRESSION: 1. Prominence of the cardiac silhouette and pulmonary vasculature, likely accentuated by patient body habitus. 2. No focal pulmonary opacity. 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 Shania Fernando (ID) at [facility] Transfer Facility: [facility] Method of Transfer: EMS (TJ CHAMBERS MD) Departure-Patient Inst. Referrals: [facility] (PCP) Primary Care Physician KIRIT LIND MD (Family) Primary Care Physician Medical student attestation and attending note: I have personally interviewed and examined this patient along with the Roderick Hawkins, MS4. I have reviewed his documentation and agree with his history, physical, and assessments except where otherwise noted. This 40-year-old woman presents to the emergency room with a complicated history. She was seen in the emergency room September 29 and for back pain and radicular symptoms. She was treated accordingly. She did have improvement at the time of treatment but her symptoms rebounded. Today she presents with worsening back pain as well as numbness and pain shooting down the right leg and numbness in the left leg and right arm. Additionally she is now having severe pain in the right knee. She is not able to ambulate independently. She has tenderness to palpation of the right knee pain with any range of motion of the right knee. She additionally was diagnosed with gonorrhea on September 13 and has not yet been treated. Patient also notes a painful, swollen, ecchymotic region around the base of the left fourth finger and extending onto the palm are surface of the head. She additionally has small subcentimeter pruritic spots scattered throughout the distal extremities as well as a patch of erythema on the left dorsal foot. These collection of symptoms and findings are concerning for disseminated gonorrhea. I have contacted Dr. Shania Fernando with infectious disease at [facility]. She recommends aspiration of the knee as well as treatment with Rocephin, doxycycline, and vancomycin. Although patient has a Keflex allergy, Rocephin is felt to likely be tolerable as they are from different generations of the cephalosporin class. Rocephin was given slowly through a mini infuser and patient experienced no problems. Admission was discussed with Dr. Schwartz who is very hesitant to admit the patient at our facility due to the potential for orthopedic complications and lack of infectious disease consultation at our facility. [facility] and [facility] in [place] are both on admission diversion. [facility] was contacted back and transfer was accepted. Patient is receiving her first dose of antibiotics in the emergency room. Aspiration of the right knee was successful with much difficulty. Patient's body habitus and edema made identification of landmarks very difficult. Ultrasound was used to identify the patella and aspiration was then performed with an 18-gauge spinal needle after verbal informed consent. Approximately 25 to 30 mL of greenish colored purulent synovial fluid was aspirated. Patient experienced significant relief from the aspiration. Cultures were ordered on the knee aspiration including a gonorrhea swab. We are awaiting bed assignment at [facility] which may take many hours. Transfer should occur after bed assignment. Patient was treated for hypokalemia with oral potassium. The presence of neuroforaminal stenosis and chronic back pain complicates her presentation. As discussed with Dr. Fernando, further spinal imaging with MRI may be appropriate if symptoms persist after treatment of gonorrhea. Exam: General: Alert, oriented, moderate distress HEENT: Normocephalic and atraumatic Heart: Regular rate and rhythm without murmur Lungs: Clear to auscultation bilaterally with normal effort Abdomen: Soft, nontender Extremities: Right knee quite tender and edematous with no erythema, bruising, or rashes. Significant pain with any movement of the right knee. Skin: Pruritic lesions on the distal extremities that are nonblanching and subcentimeter in size. Blotchy erythema to the dorsum of the left foot. Neuropsych: Alert, oriented, no focal deficits noted. (TJ CHAMBERS MD) Copy Copies To 1: KIRIT LIND MD, VAN A MED STUDENT Oct 03, 2020 17:09 TJ CHAMBERS MD Oct 03, 2020 20:35 BIBI JEWELL MD Oct 03, 2020 21:37
[2020-10-03 17:17] LABS: BASOPHILS % (AUTO) 0 % (0-10); EOSINOPHILS % (AUTO) 0 % (0-10); HEMATOCRIT 39 % (35-52); HEMOGLOBIN 13.1 g/dL (11.5-16.0); LYMPHOCYTES # (AUTO) 1.3 10^3/uL (1.0-4.0); LYMPHOCYTES % (AUTO) 10 % (12-44); MEAN CORPUSCULAR HEMOGLOBIN 31 pg (25-34); MEAN CORPUSCULAR HGB CONC 34 g/dL (32-36); MEAN CORPUSCULAR VOLUME 91 fL (80-99); MEAN PLATELET VOLUME 11.1 fL (9.0-12.2); MONOCYTES # (AUTO) 1.6 10^3/uL (0.0-1.0); MONOCYTES % (AUTO) 12 % (0-12); NEUTROPHILS # (AUTO) 10.2 10^3/uL (1.8-7.8); NEUTROPHILS % (AUTO) 77 % (42-75); PLATELET COUNT 296 10^3/uL (130-400); WHITE BLOOD COUNT 13.2 10^3/uL (4.3-11.0)
[2020-10-03 17:20] LABS: ALBUMIN 3.4 GM/DL (3.2-4.5); CHLORIDE 98 MMOL/L (98-107); POTASSIUM 2.8 MMOL/L (3.6-5.0); SODIUM 138 MMOL/L (135-145)
[2020-10-03 17:21] LABS: CALCIUM 9.2 MG/DL (8.5-10.1)
[2020-10-03 17:23] LABS: GLUCOSE 103 MG/DL (70-105); TOTAL PROTEIN 7.2 GM/DL (6.4-8.2)
[2020-10-03 17:24] LABS: BILIRUBIN,TOTAL 1.1 MG/DL (0.1-1.0); CARBON DIOXIDE 29 MMOL/L (21-32)
[2020-10-03 17:26] LABS: ALKALINE PHOSPHATASE 72 U/L (40-136); CREATININE SERUM 0.64 MG/DL (0.60-1.30); GFR ESTIMATED > 60
[2020-10-03 17:27] LABS: BUN/CREATININE RATIO 16
[2020-10-03 17:29] LABS: ALANINE AMINOTRANSFERASE 12 U/L (0-55); INR 1.3 (0.8-1.4); PROTHROMBIN TIME PATIENT 16.8 SEC (12.2-14.7)
[2020-10-03 17:53] LABS: BILIRUBIN,URINE NEGATIVE (NEGATIVE); CLARITY,URINE CLEAR; COLOR,URINE YELLOW; GLUCOSE, URINE (UA) NEGATIVE (NEGATIVE); KETONES,URINE 1+ (NEGATIVE); LEUKOCYTE ESTERASE ,URINE NEGATIVE (NEGATIVE); NITRITE,URINE NEGATIVE (NEGATIVE); PH,URINE 6.5 (5-9); PROTEIN,URINE NEGATIVE (NEGATIVE)
[2020-10-03] MEDS ORDERED: cefTRIAXone FOR IV USE 1,000 MG in WATER (STERILE) FOR INJECTION 10 ML IV ONE (18:00)
[2020-10-03] MEDS ORDERED: VANCOMYCIN INJECTION 1,000 MG in NS (IVPB) 250 ML IV SCH (18:00)
[2020-10-03] MEDS ORDERED: LIDOCAINE 1% INJ 20 ML 20 ML VIAL INJ ONE (18:00)
[2020-10-03] MEDS ORDERED: KCL 10 MEQ TAB (MICRO K) PO ONE (18:00)
[2020-10-03] MEDS ORDERED: NS IV 1000 ML 1,000 ML IV SCH (18:00)
[2020-10-03] MEDS ORDERED: morphine INJ 10 MG/ML 1ML (SYR OR VIAL) IVP STA (18:01)
[2020-10-03 18:08] LABS: BACTERIA,URINE NEGATIVE /HPF; SQUAMOUS EPITHELIAL CELL,UR RARE /HPF
[2020-10-03] MEDS ORDERED: KCL 20 MEQ TAB (K-DUR) PO ONE (18:15)
--- NOTE | 2020-10-03 18:56 | NUR ---
Pt tolerated Rocephin well.
--- NOTE | 2020-10-03 18:57 | NUR ---
Dr. Virk in room to drain knee.
[2020-10-03] MEDS ORDERED: VANCOMYCIN 2000 MG/NS 500 ML IVPB IV NR ×2 (19:00)
[2020-10-03] MEDS ORDERED: DOXYCYCLINE INJECTION 100 MG in NS (IVPB) 100 ML IV ONE (20:30)
--- NOTE | 2020-10-03 20:45 | NUR ---
Called captain for [facility]. Unable to take pt to due to other transfer at this time.
--- NOTE | 2020-10-03 20:55 | NUR ---
Called [facility] re transfer to [facility] to call back.
--- NOTE | 2020-10-03 21:07 | NUR ---
Will from [facility] accepted transfer of pt to .
--- NOTE | 2020-10-03 21:18 | Diagnostic Imaging Report ---
INDICATION: Sepsis COMPARISON: 03/14/2018 TECHNIQUE: Single radiograph of the chest dated 10/03/2020 FINDINGS: The cardiac silhouette is mildly enlarged. Minimal central pulmonary vascular congestion. The lungs however appear clear of focal pulmonary opacity. No significant pleural effusion. No pneumothorax. No acute osseous abnormality. IMPRESSION: 1. Prominence of the cardiac silhouette and pulmonary vasculature, likely accentuated by patient body habitus. 2. No focal pulmonary opacity. Dictated by: Dictated on workstation # [id number]
--- NOTE | 2020-10-03 22:50 | NUR ---
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
== END 2020-10-03 22:27 | disposition short-term general hospital (02) ==
LOC: EDUNIT# 15:58 → ER 15:59
DX: A54.9 Gonococcal infection, unspecified (principal); M54.12 Radiculopathy, cervical region; M54.16 Radiculopathy, lumbar region; E87.6 Hypokalemia; M00.861 Arthritis due to other bacteria, right knee; E66.9 Obesity, unspecified; J45.909 Unspecified asthma, uncomplicated; Z68.42 Body mass index [BMI] 45.0-49.9, adult; Z88.1 Allergy status to other antibiotic agents; Z88.8 Allergy status to other drugs, medicaments and biological substances; Z79.52 Long term (current) use of systemic steroids
CPT/HCPCS: 36415; 51701; 71045; 80053; 81000; 83605; 84703; 85025; 85610; 85730; 86141; 87040; 87070; 87205; 87591; 89060

== ENCOUNTER 2020-10-14 13:23 | Inpatient (IN) | payer MEDICAID ==
[~2020-10-14] VITALS: Ht 182.9 cm; Wt 155.4 kg
--- NOTE | 2020-10-14 10:40 | NUR ---
THE MED REC WAS ENTERED USING THE DISCHARGE ORDERS FROM - AFTER MEDICATIONS ARE CONTINUED I WILL SPEAK WITH THE PT AND MAKE CHANGES TO THE MED REC/NOTES IF NEEDED ROCEPHIN 1 GM EVERY 24 HOURS WAS LISTED ON THE DISCHARGE BUT IT DID NOT SAY HOW MANY DOSES TO GIVE. I CALLED AND SPOKE WITH HER NURSE AND WAS TOLD SHE COULD NOT TELL HOW MANY DOSES THE DISCHARGING PHYSICIAN WAS ORDERING. I DOCUMENTED THIS ON THE MED REC THAT THERE WAS NOT A DURATION LISTED ON THE DISCHARGE ORDERS Addendum: 10/18/20 at 1421 by SUDHEER YE CPhT SPOKE WITH THE PT AND WENT THRU THE EXT MED HISTORY TO FINALIZE THE MED REC MEDICATIONS THAT WERE REMOVED DUE TO PT NOT TAKING PRIOR TO : TYLENOL ROCEPHIN VOLTAREN GEL HYDROXYZINE NICOTINE PATCH ROXICODONE MIRALAX TIZANIDINE ALBUTEROL HFA WAS REMOVED FROM THE MED REC- PT SAYS SHE HAD USED ONE IN THE PAST BUT IT WAS HER SONS AND SHE DID NOT BELIEVE HE HAD A CURRENT INHALER TO USE. PT INDICATES THE ONLY MEDICATIONS SHE TAKES ARE CYCLOBENZAPRINE 10MG AND NAPROXEN 500MG THAT BOTH SHOW ON THE EXT MED HISTORY.
--- NOTE | 2020-10-14 12:45 | NUR ---
PRAVEENWINSOME admitted to room 228-1, with an admitting diagnosis of SEPTIC ARTHRITIS OF RIGHT KNEE, on 10/14/20 from via , accompanied by STAFF.WINSOME MORTON introduced to surroundings, call light, bed controls, phone, TV, temperature control, lights, meal times, smoking policy, visitor policy, side rail policy, bathrooms and showers. Patient Rights given to patient in the handbook.WINSOME MORTON verbalizes understanding that [facility] is not responsible for the loss or damage to any personal effects or valuables that are kept in the patients posession during their hospitalization. The following Patient Care Plans were discussed with the PATIENT: Discharge Planning, IMPAIRED MOBILITY,ALTERED COMFORT, and SELF CARE DEFICIT. WINSOME MORTON verbalizes understanding of Interdisciplinary Patient Education. Patient and/or family were informed about the Rapid Response Team and its purpose. Patient received Patient Rights Booklet, which includes Privacy Act Statement and Data Collection Information Summary. REPORT FROM LALO WARD AT
[2020-10-14] MEDS: ACETAMINOPHEN 325 MG TABLET PO PRN (13:01)
[2020-10-14] MEDS: ALPRAZolam 0.25 MG (XANAX) TAB PO PRN (13:19)
[~2020-10-14 13:23] MED LIST changes: +ACET325C7 PO; +ACETAMINOPHEN 325 MG TABLET ONE; +ACETAMINOPHEN 500 MG TAB (TYLENOL) PO PRN; +ALPRAZolam 0.25 MG (XANAX) TAB ONE; +BISACODYL 10 MG SUPP (DULCOLAX) PR PRN; +CALCIUM CARBONATE 500 MG (TUMS) TAB.CHEW PO PRN; +CFTR1V IJ; +CYCLOBENZAPRINE 10 MG (FLEXERIL) TAB PO PRN; +DICL100G18 TOP; +DOCUSATE SODIUM 100 MG (COLACE) CAP PO PRN; +ENOXAPARIN 40 MG/0.4 ML (LOVENOX) SYR SC SCH; +FLEET ENEMA ADULT 1 EA BTL PR PRN; +HYDR-700 PO; +LACTULOSE SYRUP 10GM/15ML (ENULOSE) 30ML UDC PO PRN; +LOPERAMIDE 2 MG (IMODIUM) TABLET PO PRN; +MELATONIN 3 MG TABLET PO PRN; +NICO-588 TD; +NON-FORMULARY MEDICATION 1 EA EA (Acetaminophen (Tylenol) 650 MG) PO SCH; +NON-FORMULARY MEDICATION 1 EA EA (Hydroxyzine HCl 25 MG) PO PRN; +ONDANSETRON 4 MG (ZOFRAN) ORAL DISSOLVE TAB PO PRN; +OXYC-473 PO; +POLY17PO6 PO; +RT-ALBUINH IH; +RT-ALBUTEROL SULF 2.5 MG/3 ML PRE-MIX VIAL IH PRN; +diphenhydrAMINE 25 MG TAB (BENADRYL) PO PRN; +guaiFENesin/CODEINE (ROBITUSSIN AC) 10ML UDC PO PRN; +polyethylene glycoL POWDER 17 GM (MIRALAX) PACK PO PRN
--- NOTE | 2020-10-14 13:32 | NUR ---
[facility] NON ADMINISTERED. ADMINISTERED AT 0830 THIS AM 10/14/20 PER REPORT OF JONE RN, MICHA. LAST OXYIR 0730 TODAY. PATIENT ARRIVED AND C/O PAIN DURING TRANSPORT. Wayne STRICKLAND, NOTIFIED DR KLEIN OF ARRIVAL AND PATIENT C/O PAIN AND ANXIETY. THIS RN ATTEMPTED TO COMFORT PATIENT AND DEEP BREATHING EXERCISES AND PROVIDED PRESENCE. PATIENT LIFTED RIGHT LEG WITH GAIT BELT, THIS RN PROPELLED WC. PATIENT IS ELABORATE WITH STORIES, WITH MANIC LIKE RAMBLING. PATIENT MEDICATED WITH ACETAMINOPHEN @1306 FOR C/O 9/10 PAIN IN RIGHT LEG, XANAX FOR C/O ANXIETY ; PATIENT STATES, "I'M REALLY STRESSING MAN, I NEED MY ANXIETY MEDICINE OR SOMETHING," DURING TRANSPORT TO FLOOR. OXYCODONE @1317. PATIENT IS COOPERATIVE AND EAGER TO REGAIN HER INDEPENDENCE. WORKING WITH THERAPY AT THIS TIME. CONT TO MONITOR.
--- NOTE | 2020-10-14 13:50 | NUR ---
PATIENT REPORTS RELIEF FROM XANAX AND PAIN
--- NOTE | 2020-10-14 14:16 | Occupational Therapy Eval ---
OT Evaluation-General/PLF Medical Diagnosis Admission Date Oct 14, 2020 at 13:23 Medical Diagnosis: R knee pain/ infection Onset Date: Oct 04, 2020 Therapy Diagnosis Therapy Diagnosis: Decreased ADL status Height/Weight Height (Feet): 6 Height (Inches): 1.00 Weight (Pounds): 318 Weight (Ounces): 0 Precautions Precautions/Isolations: Standard Precautions Weight Bear Status Weight Bearing Restriction: Weight Bearing/Tolerated Referral Physician: Efren Referral Reason: Activity Tolerance, Self Care, Evaluation/Treatment, Strengthening/ROM Medical History Additional Medical History RLE numbness, chronic LBP, hypokalemia, bipolar disorder Current History Septic R knee, s/p I&D (10/04) 09/13 + gonorrhea w/out tx Reviewed History: Yes Social History Home: Single Level Current Living Status: Friend (and spouse) Entry Into Home: Stairs Without Railing Steps Into Home: 2 Steps Inside Home: 0 ADL-Prior Level of Function SCALE: Activities may be completed with or without assistive devices. 0-Zdadzdafks-eggdwql completes the activity by him/herself with no assistance from a helper. 5-Set-up or Clean-up Assistance-helper sets up or cleans up; patient completes activity. [place] assists only prior to or following the activity. 4-Supervision or Touching Assistance-helper provides verbal cues and/or touching/steadying and/or contact guard assistance as patient completes activity. Assistance may be provided throughout the activity or intermittently. 3-Partial/Moderate Assistance-helper does LESS THAN HALF the effort. [place] lifts, holds or supports trunk or limbs, but provides less than half the effort. 2-Substantial/Maximal Assistance-helper does MORE THAN HALF the effort. [place] lifts or holds trunk or limbs and provides more than half the effort. 9-Uabninque-lxdjxs does ALL the effort. Patient does none of the effort to comp lete the activity. Or, the assistance of 2 or more helpers is required for the patient to complete the activity. If activity was not attempted, code reason: 7-Patient Refused. 9-Not Applicable-not attempted and the patient did not perform the activity before the current illness, exacerbation or injury. 10-Not Attempted due to Environmental Limitations-(lack of equipment, weather restraints, etc.). 88-Not Attempted due to Medical Conditions or Safety Concerns. ADL PLOF Comments IND without AD Self Care: Independent Functional Cognition: Independent Occupation: unemployed Drive Self: No OT Current Status Subjective Pt in w/c upon OT entry. Alert/ oriented. Requires cues for redirection and attention to task. Pt states pain in R knee, does not rate. PT eval: [id number] OT eval: [id number] OT/ PT co-treat: [id number]: co-treat with PT addressing fx ambulation/ LE move ment and balance and OT addressing attention, redirection, ADL tasks. Mental Status/Objective Patient Orientation: Person, Place, Situation, Normal For Age Current Glasses/Contacts: No Dentures/Partials: Yes Hand Dominance: Right Upper Extremity ROM WFL BUE Upper Extremity Coordination WFL BUE, pain in L hand Upper Extremity Sensation WFL BUE Upper Extremity Strength WFL BUE ADL-Treatment Eating (QC): 6 Oral Hygiene (QC): 6 Shower/Bathe Self (QC): 4 (SBA all standing, SUP in sit on sc) Upper Body Dressing (QC): 3 (min A bra doffing, dons shirt with ind) Lower Body Dressing (QC): 3 (min A doffing/ donning RLE, CGA in stance for hiking over hipsPt threads over BLE in sit with SBA, able to bring over hips with CGA.) On/Off Footwear (QC): 2 (RLE Max A, LLE IND.) Toileting Hygiene (QC): 4 (CGA in stance.) Other Treatments 1, EVM (10), ADL 5 (90) PT eval: [id number] OT eval: [id number] OT/ PT co-treat: [id number]: co-treat with PT addressing fx ambulation/ LE movement and balance and OT addressing attention, redirection, ADL tasks. Pt in w/c. Pt very distracted and talkative. Pt oriented, requires cues for attention to task and multiple redirective cues. Pt in w/c and Sit to stand with SBA. Pt ambulates to toilet (standard), sits with control and CGA. Pt attempts BM. Pt unsuccessful. Completes undressing on toilet. Sit to stand from toilet with min A. Pt completes shower transfer by side stepping into shower. Pt sits with control. Completes showering on sc. Pt requires increased time for all activities due to pain and attention to task. Pt goes to w/c post-shower. Pt unable to wheel self due to decreased LE strength to keep LEs elevated. Pt com pletes bed mob with min A (RLE). Pt in bed end of session, all needs met, call lightin reach. Education OT Patient Education: Correct positioning, Modified ADL techniques, Progress toward Goal/Update tx plan, Purpose of tx/functional activities, Safety issues, Transfer techniques, Use of adapted equipment Teaching Recipient: Patient Teaching Methods: Demonstration, Discussion Response to Teaching: Verbalize Understanding, Return Demonstration OT Short Term Goals Short Term Goals Time Frame: Oct 21, 2020 Shower/bathe self: 5 Lower body dressin OT Carousel Attendant Goals Carousel Attendant Goals Time Frame: Oct 28, 2020 Eating (QC): 6 Oral Hygiene (QC): 6 Toileting Hygiene (QC): 6 Shower/Bathe Self (QC): 6 Upper Body Dressing (QC): 6 Lower Body Dressing (QC): 6 On/Off Footwear (QC): 6 Additional Goals: 1-Demonstrate ADL Tasks, 2-Verbalize Understanding, 3-ImproveStrength/Jc 1=Demonstrate adherence to instructed precautions during ADL tasks. 2=Patient will verbalize/demonstrate understanding of assistive devices/modifications for ADL. 3=Patient will improve strength/tolerance for activity to enable patient to perform ADL's. OT Education/Plan Problem List/Assessment Assessment: Decreased Activ Tolerance, Decreased Safety Aware, Decreased UE Strength, Dependent Transfers, Edema, Impaired Bed Mobility, Impaired Funct Balance, Impaired I ADL's, Impaired Self-Care Skills Discharge Recommendations Plan/Recommendations: Continue POC Therapy Discharge Recommendati: Home & Family Treatment Plan/Plan of Care Treatment,Training & Education: Yes Patient would benefit from OT for education, treatment and training to promote independence in ADL's, mobility, safety and/or upper extremity function for ADL's. Plan of Care: ADL Retraining, Caregiver Training, Concurrent Therapy, Functional Mobility, Group Exercise/Act as Ind, UE Funct Exercise/Act, UE Neuromus Re-Ed/Coord, W/C Management Training Treatment Duration: Oct 28, 2020 Frequency: At least 5 of 7 days/Wk (IRF) Estimated Hrs Per Day: 1.5 hours per day Agreement: Yes Rehab Potential: Fair Time/GCodes Start Time: 13:15 Stop Time: 14:55 Total Time Billed (hr/min): 100 Billed Treatment Time 1, EVM (10), ADL 5 (90) PT eval: [id number] OT eval: [id number] OT/ PT co-treat: [id number]: co-treat with PT addressing fx ambulation/ LE movem ent and balance and OT addressing attention, redirection, ADL tasks. AMINAH NARAYAN OTR Oct 14, 2020 14:16
[2020-10-14] MEDS: DICLOFENAC 1% GEL 100 GM (VOLTAREN) TUBE TOP SCH ×3 (14:32→21:03)
[2020-10-14] MEDS: SENNA W/DOCUSATE (SENOKOT S) TABLET PO SCH ×2 (14:46→21:01)
[2020-10-14] MEDS: polyethylene glycoL POWDER 17 GM (MIRALAX) PACK PO SCH ×2 (14:46→21:00)
--- NOTE | 2020-10-14 15:00 | Physical Therapy Evaluation ---
PT Evaluation-General Medical Diagnosis Admission Date Oct 14, 2020 at 13:23 Medical Diagnosis: Right knee pain/infection Onset Date: Oct 04, 2020 Therapy Diagnosis Therapy Diagnosis: Impaired mobility and strength Height/Weight Height (Feet): 6 Height (Inches): 1.00 Weight (Pounds): 318 Weight (Ounces): 0 Precautions Precautions/Isolations: Fall Prevention, Standard Precautions Weight Bear Status Right Lower Extremity: Right Full Weight Bearing Left Lower Extremity: Left Full Weight Bearing Referral Physician: Efren Reason for Referral: Evaluation/Treatment Medical History Additional Medical History Additional Medical History RLE numbness, chronic LBP, hypokalemia, bipolar disorder Current History Septic R knee, s/p I&D (10/04) 09/13 + gonorrhea w/out tx Reviewed History: Yes Social History Home: Single Level Current Living Status: Friend (+ son) Entry Into Home: Stairs Without Railing PT Steps Into Home: 3 PT Steps Inside Home: 0 Prior Prior Level of Function SCALE: Activities may be completed with or without assistive devices. 7-Ynezgwnzpc-fksjgdu completes the activity by him/herself with no assistance from a helper. 5-Set-up or Clean-up Assistance-helper sets up or cleans up; patient completes activity. [place] assists only prior to or following the activity. 4-Supervision or Touching Assistance-helper provides verbal cues and/or touching/steadying and/or contact guard assistance as patient completes act ivity. Assistance may be provided throughout the activity or intermittently. 3-Partial/Moderate Assistance-helper does LESS THAN HALF the effort. [place] lifts, holds or supports trunk or limbs, but provides less than half the effort. 2-Substantial/Maximal Assistance-helper does MORE THAN HALF the effort. [place] lifts or holds trunk or limbs and provides more than half the effort. 7-Uihteynyu-rhvuzf does ALL the effort. Patient does none of the effort to complete the activity. Or, the assistance of 2 or more helpers is required for the patient to complete the activity. If activity was not attempted, code reason: 7-Patient Refused. 9-Not Applicable-not attempted and the patient did not perform the activity before the current illness, exacerbation or injury. 10-Not Attempted due to Environmental Limitations-(lack of equipment, weather restraints, etc.). 88-Not Attempted due to Medical Conditions or Safety Concerns. Bed Mobility: 6 Transfers (B,C,W/C): 6 Gait: 6 Stairs: 6 Wheelchair Mobility: 9 Indoor Mobility (Ambulation): Independent Stairs: Independent Prior Devices Use: None PT Evaluation-Current Subjective Pt presents sitting upright in wheelchair. Pt agrees to PT. Pt reports 10/10 pain in R knee. Pt/Family Goals Return home Objective Patient Orientation: Person, Place, Time, Eyes Open, Situation ROM/Strength ROM Lower Extremities Limited R knee flex/ext Strength Lower Extremities NT due to pain Sensory Vision: Functional Hearing: Functional Sensation Left Lower Extremity: Intact Transfers Roll Left & Right (QC): 3 Sit to Lying (QC): 3 Lying to Sitting/Side of Bed(Q: 3 Sit to Stand (QC): 4 Chair/Cnf-zz-Ncjmw Xfer(QC): 3 Toilet Transfer (QC): 3 Car Transfer (QC): 88 Gait Does the Patient Walk?: Yes Mode of Locomotion: Walk Anticipated Mode of Locomotion: Walk Walk 10 feet (QC): 4 Walk 50 ft with 2 Turns(QC): 88 Walk 150 ft (QC): 88 Walking 10ft/uneven surface-QC: 88 Distance: 10' Gait Assistive Device: FWW Comments/Gait Description Pt is able to ambulate into bathroom with FWW. Pt demonstrates an antalgic gait; pt reports she has no weightbearing restrictions on R leg but is only using toe touch out of fear. Right knee seems to stay flexed at about 30 degrees. Wheelchair Training Does the Pt Use a Wheelchair?: Yes Distance: 6' Wheel 50 ft with 2 turns (QC): 88 Wheel 150 ft (QC): 88 Type of Wheelchair: Manual Patient requires max assist on wheelchair mobility as she is unable to lift either foot off ground to prevent dragging. Stairs 1 Step (curb) (QC): 88 4 Steps (QC): 88 12 Steps (QC): 88 Balance Sitting Static: Normal Sitting Dynamic: Normal Standing Static: Fair Standing Dynamic: Poor Picking up an Object (QC): 88 Treatment Showering and dressing Assessment/Needs Unable to complete full assessment due to patient's pain level, fear of regre ssion from surgery, and uncompromising variations of her own ways. Pt is motivated to complete tasks on her own; she requests to complete transfers on her own without assistance if able. Rehab Potential: Guarded PT Short Term Goals Short Term Goals Time Frame: Oct 21, 2020 Roll Left & Right: 4 Sit to lyin Lying to sitting on side of be: 4 Chair/uas-dv-bevri transfer: 4 Toilet transfer: 4 Car transfer: 4 Walk 10 feet: 4 1 step (curb): 3 Picking up objects: 3 Wheel 50ft w/2 turns: 4 Wheel 150 feet: 4 PT Boat Outboard Engine Mechanic Goals Boat Outboard Engine Mechanic Goals PT Boat Outboard Engine Mechanic Goals Time Frame: Nov 04, 2020 Roll Left & Right (QC): 6 Sit to Lying (QC): 6 Lying-Sitting on Side/Bed(QC): 6 Sit to Stand (QC): 6 Chair/Nlp-wy-Ultwp Xfer(QC): 6 Toilet Transfer (QC): 6 Car Transfer (QC): 6 Does the Patient Walk: Yes Walk 10 feet (QC): 6 Walk 50ft with 2 Turns (QC): 6 Walk 150 ft (QC): 6 Walking 10ft on Uneven Surface: 6 1 Step (curb) (QC): 6 4 Steps (QC): 4 12 Steps (QC): 88 Picking up an Object (QC): 6 Wheel 50 feet with 2 turns (QC: 6 Wheel 150 feet: 6 PT Plan Problem List Problem List: Activity Tolerance, Functional Strength, Safety, Balance, Gait, Transfer, Bed Mobility, ROM Treatment/Plan Treatment Plan: Continue Plan of Care Treatment Plan: Bed Mobility, Education, Functional Activity Jc, Functional Strength, Group Therapy, Gait, Safety, Therapeutic Exercise, Transfers Treatment Duration: Nov 04, 2020 Frequency: At least 5 of 7 days/Wk (IRF) Estimated Hrs Per Day: 1.5 hours per day Patient and/or Family Agrees t: Yes Safety Risks/Education Patient Education: Gait Training, Transfer Techniques, Reviewed Precautions, Correct Positioning, W/C Management, Safety Issues Teaching Recipient: Patient Teaching Methods: Demonstration, Discussion Response to Teaching: Reinforcement Needed Discharge Recommendations Plan Pt will work on bed mobility, transfers, gait training, balance, and therapeutic exercises. Therapy Discharge Recommendati: Home & Family Time/GCodes Time In: 1300 Time Out: 1440 Total Billed Treatment Time: 90 Total Billed Treatment 1 visit EVM 15' FA 75' PT Eval [id number]; OT eval [id number]; Co-treated with OT [id number] due to patients limitations in strength mobility, and coordination of UEs and LEs. DAVID VAIL PT Oct 14, 2020 15:00
[2020-10-14 15:17] VITALS: BP 118/74
[2020-10-14 16:51] VITALS: BP 131/83
[2020-10-14] MEDS ORDERED: ENOXAPARIN 40 MG/0.4 ML (LOVENOX) SYR SC SCH ×2 (17:30→20:30)
[2020-10-14] MEDS: ACETAMINOPHEN 325 MG TABLET PO SCH (17:57)
[2020-10-14] MEDS: NAPROXEN 250 MG (NAPROSYN) TABLET PO SCH (17:58)
--- NOTE | 2020-10-14 20:47 | PM&R Post Admission Assessment ---
PM&R HP Date of Visit: Oct 14, 2020 Time of Visit: 18:15 History of Present Illness CC: Disseminated gonoccocal infection HPI: This is a 40yoWF clinic patient of [facility] Dr Chen who presents to IRF in need of recovery after right septic knee s/p I&D due to disseminated gonococcal infection. She is very weak overall and needs strengthening prior to returning home to live independently. Smoking cessation discussed. Very difficult to have a conversation with this patient when she is constantly talking about a multitude of things and cannot be easily redirected. Rocephin IV daily will be maintained for total of ID recommended duration. (Per Dr. Montes patient discharged on Ceftriaxone 1g IV Q24H through 10/18/20. Confirmed antibiotic orders with LALO Oneal at [facility] in [place]. No need for labs with ch a short duration). [facility] records DC summary: 40-year-old female with a past medical history of gonorrhea diagnosed a month ago that was not treated, chronic back pain with sciatica, tobacco use, cannabis use and obesity was transferred from [facility] for further evaluation and treatment of right knee pain with swelling, maculopapular skin rash with pustular lesions and tenosynovitis. Septic right knee s/p I&D Likely disseminated gonococcal infection - late September had sudden onset R knee pain, acute on chronic back pain with sciatica - 09/13 positive gonorrhea (ED specimen, dc'd without tx), was arranging gonorrhea tx at local health dept (was re-scheduled b/c of covid-19) - 10/[address] [facility] ED: WBC 13.2, R knee effusion/synovitis - 10/03 BCx2 NGTD - 10/03 arthrocentesis purulent thick fluid, per micro gram stain with many wbcs, no orgs, cx NGTD - 10/03 CT T/L spine neural foraminal stenosis (reportedly on transfer notes, no records were sent) - 10/04 R knee aspiration yielded cloudy synovial fluid: RBC 13.4k, WBC 59,700 - 87%N), amy stain with many pmn, no orgs, culture with NGTD - 10/04 s/p I&D with ortho - Negative HIV, HCV ab, HAV IgM, HBcIgM, HBsAg - Repeat GC/CT negative 10/06 (had + GC test 10/04) - ID consulted Continue Rocephin with plan for a 14 day course, possibly longer pending course. ID plans to schedule a telehealth visit on 10/18 to follow-up with her. Per Ortho leave dressings in place until follow up appointment. If any new drainage seen or concerns for infection, please contact Dr. Tripp's office @ [phone]. -Weight bearing as tolerated right lower extremity, range of motion as to lerated. -Do not get incisions wet. Keep dressings dry. Sponge bathe until follow up appointment. Reported FH of RA and Lupus -Patient reports a family history of both rheumatoid arthritis and lupus. Have consulted rheumatology for evaluation appreciate assistance from their team. Mildly elevated RF at 30. CCP normal. Assuming tiny ribs at T12, there are 5 lumbar type vertebral bodies. Multilevel spondylotic changes with mild lower lumbar facet arthritis and disc space narrowing at T11, L4, and L5. Mild degenerative arthritis both SI joints. No radiographic findings of sacroiliitis. Hip joint spaces are maintained. Chronic lower back pain 2/2 sciatica Right lower extremity numbness -CT T and L-spine done at OSH showing neural foraminal stenosis -Denies any bowel or bladder incontinence but does complain of having more numbness in right lower extremity -Pain control with Tylenol, Diclofenac gel, PRN Oxy and Fentanyl. 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 Much of this is related to her social situation, appreciate assistance from social work and nurse case management team. -She was also seen by psychiatry per her request, but declined any medical treatment. -Atarax PRN Past Ebzbuxt-Pobleq-Socxud Hx Past Med/Social Hx: Reviewed Nursing Past Med/Soc Hx, Reviewed and Corrections made Patient Social History Marrital Status: single Employed/Student: unemployed Alcohol Use: Occasionally Uses Alcohol Beverage of Choice: Beer Recreational Drug Use: No Drug of Choice: THC Smoking Status: Current Everyday Smoker Type Used: Cigarettes 2nd Hand Smoke Exposure: No Physical Abuse Screen: No Sexual Abuse: No Recent Foreign Travel: No Contact w/other who traveled: No Recent Hopitalizations: Yes (10/04/20 GONORHHEA INDUCED SEPTIC ARTHRITIS) Recent Infectious Disease Expo: No Immunizations Up To Date Tetanus Booster (TDap): Less than 5yrs Pediatric: No Seasonal Allergies Seasonal Allergies: Yes Past Medical History Surgeries: Adenoidectomy, Orthopedic, Tonsillectomy, Tubal Ligation Cardiac: Hypertension : No Reproductive: No Sexually Transmitted Disease: No Tubal Ligation Musculoskeletal: Degenerate Disk Disease, Arthritis, Chronic Back Pain HEENT: Tonsilitis Psychosocial: Anxiety, Bipolar, Depression Skin/Integumentary: Recent Skin Changes History of Blood Disorders: No Adverse Reaction to Blood [place]: No Family History Arthritis 19 MOTHER Cardiovascular disease 19 MOTHER Diabetes mellitus 19 FATHER (LUPUS) FH: lupus erythematosus No Pertinent Family Hx Prior Level of Function Bed Mobility: 6 Transfers: 6 Gait: 6 Stairs: 6 Wheelchair Mobility: 9 Indoor Mobility (Ambulation): Independent Stairs: Independent Prior Devices Use: None Self Care: Independent Functional Cognition: Independent Occupation: unemployed Drive Self: No Current Level of Fuctioning Roll Left to Right: 3 Sit to Lyin Lying to Sitting/Side of Bed: 3 Sit to Stand: 4 Chair/Xft-ej-Vhvgx Xfer: 3 Car Transfer: 88 Does the Patient Walk: Yes Mode of Locomotion: Walk Anticipated Mode of Locomotion: Walk Walk 10 feet: 4 Walk 50 ft with 2 Turns: 88 Walk 150 ft: 88 Walking 10ft on uneven surface: 88 Gait Assistive Device: FWW Does the Pt Use a Wheelchair: Yes Wheelchair Distance: 6' Wheel 50 ft with 2 turns: 88 Wheel 150 ft: 88 Type of Wheelchair: Manual 1 Step (curb): 88 4 Steps: 88 12 Steps: 88 Picking up an Object: 88 Eatin Oral Hygiene: 6 Shower/Bathe Self: 4 (SBA all standing, SUP in sit on sc) Upper Body Dressin (min A bra doffing, dons shirt with ind) Lower Body Dressin (min A doffing/ donning RLE, CGA in stance for hiking o harrison hipsPt threads over BLE in sit with SBA, able to bring over hips with CGA.) On/Off Footwear: 2 (RLE Max A, LLE IND.) Toileting Hygiene: 4 (CGA in stance.) PM&R Allergy/Meds/Data Review Allergies Coded Allergies: cephalexin (Verified Allergy, Unknown, 10/14/20) clindamycin (Verified Allergy, Unknown, 10/14/20) hydroxyzine (Verified Allergy, Unknown, Rash, 10/14/20) Home Medications Scheduled Acetaminophen (Tylenol), 650 MG PO Q6H, (Reported) Ceftriaxone Sodium (Ceftriaxone), 1 GM IJ DAILY, (Reported) Diclofenac Sodium (Voltaren), 2 GM TOP QID, (Reported) Naproxen (Naproxen), 500 MG PO BID WITH MEALS, (Reported) Nicotine (Nicotine Patch), 21 MG TD DAILY, (Reported) Scheduled PRN Albuterol Sulfate (Proair Hfa), 2 PUFF IH Q6H PRN for SHORTNESS OF BREATH, (Reported) Cyclobenzaprine HCl (Cyclobenzaprine HCl), 10 MG PO TID PRN for MUSCLE CRAMPS, (Reported) Hydroxyzine HCl (Hydroxyzine HCl), 25 MG PO TID PRN for ANXIETY, (Reported) Oxycodone HCl (Roxicodone), 5 MG PO Q4H PRN for PAIN-SEVERE (8-10), (Reported) Polyethylene Glycol 3350 (Miralax), 17 GM PO DAILY PRN for CONSTIPATION-2ND LINE, (Reported) Tizanidine HCl (Tizanidine HCl), 4 MG PO Q8H PRN for MUSCLE SPASMS, (Reported) Discontinued Medications Amoxicillin (Amoxicillin), 500 MG PO TID Discontinued Reason: No Longer Taking Buspirone HCl (Buspirone HCl), Unknown Dose PO, (Reported) Discontinued Reason: No Longer Taking Cyclobenzaprine HCl (Cyclobenzaprine HCl), 10 MG PO Q8H PRN for SPASMS Discontinued Reason: No Longer Taking Methylprednisolone (Medrol), 4 MG PO UD Discontinued Reason: No Longer Taking Metronidazole (Flagyl), 500 MG PO BID Discontinued Reason: No Longer Taking Naproxen (Naprosyn), 500 MG PO BID PRN for PAIN-MODERATE (5-7) Discontinued Reason: No Longer Taking Nitrofurantoin Monohyd/M-Cryst (Macrobid 100 mg Capsule), 1 TAB PO BID Discontinued Reason: No Longer Taking Sulfamethoxazole/Trimethoprim (Bactrim Ds Tablet), 1 EACH PO BID Discontinued Reason: No Longer Taking Tizanidine HCl (Tizanidine HCl), 4 MG PO TID Discontinued Reason: No Longer Taking Tramadol HCl (Ultram), 50 MG PO Q4H Discontinued Reason: No Longer Taking Current Medications Current Medications Reviewed Review of Systems Constitutional: see HPI, weakness EENTM: no symptoms reported Respiratory: no symptoms reported Cardiovascular: no symptoms reported Gastrointestinal: constipation Genitourinary: no symptoms reported Musculoskeletal: back pain, joint pain Skin: no symptoms reported Psychiatric/Neurological: No Symptoms Reported All Other Systems Reviewed Negative Unless Noted: Yes Physical Exam Physical Exam Vital Signs Vital Signs - First Documented 10/14/20 10/14/20 15:04 15:17 Temp 36.4 Pulse 96 Resp 18 B/P (MAP) 118/74 Pulse Ox 95 O2 Delivery Room Air Capillary Refill : Height, Weight, BMI Height: 6'1.00" Weight: 318lbs. 0oz. [id number]; 42.77 BMI Method:Stated General Appearance: No Apparent Distress, WD/WN, Anxious, Chronically ill, Obese Eyes: Bilateral Eye Normal Inspection, Bilateral Eye PERRL HEENT: PERRL/EOMI, Normal ENT Inspection, Pharynx Normal Neck: Full Range of Motion, Normal Inspection, Non Tender, Supple, Carotid Bruit Respiratory: Chest Non Tender, Lungs Clear, Normal Breath Sounds, No Accessory Muscle Use, No Respiratory Distress Cardiovascular: Regular Rate, Rhythm, No Gallop, No JVD, No Murmur, Normal Peripheral Pulses Gastrointestinal: Normal Bowel Sounds, No Organomegaly, No Pulsatile Mass, Non Tender, Soft Back: Normal Inspection, No CVA Tenderness, No Vertebral Tenderness Extremity: Normal Capillary Refill, Normal Inspection, Normal Range of Motion (escept right knee), Non Tender, No Calf Tenderness, Pedal Edema Neurologic/Psychiatric: Alert, Oriented x3, No Motor/Sensory Deficits, Normal Mood/Affect, Motor Weakness (generalized lower extremities mary right knee) Skin: Normal Color, Warm/Dry Lymphatic: No Adenopathy PM&R Medical Assessment & Plan REHAB/MEDICAL ASSESSMENT AND PLAN: REHAB IMPAIRMENT GROUP: Disseminated gonoccocal infection s/p right septic knee I&D ETIOLOGIC DIAGNOSIS: Disseminated gonoccocal infection s/p right septic knee I&D The comorbidities that impact the patients function and/or functional outcome by: morbid obesity, chronic pain, increased addiction potential REHAB PLAN: The patient is being admitted to our comprehensive inpatient rehabilitation facility and can tolerate the intensity of service consisting of at least: 180 minutes of therapy a day, 5 out of 7 days a week Rehab treatment will consist of: PT OT will help increase ROM right knee along with flexibility of other joints including back pain which causes disability while Rocephin completing. The patient/family has a good understanding of our discharge process and will benefit from an interdisciplinary inpatient rehabilitation program. The patient has potential to make improvement and is in need of at least two of the following multidisciplinary therapies including but not limited to physical, o ccupational, speech, and prosthetics and orthotics. Additionally the patient will need services from respiratory, nutritional services, wound care, psychology, etc. (Customize this to each patient). Given the patients complex condition and risk of further medical complications, rehabilitation services cannot be safely or effectively provided at a lower level of care such as a [facility] facility. BARRIERS TO DISCHARGE: obesity, fall risk ESTIMATED LOS: 10 days DISPOSITION: Home RELEVANT CHANGES SINCE PREADMISSION SCREENING: I have compared the patients medical and functional status at the time of the preadmission screening and there are: no changes PROGNOSIS: Good REHABILITATION GOALS: 1. PT OT will help increase ROM right knee along with flexibility of other joints including back pain which causes disability while Rocephin completing. All the above goals were reviewed with the patient and he/she is in agreement. By signing this document, I acknowledge that I have personally performed a full physical examination on this patient within 24 hours of admission to this inpatient rehabilitation facility and have determined the patient to be able to tolerate the above course of treatment at an intensive level for a reasonable period of time. I will be completing a detailed individualized Plan of Care for this patient by day #4 of the patients stay based upon the Preadmission Screen, the Post-Admission Evaluation, and the therapy evaluations. Admission Dx/Comorbidities: (1) Disseminated infection due to Neisseria gonorrhoeae Status: Acute ICD Codes: A54.9 - Gonococcal infection, unspecified (2) Septic arthritis of knee, right Status: Acute ICD Codes: M00.9 - Pyogenic arthritis, unspecified (3) Exacerbation of chronic back pain Status: Acute ICD Codes: M54.9 - Dorsalgia, unspecified; G89.29 - Other chronic pain (4) Smoker ICD Codes: F17.200 - Nicotine dependence, unspecified, uncomplicated (5) Obese ICD Codes: E66.9 - Obesity, unspecified Assessment/Plan Assessment and Plan Assess & Plan/Chief Complaint Assessment: Disseminated gonnoccal infection with right septic knee s/p I&D Smoker Obesity OA Chronic back pain Narcotic addiction potential Plan: IRF protocol Rocephiquiana Monitor labs IV Per [facility] call today: Per Dr. Montes patient discharged on Ceftriaxone 1g IV Q24H through 10/18/20. Confirmed antibiotic orders with LALO Oneal at [facility] in [place]. No need for labs with such a short duration. SURI KLEIN DO Oct 14, 2020 20:47
[2020-10-14] MEDS: ENOXAPARIN 40 MG/0.4 ML (LOVENOX) SYR SC SCH (21:01)
[2020-10-15] MEDS: ACETAMINOPHEN 325 MG TABLET PO SCH ×5 (00:11→23:35)
[2020-10-15] MEDS: ALPRAZolam 0.25 MG (XANAX) TAB PO PRN ×3 (02:19→23:34)
[2020-10-15 06:00] VITALS: BP_SYST 136; BP_SYST 142; BP_DIAS 67; BP_DIAS 75
[2020-10-15 06:22] LABS: BASOPHILS % (AUTO) 0 % (0-10); EOSINOPHILS # (AUTO) 0.3 10^3/uL (0.0-0.3); EOSINOPHILS % (AUTO) 4 % (0-10); HEMATOCRIT 33 % (35-52); HEMOGLOBIN 10.8 g/dL (11.5-16.0); LYMPHOCYTES # (AUTO) 2.4 10^3/uL (1.0-4.0); LYMPHOCYTES % (AUTO) 30 % (12-44); MEAN CORPUSCULAR HEMOGLOBIN 30 pg (25-34); MEAN CORPUSCULAR HGB CONC 32 g/dL (32-36); MEAN CORPUSCULAR VOLUME 93 fL (80-99); MEAN PLATELET VOLUME 10.5 fL (9.0-12.2); MONOCYTES % (AUTO) 13 % (0-12); NEUTROPHILS # (AUTO) 4.1 10^3/uL (1.8-7.8); NEUTROPHILS % (AUTO) 52 % (42-75); PLATELET COUNT 467 10^3/uL (130-400); WHITE BLOOD COUNT 7.8 10^3/uL (4.3-11.0)
[2020-10-15 06:33] LABS: CHLORIDE 102 MMOL/L (98-107); POTASSIUM 3.9 MMOL/L (3.6-5.0); SODIUM 139 MMOL/L (135-145)
[2020-10-15 06:34] LABS: CALCIUM 8.8 MG/DL (8.5-10.1)
[2020-10-15 06:35] LABS: GLUCOSE 114 MG/DL (70-105); TOTAL PROTEIN 6.8 GM/DL (6.4-8.2)
[2020-10-15 06:36] LABS: CARBON DIOXIDE 26 MMOL/L (21-32)
[2020-10-15 06:37] LABS: BILIRUBIN,TOTAL 0.3 MG/DL (0.1-1.0)
[2020-10-15 06:38] LABS: ALKALINE PHOSPHATASE 65 U/L (40-136)
[2020-10-15 06:39] LABS: CREATININE SERUM 0.63 MG/DL (0.60-1.30); GFR ESTIMATED > 60
[2020-10-15 06:40] LABS: BUN/CREATININE RATIO 19
[2020-10-15 06:42] LABS: ALANINE AMINOTRANSFERASE 13 U/L (0-55)
[2020-10-15] MEDS ORDERED: cefTRIAXone 1,000 MG IV (ROCEPHIN) VIAL IJ SCH (09:00)
[2020-10-15] MEDS: NAPROXEN 250 MG (NAPROSYN) TABLET PO SCH ×2 (09:07→17:19)
[2020-10-15] MEDS: ENOXAPARIN 40 MG/0.4 ML (LOVENOX) SYR SC SCH ×2 (09:08→20:40)
[2020-10-15] MEDS: NICOTINE PATCH REMOVAL TP SCH (09:10)
[2020-10-15] MEDS: NICOTINE 21 MG (NICODERM) PATCH TD SCH (09:11)
[2020-10-15] MEDS: cefTRIAXone 1,000 MG/SWFI 10 ML IV PUSH IV SCH ×2 (09:12)
[2020-10-15] MEDS: polyethylene glycoL POWDER 17 GM (MIRALAX) PACK PO SCH ×2 (09:12→20:37)
[2020-10-15] MEDS: SENNA W/DOCUSATE (SENOKOT S) TABLET PO SCH ×2 (09:13→20:37)
[2020-10-15] MEDS: DICLOFENAC 1% GEL 100 GM (VOLTAREN) TUBE TOP SCH ×4 (09:14→20:42)
--- NOTE | 2020-10-15 13:04 | Physical Therapy Daily Note ---
PT Daily Note-Current Subjective Pt. up in recliner. Speaking non stop telling mostly same story over and over about her displeasure with [facility] and care there. Pt. eventually agrees to Rx and needs max reinstruction to continue and follow task at hand Pain Location: No Pain Reported Mental Status Patient Orientation: Person, Place, Time Attachments: Other-See Comments (BRENDA wrapped RLE at knee) Transfers SCALE: Activities may be completed with or without assistive devices. 8-Wgisgrceja-lqmpbld completes the activity by him/herself with no assistance from a helper. 5-Set-up or Clean-up Assistance-helper sets up or cleans up; patient completes activity. Lodi assists only prior to or following the activity. 4-Supervision or Touching Assistance-helper provides verbal cues and/or touching/steadying and/or contact guard assistance as patient completes activity. Assistance may be provided throughout the activity or intermittently. 3-Partial/Moderate Assistance-helper does LESS THAN HALF the effort. Lodi lifts, holds or supports trunk or limbs, but provides less than half the effort. 2-Substantial/Maximal Assistance-helper does MORE THAN HALF the effort. Lodi lifts or holds trunk or limbs and provides more than half the effort. 5-Ygwtxryrn-nlrsis does ALL the effort. Patient does none of the effort to complete the activity. Or, the assistance of 2 or more helpers is required for the patient to complete the activity. If activity was not attempted, code reason: 7-Patient Refused. 9-Not Applicable-not attempted and the patient did not perform the activity before the current illness, exacerbation or injury. 10-Not Attempted due to Environmental Limitations-(lack of equipment, weather restraints, etc.). 88-Not Attempted due to Medical Conditions or Safety Concerns. Sit to Stand (QC): 3 sit to stand with min assist and review of safe technique Weight Bearing Right Lower Extremity: Right Full Weight Bearing Left Lower Extremity: Left Full Weight Bearing Gait Training Does the Patient Walk?: Yes Walk 10 feet (QC): 4 Walk 50 ft with 2 Turns(QC): 4 Gait Persons Needed: 1 Gait Assistive Device: FWW [id number] instructed to WBAT , heel strike and to take smaller step with RLE, pt. does not extend R knee well and makes min effort to do this Exercises Seated Therapy Exercises: Ankle pumps, Sit to stand, Long arc quads, Hip flexion Seated Reps: 30 Assessment Current Status: Good Progress pt. with apparent psych involvement has much difficulty focusing , talks near non stop and requires redirection to the task and goals. lacks full ext, keeps knee in flexion at approx 40 to 50 degrees while walking, heavy wt bearing on FWW PT Short Term Goals Short Term Goals Time Frame: Oct 21, 2020 Roll Left & Right: 4 Sit to lyin Lying to sitting on side of be: 4 Chair/tsy-xo-zdgst transfer: 4 Toilet transfer: 4 Car transfer: 4 Walk 10 feet: 4 1 step (curb): 3 Picking up objects: 3 Wheel 50ft w/2 turns: 4 Wheel 150 feet: 4 PT Livestock Sales Representative Goals Livestock Sales Representative Goals PT Livestock Sales Representative Goals Time Frame: Nov 04, 2020 Roll Left & Right (QC): 6 Sit to Lying (QC): 6 Lying-Sitting on Side/Bed(QC): 6 Sit to Stand (QC): 6 Chair/Jub-wm-Eyres Xfer(QC): 6 Toilet Transfer (QC): 6 Car Transfer (QC): 6 Does the Patient Walk: Yes Walk 10 feet (QC): 6 Walk 50ft with 2 Turns (QC): 6 Walk 150 ft (QC): 6 Walking 10ft on Uneven Surface: 6 1 Step (curb) (QC): 6 4 Steps (QC): 4 12 Steps (QC): 88 Picking up an Object (QC): 6 Wheel 50 feet with 2 turns (QC: 6 Wheel 150 feet: 6 PT Plan Treatment/Plan Treatment Plan: Continue Plan of Care Treatment Plan: Bed Mobility, Education, Functional Activity Jc, Functional Strength, Group Therapy, Gait, Safety, Therapeutic Exercise, Transfers Treatment Duration: Nov 04, 2020 Frequency: At least 5 of 7 days/Wk (IRF) Estimated Hrs Per Day: 1.5 hours per day Patient and/or Family Agrees t: Yes Safety Risks/Education Patient Education: Gait Training, Transfer Techniques, Correct Positioning, Disease Process, Safety Issues Teaching Recipient: Patient Teaching Methods: Demonstration, Discussion Response to Teaching: Verbalize Understanding, Return Demonstration, Reinforcement Needed Time/GCodes Time In: 1200 Time Out: 1230 Total Billed Treatment Time: 30 Total Billed Treatment 1,EX10m,GT20m JEAN BILLINGS CIVIL ENGINEERING PROFESSOR Oct 15, 2020 13:04
--- NOTE | 2020-10-15 16:19 | PM&R Progress Note ---
Subjective HPI/CC On Admission Date Seen by Provider: Oct 15, 2020 Time Seen by Provider: 06:00 Subjective/Events-last exam Near constant manic-like behavior which appears to be chronic Very loud and opinionated and very agitated at times Told patient to take things slower and slow up her speech so we can follow her conversations more easily and help her more Pain improved since increased Oxycodone to 10mg dose BM regimen will be maintained Conferred with RN Reviewed therapy notes Checked meds and labs Review of Systems General: Fatigue, Malaise Musculoskeletal: leg pain Objective Exam Vital Signs Vital Signs Date Time Temp Pulse Resp B/P (MAP) Pulse Ox O2 Delivery O2 Flow Rate FiO2 10/15/20 09:00 Room Air 10/15/20 06:00 36.8 97 16 136/75 (95) 97 Capillary Refill : Less Than 3 Seconds General Appearance: No Apparent Distress, WD/WN, Anxious, Chronically ill, Obese HEENT: PERRL/EOMI, Normal ENT Inspection, Pharynx Normal Neck: Full Range of Motion, Normal Inspection, Non Tender, Supple, Carotid Bru it Respiratory: Chest Non Tender, Lungs Clear, Normal Breath Sounds, No Accessory Muscle Use, No Respiratory Distress Cardiovascular: Regular Rate, Rhythm, No Gallop, No JVD, No Murmur, Normal Peripheral Pulses Gastrointestinal: Normal Bowel Sounds, No Organomegaly, No Pulsatile Mass, Non Tender, Soft Back: Normal Inspection, No CVA Tenderness, No Vertebral Tenderness Extremity: Normal Capillary Refill, Normal Inspection, Normal Range of Motion (escept right knee), Non Tender, No Calf Tenderness, Pedal Edema Neurologic/Psychiatric: Alert, Oriented x3, No Motor/Sensory Deficits, Normal Mood/Affect, Motor Weakness (generalized lower extremities mary right knee) Skin: Normal Color, Warm/Dry Lymphatic: No Adenopathy Results/Procedures Lab Laboratory Tests 10/15/20 06:00 Patient resulted labs reviewed. FIM Transfers Therapy Code Descriptions/Definitions Functional Palmer Measure: 0=Not Assessed/NA 4=Minimal Assistance 1=Total Assistance 5=Supervision or Setup 2=Maximal Assistance 6=Modified Palmer 3=Moderate Assistance 7=Complete IndependenceSCALE: Activities may be completed with or without assistive devices. 7-Krmiijvsbg-sszqihs completes the activity by him/herself with no assistance from a helper. 5-Set-up or Clean-up Assistance-helper sets up or cleans up; patient completes activity. Frederica assists only prior to or following the activity. 4-Supervision or Touching Assistance-helper provides verbal cues and/or touching/steadying and/or contact guard assistance as patient completes activity. Assistance may be provided throughout the activity or intermittently. 3-Partial/Moderate Assistance-helper does LESS THAN HALF the effort. Frederica lifts, holds or supports trunk or limbs, but provides less than half the effort. 2-Substantial/Maximal Assistance-helper does MORE THAN HALF the effort. Frederica lifts or holds trunk or limbs and provides more than half the effort. 4-Dedwioniu-aixgxs does ALL the effort. Patient does none of the effort to complete the activity. Or, the assistance of 2 or more helpers is required for the patient to complete the activity. If activity was not attempted, code reason: 7-Patient Refused. 9-Not Applicable-not attempted and the patient did not perform the activity before the current illness, exacerbation or injury. 10-Not Attempted due to Environmental Limitations-(lack of equipment, weather restraints, etc.). 88-Not Attempted due to Medical Conditions or Safety Concerns. Roll Left to Right (QC): 3 Sit to Lying (QC): 3 Sit to Stand (QC): 3 Chair/Hqh-qi-Jjrso Xfer(QC): 3 Car Transfer (QC): 88 Gait Training Does the Patient Walk?: Yes Walk 10 feet (QC): 4 Walk 50 ft with 2 Turns(QC): 4 Walk 150 ft (QC): 88 Walking 10ft/uneven surface-QC: 88 Gait Persons Needed: 1 Gait Assistive Device: FWW Wheelchair Training Does the Pt Use a Wheelchair?: Yes Distance: 6' Wheel 50 ft with 2 turns (QC): 88 Wheel 150 ft (QC): 88 Type of Wheelchair: Manual Stair Training 1 Step (curb) (QC): 88 4 Steps (QC): 88 12 Steps (QC): 88 Balance Picking up an Object (QC): 88 ADL-Treatment Eating (QC): 6 Oral Hygiene (QC): 6 Shower/Bathe Self (QC): 4 (SBA all standing, SUP in sit on sc) Upper Body Dressing (QC): 3 (min A bra doffing, dons shirt with ind) Lower Body Dressing (QC): 3 (min A doffing/ donning RLE, CGA in stance for hiking over hipsPt threads over BLE in sit with SBA, able to bring over hips with CGA.) On/Off Footwear (QC): 2 (RLE Max A, LLE IND.) Toileting Hygiene (QC): 4 (CGA in stance.) Assessment/Plan Assessment and Plan Assess & Plan/Chief Complaint Assessment: Disseminated gonnoccal infection with right septic knee s/p I&D Smoker Obesity OA Chronic back pain Narcotic addiction potential Plan: IRF protocol Rocephin Monitor labs IV Per [facility] call today: Per Dr. Montes patient discharged on Ceftriaxone 1g IV Q24H through 10/18/20. Confirmed antibiotic orders with LALO Oneal at [facility] in [place]. No need for labs with such a short duration. 10/15/20: Slow up on rapid speech and movements Continue abx through 10/18/20 Monitor pain (1) Disseminated infection due to Neisseria gonorrhoeae Status: Acute (2) Septic arthritis of knee, right Status: Acute (3) Exacerbation of chronic back pain Status: Acute (4) Smoker (5) Obese SURI KLEIN DO Oct 15, 2020 16:19
--- NOTE | 2020-10-15 16:21 | Individualized Plan of Care ---
Individualized Plan of Care Rehab Nursing IPOC Order Admission Date Oct 14, 2020 at 13:23 Current Orders Orders Admission Order(Inpt,Obs,Sdc) (10/14/20 06:13) Vital Signs: Per Unit Policy ( 08,16,00 (10/14/20 06:13) Shane Camilo 09,21 (10/14/20 06:13) Sequential Compression Device Q4H (10/14/20 06:13) Blade Aligner-Inpt Rehab Con (10/14/20 06:13) Rehab Nursing Orders-Ipoc (10/14/20 06:13) Physical Therapy Rehab Orders (10/14/20 06:13) Occupational Therapy Rehab Ord (10/14/20 06:13) Speech Therapy Rehab Orders (10/14/20 06:13) Cbc With Automated Diff (10/15/20 06:00) Comprehensive Metabolic Panel (10/15/20 06:00) General/Regular (10/14/20 Breakfast) Intake & Output ,, (10/14/20 06:13) Precautions (Aru) (10/14/20 06:13) Rehab-Intensity Of Therapy (10/14/20 06:13) Initiate Admission Nursing Pro .admission (10/14/20 06:13) Acetaminophen Tablet (Tylenol Tablet) (10/14/20 06:15) Alprazolam Tablet (Xanax Tablet) (10/14/20 06:15) Calcium Carbonate Chew Tablet (Antacid C (10/14/20 06:15) Diphenhydramine Tablet (Benadryl Tablet) (10/14/20 06:15) Docusate Sodium Capsule (Colace Capsule) (10/14/20 06:15) Bisacodyl Suppository (Dulcolax Supposit (10/14/20 06:15) Lactulose Oral Solution (Enulose Oral So (10/14/20 06:15) Na Phos/Na Biphos Enema (Fleet Enema Atif (10/14/20 06:15) Guaifenesin/Codeine Syrup (Robitussin Ac (10/14/20 06:15) Loperamide Tablet (Imodium Tablet) (10/14/20 06:15) Enoxaparin Injection (Lovenox Injection) (10/14/20 06:15) Melatonin Tablet (Melatonin Tablet) (10/14/20 06:15) Polyethylene Glycol Powder Pkt (Miralax (10/14/20 09:00) Ondansetron Oral Dissolve Tab (Zofran (10/14/20 06:15) Senna S Tablet (Senokot S Tablet) (10/14/20 09:00) Code/Resuscitation (10/14/20 06:13) Initiate Admission Nursing Pro .admission (10/14/20 06:13) Admission Arrival Bed Request (10/14/20 13:00) Albuterol Pre-Mix Nebs (Rt) (Proventil (10/14/20 13:00) Ceftriaxone For Iv Use (Rocephin For I (10/15/20 09:00) Cyclobenzaprine Tablet (Flexeril Tablet) (10/14/20 13:00) Diclofenac 1% Gel (Voltaren 1% Gel) (10/14/20 13:00) Nicotine Patch (Nicoderm Patch) (10/15/20 09:00) Oxycodone Immediate Rel Tablet (Oxyir Ta (10/14/20 13:00) Polyethylene Glycol Powder Pkt (Miralax (10/14/20 13:00) Tizanidine Tablet (Zanaflex Tablet) (10/14/20 13:00) (Nf) Acetaminophen (Tylenol) (10/14/20 13:00) (Nf) Hydroxyzine Hcl (10/14/20 13:00) Naproxen Tablet (Naprosyn Tablet) (10/14/20 18:00) Pharmacy Consult/Message (10/14/20 13:03) Alprazolam Tablet (Xanax Tablet) (10/14/20 13:06) Acetaminophen Tablet/Caplet (Tylenol T (10/14/20 13:06) Acetaminophen Tablet/Caplet (Tylenol T (10/14/20 14:15) Oxycodone Immediate Rel Tablet (Oxyir Ta (10/14/20 13:17) Patch Removal (Patch Removal) (10/15/20 08:59) Patient Visit (10/14/20 ) Pt Eval Moderate Complexity (10/14/20 ) Functional Activities, Ea 15 (10/14/20 ) Ceftriaxone For Iv Use (Rocephin For I (10/15/20 09:00) Ambulate 08,12,20 (10/14/20 15:49) Sequential Compression Device Q4H (10/14/20 15:49) Dvt/Vte Risk - Notifiy Physici Q4H (10/14/20 15:49) Patient Request Pharm Consult (10/15/20 15:49) Acetaminophen Tablet/Caplet (Tylenol T (10/14/20 17:30) Enoxaparin Injection (Lovenox Injection) (10/14/20 17:30) Enoxaparin Injection (Lovenox Injection) (10/14/20 20:30) Enoxaparin Injection (Lovenox Injection) (10/14/20 20:30) Oxycodone Immediate Rel Tablet (Oxyir Ta (10/14/20 21:00) Patient Visit (10/15/20 ) Gait Training, Ea 15 Min (10/15/20 ) Exercise Therap, Ea 15 Min (10/15/20 ) Rehab Nursing Orders: Ongoing Assess. of Function Status, Bowel Management, Disease Management & Educaiton, DVT Prophylaxis, Fall Prevention, Fluid/Electrolyte/Nutrition Mgmt, Infection Prevention, Medication Management & Education, Management of Risks & Complications, Management of Skin Intergrity, Nutrition Management, Pain Management, Patient/Family Support, Safety Management Intensity of Therapy to be met Patient to be seen: Min.3h per day/5 of 7d PT IPOC Problem List: Activity Tolerance, Functional Strength, Safety, Balance, Gait, Transfer, Bed Mobility, ROM Treatment Plan: Continue Plan of Care Bed Mobility, Education, Functional Activity Jc, Functional Strength, Group Therapy, Gait, Safety, Therapeutic Exercise, Transfers Treatment Duration: Nov 04, 2020 Frequency: At least 5 of 7 days/Wk (IRF) Estimated Hrs Per Day: 1.5 hours per day OT IPOC Problems: Decreased Activ Tolerance, Decreased Safety Aware, Decreased UE Strength, Dependent Transfers, Edema, Impaired Bed Mobility, Impaired Funct Balance, Impaired I ADL's, Impaired Self-Care Skills OT Treatment, Training and Edu: Yes Plan of Care: ADL Retraining, Caregiver Training, Concurrent Therapy, Functional Mobility, Group Exercise/Act as Ind, UE Funct Exercise/Act, UE Neuromus Re-Ed/Coord, W/C Management Training Treatment Duration: Oct 28, 2020 Frequency: At least 5 of 7 days/Wk (IRF) Estimated Hrs Per Day: 1.[address] IPOC Speech Therapy Treatment Plan: Discontinue ST Treatment Duration: Oct 14, 2020 Frequency: Modified Program (IRF) Estimated Hrs Per Day: Other Blade Aligner/Case Mgmt Blade Aligner/Case Managemen: Discharge Planning Dietitian/Transitional Living Specialist Dietitian/Transitional Living Specialist to monitor nutritional status and make changes and/or recommendations as needed and work with speech pathology on dietary upgrades as the occur. Physician IPOC Medical Issues being managed closely and that require the 24 hour availability of a physician: Recent disseminated gonnoccus infection will be at high risk for recurrent infection with c diff colitis due to broad spectrum abx Medical Issues: Bowel/Bladder Function, DVT Prophylaxis, Falls Precautions, Fluid/Electrolyte/Nutrition Balance, Infection Protection, Pain Management, Wound Care Brief Synthesis of Preadmission Screen, Post-Admission Evaluation, and Therapy Evaluations: PT OT will focus on regaining function of right leg s/p I&D and increase compliance with increasing ROM through specific exercises to prevent contractures Medical Prognosis: Good Anticipated Length of Stay: 7 days SURI KLEIN DO Oct 15, 2020 16:21
[2020-10-15 18:02] VITALS: BP 148/73
[2020-10-16] MEDS: ACETAMINOPHEN 325 MG TABLET PO SCH ×4 (05:18→23:43)
[2020-10-16 06:00] VITALS: BP 148/94
--- NOTE | 2020-10-16 06:14 | PM&R Progress Note ---
Subjective HPI/CC On Admission Date Seen by Provider: Oct 16, 2020 Time Seen by Provider: 06:00 Subjective/Events-last exam 10/16/20: Patient improved No pain reported except right knee Checked meds and labs IV Rocephin maintained Near constant manic-like behavior which appears to be chronic Very loud and opinionated and very agitated at times Told patient to take things slower and slow up her speech so we can follow her conversations more easily and help her more Pain improved since increased Oxycodone to 10mg dose BM regimen will be maintained Conferred with RN Reviewed therapy notes Checked meds and labs Review of Systems General: Fatigue, Malaise Musculoskeletal: leg pain Objective Exam Vital Signs Vital Signs Date Time Temp Pulse Resp B/P (MAP) Pulse Ox O2 Delivery O2 Flow Rate FiO2 10/16/20 21:30 97 Room Air 10/16/20 17:14 35.8 93 18 139/93 (108) Capillary Refill : Less Than 3 Seconds General Appearance: No Apparent Distress, WD/WN, Anxious, Chronically ill, Obese HEENT: PERRL/EOMI, Normal ENT Inspection, Pharynx Normal Neck: Full Range of Motion, Normal Inspection, Non Tender, Supple, Carotid B ruit Respiratory: Chest Non Tender, Lungs Clear, Normal Breath Sounds, No Accessory Muscle Use, No Respiratory Distress Cardiovascular: Regular Rate, Rhythm, No Gallop, No JVD, No Murmur, Normal Peripheral Pulses Gastrointestinal: Normal Bowel Sounds, No Organomegaly, No Pulsatile Mass, Non Tender, Soft Back: Normal Inspection, No CVA Tenderness, No Vertebral Tenderness Extremity: Normal Capillary Refill, Normal Inspection, Normal Range of Motion (escept right knee), Non Tender, No Calf Tenderness, Pedal Edema Neurologic/Psychiatric: Alert, Oriented x3, No Motor/Sensory Deficits, Normal Mood/Affect, Motor Weakness (generalized lower extremities mary right knee) Skin: Normal Color, Warm/Dry Lymphatic: No Adenopathy Results/Procedures Lab Patient resulted labs reviewed. FIM Transfers Therapy Code Descriptions/Definitions Functional [place] Measure: 0=Not Assessed/NA 4=Minimal Assistance 1=Total Assistance 5=Supervision or Setup 2=Maximal Assistance 6=Modified [place] 3=Moderate Assistance 7=Complete IndependenceSCALE: Activities may be completed with or without assistive devices. 1-Oswhlupzxj-ealuern completes the activity by him/herself with no assistance from a helper. 5-Set-up or Clean-up Assistance-helper sets up or cleans up; patient completes activity. [place] assists only prior to or following the activity. 4-Supervision or Touching Assistance-helper provides verbal cues and/or touching/steadying and/or contact guard assistance as patient completes activity. Assistance may be provided throughout the activity or intermittently. 3-Partial/Moderate Assistance-helper does LESS THAN HALF the effort. [place] lifts, holds or supports trunk or limbs, but provides less than half the effort. 2-Substantial/Maximal Assistance-helper does MORE THAN HALF the effort. [place] lifts or holds trunk or limbs and provides more than half the effort. 4-Wmrwpbunk-dkhuyc does ALL the effort. Patient does none of the effort to complete the activity. Or, the assistance of 2 or more helpers is required for the patient to complete the activity. If activity was not attempted, code reason: 7-Patient Refused. 9-Not Applicable-not attempted and the patient did not perform the activity bef ore the current illness, exacerbation or injury. 10-Not Attempted due to Environmental Limitations-(lack of equipment, weather r estraints, etc.). 88-Not Attempted due to Medical Conditions or Safety Concerns. Roll Left to Right (QC): 3 Sit to Lying (QC): 3 Sit to Stand (QC): 3 Chair/Jzr-td-Jmvoa Xfer(QC): 3 Car Transfer (QC): 88 Gait Training Does the Patient Walk?: Yes Walk 10 feet (QC): 4 Walk 50 ft with 2 Turns(QC): 4 Walk 150 ft (QC): 88 Walking 10ft/uneven surface-QC: 88 Gait Persons Needed: 1 Gait Assistive Device: FWW Wheelchair Training Does the Pt Use a Wheelchair?: Yes Distance: 6' Wheel 50 ft with 2 turns (QC): 88 Wheel 150 ft (QC): 88 Type of Wheelchair: Manual Stair Training 1 Step (curb) (QC): 88 4 Steps (QC): 88 12 Steps (QC): 88 Balance Picking up an Object (QC): 88 ADL-Treatment Eating (QC): 6 Oral Hygiene (QC): 6 Shower/Bathe Self (QC): 4 (SBA all standing, SUP in sit on sc) Upper Body Dressing (QC): 3 (min A bra doffing, dons shirt with ind) Lower Body Dressing (QC): 3 (min A doffing/ donning RLE, CGA in stance for hiking over hipsPt threads over BLE in sit with SBA, able to bring over hips with CGA.) On/Off Footwear (QC): 2 (RLE Max A, LLE IND.) Toileting Hygiene (QC): 4 (CGA in stance.) Assessment/Plan Assessment and Plan Assess & Plan/Chief Complaint Assessment: Disseminated gonnoccal infection with right septic knee s/p I&D Smoker Obesity OA Chronic back pain Narcotic addiction potential Plan: IRF protocol Rocephin Monitor labs IV Per [facility] call today: Per Dr. Montes patient discharged on Ceftriaxone 1g IV Q24H through 10/18/20. Confirmed antibiotic orders with LALO Oneal at [facility] in [place]. No need for labs with such a short duration. 10/15/20: Slow up on rapid speech and movements Continue abx through 10/18/20 Monitor pain 10/16/20: IV abx maintained until 10/18/20 Pain meds (1) Disseminated infection due to Neisseria gonorrhoeae Status: Acute (2) Septic arthritis of knee, right Status: Acute (3) Exacerbation of chronic back pain Status: Acute (4) Smoker (5) Obese SURI KLEIN DO Oct 16, 2020 06:14
[2020-10-16] MEDS: NICOTINE 21 MG (NICODERM) PATCH TD SCH (08:27)
[2020-10-16] MEDS: ENOXAPARIN 40 MG/0.4 ML (LOVENOX) SYR SC SCH ×2 (08:27→21:47)
[2020-10-16] MEDS: NICOTINE PATCH REMOVAL TP SCH (08:28)
[2020-10-16] MEDS: DICLOFENAC 1% GEL 100 GM (VOLTAREN) TUBE TOP SCH ×4 (08:28→21:40)
[2020-10-16] MEDS: cefTRIAXone 1,000 MG/SWFI 10 ML IV PUSH IV SCH ×2 (08:28)
[2020-10-16] MEDS: polyethylene glycoL POWDER 17 GM (MIRALAX) PACK PO SCH ×2 (08:28→20:30)
[2020-10-16] MEDS: NAPROXEN 250 MG (NAPROSYN) TABLET PO SCH ×2 (08:28→16:41)
[2020-10-16] MEDS: SENNA W/DOCUSATE (SENOKOT S) TABLET PO SCH ×2 (08:28→20:30)
[2020-10-16] MEDS: ALPRAZolam 0.25 MG (XANAX) TAB PO PRN ×2 (08:43→16:41)
[2020-10-16 17:14] VITALS: BP 139/93
--- NOTE | 2020-10-16 23:35 | NUR ---
pt sitting on side of bed. pt states that she took the sherin wrap off because her leg was itching. no redness or rash noted pt states that she wants to leave it off for a little bit while she changing clothes. pt sorting clothes that was brought in to her by son.
[2020-10-17] MEDS: ACETAMINOPHEN 325 MG TABLET PO SCH ×4 (05:44→23:46)
[2020-10-17 06:00] VITALS: BP 131/73
[2020-10-17 06:01] LABS: BASOPHILS # (AUTO) 0.1 10^3/uL (0.0-0.1); BASOPHILS % (AUTO) 1 % (0-10); EOSINOPHILS # (AUTO) 0.3 10^3/uL (0.0-0.3); EOSINOPHILS % (AUTO) 4 % (0-10); HEMATOCRIT 35 % (35-52); HEMOGLOBIN 11.2 g/dL (11.5-16.0); LYMPHOCYTES # (AUTO) 2.6 10^3/uL (1.0-4.0); LYMPHOCYTES % (AUTO) 33 % (12-44); MEAN CORPUSCULAR HEMOGLOBIN 30 pg (25-34); MEAN CORPUSCULAR HGB CONC 32 g/dL (32-36); MEAN CORPUSCULAR VOLUME 94 fL (80-99); MEAN PLATELET VOLUME 10.1 fL (9.0-12.2); MONOCYTES # (AUTO) 0.9 10^3/uL (0.0-1.0); MONOCYTES % (AUTO) 11 % (0-12); NEUTROPHILS # (AUTO) 4.1 10^3/uL (1.8-7.8); NEUTROPHILS % (AUTO) 51 % (42-75); PLATELET COUNT 507 10^3/uL (130-400)
[2020-10-17 06:16] LABS: ALBUMIN 3.2 GM/DL (3.2-4.5); CHLORIDE 102 MMOL/L (98-107); POTASSIUM 4.4 MMOL/L (3.6-5.0); SODIUM 137 MMOL/L (135-145)
[2020-10-17 06:19] LABS: GLUCOSE 93 MG/DL (70-105); TOTAL PROTEIN 7.1 GM/DL (6.4-8.2)
[2020-10-17 06:20] LABS: CARBON DIOXIDE 26 MMOL/L (21-32)
[2020-10-17 06:21] LABS: BILIRUBIN,TOTAL 0.3 MG/DL (0.1-1.0)
[2020-10-17 06:22] LABS: ALKALINE PHOSPHATASE 68 U/L (40-136); CREATININE SERUM 0.65 MG/DL (0.60-1.30); GFR ESTIMATED > 60
[2020-10-17 06:23] LABS: BUN/CREATININE RATIO 20
[2020-10-17 06:25] LABS: ALANINE AMINOTRANSFERASE 19 U/L (0-55)
[2020-10-17] MEDS: NAPROXEN 250 MG (NAPROSYN) TABLET PO SCH ×2 (09:04→18:26)
--- NOTE | 2020-10-17 09:04 | PM&R Progress Note ---
Subjective HPI/CC On Admission Date Seen by Provider: Oct 17, 2020 Time Seen by Provider: 09:00 Subjective/Events-last exam 10/17/20: Pt overly dramatic A lot of psych/social issues Pt reports she is now homeless IV antibiotics will be done tomorrow Bowels are moving well 10/16/20: Patient improved No pain reported except right knee Checked meds and labs IV Rocephin maintained Near constant manic-like behavior which appears to be chronic Very loud and opinionated and very agitated at times Told patient to take things slower and slow up her speech so we can follow her conversations more easily and help her more Pain improved since increased Oxycodone to 10mg dose BM regimen will be maintained Conferred with RN Reviewed therapy notes Checked meds and labs Review of Systems General: Fatigue, Malaise Objective Exam Vital Signs Vital Signs Date Time Temp Pulse Resp B/P (MAP) Pulse Ox O2 Delivery O2 Flow Rate FiO2 10/17/20 20:10 Room Air 10/17/20 18:00 35.6 95 16 125/93 (104) 98 Capillary Refill : Less Than 3 Seconds General Appearance: No Apparent Distress, WD/WN, Anxious, Chronically ill, Obese HEENT: PERRL/EOMI, Normal ENT Inspection, Pharynx Normal Neck: Full Range of Motion, Normal Inspection, Non Tender, Supple, Carotid Bruit Respiratory: Chest Non Tender, Lungs Clear, Normal Breath Sounds, No Accessory Muscle Use, No Respiratory Distress Cardiovascular: Regular Rate, Rhythm, No Gallop, No JVD, No Murmur, Normal Peripheral Pulses Gastrointestinal: Normal Bowel Sounds, No Organomegaly, No Pulsatile Mass, Non Tender, Soft Back: Normal Inspection, No CVA Tenderness, No Vertebral Tenderness Extremity: Normal Capillary Refill, Normal Inspection, Normal Range of Motion (escept right knee), Non Tender, No Calf Tenderness, Pedal Edema Neurologic/Psychiatric: Alert, Oriented x3, No Motor/Sensory Deficits, Normal Mood/Affect, Motor Weakness (generalized lower extremities mary right knee) Skin: Normal Color, Warm/Dry Lymphatic: No Adenopathy Results/Procedures Lab Laboratory Tests 10/17/20 05:50 Patient resulted labs reviewed. FIM Transfers Therapy Code Descriptions/Definitions Functional [place] Measure: 0=Not Assessed/NA 4=Minimal Assistance 1=Total Assistance 5=Supervision or Setup 2=Maximal Assistance 6=Modified [place] 3=Moderate Assistance 7=Complete IndependenceSCALE: Activities may be completed with or without assistive devices. 4-Lbtdhdatdm-uenhaht completes the activity by him/herself with no assistance from a helper. 5-Set-up or Clean-up Assistance-helper sets up or cleans up; patient completes activity. [place] assists only prior to or following the activity. 4-Supervision or Touching Assistance-helper provides verbal cues and/or touching/steadying and/or contact guard assistance as patient completes activity. Assistance may be provided throughout the activity or intermittently. 3-Partial/Moderate Assistance-helper does LESS THAN HALF the effort. [place] lifts, holds or supports trunk or limbs, but provides less than half the effort. 2-Substantial/Maximal Assistance-helper does MORE THAN HALF the effort. [place] lifts or holds trunk or limbs and provides more than half the effort. 2-Wjvkuvunw-pmcaub does ALL the effort. Patient does none of the effort to complete the activity. Or, the assistance of 2 or more helpers is required for the patient to complete the activity. If activity was not attempted, code reason: 7-Patient Refused. 9-Not Applicable-not attempted and the patient did not perform the activity before the current illness, exacerbation or injury. 10-Not Attempted due to Environmental Limitations-(lack of equipment, weather restraints, etc.). 88-Not Attempted due to Medical Conditions or Safety Concerns. Roll Left to Right (QC): 3 Sit to Lying (QC): 3 Sit to Stand (QC): 3 Chair/Cbn-tn-Fpuhu Xfer(QC): 3 Car Transfer (QC): 88 Gait Training Does the Patient Walk?: Yes Walk 10 feet (QC): 4 Walk 50 ft with 2 Turns(QC): 4 Walk 150 ft (QC): 88 Walking 10ft/uneven surface-QC: 88 Gait Persons Needed: 1 Gait Assistive Device: FWW Wheelchair Training Does the Pt Use a Wheelchair?: Yes Distance: 6' Wheel 50 ft with 2 turns (QC): 88 Wheel 150 ft (QC): 88 Type of Wheelchair: Manual Stair Training 1 Step (curb) (QC): 88 4 Steps (QC): 88 12 Steps (QC): 88 Balance Picking up an Object (QC): 88 ADL-Treatment Eating (QC): 6 Oral Hygiene (QC): 6 Shower/Bathe Self (QC): 4 (SBA all standing, SUP in sit on sc) Upper Body Dressing (QC): 3 (min A bra doffing, dons shirt with ind) Lower Body Dressing (QC): 3 (min A doffing/ donning RLE, CGA in stance for hiking over hipsPt threads over BLE in sit with SBA, able to bring over hips with CGA.) On/Off Footwear (QC): 2 (RLE Max A, LLE IND.) Toileting Hygiene (QC): 4 (CGA in stance.) Assessment/Plan Assessment and Plan Assess & Plan/Chief Complaint Assessment: Disseminated gonnoccal infection with right septic knee s/p I&D Smoker Obesity OA Chronic back pain Narcotic addiction potential Plan: IRF protocol Rocephin Monitor labs IV Per [facility] call today: Per Dr. Montes patient discharged on Ceftriaxone 1g IV Q24H through 10/18/20. Confirmed antibiotic orders with LALO Oneal at [facility] in [place]. No need for labs with such a short duration. 10/15/20: Slow up on rapid speech and movements Continue abx through 10/18/20 Monitor pain 10/16/20: IV abx maintained until 10/18/20 Pain meds 10/17/20: IV abx will complete tomorrow DC soon SW consult (1) Disseminated infection due to Neisseria gonorrhoeae Status: Acute (2) Septic arthritis of knee, right Status: Acute (3) Exacerbation of chronic back pain Status: Acute (4) Smoker (5) Obese SURI KLEIN DO Oct 17, 2020 09:04
[2020-10-17] MEDS: SENNA W/DOCUSATE (SENOKOT S) TABLET PO SCH ×2 (09:07→19:50)
[2020-10-17] MEDS: NICOTINE 21 MG (NICODERM) PATCH TD SCH (09:07)
[2020-10-17] MEDS: ENOXAPARIN 40 MG/0.4 ML (LOVENOX) SYR SC SCH ×2 (09:07→19:49)
[2020-10-17] MEDS: NICOTINE PATCH REMOVAL TP SCH (09:08)
[2020-10-17] MEDS: cefTRIAXone 1,000 MG/SWFI 10 ML IV PUSH IV SCH ×2 (09:08)
[2020-10-17] MEDS: ALPRAZolam 0.25 MG (XANAX) TAB PO PRN ×2 (09:15→19:49)
[2020-10-17] MEDS: polyethylene glycoL POWDER 17 GM (MIRALAX) PACK PO SCH ×2 (09:15→20:06)
[2020-10-17] MEDS: DICLOFENAC 1% GEL 100 GM (VOLTAREN) TUBE TOP SCH ×4 (09:25→19:51)
--- NOTE | 2020-10-17 11:24 | ST Cognitive Linguistic Eval ---
Speech Evaluation-General Medical Diagnosis Right knee pain/infection Onset Date: Oct 04, 2020 Therapy Diagnosis Therapy Diagnosis: Cognitive-communication Referral Referring Physician: Dr. Schwartz Medical History Reviewed History: Yes Social History Current Living Status: Friend Speech PLF-Current Status Prior Level of Function Patient lived in the home with a friend and her 17 y/o son. Patient was independent with her daily needs and was not working at the time of illness. Subjective The patient was non-stop talkative with frequent attempts by ST for redirecting to the cognitive assessment. Language Eval: Auditory Comprehends Simple Yes/No Ques: Functional Indent/Objects [place]: Functional Ident/Pics in [place]: Functional Follows 1-Step Commands: Functional Follows Complex Directions: Functional Follows General Conversations: Functional Difficult to follow conversation. Language Eval: Verbal Language Completes Spontaneous Greeting: Functional Produces Auto, Serial Info: Functional Imitates Simple Words/Phrases: Functional Word Finding: Functional Requests Basic Needs: Functional States Basic Personal Info: Functional Expresses Complex Ideas: Functional Objective Cognitive Domain Attention: WNL Memory: WNL Problem Solving: Functional Executive Functions: WNL Visuospatial Skills: WNL Composite Severity Rating: WNL Clock Drawing Severity Rating: WNL Objective Formal/Standardized Tests [facility] Mental Status ([facility]) Results 28/30, within normal range of function Oral Motor/Speech Production Within normal limits Impression The patient is a loud speaker and talks incessantly. The patient was pleasant, however she required frequent redirections to complete testing. The patient was given cognitive assessment with a normal range score obtained. The patient does not require further ST services. Speech Patient Assess Expression of Ideas/Wants: Expression (4) Understanding Verbal Content: Understands (4) Brief Interview-Mental Status: Yes Repetition of Three Words: Three (3) Temporal Orientation: Year: Correct (3) Temporal Orientation: Month: Accurate within 5 days(2) Temporal Orientation: Day: Correct (1) Recall : Wear to say "Sock": Yes, no cue required (2) Recall : Color: Yes, no cue required (2) Recall : Bed: Yes, no cue required (2) Memory/Recall Ability: Current season, Location of own room, That he or she is in a hsp/hsp unit Speech Correction Goals Correction Goals Social Interaction: 6 Problem Solvin Memory: 6 Speech-Plan Patient/Family Goals Patient/Family Goals: Patient plans on returning to her home upon hospital discharge. Treatment Plan Speech Therapy Treatment Plan: Discontinue ST Treatment Duration: Oct 14, 2020 Frequency: 1 time per week Estimated Hrs Per Day: .5 hour per day Rehab Potential: Guarded Barriers to Learning: Patient's medical diagnosis Pt/Family Agrees to Plan: Yes Safety Risks/Education Teaching Recipient: Patient Teaching Methods: Discussion Response to Teaching: Verbalize Understanding Education Topics Provided: Safety within her room, communication of wants/needs. Time Speech Therapy Time In: 10:00 Speech Therapy Time Out: 10:30 Total Billed Time: 30 Billed Treatment Time 1, [id number] [place] Oct 17, 2020 11:24
--- NOTE | 2020-10-17 12:01 | Physical Therapy Daily Note ---
PT Daily Note-Current Subjective Patient in bed pre tx, agrees to PT but has 10/10 pain in right knee. Nurse is in room and gives pain meds, needs assist with wrapping right knee. Appearance Patient in bed post tx with nurse call, phone, tray, all needs met. Mental Status Patient Orientation: Person, Place, Situation Transfers SCALE: Activities may be completed with or without assistive devices. 7-Nsodbrlyhv-ywoaqha completes the activity by him/herself with no assistance from a helper. 5-Set-up or Clean-up Assistance-helper sets up or cleans up; patient completes activity. [place] assists only prior to or following the activity. 4-Supervision or Touching Assistance-helper provides verbal cues and/or touching/steadying and/or contact guard assistance as patient completes activity. Assistance may be provided throughout the activity or intermittently. 3-Partial/Moderate Assistance-helper does LESS THAN HALF the effort. [place] lifts, holds or supports trunk or limbs, but provides less than half the effort. 2-Substantial/Maximal Assistance-helper does MORE THAN HALF the effort. [place] lifts or holds trunk or limbs and provides more than half the effort. 1-Uadgppkxg-kuxozu does ALL the effort. Patient does none of the effort to complete the activity. Or, the assistance of 2 or more helpers is required for the patient to complete the activity. If activity was not attempted, code reason: 7-Patient Refused. 9-Not Applicable-not attempted and the patient did not perform the activity before the current illness, exacerbation or injury. 10-Not Attempted due to Environmental Limitations-(lack of equipment, weather restraints, etc.). 88-Not Attempted due to Medical Conditions or Safety Concerns. Roll Left & Right (QC): 6 Sit to Lying (QC): 3 Lying to Sitting/Side of Bed(Q: 4 Sit to Stand (QC): 4 Chair/Dvv-qj-Upntv Xfer(QC): 4 Toilet Transfer (QC): 4 Car Transfer (QC): 3 Patient performs bed mobility with independence, supine to sit with SBA, sit to supine with min assist, transfers SBA, car transfer min assist. Patient needs assist with right leg getting into bed and with car transfer. Weight Bearing Right Lower Extremity: Right Full Weight Bearing Left Lower Extremity: Left Full Weight Bearing Gait Training Distance: 85'x2 Walk 10 feet (QC): 4 Walk 50 ft with 2 Turns(QC): 4 Walk 150 ft (QC): 88 Walking 10ft/uneven surface-QC: 4 Gait Persons Needed: 1 Gait Assistive Device: FWW SBA, slow ambulation, step to gait with right leading, severely flexed right knee constantly during ambulation Wheelchair Training Does the Pt Use a Wheelchair?: Yes Wheel 50 ft with 2 turns (QC): 4 Wheel 150 ft (QC): 88 Type of Wheelchair: Manual Stair Training Stair Training: Handrails/: uses walker #of Steps: 1 1 Step (curb) (QC): 4 4 Steps (QC): 88 12 Steps (QC): 88 Balance Picking up an Object (QC): 88 Exercises supine QS to promote knee extension Treatments bed mobility and transfers, ambulation, WC mobility, ROM Assessment Current Status: Poor Progress Patient talks constantly and it interferes with treatment, very poor ROM in right knee, she can flex knee to 70 degrees and extend to +30 degrees PT Short Term Goals Short Term Goals Time Frame: Oct 21, 2020 Roll Left & Right: 4 Sit to lyin Lying to sitting on side of be: 4 Chair/hta-ga-fiwys transfer: 4 Toilet transfer: 4 Car transfer: 4 Walk 10 feet: 4 1 step (curb): 3 Picking up objects: 3 Wheel 50ft w/2 turns: 4 Wheel 150 feet: 4 PT [facility] Goals [facility] Goals PT Immigration Specialist Goals Time Frame: Nov 04, 2020 Roll Left & Right (QC): 6 Sit to Lying (QC): 6 Lying-Sitting on Side/Bed(QC): 6 Sit to Stand (QC): 6 Chair/Uxe-mi-Zqoxv Xfer(QC): 6 Toilet Transfer (QC): 6 Car Transfer (QC): 6 Does the Patient Walk: Yes Walk 10 feet (QC): 6 Walk 50ft with 2 Turns (QC): 6 Walk 150 ft (QC): 6 Walking 10ft on Uneven Surface: 6 1 Step (curb) (QC): 6 4 Steps (QC): 4 12 Steps (QC): 88 Picking up an Object (QC): 6 Wheel 50 feet with 2 turns (QC: 6 Wheel 150 feet: 6 PT Plan Problem List Problem List: Activity Tolerance, Functional Strength, Safety, Balance, Gait, Transfer, Bed Mobility, ROM Treatment/Plan Treatment Plan: Continue Plan of Care Treatment Plan: Bed Mobility, Education, Functional Activity Jc, Functional Strength, Group Therapy, Gait, Safety, Therapeutic Exercise, Transfers Treatment Duration: Nov 04, 2020 Frequency: At least 5 of 7 days/Wk (IRF) Estimated Hrs Per Day: 1.5 hours per day Patient and/or Family Agrees t: Yes Safety Risks/Education Patient Education: Gait Training, Transfer Techniques, Steps, Correct Positioning, Safety Issues Teaching Recipient: Patient Teaching Methods: Demonstration, Discussion Response to Teaching: Reinforcement Needed Time/GCodes Time In: 1100 Time Out: 1200 Total Billed Treatment Time: 60 Total Billed Treatment 1 visit FA Daniela' DAVID VAIL PT Oct 17, 2020 12:01
--- NOTE | 2020-10-17 13:49 | Physical Therapy Daily Note ---
PT Daily Note-Current Subjective Patient in bed pre tx, agrees to PT, has 8/10 pain in right knee. Appearance Patient sitting EOB post tx with nurse call, phone, tray, ready to eat lunch. Mental Status Patient Orientation: Person, Place, Situation Transfers SCALE: Activities may be completed with or without assistive devices. 6-Exxrfsdsgo-ibvajbl completes the activity by him/herself with no assistance from a helper. 5-Set-up or Clean-up Assistance-helper sets up or cleans up; patient completes activity. [place] assists only prior to or following the activity. 4-Supervision or Touching Assistance-helper provides verbal cues and/or t ouching/steadying and/or contact guard assistance as patient completes activity. Assistance may be provided throughout the activity or intermittently. 3-Partial/Moderate Assistance-helper does LESS THAN HALF the effort. [place] lifts, holds or supports trunk or limbs, but provides less than half the effort. 2-Substantial/Maximal Assistance-helper does MORE THAN HALF the effort. [place] lifts or holds trunk or limbs and provides more than half the effort. 1-Hcreicysd-mjnmqx does ALL the effort. Patient does none of the effort to complete the activity. Or, the assistance of 2 or more helpers is required for the patient to complete the activity. If activity was not attempted, code reason: 7-Patient Refused. 9-Not Applicable-not attempted and the patient did not perform the activity before the current illness, exacerbation or injury. 10-Not Attempted due to Environmental Limitations-(lack of equipment, weather restraints, etc.). 88-Not Attempted due to Medical Conditions or Safety Concerns. Weight Bearing Right Lower Extremity: Right Full Weight Bearing Left Lower Extremity: Left Full Weight Bearing Exercises Supine Ex: Ankle pumps, Quad Set, Glut sets, Heel Slides, Short Arc Quads, Straight leg raise, Hip abd/add Supine Reps: 15 Treatments RLE supine exercises Assessment Current Status: Fair Progress instructed patient to perform QS often in bed on her own to improve knee extension PT Short Term Goals Short Term Goals Time Frame: Oct 21, 2020 Roll Left & Right: 4 Sit to lyin Lying to sitting on side of be: 4 Chair/wbx-lk-dhpkf transfer: 4 Toilet transfer: 4 Car transfer: 4 Walk 10 feet: 4 1 step (curb): 3 Picking up objects: 3 Wheel 50ft w/2 turns: 4 Wheel 150 feet: 4 PT [facility] Goals Safety Clothing And Equipment Developer Goals PT [facility] Goals Time Frame: Nov 04, 2020 Roll Left & Right (QC): 6 Sit to Lying (QC): 6 Lying-Sitting on Side/Bed(QC): 6 Sit to Stand (QC): 6 Chair/Mxv-ht-Xveny Xfer(QC): 6 Toilet Transfer (QC): 6 Car Transfer (QC): 6 Does the Patient Walk: Yes Walk 10 feet (QC): 6 Walk 50ft with 2 Turns (QC): 6 Walk 150 ft (QC): 6 Walking 10ft on Uneven Surface: 6 1 Step (curb) (QC): 6 4 Steps (QC): 4 12 Steps (QC): 88 Picking up an Object (QC): 6 Wheel 50 feet with 2 turns (QC: 6 Wheel 150 feet: 6 PT Plan Problem List Problem List: Activity Tolerance, Functional Strength, Safety, Balance, Gait, Transfer, Bed Mobility, ROM Treatment/Plan Treatment Plan: Continue Plan of Care Treatment Plan: Bed Mobility, Education, Functional Activity Jc, Functional Strength, Group Therapy, Gait, Safety, Therapeutic Exercise, Transfers Treatment Duration: Nov 04, 2020 Frequency: At least 5 of 7 days/Wk (IRF) Estimated Hrs Per Day: 1.5 hours per day Patient and/or Family Agrees t: Yes Safety Risks/Education Patient Education: Correct Positioning, Safety Issues Teaching Recipient: Patient Teaching Methods: Demonstration, Discussion Response to Teaching: Reinforcement Needed Time/GCodes Time In: 1330 Time Out: 1345 Total Billed Treatment Time: 15 Total Billed Treatment 1 visit EX DAVID KELLY PT Oct 17, 2020 13:48
--- NOTE | 2020-10-17 13:58 | NUR ---
CM/SS ADMISSION Patient was admitted to ARU from [facility] 10/14/20 for septic arthritis of right knee, status post I&D. 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 Patient has a myriad of psychosocial issues: Homelessness after eviction from rental property 10/07/20, unpaid utility bills, termed unemployment making her ineligible for [employer]UD as well as Homeless Program because of lack of income. Patient's food stamps were terminated. She did attempt to apply for the Homeless Program here in [place] but could not qualify without any income. Patient's housing issues began 09/23/20 when she attended a hearing of notice of eviction; however, she had not completely moved out when she became too ill to continue and presented to [facility] 10/03/20. She required I&D services and because [place] facilities could not accept she was transferred to [facility]. Patient has a 17 year old son, Isiah, who is not in school because patient did not have internet. He has been staying at various homes with friends/family during patient's absence/hospitalization and continues to do so. Patient reports he has 10 credit hours remaining to graduate but that he is currently seeking employment. PCP: Dr. Amanda FARIAS MD PHARMACY: [facility]. INSURANCE: Medicaid [employer] DME: Has FWW. Will need BSC for over stool frame and Tub Transfer Bench. BARRIERS TO DISCHARGE: Mainly psychosocial issues. Adequate housing to accommodate continued recovery, adequate assistive devices as recommended re same. Lengthy discussion with patient, goal is to focus on one next step at a time. Encouraged patient to finalize an arrangement for where she can go immediately at discharge, tentatively with her friend Tamiko in [place]. Isiah has stayed there and has a couple of other options he is using. Patient has [employer] only regarding any supplies or resources post hospital. CONTACTS: Jadyn Emerson, [place] [phone] Tamiko Rayo, Pérez [place] Patient understands the purpose and process of the weekly patient care conference and that her first review will be October 19.
--- NOTE | 2020-10-17 14:52 | Occupational Ther Daily Note ---
OT Current Status-Daily Note Subjective Pt. reports 7/10 pain in right knee. Nursing gives pain medication. Appearance Pt. sitting on side of bed receiving medications when OT entered room. Mental Status/Objective Patient Orientation: Person, Place Attachments: IV ADL-Treatment Therapy Code Descriptions/Definitions Functional [place] Measure: 0=Not Assessed/NA 4=Minimal Assistance 1=Total Assistance 5=Supervision or Setup 2=Maximal Assistance 6=Modified [place] 3=Moderate Assistance 7=Complete IndependenceSCALE: Activities may be completed with or without assistive devices. 6-Dcnhlauzco-rdblinf completes the activity by him/herself with no assistance from a helper. 5-Set-up or Clean-up Assistance-helper sets up or cleans up; patient completes activity. [place] assists only prior to or following the activity. 4-Supervision or Touching Assistance-helper provides verbal cues and/or touching/steadying and/or contact guard assistance as patient completes activity. Assistance may be provided throughout the activity or intermittently. 3-Partial/Moderate Assistance-helper does LESS THAN HALF the effort. [place] lifts, holds or supports trunk or limbs, but provides less than half the effort. 2-Substantial/Maximal Assistance-helper does MORE THAN HALF the effort. [place] lifts or holds trunk or limbs and provides more than half the effort. 4-Hqytishem-brcgai does ALL the effort. Patient does none of the effort to complete the activity. Or, the assistance of 2 or more helpers is required for the patient to complete the activity. If activity was not attempted, code reason: 7-Patient Refused. 9-Not Applicable-not attempted and the patient did not perform the activity before the current illness, exacerbation or injury. 10-Not Attempted due to Environmental Limitations-(lack of equipment, weather restraints, etc.). 88-Not Attempted due to Medical Conditions or Safety Concerns. Eating (QC): 6 (Pt. finishing breakfast when OT entered room.) Oral Hygiene (QC): 4 (SBA to stand at sink and brush teeth.) Shower/Bathe Self (QC): 4 (SBA to wash all parts seated on BSC in shower.) Upper Body Dressing (QC): 5 Lower Body Dressing (QC): 4 (SBA to don underwear and pants.) On/Off Footwear: 3 (Min assist to don right sock. Pt. able to don bilateral socks, and to don left sock.) Pt. scheduled in a.m., but requests for later start time so she can make phone calls. OT comes in at next scheduled time, and lets pt. know that they only have 45 minutes at that time to complete ADLs. Pt. reports that this is no problem. Pt. ambulates with walker and SBA to shower. Transfers into shower and completes shower. Noted pt. will wash body parts multiple times, and requires cues to move on from that task. Pt. is able to reach all parts safely. Pt. dresses in shower after drying off. She requires only min assist for right LE. Pt. ambulates with walker to sink and brushes teeth in stance. Pt. requests a wheelchair, as she is tired. OT obtains a wheelchair. Pt. up in wheelchair with nursing when OT leaves room. Noted pt. 30 minutes over scheduled time with OT due to difficulty attending at times to task. Pt. verbalizes to this therapist that she has been evicted from her home, and has no where to live. This was immediately reported to social work after session. Education OT Patient Education: Correct positioning, Modified ADL techniques, Progress toward Goal/Update tx plan, Purpose of tx/functional activities, Reviewed precautions, Rehab process, Transfer techniques Teaching Recipient: Patient Teaching Methods: Demonstration, Discussion Response to Teaching: Verbalize Understanding, Return Demonstration OT Short Term Goals Short Term Goals Time Frame: Oct 21, 2020 Shower/bathe self: 5 Lower body dressin OT Laundry Marker Supervisor Goals Alf Goals Time Frame: Oct 28, 2020 Eating (QC): 6 Oral Hygiene (QC): 6 Toileting Hygiene (QC): 6 Shower/Bathe Self (QC): 6 Upper Body Dressing (QC): 6 Lower Body Dressing (QC): 6 On/Off Footwear (QC): 6 Additional Goals: 1-Demonstrate ADL Tasks, 2-Verbalize Understanding, 3- ImproveStrength/Jc 1=Demonstrate adherence to instructed precautions during ADL tasks. 2=Patient will verbalize/demonstrate understanding of assistive devices/modifications for ADL. 3=Patient will improve strength/tolerance for activity to enable patient to perform ADL's. OT Education/Plan Problem List/Assessment Assessment: Decreased Activ Tolerance, Impaired I ADL's Discharge Recommendations Plan/Recommendations: Continue POC Therapy Discharge Recommendati: Post Acute OT Comment Equipment needs to be determined. Treatment Plan/Plan of Care Treatment,Training & Education: Yes Patient would benefit from OT for education, treatment and training to promote independence in ADL's, mobility, safety and/or upper extremity function for ADL's. Plan of Care: ADL Retraining, Caregiver Training, Concurrent Therapy, Functional Mobility, Group Exercise/Act as Ind, UE Funct Exercise/Act, UE Neuromus Re-Ed/Coord, W/C Management Training Treatment Duration: Oct 28, 2020 Frequency: At least 5 of 7 days/Wk (IRF) Estimated Hrs Per Day: 1.5 hours per day Agreement: Yes Rehab Potential: Fair Time/GCodes Start Time: 09:00 Stop Time: 10:15 Total Time Billed (hr/min): 75 Billed Treatment Time 1, ADL x 5 LUIS ROSENBERG OT Oct 17, 2020 14:52
--- NOTE | 2020-10-17 15:47 | NUR ---
RD ASSESSMENT PMHx: HTN; PT INTERACTION: Pt was awake and pleasant during nutrition assessment. Pt states current appetite is good. Note avg PO intake 97% x2d, per chart review. Pt states she "watches her grease intake" at home, and has no issues with chewing/swallowing food. Pt states no recent issues with nausea, vomiting, constipation, or diarrhea. Note last BM was 10/17, and pt currently on bowel regimen of senna BID, and miralax BID, per chart review. Pt states no recent wt changes. Note recent 15# wt loss x9mon, per chart review. ABNORMAL NUTRITION-RELATED LAB VALUES Labs WNL at this time Est. kcal needs: 2360-1829 kcal | 15-18 kcal/kg Est. Pro needs: 114-143 g Pro | 0.8-1.0 g Pro/kg PES STATEMENT: Given current appetite and PO intake, no nutrition diagnosis at this time (NO-1.1). INTERVENTION: Continue with current diet order of Regular diet. Will continue to follow and reassess as pt needs, intake, and status change. Sundeep aCstillo, MS RD LD
[2020-10-17 18:00] VITALS: BP 125/93
[2020-10-17] MEDS: MICONAZOLE 2% POWDER (DESENEX AF) 90 GM TOP SCH (19:51)
[2020-10-17] MEDS: NYSTATIN CREAM (MYCOSTATIN) 30 GM TUBE TP SCH (19:51)
[2020-10-18] MEDS: ACETAMINOPHEN 325 MG TABLET PO SCH ×4 (04:16→23:02)
[2020-10-18 05:31] VITALS: BP 144/79
--- NOTE | 2020-10-18 05:44 | PM&R Progress Note ---
Subjective HPI/CC On Admission Date Seen by Provider: Oct 18, 2020 Time Seen by Provider: 09:00 Subjective/Events-last exam 10/18/20: Pt doing about the same IV antibiotics will complete today Social work consult for placement with friend 10/17/20: Pt overly dramatic A lot of psych/social issues Pt reports she is now homeless IV antibiotics will be done tomorrow Bowels are moving well 10/16/20: Patient improved No pain reported except right knee Checked meds and labs IV Rocephin maintained Near constant manic-like behavior which appears to be chronic Very loud and opinionated and very agitated at times Told patient to take things slower and slow up her speech so we can follow her conversations more easily and help her more Pain improved since increased Oxycodone to 10mg dose BM regimen will be maintained Conferred with RN Reviewed therapy notes Checked meds and labs Review of Systems Musculoskeletal: leg pain Objective Exam Vital Signs Vital Signs Date Time Temp Pulse Resp B/P (MAP) Pulse Ox O2 Delivery O2 Flow Rate FiO2 10/19/20 05:31 36.3 100 16 138/82 (100) 97 Room Air Capillary Refill : Less Than 3 Seconds General Appearance: No Apparent Distress, WD/WN, Anxious, Chronically ill, Obese HEENT: PERRL/EOMI, Normal ENT Inspection, Pharynx Normal Neck: Full Range of Motion, Normal Inspection, Non Tender, Supple, Carotid Bruit Respiratory: Chest Non Tender, Lungs Clear, Normal Breath Sounds, No Accessory Muscle Use, No Respiratory Distress Cardiovascular: Regular Rate, Rhythm, No Gallop, No JVD, No Murmur, Normal Peripheral Pulses Gastrointestinal: Normal Bowel Sounds, No Organomegaly, No Pulsatile Mass, Non Tender, Soft Back: Normal Inspection, No CVA Tenderness, No Vertebral Tenderness Extremity: Normal Capillary Refill, Normal Inspection, Normal Range of Motion (escept right knee), Non Tender, No Calf Tenderness, Pedal Edema Neurologic/Psychiatric: Alert, Oriented x3, No Motor/Sensory Deficits, Normal Mood/Affect, Motor Weakness (generalized lower extremities mary right knee) Skin: Normal Color, Warm/Dry Lymphatic: No Adenopathy Results/Procedures Lab Patient resulted labs reviewed. [facility]IM Transfers Therapy Code Descriptions/Definitions Functional [place] Measure: 0=Not Assessed/NA 4=Minimal Assistance 1=Total Assistance 5=Supervision or Setup 2=Maximal Assistance 6=Modified [place] 3=Moderate Assistance 7=Complete IndependenceSCALE: Activities may be completed with or without assistive devices. 5-Scpxzewfzp-fojbdwt completes the activity by him/herself with no assistance from a helper. 5-Set-up or Clean-up Assistance-helper sets up or cleans up; patient completes activity. [place] assists only prior to or following the activity. 4-Supervision or Touching Assistance-helper provides verbal cues and/or touching/steadying and/or contact guard assistance as patient completes activity. Assistance may be provided throughout the activity or intermittently. 3-Partial/Moderate Assistance-helper does LESS THAN HALF the effort. [place] lifts, holds or supports trunk or limbs, but provides less than half the effort. 2-Substantial/Maximal Assistance-helper does MORE THAN HALF the effort. [place] lifts or holds trunk or limbs and provides more than half the effort. 6-Kpopgcfll-foarjw does ALL the effort. Patient does none of the effort to complete the activity. Or, the assistance of 2 or more helpers is required for the patient to complete the activity. If activity was not attempted, code reason: 7-Patient Refused. 9-Not Applicable-not attempted and the patient did not perform the activity before the current illness, exacerbation or injury. 10-Not Attempted due to Environmental Limitations-(lack of equipment, weather restraints, etc.). 88-Not Attempted due to Medical Conditions or Safety Concerns. Roll Left to Right (QC): 6 Sit to Lying (QC): 3 Sit to Stand (QC): 4 Chair/Aje-jn-Pturd Xfer(QC): 4 Car Transfer (QC): 3 Gait Training Does the Patient Walk?: Yes Distance: 85'x2 Walk 10 feet (QC): 4 Walk 50 ft with 2 Turns(QC): 4 Walk 150 ft (QC): 88 Walking 10ft/uneven surface-QC: 4 Gait Persons Needed: 1 Gait Assistive Device: FWW Wheelchair Training Does the Pt Use a Wheelchair?: Yes Distance: 6' Wheel 50 ft with 2 turns (QC): 4 Wheel 150 ft (QC): 88 Type of Wheelchair: Manual Stair Training Stair Training: Handrails/: uses walker #of Steps: 1 1 Step (curb) (QC): 4 4 Steps (QC): 88 12 Steps (QC): 88 Balance Picking up an Object (QC): 88 ADL-Treatment Eating (QC): 6 (Pt. finishing breakfast when OT entered room.) Oral Hygiene (QC): 4 (SBA to stand at sink and brush teeth.) Shower/Bathe Self (QC): 4 (SBA to wash all parts seated on BSC in shower.) Upper Body Dressing (QC): 5 Lower Body Dressing (QC): 4 (SBA to don underwear and pants.) On/Off Footwear (QC): 3 (Min assist to don right sock. Pt. able to don bilateral socks, and to don left sock.) Toileting Hygiene (QC): 4 (CGA in stance.) Assessment/Plan Assessment and Plan Assess & Plan/Chief Complaint Assessment: Disseminated gonnoccal infection with right septic knee s/p I&D Smoker Obesity OA Chronic back pain Narcotic addiction potential Plan: IRF protocol Rocephin Monitor labs IV Per [facility] call today: Per Dr. Montes patient discharged on Ceftriaxone 1g IV Q24H through 10/18/20. Confirmed antibiotic orders with [facility] at [facility] in [place]. No need for labs with such a short duration. 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
[2020-10-18] MEDS: NAPROXEN 250 MG (NAPROSYN) TABLET PO SCH ×2 (08:23→17:13)
[2020-10-18] MEDS: NICOTINE 21 MG (NICODERM) PATCH TD SCH (08:23)
[2020-10-18] MEDS: SENNA W/DOCUSATE (SENOKOT S) TABLET PO SCH ×2 (08:23→20:52)
[2020-10-18] MEDS: DICLOFENAC 1% GEL 100 GM (VOLTAREN) TUBE TOP SCH ×4 (08:23→20:52)
[2020-10-18] MEDS: NICOTINE PATCH REMOVAL TP SCH (08:23)
[2020-10-18] MEDS: polyethylene glycoL POWDER 17 GM (MIRALAX) PACK PO SCH ×2 (08:24→20:52)
[2020-10-18] MEDS: cefTRIAXone 1,000 MG/SWFI 10 ML IV PUSH IV SCH ×2 (08:24)
[2020-10-18] MEDS: ENOXAPARIN 40 MG/0.4 ML (LOVENOX) SYR SC SCH ×2 (08:24→20:52)
[2020-10-18] MEDS: MICONAZOLE 2% POWDER (DESENEX AF) 90 GM TOP SCH ×2 (08:26→20:58)
[2020-10-18] MEDS: NYSTATIN CREAM (MYCOSTATIN) 30 GM TUBE TP SCH ×2 (08:26→20:58)
--- NOTE | 2020-10-18 09:02 | Occupational Ther Daily Note ---
OT Current Status-Daily Note Subjective Pt seated EOB, agreeable to OT tx. Pt very talkative throughout session, describing her current situation. Pt indicates there is no way she is going to stay with the person her son is currently with because the lady is really mean to her dog and son. She would rather go to a hotel. Mental Status/Objective Patient Orientation: Person, Place, Time, Situation ADL-Treatment Therapy Code Descriptions/Definitions Functional [place] Measure: 0=Not Assessed/NA 4=Minimal Assistance 1=Total Assistance 5=Supervision or Setup 2=Maximal Assistance 6=Modified [place] 3=Moderate Assistance 7=Complete IndependenceSCALE: Activities may be completed with or without assistive devices. 6-Agglgxerve-cjjejyi completes the activity by him/herself with no assistance from a helper. 5-Set-up or Clean-up Assistance-helper sets up or cleans up; patient completes activity. [place] assists only prior to or following the activity. 4-Supervision or Touching Assistance-helper provides verbal cues and/or touching/steadying and/or contact guard assistance as patient completes activity. Assistance may be provided throughout the activity or intermittently. 3-Partial/Moderate Assistance-helper does LESS THAN HALF the effort. [place] lifts, holds or supports trunk or limbs, but provides less than half the effort. 2-Substantial/Maximal Assistance-helper does MORE THAN HALF the effort. [place] lifts or holds trunk or limbs and provides more than half the effort. 7-Bdikmxjur-lderqp does ALL the effort. Patient does none of the effort to complete the activity. Or, the assistance of 2 or more helpers is required for the patient to complete the activity. If activity was not attempted, code reason: 7-Patient Refused. 9-Not Applicable-not attempted and the patient did not perform the activity before the current illness, exacerbation or injury. 10-Not Attempted due to Environmental Limitations-(lack of equipment, weather restraints, etc.). 88-Not Attempted due to Medical Conditions or Safety Concerns. Upper Body Dressing (QC): 5 (set up, pt able to doff gown, don bra, tank top, and shirt.) Lower Body Dressing (QC): 3 (Pt able to don underwear, thread LLE into pants, required assistance with RLE, and pt able to complete pant hike with CGA.) On/Off Footwear: 6 (Pt able to doff/praveena gripper socks.) Pt required increased time with all ADLs due to talking about her current situation, difficulty redirecting back to task. Other Treatment Pt seated EOB, completed partial sponge bath, washing periarea and underarms. Pt then donned bra and underwear at EOB, transferring supine (assist with RLE) in order to pull underwear up. Pt then sat EOB to don tank top and shirt, as well as pants. Pt stood at FWW for pant hike, with CGA. Pt requests to transfer to recliner, transferring with CGA using FWW. Post OT tx, pt seated in recliner, call light in reach and all needs met. Education OT Patient Education: Correct positioning, Modified ADL techniques, Progress toward Goal/Update tx plan, Purpose of tx/functional activities Teaching Recipient: Patient Teaching Methods: Discussion Response to Teaching: Verbalize Understanding OT Short Term Goals Short Term Goals Time Frame: Oct 21, 2020 Shower/bathe self: 5 Lower body dressin OT Speech And Language Clinician Goals Speech And Language Clinician Goals Time Frame: Oct 28, 2020 Eating (QC): 6 Oral Hygiene (QC): 6 Toileting Hygiene (QC): 6 Shower/Bathe Self (QC): 6 Upper Body Dressing (QC): 6 Lower Body Dressing (QC): 6 On/Off Footwear (QC): 6 Additional Goals: 1-Demonstrate ADL Tasks, 2-Verbalize Understanding, 3- ImproveStrength/Jc 1=Demonstrate adherence to instructed precautions during ADL tasks. 2=Patient will verbalize/demonstrate understanding of assistive devices/modifications for ADL. 3=Patient will improve strength/tolerance for activity to enable patient to perform ADL's. OT Education/Plan Problem List/Assessment Assessment: Decreased Activ Tolerance, Decreased UE Strength, Impaired I ADL's, Impaired Self-Care Skills Discharge Recommendations Plan/Recommendations: Continue POC Treatment Plan/Plan of Care Patient would benefit from OT for education, treatment and training to promote independence in ADL's, mobility, safety and/or upper extremity function for ADL's. Plan of Care: ADL Retraining, Caregiver Training, Concurrent Therapy, Functional Mobility, Group Exercise/Act as Ind, UE Funct Exercise/Act, UE Neuromus Re-Ed/Coord, W/C Management Training Treatment Duration: Oct 28, 2020 Frequency: At least 5 of 7 days/Wk (IRF) Estimated Hrs Per Day: 1.5 hours per day Agreement: Yes Rehab Potential: Fair Time/GCodes Start Time: 08:00 Stop Time: 09:00 Total Time Billed (hr/min): 60 Billed Treatment Time 1, ADL 4 MICHAEL RAGLAND OT Oct 18, 2020 09:02
--- NOTE | 2020-10-18 11:55 | Physical Therapy Daily Note ---
PT Daily Note-Current Subjective Patient in recliner pre tx, agrees to PT, has 5/10 pain in right knee. Patient needs to use the restroom, ambulates into it and requests a female nurse tech to assist her, nurse tech says she only needed a little assistance with her pants. Appearance Patient in bed post tx with nurse call, phone, tray, all needs met. Mental Status Patient Orientation: Person, Place, Situation Transfers SCALE: Activities may be completed with or without assistive devices. 9-Nkfujgdmtr-xoipelj completes the activity by him/herself with no assistance from a helper. 5-Set-up or Clean-up Assistance-helper sets up or cleans up; patient completes activity. [place] assists only prior to or following the activity. 4-Supervision or Touching Assistance-helper provides verbal cues and/or touching/steadying and/or contact guard assistance as patient completes activity. Assistance may be provided throughout the activity or intermittently. 3-Partial/Moderate Assistance-helper does LESS THAN HALF the effort. [place] lifts, holds or supports trunk or limbs, but provides less than half the effort. 2-Substantial/Maximal Assistance-helper does MORE THAN HALF the effort. [place] lifts or holds trunk or limbs and provides more than half the effort. 4-Xvxjkuqqe-qaqcre does ALL the effort. Patient does none of the effort to complete the activity. Or, the assistance of 2 or more helpers is required for the patient to complete the activity. If activity was not attempted, code reason: 7-Patient Refused. 9-Not Applicable-not attempted and the patient did not perform the activity before the current illness, exacerbation or injury. 10-Not Attempted due to Environmental Limitations-(lack of equipment, weather restraints, etc.). 88-Not Attempted due to Medical Conditions or Safety Concerns. Roll Left & Right (QC): 6 Sit to Lying (QC): 3 Sit to Stand (QC): 4 Chair/Dry-nr-Abrvi Xfer(QC): 4 Weight Bearing Right Lower Extremity: Right Full Weight Bearing Left Lower Extremity: Left Full Weight Bearing Gait Training Distance: 150'x2 Walk 10 feet (QC): 4 Walk 50 ft with 2 Turns(QC): 4 Walk 150 ft (QC): 4 Gait Persons Needed: 1 Gait Assistive Device: FWW SBA, poor weight bearing on right leg, flexed knee during ambulation, slow antalgic ambulation Exercises seated knee flex/ext stretching Treatments bed mobility and transfers, ambulation, toileting, stretching Assessment Current Status: Fair Progress improving ambulation but patient has poor ROM of right knee PT Short Term Goals Short Term Goals Time Frame: Oct 21, 2020 Roll Left & Right: 4 Sit to lyin Lying to sitting on side of be: 4 Chair/idr-jc-oubhq transfer: 4 Toilet transfer: 4 Car transfer: 4 Walk 10 feet: 4 1 step (curb): 3 Picking up objects: 3 Wheel 50ft w/2 turns: 4 Wheel 150 feet: 4 PT Prison Goals Prison Goals PT Clam Grader Goals Time Frame: Nov 04, 2020 Roll Left & Right (QC): 6 Sit to Lying (QC): 6 Lying-Sitting on Side/Bed(QC): 6 Sit to Stand (QC): 6 Chair/Jiz-hl-Texae Xfer(QC): 6 Toilet Transfer (QC): 6 Car Transfer (QC): 6 Does the Patient Walk: Yes Walk 10 feet (QC): 6 Walk 50ft with 2 Turns (QC): 6 Walk 150 ft (QC): 6 Walking 10ft on Uneven Surface: 6 1 Step (curb) (QC): 6 4 Steps (QC): 4 12 Steps (QC): 88 Picking up an Object (QC): 6 Wheel 50 feet with 2 turns (QC: 6 Wheel 150 feet: 6 PT Plan Problem List Problem List: Activity Tolerance, Functional Strength, Safety, Balance, Gait, Transfer, Bed Mobility, ROM Treatment/Plan Treatment Plan: Continue Plan of Care Treatment Plan: Bed Mobility, Education, Functional Activity Jc, Functional Strength, Group Therapy, Gait, Safety, Therapeutic Exercise, Transfers Treatment Duration: Nov 04, 2020 Frequency: At least 5 of 7 days/Wk (IRF) Estimated Hrs Per Day: 1.5 hours per day Patient and/or Family Agrees t: Yes Safety Risks/Education Patient Education: Gait Training, Transfer Techniques, Correct Positioning, Safety Issues Teaching Recipient: Patient Teaching Methods: Demonstration, Discussion Response to Teaching: Reinforcement Needed Time/GCodes Time In: 1000 Time Out: 1100 Total Billed Treatment Time: 60 Total Billed Treatment 1 visit EX 10' FA 50' DAVID VAIL PT Oct 18, 2020 11:55
--- NOTE | 2020-10-18 13:48 | Occupational Ther Daily Note ---
OT Current Status-Daily Note Subjective Pt sitting EOB eating lunch, agreeable to OT tx at this time. Mental Status/Objective Patient Orientation: Person, Place, Time, Situation ADL-Treatment Therapy Code Descriptions/Definitions Functional [place] Measure: 0=Not Assessed/NA 4=Minimal Assistance 1=Total Assistance 5=Supervision or Setup 2=Maximal Assistance 6=Modified [place] 3=Moderate Assistance 7=Complete IndependenceSCALE: Activities may be completed with or without assistive devices. 0-Itmfrlyyio-edepfqn completes the activity by him/herself with no assistance from a helper. 5-Set-up or Clean-up Assistance-helper sets up or cleans up; patient completes activity. [place] assists only prior to or following the activity. 4-Supervision or Touching Assistance-helper provides verbal cues and/or touching/steadying and/or contact guard assistance as patient completes activity. Assistance may be provided throughout the activity or intermittently. 3-Partial/Moderate Assistance-helper does LESS THAN HALF the effort. [place] lifts, holds or supports trunk or limbs, but provides less than half the effort. 2-Substantial/Maximal Assistance-helper does MORE THAN HALF the effort. [place] lifts or holds trunk or limbs and provides more than half the effort. 2-Oawsrmyzr-kvgcrz does ALL the effort. Patient does none of the effort to complete the activity. Or, the assistance of 2 or more helpers is required for the patient to complete the activity. If activity was not attempted, code reason: 7-Patient Refused. 9-Not Applicable-not attempted and the patient did not perform the activity before the current illness, exacerbation or injury. 10-Not Attempted due to Environmental Limitations-(lack of equipment, weather restraints, etc.). 88-Not Attempted due to Medical Conditions or Safety Concerns. Eating (QC): 6 (pt independent with lunch, able to cut food, use utensils, bring food to mouth and take a drink.) Other Treatment Pt seated EOB, taking a few bites of food while OT gathered clothing items from around room. Pt used FWW to ambulate from room, to laundry area with SBA as OT carried clothing. Pt able to place clothing items into washer, put in soap, close lid and turn on washing machine with SBA. Pt then performed functional mobility from laundry area to a seat in therapy gym. Pt ambulated slowly with FWW, requiring increased time with mobility. Pt did not require any seated rest breaks during session. Post OT tx, pt seated in chair in gym with PT, all needs met. Education OT Patient Education: Correct positioning, Modified ADL techniques, Progress toward Goal/Update tx plan, Purpose of tx/functional activities Teaching Recipient: Patient Teaching Methods: Discussion Response to Teaching: Verbalize Understanding OT Short Term Goals Short Term Goals Time Frame: Oct 21, 2020 Shower/bathe self: 5 Lower body dressin OT Fdc Goals Fdc Goals Time Frame: Oct 28, 2020 Eating (QC): 6 Oral Hygiene (QC): 6 Toileting Hygiene (QC): 6 Shower/Bathe Self (QC): 6 Upper Body Dressing (QC): 6 Lower Body Dressing (QC): 6 On/Off Footwear (QC): 6 Additional Goals: 1-Demonstrate ADL Tasks, 2-Verbalize Understanding, 3- ImproveStrength/Jc 1=Demonstrate adherence to instructed precautions during ADL tasks. 2=Patient will verbalize/demonstrate understanding of assistive devices/modifications for ADL. 3=Patient will improve strength/tolerance for activity to enable patient to perform ADL's. OT Education/Plan Problem List/Assessment Assessment: Decreased Activ Tolerance, Decreased UE Strength, Impaired Funct Balance, Impaired I ADL's Discharge Recommendations Plan/Recommendations: Continue POC Treatment Plan/Plan of Care Patient would benefit from OT for education, treatment and training to promote independence in ADL's, mobility, safety and/or upper extremity function for ADL's. Plan of Care: ADL Retraining, Caregiver Training, Concurrent Therapy, Functional Mobility, Group Exercise/Act as Ind, UE Funct Exercise/Act, UE Neuromus Re-Ed/Coord, W/C Management Training Treatment Duration: Oct 28, 2020 Frequency: At least 5 of 7 days/Wk (IRF) Estimated Hrs Per Day: 1.5 hours per day Agreement: Yes Rehab Potential: Fair Time/GCodes Start Time: 13:00 Stop Time: 13:30 Total Time Billed (hr/min): 30 Billed Treatment Time 1, FA 2 MICHAEL RAGLAND OT Oct 18, 2020 13:47
--- NOTE | 2020-10-18 14:24 | Physical Therapy Daily Note ---
PT Daily Note-Current Subjective Patient in therapy gym pre tx, agrees to PT, has unrated pain in right knee, right leg is obviously swollen Appearance Patient in bed post tx with nurse call, phone, tray, right leg elevated due to swelling Mental Status Patient Orientation: Person, Place, Situation Transfers SCALE: Activities may be completed with or without assistive devices. 1-Cyxxkaeqiy-jpmrwlm completes the activity by him/herself with no assistance from a helper. 5-Set-up or Clean-up Assistance-helper sets up or cleans up; patient completes activity. [place] assists only prior to or following the activity. 4-Supervision or Touching Assistance-helper provides verbal cues and/or touching/steadying and/or contact guard assistance as patient completes activ ity. Assistance may be provided throughout the activity or intermittently. 3-Partial/Moderate Assistance-helper does LESS THAN HALF the effort. [place] lifts, holds or supports trunk or limbs, but provides less than half the effort. 2-Substantial/Maximal Assistance-helper does MORE THAN HALF the effort. [place] lifts or holds trunk or limbs and provides more than half the effort. 8-Bcetkwrvf-fgttgo does ALL the effort. Patient does none of the effort to complete the activity. Or, the assistance of 2 or more helpers is required for the patient to complete the activity. If activity was not attempted, code reason: 7-Patient Refused. 9-Not Applicable-not attempted and the patient did not perform the activity before the current illness, exacerbation or injury. 10-Not Attempted due to Environmental Limitations-(lack of equipment, weather restraints, etc.). 88-Not Attempted due to Medical Conditions or Safety Concerns. Roll Left & Right (QC): 6 Sit to Lying (QC): 3 Sit to Stand (QC): 4 Chair/Jiu-pd-Munvz Xfer(QC): 4 Weight Bearing Right Lower Extremity: Right Full Weight Bearing Left Lower Extremity: Left Full Weight Bearing Gait Training Distance: 150' Walk 10 feet (QC): 4 Walk 50 ft with 2 Turns(QC): 4 Walk 150 ft (QC): 4 Gait Persons Needed: 1 Gait Assistive Device: FWW slow, antalgic, flexed right knee, poor weight bearing on right leg Exercises Standing: Heel/toe raises, Mini squats Standing Reps: 15 small step-ups (2") with left leg, bearing weight onto right leg x10 Treatments LE exercise, bed mobility, transfers, ambulation Assessment Current Status: Fair Progress progressing slowly with bearing weight on right leg PT Short Term Goals Short Term Goals Time Frame: Oct 21, 2020 Roll Left & Right: 4 Sit to lyin Lying to sitting on side of be: 4 Chair/oou-ce-ccnhg transfer: 4 Toilet transfer: 4 Car transfer: 4 Walk 10 feet: 4 1 step (curb): 3 Picking up objects: 3 Wheel 50ft w/2 turns: 4 Wheel 150 feet: 4 PT [employer] Message [employer]ker Developer Goals Jail Goals PT Jail Goals Time Frame: Nov 04, 2020 Roll Left & Right (QC): 6 Sit to Lying (QC): 6 Lying-Sitting on Side/Bed(QC): 6 Sit to Stand (QC): 6 Chair/Dej-gg-[place]wuca Xfer(QC): 6 Toilet Transfer (QC): 6 Car Transfer (QC): 6 Does the Patient Walk: Yes Walk 10 feet (QC): 6 Walk 50ft with 2 Turns (QC): 6 Walk 150 ft (QC): 6 Walking 10ft on Uneven Surface: 6 1 Step (curb) (QC): 6 4 Steps (QC): 4 12 Steps (QC): 88 Picking up an Object (QC): 6 Wheel 50 feet with 2 turns (QC: 6 Wheel 150 feet: 6 PT Plan Problem List Problem List: Activity Tolerance, Functional Strength, Safety, Balance, Gait, Transfer, Bed Mobility, ROM Treatment/Plan Treatment Plan: Continue Plan of Care Treatment Plan: Bed Mobility, Education, Functional Activity Jc, Functional Strength, Group Therapy, Gait, Safety, Therapeutic Exercise, Transfers Treatment Duration: Nov 04, 2020 Frequency: At least 5 of 7 days/Wk (IRF) Estimated Hrs Per Day: 1.5 hours per day Patient and/or Family Agrees t: Yes Safety Risks/Education Patient Education: Gait Training, Transfer Techniques, Correct Positioning, Safety Issues Teaching Recipient: Patient Teaching Methods: Demonstration, Discussion Response to Teaching: Reinforcement Needed Time/GCodes Time In: 1330 Time Out: 1400 Total Billed Treatment Time: 30 Total Billed Treatment 1 visit EX 20' GT 10' DAVID VAIL PT Oct 18, 2020 14:24
[2020-10-18] MEDS: ALPRAZolam 0.25 MG (XANAX) TAB PO PRN (17:53)
[2020-10-18 18:20] VITALS: BP 122/97
[2020-10-19] MEDS: ACETAMINOPHEN 325 MG TABLET PO SCH ×4 (04:56→23:28)
[2020-10-19] MEDS: ALPRAZolam 0.25 MG (XANAX) TAB PO PRN ×3 (05:09→23:28)
[2020-10-19 05:31] VITALS: BP 138/82
[2020-10-19] MEDS: ENOXAPARIN 40 MG/0.4 ML (LOVENOX) SYR SC SCH ×2 (09:05→21:17)
[2020-10-19] MEDS: DICLOFENAC 1% GEL 100 GM (VOLTAREN) TUBE TOP SCH ×4 (09:08→21:18)
[2020-10-19] MEDS: NAPROXEN 250 MG (NAPROSYN) TABLET PO SCH ×2 (09:08→18:13)
[2020-10-19] MEDS: NICOTINE 21 MG (NICODERM) PATCH TD SCH (09:08)
[2020-10-19] MEDS: NICOTINE PATCH REMOVAL TP SCH (09:25)
[2020-10-19] MEDS: NYSTATIN CREAM (MYCOSTATIN) 30 GM TUBE TP SCH ×2 (09:25→21:18)
[2020-10-19] MEDS: MICONAZOLE 2% POWDER (DESENEX AF) 90 GM TOP SCH ×2 (09:25→21:25)
[2020-10-19] MEDS: SENNA W/DOCUSATE (SENOKOT S) TABLET PO SCH ×2 (09:26→21:19)
[2020-10-19] MEDS: polyethylene glycoL POWDER 17 GM (MIRALAX) PACK PO SCH ×2 (09:26→21:15)
--- NOTE | 2020-10-19 09:35 | Occupational Ther Daily Note ---
OT Current Status-Daily Note Subjective Pt agrees to OT tx session. Pt states pain in knee, does not rate. Pain in madeline region, states worse than knee. Pt states had bad night, difficulty with anxiety and calls with best friend which she perseverates on throughout the session. Pt agrees to showering/ dressing. Mental Status/Objective Patient Orientation: Person, Place, Situation ADL-Treatment Therapy Code Descriptions/Definitions Functional [place] Measure: 0=Not Assessed/NA 4=Minimal Assistance 1=Total Assistance 5=Supervision or Setup 2=Maximal Assistance 6=Modified [place] 3=Moderate Assistance 7=Complete IndependenceSCALE: Activities may be completed with or without assistive devices. 0-Czukmqsllq-kppsasq completes the activity by him/herself with no assistance from a helper. 5-Set-up or Clean-up Assistance-helper sets up or cleans up; patient completes activity. [employer] assists only prior to or following the activity. 4-Supervision or Touching Assistance-helper provides verbal cues and/or touching/steadying and/or contact guard assistance as patient completes activ ity. Assistance may be provided throughout the activity or intermittently. 3-Partial/Moderate Assistance-helper does LESS THAN HALF the effort. [employer] lifts, holds or supports trunk or limbs, but provides less than half the effort. 2-Substantial/Maximal Assistance-helper does MORE THAN HALF the effort. [employer] lifts or holds trunk or limbs and provides more than half the effort. 1-Awpqhcqhk-gonlws does ALL the effort. Patient does none of the effort to complete the activity. Or, the assistance of 2 or more helpers is required for the patient to complete the activity. If activity was not attempted, code reason: 7-Patient Refused. 9-Not Applicable-not attempted and the patient did not perform the activity before the current illness, exacerbation or injury. 10-Not Attempted due to Environmental Limitations-(lack of equipment, weather restraints, etc.). 88-Not Attempted due to Medical Conditions or Safety Concerns. Eating (QC): 6 Oral Hygiene (QC): 6 Shower/Bathe Self (QC): 4 Upper Body Dressing (QC): 6 Lower Body Dressing (QC): 4 On/Off Footwear: 6 Toileting Hygiene (QC): 6 Toilet Transfer (QC): 4 Other Treatment Pt requires increased time and cues for redirection as she is perseverating on current housing situation and conversation with friend last night and is unable to be redirected. When other staff enters, pt has same conversation with them as well. Difficulty multitasking. Pt completes bed mob with SBA ambulates to commode placed in shower and completes with cues for walker placement. Completes showering with s/u and SUP. Pt returns to bed, nursing notified of pt's placement and pt's request of madeline care. Nursing assists, pt rolls to side with SBA. Pt is asked if she desires exercises or continued ambulation/ gym time. Pt desires to "stay in bed." Pt completes 10 reps of bicep curls, then ceases, desiring to dress. Pt returns to sitting EOB for dressing- completes with SUP to IND. Pt is given HEP and theraband. . All needs met, call light in reach. Education OT Patient Education: Correct positioning, Exercise program, Home exercise program, Progress toward Goal/Update tx plan, Safety issues, Transfer techniques Teaching Recipient: Patient Teaching Methods: Demonstration Response to Teaching: Verbalize Understanding, Return Demonstration, Reinforcement Needed OT Short Term Goals Short Term Goals Time Frame: Oct 21, 2020 Shower/bathe self: 5 Lower body dressin OT [facility] Goals Director Of Strategic Marketing Goals Time Frame: Oct 28, 2020 Eating (QC): 6 Oral Hygiene (QC): 6 Toileting Hygiene (QC): 6 Shower/Bathe Self (QC): 6 Upper Body Dressing (QC): 6 Lower Body Dressing (QC): 6 On/Off Footwear (QC): 6 Additional Goals: 1-Demonstrate ADL Tasks, 2-Verbalize Understanding, 3- ImproveStrength/Jc 1=Demonstrate adherence to instructed precautions during ADL tasks. 2=Patient will verbalize/demonstrate understanding of assistive devices/modifications for ADL. 3=Patient will improve strength/tolerance for activity to enable patient to perform ADL's. OT Education/Plan Problem List/Assessment Assessment: Decreased Activ Tolerance, Decreased UE Strength, Dependent Transfers, Edema, Impaired Bed Mobility, Impaired Funct Balance, Impaired I ADL's, Impaired Self-Care Skills Discharge Recommendations Plan/Recommendations: Continue POC Therapy Discharge Recommendati: Home & Family Treatment Plan/Plan of Care Treatment,Training & Education: Yes Patient would benefit from OT for education, treatment and training to promote independence in ADL's, mobility, safety and/or upper extremity function for ADL's. Plan of Care: ADL Retraining, Caregiver Training, Concurrent Therapy, Functional Mobility, Group Exercise/Act as Ind, UE Funct Exercise/Act, UE Neuromus Re-Ed/Coord, W/C Management Training Treatment Duration: Oct 28, 2020 Frequency: At least 5 of 7 days/Wk (IRF) Estimated Hrs Per Day: 1.5 hours per day Agreement: Yes Rehab Potential: Fair Time/GCodes Start Time: 08:00 Stop Time: 09:30 Total Time Billed (hr/min): 90 Billed Treatment Time 1, ADL 6 (90) AMINAH NARAYAN OTR Oct 19, 2020 09:35
--- NOTE | 2020-10-19 11:45 | PM&R Progress Note ---
Subjective HPI/CC On Admission Date Seen by Provider: Oct 19, 2020 Time Seen by Provider: 09:30 Subjective/Events-last exam 10/19/20: Yeast infection is better Bowels moved yesterday Pain is well controlled IV antibiotics completed yesterday Disposition soon 10/18/20: Pt doing about the same IV antibiotics will complete today Social work consult for placement with friend 10/17/20: Pt overly dramatic A lot of psych/social issues Pt reports she is now homeless IV antibiotics will be done tomorrow Bowels are moving well 10/16/20: Patient improved No pain reported except right knee Checked meds and labs IV Rocephin maintained Near constant manic-like behavior which appears to be chronic Very loud and opinionated and very agitated at times Told patient to take things slower and slow up her speech so we can follow her conversations more easily and help her more Pain improved since increased Oxycodone to 10mg dose BM regimen will be maintained Conferred with RN Reviewed therapy notes Checked meds and labs Review of Systems Musculoskeletal: leg pain Objective Exam Vital Signs Vital Signs Date Time Temp Pulse Resp B/P (MAP) Pulse Ox O2 Delivery O2 Flow Rate FiO2 10/19/20 20:30 98 Room Air 10/19/20 17:38 36.4 91 19 139/76 (97) Capillary Refill : Less Than 3 SecondsLess Than 3 Seconds General Appearance: No Apparent Distress, WD/WN, Anxious, Chronically ill, Obese HEENT: PERRL/EOMI, Normal ENT Inspection, Pharynx Normal Neck: Full Range of Motion, Normal Inspection, Non Tender, Supple, Carotid Bru it Respiratory: Chest Non Tender, Lungs Clear, Normal Breath Sounds, No Accessory Muscle Use, No Respiratory Distress Cardiovascular: Regular Rate, Rhythm, No Gallop, No JVD, No Murmur, Normal Peripheral Pulses Gastrointestinal: Normal Bowel Sounds, No Organomegaly, No Pulsatile Mass, Non Tender, Soft Back: Normal Inspection, No CVA Tenderness, No Vertebral Tenderness Extremity: Normal Capillary Refill, Normal Inspection, Normal Range of Motion (escept right knee), Non Tender, No Calf Tenderness, Pedal Edema Neurologic/Psychiatric: Alert, Oriented x3, No Motor/Sensory Deficits, Normal Mood/Affect, Motor Weakness (generalized lower extremities mary right knee) Skin: Normal Color, Warm/Dry Lymphatic: No Adenopathy Results/Procedures Lab Patient resulted labs reviewed. FIM Transfers Therapy Code Descriptions/Definitions Functional [place] Measure: 0=Not Assessed/NA 4=Minimal Assistance 1=Total Assistance 5=Supervision or Setup 2=Maximal Assistance 6=Modified [place] 3=Moderate Assistance 7=Complete IndependenceSCALE: Activities may be completed with or without assistive devices. 7-Qxxugjsowz-seltgql completes the activity by him/herself with no assistance from a helper. 5-Set-up or Clean-up Assistance-helper sets up or cleans up; patient completes activity. [place] assists only prior to or following the activity. 4-Supervision or Touching Assistance-helper provides verbal cues and/or touching/steadying and/or contact guard assistance as patient completes activity. Assistance may be provided throughout the activity or intermittently. 3-Partial/Moderate Assistance-helper does LESS THAN HALF the effort. [place] lifts, holds or supports trunk or limbs, but provides less than half the effort. 2-Substantial/Maximal Assistance-helper does MORE THAN HALF the effort. [place] lifts or holds trunk or limbs and provides more than half the effort. 1-Gjctceatw-plsnzo does ALL the effort. Patient does none of the effort to complete the activity. Or, the assistance of 2 or more helpers is required for the patient to complete the activity. If activity was not attempted, code reason: 7-Patient Refused. 9-Not Applicable-not attempted and the patient did not perform the activity before the current illness, exacerbation or injury. 10-Not Attempted due to Environmental Limitations-(lack of equipment, weather restraints, etc.). 88-Not Attempted due to Medical Conditions or Safety Concerns. Roll Left to Right (QC): 6 Sit to Lying (QC): 3 Sit to Stand (QC): 4 Chair/Olh-vr-Kpgyp Xfer(QC): 4 Car Transfer (QC): 3 Gait Training Distance: 150' Walk 10 feet (QC): 4 Walk 50 ft with 2 Turns(QC): 4 Walk 150 ft (QC): 4 Walking 10ft/uneven surface-QC: 4 Gait Persons Needed: 1 Gait Assistive Device: FWW Wheelchair Training Distance: 6' Wheel 50 ft with 2 turns (QC): 4 Wheel 150 ft (QC): 88 Stair Training Stair Training: Handrails/: uses walker #of Steps: 1 1 Step (curb) (QC): 4 4 Steps (QC): 88 12 Steps (QC): 88 Balance Picking up an Object (QC): 88 ADL-Treatment Eating (QC): 6 Oral Hygiene (QC): 6 Shower/Bathe Self (QC): 4 Upper Body Dressing (QC): 6 Lower Body Dressing (QC): 4 On/Off Footwear (QC): 6 Toileting Hygiene (QC): 6 Toilet Transfer (QC): 4 Assessment/Plan Assessment and Plan Assess & Plan/Chief Complaint Assessment: Disseminated gonnoccal infection with right septic knee s/p I&D Smoker Obesity OA Chronic back pain Narcotic addiction potential Plan: IRF protocol Rocephin Monitor labs IV Per [facility] call today: Per Dr. Montes patient discharged on Ceftriaxone 1g IV Q24H through 10/18/20. Confirmed antibiotic orders with LALO Oneal at [facility] in [place]. No need for labs with such a short duration. 10/15/20: Slow up on rapid speech and movements Continue abx through 10/18/20 Monitor pain 10/16/20: IV abx maintained until 10/18/20 Pain meds 10/17/20: IV abx will complete tomorrow DC soon SW consult 10/18/20: Dispo soon IV abx completed 10/19/20: Monitor closely s/p abx PT OT (1) Disseminated infection due to Neisseria gonorrhoeae Status: Acute (2) Septic arthritis of knee, right Status: Acute (3) Exacerbation of chronic back pain Status: Acute (4) Smoker (5) Obese SURI KLEIN DO Oct 19, 2020 11:45
--- NOTE | 2020-10-19 13:36 | Physical Therapy Daily Note ---
PT Daily Note-Current Subjective Pt on phone R sidelying in bed upon arrival. Pt reporting needing to use BR and agrees to PT. Pt continues to talk on phone during BR to finish conversation pt reports to be important. Pain Numeric Pain Scale: 5-Moderate Pain Location: Right Location Body Site: Knee Pain Description: Ache, Tightness Mental Status Patient Orientation: Person, Place, Situation Attachments: Other-See Comments (BRENDA wrap for R knee) Transfers SCALE: Activities may be completed with or without assistive devices. 1-Acmscmcwqr-uuhrshj completes the activity by him/herself with no assistance from a helper. 5-Set-up or Clean-up Assistance-helper sets up or cleans up; patient completes activity. [place] assists only prior to or following the activity. 4-Supervision or Touching Assistance-helper provides verbal cues and/or touching/steadying and/or contact guard assistance as patient completes activity. Assistance may be provided throughout the activity or intermittently. 3-Partial/Moderate Assistance-helper does LESS THAN HALF the effort. [place] lifts, holds or supports trunk or limbs, but provides less than half the effort. 2-Substantial/Maximal Assistance-helper does MORE THAN HALF the effort. [place] lifts or holds trunk or limbs and provides more than half the effort. 6-Xeouiaekf-rdgcph does ALL the effort. Patient does none of the effort to complete the activity. Or, the assistance of 2 or more helpers is required for the patient to complete the activity. If activity was not attempted, code reason: 7-Patient Refused. 9-Not Applicable-not attempted and the patient did not perform the activity before the current illness, exacerbation or injury. 10-Not Attempted due to Environmental Limitations-(lack of equipment, weather restraints, etc.). 88-Not Attempted due to Medical Conditions or Safety Concerns. Lying to Sitting/Side of Bed(Q: 5 Sit to Stand (QC): 4 Toilet Transfer (QC): 4 Weight Bearing Right Lower Extremity: Right Full Weight Bearing Left Lower Extremity: Left Full Weight Bearing Gait Training Does the Patient Walk?: Yes Distance: 150' x2 Walk 10 feet (QC): 4 Walk 50 ft with 2 Turns(QC): 4 Walk 150 ft (QC): 4 Gait Persons Needed: 1 Gait Assistive Device: FWW Pt walks with antalgic gait pattern. Slow but steady toan. Wheelchair Training Does the Pt Use a Wheelchair?: No Exercises Supine Ex: Quad Set Treatments TF from bed to standing and amb. to BR. After finishing, Pt amb. in hallway and uses Therapy mat to focus on R knee extension including QS. Pt amb. in hallway returning to room to rest EOB before TF to Supine in bed. [employer] assists with repositioning and ice to comfort. Pt has all needs met, call light in hand. Assessment Current Status: Fair Progress Pt takes extended time to amb. but is improving with strength. Pt needs encouragement to continue working while talking. PT Short Term Goals Short Term Goals Time Frame: Oct 21, 2020 Roll Left & Right: 4 Sit to lyin Lying to sitting on side of be: 4 Chair/gli-hk-bptal transfer: 4 Toilet transfer: 4 Car transfer: 4 Walk 10 feet: 4 1 step (curb): 3 Picking up objects: 3 Wheel 50ft w/2 turns: 4 Wheel 150 feet: 4 PT Human Resources Operations Manager Goals Human Resources Operations Manager Goals PT Human Resources Operations Manager Goals Time Frame: Nov 04, 2020 Roll Left & Right (QC): 6 Sit to Lying (QC): 6 Lying-Sitting on Side/Bed(QC): 6 Sit to Stand (QC): 6 Chair/Mpt-nj-Dfduq Xfer(QC): 6 Toilet Transfer (QC): 6 Car Transfer (QC): 6 Does the Patient Walk: Yes Walk 10 feet (QC): 6 Walk 50ft with 2 Turns (QC): 6 Walk 150 ft (QC): 6 Walking 10ft on Uneven Surface: 6 1 Step (curb) (QC): 6 4 Steps (QC): 4 12 Steps (QC): 88 Picking up an Object (QC): 6 Wheel 50 feet with 2 turns (QC: 6 Wheel 150 feet: 6 PT Plan Problem List Problem List: Activity Tolerance, Functional Strength, Safety, Balance, Gait Treatment/Plan Treatment Plan: Continue Plan of Care Treatment Plan: Bed Mobility, Education, Functional Activity Jc, Functional Strength, Group Therapy, Gait, Safety, Therapeutic Exercise, Transfers Treatment Duration: Nov 04, 2020 Frequency: At least 5 of 7 days/Wk (IRF) Estimated Hrs Per Day: 1.5 hours per day Patient and/or Family Agrees t: Yes Safety Risks/Education Patient Education: Gait Training, Transfer Techniques, Correct Positioning, Safety Issues Teaching Recipient: Patient Teaching Methods: Discussion Response to Teaching: Verbalize Understanding Time/GCodes Time In: 1115 Time Out: 1250 Total Billed Treatment Time: 95 Total Billed Treatment 1, FA x3 (45m), GT x2 (30m) & EX (20m) DREA WU [employer] Oct 19, 2020 13:36
[2020-10-19] MEDS: ACETAMINOPHEN 325 MG TABLET PO PRN (13:45)
[2020-10-19 17:38] VITALS: BP 139/76
[2020-10-20 05:47] VITALS: BP 117/66
[2020-10-20] MEDS: ACETAMINOPHEN 325 MG TABLET PO SCH ×3 (05:57→17:11)
[2020-10-20] MEDS: ENOXAPARIN 40 MG/0.4 ML (LOVENOX) SYR SC SCH ×2 (09:19→20:26)
[2020-10-20] MEDS: NICOTINE PATCH REMOVAL TP SCH (09:19)
[2020-10-20] MEDS: NAPROXEN 250 MG (NAPROSYN) TABLET PO SCH ×2 (09:19→18:31)
[2020-10-20] MEDS: DICLOFENAC 1% GEL 100 GM (VOLTAREN) TUBE TOP SCH ×4 (09:20→20:27)
[2020-10-20] MEDS: polyethylene glycoL POWDER 17 GM (MIRALAX) PACK PO SCH ×2 (09:20→20:25)
[2020-10-20] MEDS: NYSTATIN CREAM (MYCOSTATIN) 30 GM TUBE TP SCH ×2 (09:20→20:27)
[2020-10-20] MEDS: SENNA W/DOCUSATE (SENOKOT S) TABLET PO SCH ×2 (09:20→20:25)
[2020-10-20] MEDS: NICOTINE 21 MG (NICODERM) PATCH TD SCH (09:20)
[2020-10-20] MEDS: MICONAZOLE 2% POWDER (DESENEX AF) 90 GM TOP SCH ×2 (09:29→20:26)
--- NOTE | 2020-10-20 10:38 | Occupational Ther Daily Note ---
OT Current Status-Daily Note Subjective Pt was in bed upon arrival. Pt no c/o pain. Pt agreed to therapy. Mental Status/Objective Patient Orientation: Person, Place, Time, Situation Attachments: IV (midline) ADL-Treatment Pt lying supine to EOB. Nursing came in for meds. Pt ambulated to restroom using FWW using grab bars to stabilize. Pt used grab bars to stabilize while cleansing and clothing manipulation. Pt ambulated from toilet to shower using FWW. Pt don/doff upper body clothing with set up. Pt performed upper/lower body washing independently. Pt cleansed perineal, buttocks area by self. Pt ambulated to sink to perform oral care using FWW, sink to stabilize. Pt ambulated back to room, rest break required. Co-treatment with PT ([id number]) skills of two clinicians required for skilled instruction and care for education and safety during functional standing and transfers. PT focusing on functional mobility and OT focusing on ADLs. Pt ambulated to EOB, nursing came in. Pt sat on EOB don lower body with set up, sit to stand using FWW to stabilize. Pt able to get thread socks on to feet. Pt brushed hair at EOB. Therapy Code Descriptions/Definitions Functional [place] Measure: 0=Not Assessed/NA 4=Minimal Assistance 1=Total Assistance 5=Supervision or Setup 2=Maximal Assistance 6=Modified [place] 3=Moderate Assistance 7=Complete IndependenceSCALE: Activities may be completed with or without assistive devices. 1-Dwwubbzxei-gpsktdo completes the activity by him/herself with no assistance from a helper. 5-Set-up or Clean-up Assistance-helper sets up or cleans up; patient completes activity. [place] assists only prior to or following the activity. 4-Supervision or Touching Assistance-helper provides verbal cues and/or touching/steadying and/or contact guard assistance as patient completes activit y. Assistance may be provided throughout the activity or intermittently. 3-Partial/Moderate Assistance-helper does LESS THAN HALF the effort. [place] lifts, holds or supports trunk or limbs, but provides less than half the effort. 2-Substantial/Maximal Assistance-helper does MORE THAN HALF the effort. [place] lifts or holds trunk or limbs and provides more than half the effort. 2-Wtnzyorhb-njijir does ALL the effort. Patient does none of the effort to complete the activity. Or, the assistance of 2 or more helpers is required for the patient to complete the activity. If activity was not attempted, code reason: 7-Patient Refused. 9-Not Applicable-not attempted and the patient did not perform the activity before the current illness, exacerbation or injury. 10-Not Attempted due to Environmental Limitations-(lack of equipment, weather restraints, etc.). 88-Not Attempted due to Medical Conditions or Safety Concerns. Eating (QC): 6 (using clincal judgment able to feed self independently.) Oral Hygiene (QC): 6 Bathing Location: L Arm, R Arm, L Upper Leg, R Upper Leg, L Lower Leg (including foot), R Lower Leg (including foot), Chest, Abdomen, Buttocks, Perineal Area Shower/Bathe Self (QC): 6 Upper Body Dressing (QC): 5 Lower Body Dressing (QC): 5 On/Off Footwear: 5 Toileting Hygiene (QC): 6 Toilet Transfer (QC): 6 OT Short Term Goals Short Term Goals Time Frame: Oct 21, 2020 Shower/bathe self: 5 Lower body dressin OT [facility] Goals Armature Tester Goals Time Frame: Oct 28, 2020 Eating (QC): 6 Oral Hygiene (QC): 6 Toileting Hygiene (QC): 6 Shower/Bathe Self (QC): 6 Upper Body Dressing (QC): 6 Lower Body Dressing (QC): 6 On/Off Footwear (QC): 6 Additional Goals: 1-Demonstrate ADL Tasks, 2-Verbalize Understanding, 3- ImproveStrength/Jc 1=Demonstrate adherence to instructed precautions during ADL tasks. 2=Patient will verbalize/demonstrate understanding of assistive devices/modifications for ADL. 3=Patient will improve strength/tolerance for activity to enable patient to perform ADL's. OT Education/Plan Problem List/Assessment Assessment: Decreased Activ Tolerance, Impaired Funct Balance Discharge Recommendations Plan/Recommendations: Continue POC Treatment Plan/Plan of Care Patient would benefit from OT for education, treatment and training to promote independence in ADL's, mobility, safety and/or upper extremity function for ADL's. Plan of Care: ADL Retraining, Caregiver Training, Concurrent Therapy, Functional Mobility, Group Exercise/Act as Ind, UE Funct Exercise/Act, UE Neuromus Re-Ed/Coord, W/C Management Training Treatment Duration: Oct 28, 2020 Frequency: At least 5 of 7 days/Wk (IRF) Estimated Hrs Per Day: 1.5 hours per day Agreement: Yes Rehab Potential: Fair Time/GCodes Start Time: 09:00 Stop Time: 10:30 Total Time Billed (hr/min): 90 Billed Treatment Time 1 visit- ADL 6 (90 mins) Co-treat PT- ([id number]) Ind- ([id number]) JONNY MUÑIZ Oct 20, 2020 10:38
--- NOTE | 2020-10-20 10:47 | PM&R Progress Note ---
Subjective HPI/CC On Admission Date Seen by Provider: Oct 20, 2020 Time Seen by Provider: 12:30 Subjective/Events-last exam 10/20/20: Pt ambulating well Lungs are clear No new events 10/19/20: Yeast infection is better Bowels moved yesterday Pain is well controlled IV antibiotics completed yesterday Disposition soon 10/18/20: Pt doing about the same IV antibiotics will complete today Social work consult for placement with friend 10/17/20: Pt overly dramatic A lot of psych/social issues Pt reports she is now homeless IV antibiotics will be done tomorrow Bowels are moving well 10/16/20: Patient improved No pain reported except right knee Checked meds and labs IV Rocephin maintained Near constant manic-like behavior which appears to be chronic Very loud and opinionated and very agitated at times Told patient to take things slower and slow up her speech so we can follow her conversations more easily and help her more Pain improved since increased Oxycodone to 10mg dose BM regimen will be maintained Conferred with RN Reviewed therapy notes Checked meds and labs Review of Systems Musculoskeletal: leg pain Objective Exam Vital Signs Vital Signs Date Time Temp Pulse Resp B/P (MAP) Pulse Ox O2 Delivery O2 Flow Rate FiO2 10/21/20 00:32 Room Air 10/20/20 20:45 96 10/20/20 17:08 35.4 95 22 145/81 (102) Capillary Refill : Less Than 3 SecondsLess Than 3 Seconds General Appearance: No Apparent Distress, WD/WN, Anxious, Chronically ill, Obese HEENT: PERRL/EOMI, Normal ENT Inspection, Pharynx Normal Neck: Full Range of Motion, Normal Inspection, Non Tender, Supple, Carotid Bruit Respiratory: Chest Non Tender, Lungs Clear, Normal Breath Sounds, No Accessory Muscle Use, No Respiratory Distress Cardiovascular: Regular Rate, Rhythm, No Gallop, No JVD, No Murmur, Normal Peripheral Pulses Gastrointestinal: Normal Bowel Sounds, No Organomegaly, No Pulsatile Mass, Non Tender, Soft Back: Normal Inspection, No CVA Tenderness, No Vertebral Tenderness Extremity: Normal Capillary Refill, Normal Inspection, Normal Range of Motion (escept right knee), Non Tender, No Calf Tenderness, Pedal Edema Neurologic/Psychiatric: Alert, Oriented x3, No Motor/Sensory Deficits, Normal Mood/Affect, Motor Weakness (generalized lower extremities mary right knee) Skin: Normal Color, Warm/Dry Lymphatic: No Adenopathy Results/Procedures Lab Patient resulted labs reviewed. FIM Transfers Therapy Code Descriptions/Definitions Functional [place] Measure: 0=Not Assessed/NA 4=Minimal Assistance 1=Total Assistance 5=Supervision or Setup 2=Maximal Assistance 6=Modified [place] 3=Moderate Assistance 7=Complete IndependenceSCALE: Activities may be completed with or without assistive devices. 9-Vddvhazqwe-qhceduq completes the activity by him/herself with no assistance from a helper. 5-Set-up or Clean-up Assistance-helper sets up or cleans up; patient completes activity. [place] assists only prior to or following the activity. 4-Supervision or Touching Assistance-helper provides verbal cues and/or touching/steadying and/or contact guard assistance as patient completes activi ty. Assistance may be provided throughout the activity or intermittently. 3-Partial/Moderate Assistance-helper does LESS THAN HALF the effort. [place] lifts, holds or supports trunk or limbs, but provides less than half the effort. 2-Substantial/Maximal Assistance-helper does MORE THAN HALF the effort. [place] lifts or holds trunk or limbs and provides more than half the effort. 4-Iuccmscrq-pzohhc does ALL the effort. Patient does none of the effort to complete the activity. Or, the assistance of 2 or more helpers is required for the patient to complete the activity. If activity was not attempted, code reason: 7-Patient Refused. 9-Not Applicable-not attempted and the patient did not perform the activity before the current illness, exacerbation or injury. 10-Not Attempted due to Environmental Limitations-(lack of equipment, weather restraints, etc.). 88-Not Attempted due to Medical Conditions or Safety Concerns. Roll Left to Right (QC): 6 Sit to Lying (QC): 3 Sit to Stand (QC): 4 Chair/[place] Xfer(QC): 4 Car Transfer (QC): 3 Gait Training Does the Patient Walk?: Yes Distance: 150' x2 Walk 10 feet (QC): 4 Walk 50 ft with 2 Turns(QC): 4 Walk 150 ft (QC): 4 Walking 10ft/uneven surface-QC: 4 Gait Persons Needed: 1 Gait Assistive Device: FWW Wheelchair Training Does the Pt Use a Wheelchair?: No Distance: 6' Wheel 50 ft with 2 turns (QC): 4 Wheel 150 ft (QC): 88 Stair Training Stair Training: Handrails/: uses walker #of Steps: 1 1 Step (curb) (QC): 4 4 Steps (QC): 88 12 Steps (QC): 88 Balance Picking up an Object (QC): 88 ADL-Treatment Eating (QC): 6 Oral Hygiene (QC): 6 Shower/Bathe Self (QC): 4 Upper Body Dressing (QC): 6 Lower Body Dressing (QC): 4 On/Off Footwear (QC): 6 Toileting Hygiene (QC): 6 Toilet Transfer (QC): 4 Assessment/Plan Assessment and Plan Assess & Plan/Chief Complaint Assessment: Disseminated gonnoccal infection with right septic knee s/p I&D Smoker Obesity OA Chronic back pain Narcotic addiction potential Plan: IRF protocol Rocephin Monitor labs IV Per [facility] call today: Per Dr. Montes patient discharged on Ceftriaxone 1g IV Q24H through 10/18/20. Confirmed antibiotic orders with LALO Oneal at [facility] in [place]. No need for labs with such a short duration. 10/15/20: Slow up on rapid speech and movements Continue abx through 10/18/20 Monitor pain 10/16/20: IV abx maintained until 10/18/20 Pain meds 10/17/20: IV abx will complete tomorrow DC soon SW consult 10/18/20: Dispo soon IV abx completed 10/19/20: Monitor closely s/p abx PT OT 10/20/20: Monitor for c diff since broad spectrum abx completed Pain meds (1) Disseminated infection due to Neisseria gonorrhoeae Status: Acute (2) Septic arthritis of knee, right Status: Acute (3) Exacerbation of chronic back pain Status: Acute (4) Smoker (5) Obese SURI KLEIN DO Oct 20, 2020 10:47
--- NOTE | 2020-10-20 12:12 | Physical Therapy Daily Note ---
PT Daily Note-Current Subjective Pt sitting in chair after finishing in shower as GENERAL FORECASTER arrives. Pt agrees to short PT/OT co-treat to observe and assist in dressing and dynamic balance & movement. Mental Status Patient Orientation: Person, Place, Time, Situation Attachments: Other-See Comments (BRENDA wrap for R knee) Transfers SCALE: Activities may be completed with or without assistive devices. 5-Opokcuxibq-glkowvx completes the activity by him/herself with no assistance from a helper. 5-Set-up or Clean-up Assistance-helper sets up or cleans up; patient completes activity. [place] assists only prior to or following the activity. 4-Supervision or Touching Assistance-helper provides verbal cues and/or touching/steadying and/or contact guard assistance as patient completes activity. Assistance may be provided throughout the activity or intermittently. 3-Partial/Moderate Assistance-helper does LESS THAN HALF the effort. [place] lifts, holds or supports trunk or limbs, but provides less than half the effort. 2-Substantial/Maximal Assistance-helper does MORE THAN HALF the effort. [place] lifts or holds trunk or limbs and provides more than half the effort. 5-Snjkzauae-wrhrwh does ALL the effort. Patient does none of the effort to complete the activity. Or, the assistance of 2 or more helpers is required for the patient to complete the activity. If activity was not attempted, code reason: 7-Patient Refused. 9-Not Applicable-not attempted and the patient did not perform the activity before the current illness, exacerbation or injury. 10-Not Attempted due to Environmental Limitations-(lack of equipment, weather restraints, etc.). 88-Not Attempted due to Medical Conditions or Safety Concerns. Sit to Stand (QC): 5 Weight Bearing Right Lower Extremity: Right Full Weight Bearing Left Lower Extremity: Left Full Weight Bearing Gait Training Does the Patient Walk?: Yes Distance: 125' Walk 10 feet (QC): 5 Walk 50 ft with 2 Turns(QC): 5 Gait Persons Needed: 1 Gait Assistive Device: FWW Pt still walks with antalgic gait pattern. GENERAL FORECASTER encourages more WB to normalize gait, pt continues to walk w/flexed R knee. Wheelchair Training Does the Pt Use a Wheelchair?: No Exercises Supine Ex: Quad Set Treatments Co-treatment with PT ([id number]) skills of two clinicians required for skilled instruction and care for education and safety during functional standing and transfers. PT focusing on functional mobility and OT focusing on ADLs. Pt ambulated to EOB, nursing came in. Pt sat on EOB don lower body with set up, sit to stand using FWW to stabilize. Pt able to get thread socks on to feet. Pt brushed hair at EOB. [id number]- Focus on Flexion & Extension of R knee then TF to standing and amb. to Therapy [facility] to rest in chair. Pt asked to remain in chair in Commons with mask on. All needs met. Assessment Current Status: Good Progress Pt needs continual reminders to continue working while she works. Pt is seeing improvement in Flexion and extension of R knee although still walking with flexed knee during ambulation. Pt is encouraged to WB more although she does not perform. PT Short Term Goals Short Term Goals Time Frame: Oct 21, 2020 Roll Left & Right: 4 Sit to lyin Lying to sitting on side of be: 4 Chair/xaq-cb-bmsdn transfer: 4 Toilet transfer: 4 Car transfer: 4 Walk 10 feet: 4 1 step (curb): 3 Picking up objects: 3 Wheel 50ft w/2 turns: 4 Wheel 150 feet: 4 PT Fdc Goals Fdc Goals PT Three Dimensional Art Instructor Goals Time Frame: Nov 04, 2020 Roll Left & Right (QC): 6 Sit to Lying (QC): 6 Lying-Sitting on Side/Bed(QC): 6 Sit to Stand (QC): 6 Chair/Upp-uy-Rfwyh Xfer(QC): 6 Toilet Transfer (QC): 6 Car Transfer (QC): 6 Does the Patient Walk: Yes Walk 10 feet (QC): 6 Walk 50ft with 2 Turns (QC): 6 Walk 150 ft (QC): 6 Walking 10ft on Uneven Surface: 6 1 Step (curb) (QC): 6 4 Steps (QC): 4 12 Steps (QC): 88 Picking up an Object (QC): 6 Wheel 50 feet with 2 turns (QC: 6 Wheel 150 feet: 6 PT Plan Problem List Problem List: Activity Tolerance, Gait Treatment/Plan Treatment Plan: Continue Plan of Care Treatment Plan: Bed Mobility, Education, Functional Activity Jc, Functional Strength, Group Therapy, Gait, Safety, Therapeutic Exercise, Transfers Treatment Duration: Nov 04, 2020 Frequency: At least 5 of 7 days/Wk (IRF) Estimated Hrs Per Day: 1.5 hours per day Patient and/or Family Agrees t: Yes Safety Risks/Education Patient Education: Gait Training, Correct Positioning, Safety Issues Teaching Recipient: Patient Teaching Methods: Discussion Response to Teaching: Reinforcement Needed Time/GCodes Time In: 1000 Time Out: 1115 Total Billed Treatment Time: 75 Total Billed Treatment 1, FA x2 (30m), EX x2 (25m), GT (20m) Co-treat w/OT from [id number] DREA WU GENERAL FORECASTER Oct 20, 2020 12:12
[2020-10-20] MEDS: ALPRAZolam 0.25 MG (XANAX) TAB PO PRN (13:27)
--- NOTE | 2020-10-20 15:30 | Physical Therapy Daily Note ---
PT Daily Note-Current Subjective Pt sitting at EOB upon arrival. Pt is on phone again. Pt agrees to PT and gets off phone. Mental Status Patient Orientation: Person, Place, Time, Situation Attachments: Other-See Comments (BRENDA wrap on R knee) Transfers SCALE: Activities may be completed with or without assistive devices. 1-Etjxseocck-cemjwol completes the activity by him/herself with no assistance from a helper. 5-Set-up or Clean-up Assistance-helper sets up or cleans up; patient completes activity. [place] assists only prior to or following the activity. 4-Supervision or Touching Assistance-helper provides verbal cues and/or touch ing/steadying and/or contact guard assistance as patient completes activity. Assistance may be provided throughout the activity or intermittently. 3-Partial/Moderate Assistance-helper does LESS THAN HALF the effort. [place] lifts, holds or supports trunk or limbs, but provides less than half the effort. 2-Substantial/Maximal Assistance-helper does MORE THAN HALF the effort. [place] lifts or holds trunk or limbs and provides more than half the effort. 3-Jthtjtgab-rywwhl does ALL the effort. Patient does none of the effort to complete the activity. Or, the assistance of 2 or more helpers is required for the patient to complete the activity. If activity was not attempted, code reason: 7-Patient Refused. 9-Not Applicable-not attempted and the patient did not perform the activity before the current illness, exacerbation or injury. 10-Not Attempted due to Environmental Limitations-(lack of equipment, weather restraints, etc.). 88-Not Attempted due to Medical Conditions or Safety Concerns. Sit to Stand (QC): 5 Toilet Transfer (QC): 5 Weight Bearing Right Lower Extremity: Right Full Weight Bearing Left Lower Extremity: Left Full Weight Bearing Gait Training Does the Patient Walk?: Yes Distance: 20' x2 Walk 10 feet (QC): 5 Gait Persons Needed: 1 Gait Assistive Device: FWW Wheelchair Training Does the Pt Use a Wheelchair?: No Treatments PT TF to standing and amb. to BR. After finishing, pt returns to EOB then Supine and repositioned to comfort. All needs met, call light in hand. Assessment Current Status: Good Progress Pt si moving with improved strength and independence but continues to walk with flexed R knee, even when encouraged to normalize. PT Short Term Goals Short Term Goals Time Frame: Oct 21, 2020 Roll Left & Right: 4 Sit to lyin Lying to sitting on side of be: 4 Chair/mjt-wg-zhdes transfer: 4 Toilet transfer: 4 Car transfer: 4 Walk 10 feet: 4 1 step (curb): 3 Picking up objects: 3 Wheel 50ft w/2 turns: 4 Wheel 150 feet: 4 PT Tissue Coordinator Goals Senior Care Goals PT Senior Care Goals Time Frame: Nov 04, 2020 Roll Left & Right (QC): 6 Sit to Lying (QC): 6 Lying-Sitting on Side/Bed(QC): 6 Sit to Stand (QC): 6 Chair/Aha-aa-Qzgpd Xfer(QC): 6 Toilet Transfer (QC): 6 Car Transfer (QC): 6 Does the Patient Walk: Yes Walk 10 feet (QC): 6 Walk 50ft with 2 Turns (QC): 6 Walk 150 ft (QC): 6 Walking 10ft on Uneven Surface: 6 1 Step (curb) (QC): 6 4 Steps (QC): 4 12 Steps (QC): 88 Picking up an Object (QC): 6 Wheel 50 feet with 2 turns (QC: 6 Wheel 150 feet: 6 PT Plan Problem List Problem List: Activity Tolerance, Gait Treatment/Plan Treatment Plan: Continue Plan of Care Treatment Plan: Bed Mobility, Education, Functional Activity Jc, Functional Strength, Group Therapy, Gait, Safety, Therapeutic Exercise, Transfers Treatment Duration: Nov 04, 2020 Frequency: At least 5 of 7 days/Wk (IRF) Estimated Hrs Per Day: 1.5 hours per day Patient and/or Family Agrees t: Yes Safety Risks/Education Patient Education: Gait Training, Correct Positioning, Safety Issues Teaching Recipient: Patient Teaching Methods: Discussion Response to Teaching: Reinforcement Needed Time/GCodes Time In: 1420 Time Out: 1445 Total Billed Treatment Time: 25 Total Billed Treatment 1, FA x2 (25m) DREA WU PTA Oct 20, 2020 15:30
[2020-10-20 17:08] VITALS: BP 145/81
[2020-10-21] MEDS: ACETAMINOPHEN 325 MG TABLET PO SCH ×4 (00:10→17:20)
[2020-10-21] MEDS: ALPRAZolam 0.25 MG (XANAX) TAB PO PRN ×2 (01:53→15:38)
[2020-10-21 06:00] VITALS: BP 130/75
[2020-10-21] MEDS: polyethylene glycoL POWDER 17 GM (MIRALAX) PACK PO SCH ×2 (06:31→21:36)
[2020-10-21] MEDS: NAPROXEN 250 MG (NAPROSYN) TABLET PO SCH ×2 (08:04→17:20)
[2020-10-21] MEDS: ENOXAPARIN 40 MG/0.4 ML (LOVENOX) SYR SC SCH ×2 (08:04→21:16)
[2020-10-21] MEDS: SENNA W/DOCUSATE (SENOKOT S) TABLET PO SCH ×2 (08:05→21:16)
[2020-10-21] MEDS: NICOTINE 21 MG (NICODERM) PATCH TD SCH (08:05)
[2020-10-21] MEDS: NICOTINE PATCH REMOVAL TP SCH (08:05)
[2020-10-21] MEDS: MICONAZOLE 2% POWDER (DESENEX AF) 90 GM TOP SCH ×2 (08:05→21:16)
[2020-10-21] MEDS: DICLOFENAC 1% GEL 100 GM (VOLTAREN) TUBE TOP SCH ×4 (08:05→21:16)
[2020-10-21] MEDS: NYSTATIN CREAM (MYCOSTATIN) 30 GM TUBE TP SCH ×2 (08:06→21:16)
--- NOTE | 2020-10-21 08:18 | NUR ---
pt in no respiratory distress. Addendum: 10/21/20 at 0819 by KARUNA ZULETA RT Amended: Links added.
--- NOTE | 2020-10-21 10:31 | Occupational Ther Daily Note ---
OT Current Status-Daily Note Subjective Pt agreeable to OT Tx, states she does not want to shower today, she would rather focus on her arms. ADL-Treatment Therapy Code Descriptions/Definitions Functional [place] Measure: 0=Not Assessed/NA 4=Minimal Assistance 1=Total Assistance 5=Supervision or Setup 2=Maximal Assistance 6=Modified [place] 3=Moderate Assistance 7=Complete IndependenceSCALE: Activities may be completed with or without assistive devices. 5-Gbugmdhedv-jfflddu completes the activity by him/herself with no assistance from a helper. 5-Set-up or Clean-up Assistance-helper sets up or cleans up; patient completes activity. [place] assists only prior to or following the activity. 4-Supervision or Touching Assistance-helper provides verbal cues and/or touching/steadying and/or contact guard assistance as patient completes activity. Assistance may be provided throughout the activity or intermittently. 3-Partial/Moderate Assistance-helper does LESS THAN HALF the effort. [place] lifts, holds or supports trunk or limbs, but provides less than half the effort. 2-Substantial/Maximal Assistance-helper does MORE THAN HALF the effort. [place] lifts or holds trunk or limbs and provides more than half the effort. 9-Haayhmeel-kazvtf does ALL the effort. Patient does none of the effort to complete the activity. Or, the assistance of 2 or more helpers is required for the patient to complete the activity. If activity was not attempted, code reason: 7-Patient Refused. 9-Not Applicable-not attempted and the patient did not perform the activity before the current illness, exacerbation or injury. 10-Not Attempted due to Environmental Limitations-(lack of equipment, weather restraints, etc.). 88-Not Attempted due to Medical Conditions or Safety Concerns. Oral Hygiene (QC): 6 (IND standing at sink) Upper Body Dressing (QC): 5 (set up) Lower Body Dressing (QC): 5 (set up) On/Off Footwear: 5 (set up) Toileting Hygiene (QC): 6 Toilet Transfer (QC): 6 Pt required increased time with ADLS due to distractibility, required cues for redirection to tasks. Other Treatment [id number] OT tx: Pt seated EOB, agreeable to OT tx. Pt donned clothes at EOB, then used FWW to ambulate to restroom and onto toilet. Pt used washcloth to wash periarea and buttocks on toilet, independent with toileting. Pt then stood at sink to wash hands and complete oral care. Pt used FWW to ambulate to therapy gym, with SBA, slow pace. In order to increase BUE strength and functional endurance, pt completed x15 mins arm bike, mod resistance. [id number] OT/PT cotreat in order to increase dynamic standing balance, to improve functional transfers, and to coordinate UE/LE with tasks. OT focused on UE placement, cues for sequencing and safety, and UE reaching while PT focused on LE placement, gross overall movements, and transfers. Pt stood at FWW completing UE reaching task, hitting balloon back and forth with OT as PT assisted pt with standing balance. Pt took a seated rest break, then completed sit to stand transfers from edge of mat at various heights. Post OT tx, pt seated edge of mat with PT, all needs met. Education OT Patient Education: Correct positioning, Modified ADL techniques, Progress toward Goal/Update tx plan, Purpose of tx/functional activities, Safety issues Teaching Recipient: Patient Teaching Methods: Discussion Response to Teaching: Verbalize Understanding OT Short Term Goals Short Term Goals Time Frame: Oct 21, 2020 Shower/bathe self: 5 Lower body dressin OT Senior Living Goals Biomedical Equipment Tech Goals Time Frame: Oct 28, 2020 Eating (QC): 6 Oral Hygiene (QC): 6 Toileting Hygiene (QC): 6 Shower/Bathe Self (QC): 6 Upper Body Dressing (QC): 6 Lower Body Dressing (QC): 6 On/Off Footwear (QC): 6 Additional Goals: 1-Demonstrate ADL Tasks, 2-Verbalize Understanding, 3- ImproveStrength/Jc 1=Demonstrate adherence to instructed precautions during ADL tasks. 2=Patient will verbalize/demonstrate understanding of assistive devices/modifications for ADL. 3=Patient will improve strength/tolerance for activity to enable patient to perform ADL's. OT Education/Plan Problem List/Assessment Assessment: Decreased Activ Tolerance, Decreased UE Strength, Impaired I ADL's Discharge Recommendations Plan/Recommendations: Continue POC Treatment Plan/Plan of Care Patient would benefit from OT for education, treatment and training to promote independence in ADL's, mobility, safety and/or upper extremity function for ADL's. Plan of Care: ADL Retraining, Caregiver Training, Concurrent Therapy, Functional Mobility, Group Exercise/Act as Ind, UE Funct Exercise/Act, UE Neuromus Re-Ed/Coord, W/C Management Training Treatment Duration: Oct 28, 2020 Frequency: At least 5 of 7 days/Wk (IRF) Estimated Hrs Per Day: 1.5 hours per day Agreement: Yes Rehab Potential: Fair Time/GCodes Start Time: 09:00 Stop Time: 10:30 Total Time Billed (hr/min): 90 Billed Treatment Time [id number] OT tx, [id number] OT/PT cotreat 1, ADL 3 (40'), EX (15'), FA 2 (35') MICHAEL RAGLAND OT Oct 21, 2020 10:31
--- NOTE | 2020-10-21 11:07 | Physical Therapy Daily Note ---
PT Daily Note-Current Subjective Pt. agrees to Rx, talks near incessantly during Rx. c/o pain in right knee at 4/10 Pain Numeric Pain Scale: 4 Location: Right Location Body Site: Knee Pain Description: Ache Mental Status Attachments: Other-See Comments (sherin around right knee, mask out of room) Transfers SCALE: Activities may be completed with or without assistive devices. 4-Baidiqhiue-khkoprb completes the activity by him/herself with no assistance from a helper. 5-Set-up or Clean-up Assistance-helper sets up or cleans up; patient completes activity. [place] assists only prior to or following the activity. 4-Supervision or Touching Assistance-helper provides verbal cues and/or touching/steadying and/or contact guard assistance as patient completes activity. Assistance may be provided throughout the activity or intermittently. 3-Partial/Moderate Assistance-helper does LESS THAN HALF the effort. [place] li fts, holds or supports trunk or limbs, but provides less than half the effort. 2-Substantial/Maximal Assistance-helper does MORE THAN HALF the effort. [place] lifts or holds trunk or limbs and provides more than half the effort. 2-Vabuisgxd-kywvrq does ALL the effort. Patient does none of the effort to complete the activity. Or, the assistance of 2 or more helpers is required for the patient to complete the activity. If activity was not attempted, code reason: 7-Patient Refused. 9-Not Applicable-not attempted and the patient did not perform the activity before the current illness, exacerbation or injury. 10-Not Attempted due to Environmental Limitations-(lack of equipment, weather restraints, etc.). 88-Not Attempted due to Medical Conditions or Safety Concerns. Roll Left & Right (QC): 6 Sit to Lying (QC): 6 Lying to Sitting/Side of Bed(Q: 6 Sit to Stand (QC): 6 Chair/Pvu-sc-Fhbbh Xfer(QC): 6 Toilet Transfer (QC): 6 Weight Bearing Right Lower Extremity: Right Full Weight Bearing Left Lower Extremity: Left Full Weight Bearing Gait Training Does the Patient Walk?: Yes Walk 10 feet (QC): 6 Walk 50 ft with 2 Turns(QC): 6 Walk 150 ft (QC): 6 Gait Persons Needed: 1 Gait Assistive Device: FWW pt. needs instruction to put heel down on right and transition through gait with good wt bearing etc and to equalize step length Exercises Supine Ex: Bridging, Ankle pumps, Quad Set (with assist to extend, lacks 30deg azul ext), Heel Slides, Short Arc Quads, Straight leg raise (indep x 4 , min assist x6) Supine Reps: 15 Seated Therapy Exercises: Ankle pumps, Sit to stand, Long arc quads, Hip flexion Seated Reps: 15 Treatments co Rx with OT 30 m for balance, stance without device for reaching, balloon volley and wt shift increasing wt on RLE and encouraging extension of right knee Assessment Current Status: Good Progress distracted, talks loudly, emphatically, needs constant instruction to cont Rx, making some progress, PT Short Term Goals Short Term Goals Time Frame: Oct 21, 2020 Roll Left & Right: 4 Sit to lyin Lying to sitting on side of be: 4 Chair/tyj-cb-isqed transfer: 4 Toilet transfer: 4 Car transfer: 4 Walk 10 feet: 4 1 step (curb): 3 Picking up objects: 3 Wheel 50ft w/2 turns: 4 Wheel 150 feet: 4 PT Risk Control Manager Goals Detention Goals PT Risk Control Manager Goals Time Frame: Nov 04, 2020 Roll Left & Right (QC): 6 Sit to Lying (QC): 6 Lying-Sitting on Side/Bed(QC): 6 Sit to Stand (QC): 6 Chair/Otd-jt-Smfhx Xfer(QC): 6 Toilet Transfer (QC): 6 Car Transfer (QC): 6 Does the Patient Walk: Yes Walk 10 feet (QC): 6 Walk 50ft with 2 Turns (QC): 6 Walk 150 ft (QC): 6 Walking 10ft on Uneven Surface: 6 1 Step (curb) (QC): 6 4 Steps (QC): 4 12 Steps (QC): 88 Picking up an Object (QC): 6 Wheel 50 feet with 2 turns (QC: 6 Wheel 150 feet: 6 PT Plan Treatment/Plan Treatment Plan: Continue Plan of Care Treatment Plan: Bed Mobility, Education, Functional Activity Jc, Functional Strength, Group Therapy, Gait, Safety, Therapeutic Exercise, Transfers Treatment Duration: Nov 04, 2020 Frequency: At least 5 of 7 days/Wk (IRF) Estimated Hrs Per Day: 1.5 hours per day Patient and/or Family Agrees t: Yes Safety Risks/Education Patient Education: Gait Training, Transfer Techniques, Correct Positioning, Disease Process, Safety Issues Teaching Recipient: Patient Teaching Methods: Demonstration, Discussion Response to Teaching: Verbalize Understanding, Return Demonstration, Reinforcement Needed Time/GCodes Time In: 1000 Time Out: 1100 Total Billed Treatment Time: 60 Total Billed Treatment 1,NM25m,EX20M,gt15M (30m co Rx with OT) JEAN BILLINGS [employer] MAKER HELPER MACHINE Oct 21, 2020 11:06
--- NOTE | 2020-10-21 12:45 | Physical Therapy Daily Note ---
PT Daily Note-Current Subjective Very agreeable to participate with therapy. Mental Status Patient Orientation: Normal For Age Transfers SCALE: Activities may be completed with or without assistive devices. 9-Kdcfiltdin-iambntv completes the activity by him/herself with no assistance from a helper. 5-Set-up or Clean-up Assistance-helper sets up or cleans up; patient completes activity. [place] assists only prior to or following the activity. 4-Supervision or Touching Assistance-helper provides verbal cues and/or touching/steadying and/or contact guard assistance as patient completes activity. Assistance may be provided throughout the activity or intermittently. 3-Partial/Moderate Assistance-helper does LESS THAN HALF the effort. [place] lifts, holds or supports trunk or limbs, but provides less than half the effort. 2-Substantial/Maximal Assistance-helper does MORE THAN HALF the effort. [place] lifts or holds trunk or limbs and provides more than half the effort. 0-Ltwsrpcfi-yrxixz does ALL the effort. Patient does none of the effort to complete the activity. Or, the assistance of 2 or more helpers is required for the patient to complete the activity. If activity was not attempted, code reason: 7-Patient Refused. 9-Not Applicable-not attempted and the patient did not perform the activity before the current illness, exacerbation or injury. 10-Not Attempted due to Environmental Limitations-(lack of equipment, weather restraints, etc.). 88-Not Attempted due to Medical Conditions or Safety Concerns. Sit to Stand (QC): 6 Weight Bearing Right Lower Extremity: Right Full Weight Bearing Left Lower Extremity: Left Full Weight Bearing Gait Training Does the Patient Walk?: Yes Distance: 800' x 2 Walk 10 feet (QC): 6 Walk 50 ft with 2 Turns(QC): 6 Walk 150 ft (QC): 6 Walking 10ft/uneven surface-QC: 6 Gait Assistive Device: FWW slow, antalgic gait sequence/step to Assessment Patient tolerated treatment well and is up independently in room and hallway. PT Short Term Goals Short Term Goals Time Frame: Oct 21, 2020 Roll Left & Right: 4 Sit to lyin Lying to sitting on side of be: 4 Chair/mds-ko-qwyxk transfer: 4 Toilet transfer: 4 Car transfer: 4 Walk 10 feet: 4 1 step (curb): 3 Picking up objects: 3 Wheel 50ft w/2 turns: 4 Wheel 150 feet: 4 PT [employer] Goals Halfway Goals PT Halfway Goals Time Frame: Nov 04, 2020 Roll Left & Right (QC): 6 Sit to Lying (QC): 6 Lying-Sitting on Side/Bed(QC): 6 Sit to Stand (QC): 6 Chair/Ure-nc-Ptulj Xfer(QC): 6 Toilet Transfer (QC): 6 Car Transfer (QC): 6 Does the Patient Walk: Yes Walk 10 feet (QC): 6 Walk 50ft with 2 Turns (QC): 6 Walk 150 ft (QC): 6 Walking 10ft on Uneven Surface: 6 1 Step (curb) (QC): 6 4 Steps (QC): 4 12 Steps (QC): 88 Picking up an Object (QC): 6 Wheel 50 feet with 2 turns (QC: 6 Wheel 150 feet: 6 PT Plan Treatment/Plan Treatment Plan: Continue Plan of Care Treatment Plan: Bed Mobility, Education, Functional Activity Jc, Functional Strength, Group Therapy, Gait, Safety, Therapeutic Exercise, Transfers Treatment Duration: Nov 04, 2020 Frequency: At least 5 of 7 days/Wk (IRF) Estimated Hrs Per Day: 1.5 hours per day Patient and/or Family Agrees t: Yes Time/GCodes Time In: 1135 Time Out: 1205 Total Billed Treatment Time: 30 Total Billed Treatment 1 visit FA x 2 30 min MARC BRITT PT Oct 21, 2020 12:45
--- NOTE | 2020-10-21 16:29 | NUR ---
CM/SS DISCHARGE PLANNING Patient will discharge Saturday morning at 0730 in order to go to a [facility] post op followup appointment scheduled for [address] Francisco Tripp MD. Patient has coordinated her own [employer] transport, they will pick her up at our ER entrance. Very important she be there and ready on time. DME: Patient was issued a FWW through [facility] 10/01/20. She is unable to locate this walker thus far but has her son Isiah and her SO/Mark Pena searching at this time. Booster Operator has made arrangements for a free FWW to be issued to patient on Saturday if she, in fact, never locates hers. Patient requested a stool riser which is not a covered item under [employer], she has contacted [employer] for loan items. Patient now states her SO could help her in the toilet if necessary. OP PT: Patient is motivated to participate in therapy sessions, she has selected [facility] for her provider. Agency closed at this time, singer songwriter will contact Saturday a.m. for first available on or about Friday 10/26. Multiple psychosocial issues. [facility] responded today (10/21) that the hotline of 10/19 was screened in for investigation. Booster Operator was already informed by local [facility] staff she would not be assisted with a short term hotel or other housing due to not having any income. It appears a mute point, but [facility] diabetes clinical manager can followup directly with patient even though discharged. Patient requested assistance with HUD application; however, she has her cell phone and could access the tori online and complete independently. Booster Operator checked her settings with her permission and she did not have her wifi on, turned this on so she can use hospital guest wifi while here. Repeat faxed 2 pages of patient's DCF Review Form pertaining to income/food assistance and staff confirmed all parts were received and uploaded into her account. They also stated all other missing information would have to be provided from patient. Immediate psychosocial issues brought to the best conclusion available. Patient, her son, her SO will be staying with her friend Tamiko. They are pooling food assistance monies and incomes for the household. Patient is very proactive and capable of following through for more permanent housing. Unit RN updated about the free walker should it be needed for discharge.
[2020-10-22] MEDS: ACETAMINOPHEN 325 MG TABLET PO SCH ×5 (01:16→23:52)
[2020-10-22] MEDS: ALPRAZolam 0.25 MG (XANAX) TAB PO PRN ×3 (01:21→18:51)
[2020-10-22] MEDS: polyethylene glycoL POWDER 17 GM (MIRALAX) PACK PO SCH ×2 (04:52→21:34)
[2020-10-22 05:06] VITALS: BP 164/94
[2020-10-22] MEDS: NAPROXEN 250 MG (NAPROSYN) TABLET PO SCH ×2 (07:49→17:03)
[2020-10-22] MEDS: SENNA W/DOCUSATE (SENOKOT S) TABLET PO SCH ×2 (07:49→21:34)
[2020-10-22] MEDS: NYSTATIN CREAM (MYCOSTATIN) 30 GM TUBE TP SCH ×2 (07:50→21:34)
[2020-10-22] MEDS: NICOTINE 21 MG (NICODERM) PATCH TD SCH (07:50)
[2020-10-22] MEDS: ENOXAPARIN 40 MG/0.4 ML (LOVENOX) SYR SC SCH ×2 (07:50→21:34)
[2020-10-22] MEDS: MICONAZOLE 2% POWDER (DESENEX AF) 90 GM TOP SCH ×2 (07:50→21:34)
[2020-10-22] MEDS: DICLOFENAC 1% GEL 100 GM (VOLTAREN) TUBE TOP SCH ×4 (07:50→21:36)
[2020-10-22] MEDS: NICOTINE PATCH REMOVAL TP SCH (07:50)
--- NOTE | 2020-10-22 10:06 | Physical Therapy Daily Note ---
PT Daily Note-Current Subjective Pt presents supine in bed upon arrival to room, agreeable to therapy treatment at this time. Pt reports that her (R) knee is in pain, but doesnt answer objective pain rating. Appearance Following session, pt up in bathroom with [employer] present to get shower. Pt denies any further needs. Mental Status Patient Orientation: Person, Place, Situation Transfers SCALE: Activities may be completed with or without assistive devices. 1-Shpmewbxrs-yppqelb completes the activity by him/herself with no assistance from a helper. 5-Set-up or Clean-up Assistance-helper sets up or cleans up; patient completes activity. [place] assists only prior to or following the activity. 4-Supervision or Touching Assistance-helper provides verbal cues and/or touching/steadying and/or contact guard assistance as patient completes activity. Assistance may be provided throughout the activity or intermittently. 3-Partial/Moderate Assistance-helper does LESS THAN HALF the effort. [place] lifts, holds or supports trunk or limbs, but provides less than half the effort. 2-Substantial/Maximal Assistance-helper does MORE THAN HALF the effort. [place] lifts or holds trunk or limbs and provides more than half the effort. 3-Wlwctbpbr-ddfztt does ALL the effort. Patient does none of the effort to complete the activity. Or, the assistance of 2 or more helpers is required for the patient to complete the activity. If activity was not attempted, code reason: 7-Patient Refused. 9-Not Applicable-not attempted and the patient did not perform the activity before the current illness, exacerbation or injury. 10-Not Attempted due to Environmental Limitations-(lack of equipment, weather restraints, etc.). 88-Not Attempted due to Medical Conditions or Safety Concerns. Roll Left & Right (QC): 6 Sit to Lying (QC): 6 Lying to Sitting/Side of Bed(Q: 6 Sit to Stand (QC): 6 Chair/Pgz-nq-Cqrfl Xfer(QC): 6 Toilet Transfer (QC): 6 Car Transfer (QC): 6 Weight Bearing Right Lower Extremity: Right Full Weight Bearing Left Lower Extremity: Left Full Weight Bearing Gait Training Walk 10 feet (QC): 6 Walk 50 ft with 2 Turns(QC): 6 Walk 150 ft (QC): 6 Gait Assistive Device: FWW Stair Training 1 Step (curb) (QC): 6 4 Steps (QC): 4 12 Steps (QC): 4 Stairs: Pattern: Step to Balance Picking up an Object (QC): 4 Exercises Supine Ex: Quad Set, Glut sets, Short Arc Quads Treatments Pt transfer from supine position to standing (I) to ambulate to simulated car transfer, pt then ambulates to gym and completes 4 steps x 4 times with verbal cueing for sequencing. Pt then completes supine exercises for knee extension in therapy gym before returning to room with [employer] to shower. Assessment Current Status: Good Progress Pt continues to lack full knee extension with ambulation, pt continues to improve with functional mobility, able to safety ascend and descend steps and ambulate further distances. PT Short Term Goals Short Term Goals Time Frame: Oct 21, 2020 Roll Left & Right: 4 Sit to lyin Lying to sitting on side of be: 4 Chair/yyi-uc-ysnig transfer: 4 Toilet transfer: 4 Car transfer: 4 Walk 10 feet: 4 1 step (curb): 3 Picking up objects: 3 Wheel 50ft w/2 turns: 4 Wheel 150 feet: 4 PT Environmental Services Worker Goals Skilled Nursing Goals PT Environmental Services Worker Goals Time Frame: Nov 04, 2020 Roll Left & Right (QC): 6 Sit to Lying (QC): 6 Lying-Sitting on Side/Bed(QC): 6 Sit to Stand (QC): 6 Chair/Gax-sr-Axbic Xfer(QC): 6 Toilet Transfer (QC): 6 Car Transfer (QC): 6 Does the Patient Walk: Yes Walk 10 feet (QC): 6 Walk 50ft with 2 Turns (QC): 6 Walk 150 ft (QC): 6 Walking 10ft on Uneven Surface: 6 1 Step (curb) (QC): 6 4 Steps (QC): 4 12 Steps (QC): 88 Picking up an Object (QC): 6 Wheel 50 feet with 2 turns (QC: 6 Wheel 150 feet: 6 PT Plan Problem List Problem List: Activity Tolerance, Functional Strength, Safety, Balance, Gait, Transfer, Bed Mobility, ROM Treatment/Plan Treatment Plan: Continue Plan of Care Treatment Plan: Bed Mobility, Education, Functional Activity Jc, Functional Strength, Group Therapy, Gait, Safety, Therapeutic Exercise, Transfers Treatment Duration: Nov 04, 2020 Frequency: At least 5 of 7 days/Wk (IRF) Estimated Hrs Per Day: 1.5 hours per day Patient and/or Family Agrees t: Yes Time/GCodes Time In: 752 Time Out: 832 Total Billed Treatment Time: 38 Total Billed Treatment 1 visit FA x 3 (38') JOHN FITZGERALD PT Oct 22, 2020 10:05
--- NOTE | 2020-10-22 16:40 | NUR ---
PICC LINE REMOVED WITHOUT DIFFICULTY.
[2020-10-22 17:52] VITALS: BP 134/84
--- NOTE | 2020-10-22 18:21 | NUR ---
HAS BEEN ON THE PHONE OFF AND ON TODAY YELLING AT VARIOUS FRIENDS AND FAMILY. PATIENT DOES NOT WANT TO GO TO HER FRIEND'S HOUSE AT [place]. HAS BEEN ORDERING COPIOUS AMOUNTS OF FOOD AND HOARDING IN ROOM.
[2020-10-23] MEDS: ACETAMINOPHEN 325 MG TABLET PO SCH ×3 (04:56→17:26)
[2020-10-23] MEDS: ALPRAZolam 0.25 MG (XANAX) TAB PO PRN ×2 (04:56→17:24)
--- NOTE | 2020-10-23 05:05 | NUR ---
Patient has been awake all night. She has been screaming and yelling at people on the phone. She is currently mad because she wanted someone to bring her food and they never did. Patient screaming on the phone that she has not ate in 14 hours. Patient has at least eaten an apple dessert with ice cream and peanut butter and crackers. Ordered xanax given.
[2020-10-23 05:12] VITALS: BP 176/103
[2020-10-23] MEDS: SENNA W/DOCUSATE (SENOKOT S) TABLET PO SCH ×2 (07:55→21:40)
[2020-10-23] MEDS: MICONAZOLE 2% POWDER (DESENEX AF) 90 GM TOP SCH ×2 (07:56→21:24)
[2020-10-23] MEDS: NICOTINE 21 MG (NICODERM) PATCH TD SCH (07:56)
[2020-10-23] MEDS: NAPROXEN 250 MG (NAPROSYN) TABLET PO SCH ×2 (07:56→17:26)
[2020-10-23] MEDS: NICOTINE PATCH REMOVAL TP SCH (07:56)
[2020-10-23] MEDS: ENOXAPARIN 40 MG/0.4 ML (LOVENOX) SYR SC SCH ×2 (07:56→21:24)
[2020-10-23] MEDS: polyethylene glycoL POWDER 17 GM (MIRALAX) PACK PO SCH ×2 (07:56→21:40)
[2020-10-23] MEDS: DICLOFENAC 1% GEL 100 GM (VOLTAREN) TUBE TOP SCH ×4 (07:57→21:25)
[2020-10-23] MEDS: NYSTATIN CREAM (MYCOSTATIN) 30 GM TUBE TP SCH ×2 (07:57→21:24)
[2020-10-23 08:00] VITALS: BP 162/88
[2020-10-23 11:07] VITALS: BP 126/78
--- NOTE | 2020-10-23 11:27 | PM&R Progress Note ---
Subjective HPI/CC On Admission Date Seen by Provider: Oct 23, 2020 Time Seen by Provider: 14:00 Subjective/Events-last exam 10/23/20: Ready for DC 10/20/20: Pt ambulating well Lungs are clear No new events 10/19/20: Yeast infection is better Bowels moved yesterday Pain is well controlled IV antibiotics completed yesterday Disposition soon 10/18/20: Pt doing about the same IV antibiotics will complete today Social work consult for placement with friend 10/17/20: Pt overly dramatic A lot of psych/social issues Pt reports she is now homeless IV antibiotics will be done tomorrow Bowels are moving well 10/16/20: Patient improved No pain reported except right knee Checked meds and labs IV Rocephin maintained Near constant manic-like behavior which appears to be chronic Very loud and opinionated and very agitated at times Told patient to take things slower and slow up her speech so we can follow her conversations more easily and help her more Pain improved since increased Oxycodone to 10mg dose BM regimen will be maintained Conferred with RN Reviewed therapy notes Checked meds and labs Objective Exam Vital Signs Vital Signs Date Time Temp Pulse Resp B/P (MAP) Pulse Ox O2 Delivery O2 Flow Rate FiO2 10/23/20 17:28 37.0 98 18 135/89 (104) 99 Room Air Capillary Refill : Less Than 3 SecondsLess Than 3 Seconds General Appearance: No Apparent Distress, WD/WN, Anxious, Chronically ill, Obese HEENT: PERRL/EOMI, Normal ENT Inspection, Pharynx Normal Neck: Full Range of Motion, Normal Inspection, Non Tender, Supple, Carotid Bruit Respiratory: Chest Non Tender, Lungs Clear, Normal Breath Sounds, No Accessory Muscle Use, No Respiratory Distress Cardiovascular: Regular Rate, Rhythm, No Gallop, No JVD, No Murmur, Normal Peripheral Pulses Gastrointestinal: Normal Bowel Sounds, No Organomegaly, No Pulsatile Mass, Non Tender, Soft Back: Normal Inspection, No CVA Tenderness, No Vertebral Tenderness Extremity: Normal Capillary Refill, Normal Inspection, Normal Range of Motion (escept right knee), Non Tender, No Calf Tenderness, Pedal Edema Neurologic/Psychiatric: Alert, Oriented x3, No Motor/Sensory Deficits, Normal Mood/Affect, Motor Weakness (generalized lower extremities mary right knee) Skin: Normal Color, Warm/Dry Lymphatic: No Adenopathy Results/Procedures Lab Patient resulted labs reviewed. FIM Transfers Therapy Code Descriptions/Definitions Functional [place] Measure: 0=Not Assessed/NA 4=Minimal Assistance 1=Total Assistance 5=Supervision or Setup 2=Maximal Assistance 6=Modified [place] 3=Moderate Assistance 7=Complete IndependenceSCALE: Activities may be completed with or without assistive devices. 2-Ymosayqgst-ydnfgqw completes the activity by him/herself with no assistance from a helper. 5-Set-up or Clean-up Assistance-helper sets up or cleans up; patient completes activity. [place] assists only prior to or following the activity. 4-Supervision or Touching Assistance-helper provides verbal cues and/or touching/steadying and/or contact guard assistance as patient completes activity. Assistance may be provided throughout the activity or intermittently. 3-Partial/Moderate Assistance-helper does LESS THAN HALF the effort. [place] lifts, holds or supports trunk or limbs, but provides less than half the effort. 2-Substantial/Maximal Assistance-helper does MORE THAN HALF the effort. [place] lifts or holds trunk or limbs and provides more than half the effort. 0-Vvwxutovn-zzvqcj does ALL the effort. Patient does none of the effort to complete the activity. Or, the assistance of 2 or more helpers is required for the patient to complete the activity. If activity was not attempted, code reason: 7-Patient Refused. 9-Not Applicable-not attempted and the patient did not perform the activity before the current illness, exacerbation or injury. 10-Not Attempted due to Environmental Limitations-(lack of equipment, weather restraints, etc.). 88-Not Attempted due to Medical Conditions or Safety Concerns. Roll Left to Right (QC): 6 Sit to Lying (QC): 6 Sit to Stand (QC): 6 Chair/Mhq-kx-[place] Xfer(QC): 6 Car Transfer (QC): 6 Gait Training Does the Patient Walk?: Yes Distance: 800' x 2 Walk 10 feet (QC): 6 Walk 50 ft with 2 Turns(QC): 6 Walk 150 ft (QC): 6 Walking 10ft/uneven surface-QC: 6 Gait Persons Needed: 1 Gait Assistive Device: FWW Wheelchair Training Does the Pt Use a Wheelchair?: No Distance: 6' Wheel 50 ft with 2 turns (QC): 4 Wheel 150 ft (QC): 88 Stair Training Stair Training: Handrails/: uses walker #of Steps: 1 1 Step (curb) (QC): 6 4 Steps (QC): 4 12 Steps (QC): 4 Stairs: Pattern: Step to Balance Picking up an Object (QC): 4 ADL-Treatment Eating (QC): 6 (using clincal judgment able to feed self independently.) Oral Hygiene (QC): 6 (IND standing at sink) Bathing Location: L Arm, R Arm, L Upper Leg, R Upper Leg, L Lower Leg (including foot), R Lower Leg (including foot), Chest, Abdomen, Buttocks, Perineal Area Shower/Bathe Self (QC): 6 Upper Body Dressing (QC): 5 (set up) Lower Body Dressing (QC): 5 (set up) On/Off Footwear (QC): 5 (set up) Toileting Hygiene (QC): 6 Toilet Transfer (QC): 6 Assessment/Plan Assessment and Plan Assess & Plan/Chief Complaint Assessment: Disseminated gonnoccal infection with right septic knee s/p I&D Smoker Obesity OA Chronic back pain Narcotic addiction potential Plan: IRF protocol Rocephin Monitor labs IV Per [facility] call today: Per Dr. Montes patient discharged on Ceftriaxone 1g IV Q24H through 10/18/20. Confirmed antibiotic orders with LALO Oneal at [facility] in [place]. No need for labs with such a short duration. 10/15/20: Slow up on rapid speech and movements Continue abx through 10/18/20 Monitor pain 10/16/20: IV abx maintained until 10/18/20 Pain meds 10/17/20: IV abx will complete tomorrow DC soon SW consult 10/18/20: Dispo soon IV abx completed 10/19/20: Monitor closely s/p abx PT OT 10/20/20: Monitor for c diff since broad spectrum abx completed Pain meds 10/23/20: DC tomorrow 0730 (1) Disseminated infection due to Neisseria gonorrhoeae Status: Acute (2) Septic arthritis of knee, right Status: Acute Qualifiers: Septic arthritis organism: due to other bacteria Qualified Codes: M00.861 - Arthritis due to other bacteria, right knee (3) Exacerbation of chronic back pain Status: Acute (4) Smoker (5) Obese SURI KLIEN 22, 2020 11:27
[2020-10-23] MEDS ORDERED: ALPR.25T PO (14:04)
[2020-10-23] MEDS ORDERED: OXC5T PO (14:04)
[2020-10-23 17:28] VITALS: BP 135/89
[2020-10-24] MEDS: ACETAMINOPHEN 325 MG TABLET PO SCH ×2 (00:09→06:28)
[2020-10-24] MEDS: ALPRAZolam 0.25 MG (XANAX) TAB PO PRN (02:47)
[2020-10-24 05:14] VITALS: BP 138/83
--- NOTE | 2020-10-24 05:44 | Discharge Summary ---
Diagnosis/Chief Complaint Date of Admission Oct 14, 2020 at 13:23 Date of Discharge Discharge Date: Oct 24, 2020 Discharge Diagnosis Assessment: Disseminated gonnoccal infection with right septic knee s/p I&D Smoker Obesity OA Chronic back pain Narcotic addiction potential Plan: IRF protocol Rocephin Monitor labs IV Per KU call today: Per Dr. Montes patient discharged on Ceftriaxone 1g IV Q24H through 10/18/20. Confirmed antibiotic orders with LALO Oneal at [facility] in [place]. No need for labs with such a short duration. 10/15/20: Slow up on rapid speech and movements Continue abx through 10/18/20 Monitor pain 10/16/20: IV abx maintained until 10/18/20 Pain meds 10/17/20: IV abx will complete tomorrow DC soon SW consult 10/18/20: Dispo soon IV abx completed 10/19/20: Monitor closely s/p abx PT OT 10/20/20: Monitor for c diff since broad spectrum abx completed Pain meds 10/23/20: DC tomorrow 0730 (1) Disseminated infection due to Neisseria gonorrhoeae Status: Acute (2) Septic arthritis of knee, right Status: Acute Qualifiers: Septic arthritis organism: due to other bacteria Qualified Codes: M00.861 - Arthritis due to other bacteria, right knee (3) Exacerbation of chronic back pain Status: Acute (4) Smoker (5) Obese Discharge Summary Discharge Physical Examination Allergies: Coded Allergies: cephalexin (Verified Allergy, Unknown, 10/14/20) clindamycin (Verified Allergy, Unknown, 10/14/20) hydroxyzine (Verified Allergy, Unknown, Rash, 10/14/20) Vitals & I&Os Vital Signs Date Time Temp Pulse Resp B/P (MAP) Pulse Ox O2 Delivery O2 Flow Rate FiO2 10/24/20 06:53 36.6 91 20 138/83 99 Room Air General Appearance: Alert, Oriented X3, Cooperative Respiratory: Clear to Auscultation Cardiovascular: Regular Rate Neuro: Normal Gait, Normal Speech, Strength at 5/5 X4 Ext Hospital Course Was the Problem List Reviewed?: Yes Hospital course: Pt had an uneventful hospital course while she was admitted she completed Rocephin for disseminated gonorrhea s/p septic right knee s/p I&D Pt overall did well she participated in all therapy but psycho-social issues caused a continued crisis requiring a lot of social media editor set-up- she did end up discharging in an uneventful manner with close follow-up at for right knee evaluation Labs (last 24 hrs) Laboratory Tests 10/15/20 06:00: White Blood Count 7.8, Red Blood Count 3.58L, Hemoglobin 10.8L, Hematocrit 33L, Mean Corpuscular Volume 93, Mean Corpuscular Hemoglobin 30, Mean Corpuscular Hemoglobin Concent 32, Red Cell Distribution Width 13.2, Platelet Count 467H, Mean Platelet Volume 10.5, Immature Granulocyte % (Auto) 0, Neutrophils (%) (Auto) 52, Lymphocytes (%) (Auto) 30, Monocytes (%) (Auto) 13H, Eosinophils (%) (Auto) 4, Basophils (%) (Auto) 0, Neutrophils # (Auto) 4.1, Lymphocytes # (Auto) 2.4, Monocytes # (Auto) 1.0, Eosinophils # (Auto) 0.3, Basophils # (Auto) 0.0, Immature Granulocyte # (Auto) 0.0, Sodium Level 139, Potassium Level 3.9, Chloride Level 102, Carbon Dioxide Level 26, Anion Gap 11, Blood Urea Nitrogen 12, Creatinine 0.63, Estimat Glomerular Filtration Rate > 60, BUN/Creatinine Ratio 19, Glucose Level 114H, Calcium Level 8.8, Corrected Calcium 9.6, Total Bilirubin 0.3, Aspartate Amino Transf (AST/SGOT) 12, Alanine Aminotransferase (ALT/SGPT) 13, Alkaline Phosphatase 65, Total Protein 6.8, Albumin 3.0L 10/17/20 05:50: White Blood Count 8.0, Red Blood Count 3.68L, Hemoglobin 11.2L, Hematocrit 35, Mean Corpuscular Volume 94, Mean Corpuscular Hemoglobin 30, Mean Corpuscular Hemoglobin Concent 32, Red Cell Distribution Width 13.1, Platelet Count 507H, Mean Platelet Volume 10.1, Immature Granulocyte % (Auto) 0, Neutrophils (%) (Auto) 51, Lymphocytes (%) (Auto) 33, Monocytes (%) (Auto) 11, Eosinophils (%) (Auto) 4, Basophils (%) (Auto) 1, Neutrophils # (Auto) 4.1, Lymphocytes # (Auto) 2.6, Monocytes # (Auto) 0.9, Eosinophils # (Auto) 0.3, Basophils # (Auto) 0.1, Immature Granulocyte # (Auto) 0.0, Sodium Level 137, Potassium Level 4.4, Chloride Level 102, Carbon Dioxide Level 26, Anion Gap 9, Blood Urea Nitrogen 13, Creatinine 0.65, Estimat Glomerular Filtration Rate > 60, BUN/Creatinine Ratio 20, Glucose Level 93, Calcium Level 9.0, Corrected Calcium 9.6, Total Bilirubin 0.3, Aspartate Amino Transf (AST/SGOT) 17, Alanine Aminotransferase (ALT/SGPT) 19, Alkaline Phosphatase 68, Total Protein 7.1, Albumin 3.2 Pending Labs Laboratory Tests 10/15/20 06:00: White Blood Count 7.8, Red Blood Count 3.58, Hemoglobin 10.8, Hematocrit 33, Mean Corpuscular Volume 93, Mean Corpuscular Hemoglobin 30, Mean Corpuscular Hemoglobin Concent 32, Red Cell Distribution Width 13.2, Platelet Count 467, Mean Platelet Volume 10.5, Immature Granulocyte % (Auto) 0, Neutrophils (%) (Auto) 52, Lymphocytes (%) (Auto) 30, Monocytes (%) (Auto) 13, Eosinophils (%) (Auto) 4, Basophils (%) (Auto) 0, Neutrophils # (Auto) 4.1, Lymphocytes # (Auto) 2.4, Monocytes # (Auto) 1.0, Eosinophils # (Auto) 0.3, Basophils # (Auto) 0.0, Immature Granulocyte # (Auto) 0.0, Sodium Level 139, Potassium Level 3.9, Chloride Level 102, Carbon Dioxide Level 26, Anion Gap 11, Blood Urea Nitrogen 12, Creatinine 0.63, Estimat Glomerular Filtration Rate > 60, BUN/Creatinine Ratio 19, Glucose Level 114, Calcium Level 8.8, Corrected Calcium 9.6, Total Bilirubin 0.3, Aspartate Amino Transf (AST/SGOT) 12, Alanine Aminotransferase (ALT/SGPT) 13, Alkaline Phosphatase 65, Total Protein 6.8, Albumin 3.0 10/17/20 05:50: White Blood Count 8.0, Red Blood Count 3.68, Hemoglobin 11.2, Hematocrit 35, Mean Corpuscular Volume 94, Mean Corpuscular Hemoglobin 30, Mean Corpuscular Hemoglobin Concent 32, Red Cell Distribution Width 13.1, Platelet Count 507, Mean Platelet Volume 10.1, Immature Granulocyte % (Auto) 0, Neutrophils (%) (Auto) 51, Lymphocytes (%) (Auto) 33, Monocytes (%) (Auto) 11, Eosinophils (%) (Auto) 4, Basophils (%) (Auto) 1, Neutrophils # (Auto) 4.1, Lymphocytes # (Auto) 2.6, Monocytes # (Auto) 0.9, Eosinophils # (Auto) 0.3, Basophils # (Auto) 0.1, Immature Granulocyte # (Auto) 0.0, Sodium Level 137, Potassium Level 4.4, Chloride Level 102, Carbon Dioxide Level 26, Anion Gap 9, Blood Urea Nitrogen 13, Creatinine 0.65, Estimat Glomerular Filtration Rate > 60, BUN/Creatinine Ratio 20, Glucose Level 93, Calcium Level 9.0, Corrected Calcium 9.6, Total Bilirubin 0.3, Aspartate Amino Transf (AST/SGOT) 17, Alanine Aminotransferase (ALT/SGPT) 19, Alkaline Phosphatase 68, Total Protein 7.1, Albumin 3.2 Discharge Home Medications: Active Scripts Active Xanax Tablet (Alprazolam) 0.25 Mg Tab 0.25 Mg PO Q8H PRN Oxyir Tablet (Oxycodone HCl) 5 Mg Tab 10 Mg PO Q4H PRN Reported Naproxen 500 Mg Tablet 500 Mg PO BID WITH MEALS Cyclobenzaprine HCl 10 Mg Tablet 10 Mg PO TID PRN Instructions to patient/family Please see electronic discharge instructions given to patient. Diagnosis/Problems Diagnosis/Problems (1) Disseminated infection due to Neisseria gonorrhoeae Status: Acute (2) Septic arthritis of knee, right Status: Acute Qualifiers: Qualified Codes: M00.861 - Arthritis due to other bacteria, right knee (3) Exacerbation of chronic back pain Status: Acute (4) Smoker (5) Obese Clinical Quality Measures DVT/VTE Risk/Contraindication: Risk Factor Score Per Nursin RFS Level Per Nursing on Admit: 4+=Very High SURI KLEIN DO Oct 24, 2020 05:44
[2020-10-24 06:53] VITALS: BP 138/83
--- NOTE | 2020-10-24 07:00 | Occupational Ther Daily Note ---
OT Current Status-Daily Note Subjective Pt alert, in bathroom. Per nrsg and pt, pt did not want to wait for OT to take shower for reassessment. Pt told nrsg that she understood that OT wanted pt to wait to shower. Pt took shower at 0100. Pt wanted to have OT work on stairs instead. Mental Status/Objective Patient Orientation: Person, Place, Time, Situation ADL-Treatment Therapy Code Descriptions/Definitions Functional Linch Measure: 0=Not Assessed/NA 4=Minimal Assistance 1=Total Assistance 5=Supervision or Setup 2=Maximal Assistance 6=Modified Linch 3=Moderate Assistance 7=Complete IndependenceSCALE: Activities may be completed with or without assistive devices. 5-Qziifxpwpg-ehmbusj completes the activity by him/herself with no assistance from a helper. 5-Set-up or Clean-up Assistance-helper sets up or cleans up; patient completes activity. [place] assists only prior to or following the activity. 4-Supervision or Touching Assistance-helper provides verbal cues and/or touching/steadying and/or contact guard assistance as patient completes activity. Assistance may be provided throughout the activity or intermittently. 3-Partial/Moderate Assistance-helper does LESS THAN HALF the effort. [place] lifts, holds or supports trunk or limbs, but provides less than half the effort. 2-Substantial/Maximal Assistance-helper does MORE THAN HALF the effort. [place] lifts or holds trunk or limbs and provides more than half the effort. 8-Fxpqvhawi-qipcco does ALL the effort. Patient does none of the effort to complete the activity. Or, the assistance of 2 or more helpers is required for the patient to complete the activity. If activity was not attempted, code reason: 7-Patient Refused. 9-Not Applicable-not attempted and the patient did not perform the activity before the current illness, exacerbation or injury. 10-Not Attempted due to Environmental Limitations-(lack of equipment, weather restraints, etc.). 88-Not Attempted due to Medical Conditions or Safety Concerns. Eating (QC): 6 (Pt able to complete own set up and use regular utensils.) Oral Hygiene (QC): 6 (Per nrsg and pt, pt completed by self standing at sink.) Bathing Location: L Arm, R Arm, L Upper Leg, R Upper Leg, L Lower Leg (including foot), R Lower Leg (including foot), Chest, Abdomen, Buttocks, Perineal Area Shower/Bathe Self (QC): 6 (Per nrsg and pt, pt able to set up and clean up for shower. Pt completed shower sitting on BSC in shower independently.) Upper Body Dressing (QC): 6 (Per nrsg and pt, pt retrieved clothing using FWW and completed dressing independently.) Lower Body Dressing (QC): 6 (Per nrsg and pt, pt retrieved clothing using FWW and completed dressing independently.) On/Off Footwear: 6 (Per nrsg and pt, pt retrieved clothing using FWW and completed dressing independently.) Toileting Hygiene (QC): 6 (Pt able to complete own toileting independently.) Toilet Transfer (QC): 6 (Using FWW, pt able to complete transfer independently.) OT Short Term Goals Short Term Goals Time Frame: Oct 21, 2020 Shower/bathe self: 5 Lower body dressin OT Spring Upholsterer Goals Spring Upholsterer Goals Time Frame: Oct 28, 2020 Eating (QC): 6 Oral Hygiene (QC): 6 Toileting Hygiene (QC): 6 Shower/Bathe Self (QC): 6 Upper Body Dressing (QC): 6 Lower Body Dressing (QC): 6 On/Off Footwear (QC): 6 Additional Goals: 1-Demonstrate ADL Tasks, 2-Verbalize Understanding, 3- ImproveStrength/Jc 1=Demonstrate adherence to instructed precautions during ADL tasks. 2=Patient will verbalize/demonstrate understanding of assistive devices/modifications for ADL. 3=Patient will improve strength/tolerance for activity to enable patient to perform ADL's. OT Education/Plan Discharge Recommendations Plan/Recommendations: Discharge/Goals Met Treatment Plan/Plan of Care Patient would benefit from OT for education, treatment and training to promote independence in ADL's, mobility, safety and/or upper extremity function for ADL's. Plan of Care: ADL Retraining, Caregiver Training, Concurrent Therapy, Functional Mobility, Group Exercise/Act as Ind, UE Funct Exercise/Act, UE Neur omus Re-Ed/Coord, W/C Management Training Treatment Duration: Oct 28, 2020 Frequency: At least 5 of 7 days/Wk (IRF) Estimated Hrs Per Day: 1.5 hours per day Agreement: Yes Rehab Potential: Fair Time/GCodes Start Time: 06:30 Stop Time: 06:45 Total Time Billed (hr/min): 15 Billed Treatment Time 1 visit-ADL 1 (15 min) JONNY MUÑIZ Oct 24, 2020 07:00
--- NOTE | 2020-10-24 11:21 | NUR ---
CM/SS DISCHARGE Patient discharged this a.m. as planned. Patient was going to a f/u appointment at [facility] with her surgeon, she left via [employer] transport that she self-scheduled. Patient had previously stated she was on the phone with transport services 1.5 hours demanding they allow she take two persons with her to assist her if needed, that being her son Isiah and her SO Mark Pena. It is unknown whether [employer] did allow passengers; however, patient soon contacted assigned RN that the backhaul driver was "threatening to leave Isiah in . [place]" and continue on with the transport to . Patient was demanding that RN cancel her appointment at so that she could return home because of the situation with the backhaul driver. Patient was discharged and exited from campus. Patient is quite capable to make phone calls and to self direct her care and/or arrangements. Staff involvement was not warranted nor appropriate. OP PT: [facility] [employer] [facility] completed referral this a.m., patient's appointment is October 25, at 1415. Texted patient re same, discharge instructions directed patient to call to confirm appointment as well. All appropriate resources were either provided for patient or pursued on her behalf while here as a patient. Many layers of long-standing psychosocial issues.
--- NOTE | 2020-10-24 12:48 | Therapy Team Discharge Summary ---
Therapy Discharge Summary Discharge Recommendations Date of Discharge Oct 24, 2020 at 07:30 Physical Therapy Patient came to rehab following right knee surgery after pain/infection. Upon evaluation patient performed bed mobility and transfers with min assist, ambulated 10' with a rolling walker with CGA and propelled a manual WC 6' with max assist. Patient has been performing bed mobility and transfer training, balance and endurance training, functional strengthening, stair training, gait training, and education. Patient has made good progress and has met all of her fdc goals. Now, patient performs bed mobility and transfers with independence, car transfer independent, ambulates 150' with a rolling walker with independence (including 50' with at least 2 turns of 90 degrees and 10' over an uneven surface), can go up and down 12 steps with CGA, and can pick up and delivery driver an object from the floor with CGA. Patient has discharged from this facility and will be discharged from PT at this time. Occupational Therapy Decreased Activ Tolerance, Decreased UE Strength, Impaired I ADL's PT Oil Changer Goals Oil Changer Goals PT Oil Changer Goals Time Frame: Nov 04, 2020 Roll Left to Right (QC): 6 Sit to Lying (QC): 6 Lying-Sitting on Side/Bed(QC): 6 Sit to Stand (QC): 6 Chair/Vod-jc-Yjphr Xfer(QC): 6 Car Transfer (QC): 6 Does the Patient Walk: Yes Walk 10 feet (QC): 6 Walk 10ft-Uneven Surface(QC): 6 Walk 50ft with 2 Turns (QC): 6 Walk 150 ft (QC): 6 Wheelchair distance (FIM): 3=150 ft Wheel 50 feet with 2 turns (QC: 6 1 Step (curb) (QC): 6 4 Steps (QC): 4 12 Steps (QC): 88 Picking up an Object (QC): 6 OT Prison Goals Prison Goals Time Frame: Oct 28, 2020 Eating (FIM): 6 Eating (QC): 6 Oral Hygiene (QC): 6 Grooming(FIM): 6 Bathing(FIM): 6 Shower/Bathe Self (QC): 6 Upper Body Dressing(FIM): 6 Upper Body Dressing (QC): 6 Lower Body Dressing(FIM): 6 Lower Body Dressing (QC): 6 On/Off Footwear (QC): 6 Toileting(FIM): 6 Toileting Hygiene (QC): 6 Toilet/Commode Transfer (QC): 6 Social Interaction(FIM): 6 Problem Solving(FIM): 6 Memory(FIM): 6 Additional Goals: 1-Demonstrate ADL Tasks, 2-Verbalize Understanding, 3- ImproveStrength/Jc 1=Demonstrate adherence to instructed precautions during ADL tasks. 2=Patient will verbalize/demonstrate understanding of assistive devices/modifications for ADL. 3=Patient will improve strength/tolerance for activity to enable patient to perform ADL's. Speech Prison Goals Oil Changer Goals Social Interaction: 6 Problem Solvin Memory: 6 DAVID VAIL PT Oct 24, 2020 12:48
--- NOTE | 2020-10-24 14:57 | Therapy Team Discharge Summary ---
Therapy Discharge Summary Discharge Recommendations Date of Discharge Oct 24, 2020 at 07:30 Occupational Therapy Pt admits with knee pain post-infection. Pt able to complete oral care and ea ting with IND, showering and toileting with CGA, and UB/ LB dressing with min- mod A and footwear with max A. Pt and OT staff work toward higher level fx IND through ADL tasks, UE strengthening, safety training, fx activity tolerance, etc. Pt limited by pain and attention to task. Pt meets all goals, d/c's with all ADLs at IND level. Pt dc home to friends' house. Pt d/c OT. Decreased Activ Tolerance, Decreased UE Strength, Impaired I ADL's PT Custodial Goals It Desktop Support Technician Goals PT It Desktop Support Technician Goals Time Frame: Nov 04, 2020 Roll Left to Right (QC): 6 Sit to Lying (QC): 6 Lying-Sitting on Side/Bed(QC): 6 Sit to Stand (QC): 6 Chair/Erk-uy-Tsqik Xfer(QC): 6 Car Transfer (QC): 6 Does the Patient Walk: Yes Walk 10 feet (QC): 6 Walk 10ft-Uneven Surface(QC): 6 Walk 50ft with 2 Turns (QC): 6 Walk 150 ft (QC): 6 Wheelchair distance (FIM): 3=150 ft Wheel 50 feet with 2 turns (QC: 6 1 Step (curb) (QC): 6 4 Steps (QC): 4 12 Steps (QC): 88 Picking up an Object (QC): 6 OT Custodial Goals Custodial Goals Time Frame: Oct 28, 2020 Eating (FIM): 6 Eating (QC): 6 Oral Hygiene (QC): 6 Grooming(FIM): 6 Bathing(FIM): 6 Shower/Bathe Self (QC): 6 Upper Body Dressing(FIM): 6 Upper Body Dressing (QC): 6 Lower Body Dressing(FIM): 6 Lower Body Dressing (QC): 6 On/Off Footwear (QC): 6 Toileting(FIM): 6 Toileting Hygiene (QC): 6 Toilet/Commode Transfer (QC): 6 Social Interaction(FIM): 6 Problem Solving(FIM): 6 Memory(FIM): 6 Additional Goals: 1-Demonstrate ADL Tasks, 2-Verbalize Understanding, 3- ImproveStrength/Jc 1=Demonstrate adherence to instructed precautions during ADL tasks. 2=Patient will verbalize/demonstrate understanding of assistive devices/modifications for ADL. 3=Patient will improve strength/tolerance for activity to enable patient to perform ADL's. Speech Custodial Goals It Desktop Support Technician Goals Social Interaction: 6 Problem Solvin Memory: 6 AMINAH NARAYAN OTR Oct 24, 2020 14:57
== END 2020-10-24 07:30 | disposition home or self-care (01) | DRG 549 ==
PROVIDERS: ADMIT Internal Medicine; ATTEND Internal Medicine
DX: A54.42 Gonococcal arthritis (principal); Z68.42 Body mass index [BMI] 45.0-49.9, adult; M54.40 Lumbago with sciatica, unspecified side; M47.816 Spondylosis without myelopathy or radiculopathy, lumbar region; M47.897 Other spondylosis, lumbosacral region; M48.04 Spinal stenosis, thoracic region; M48.061 Spinal stenosis, lumbar region without neurogenic claudication; F17.210 Nicotine dependence, cigarettes, uncomplicated; F12.90 Cannabis use, unspecified, uncomplicated; E66.9 Obesity, unspecified; F41.9 Anxiety disorder, unspecified; F31.9 Bipolar disorder, unspecified; I10 Essential (primary) hypertension; B37.2 Candidiasis of skin and nail; Z90.89 Acquired absence of other organs
CPT/HCPCS: 36415; 80053; 85025; 94760

== ENCOUNTER 2020-12-01 14:31 | Emergency (ER) | payer MEDICAID ==
[~2020-12-01] VITALS: Ht 185.4 cm; Wt 144.1 kg
[~2020-12-01 14:31] MED LIST changes: -ACETAMINOPHEN 325 MG TABLET ONE; -ACETAMINOPHEN 500 MG TAB (TYLENOL) PO PRN; +ALPR.25T PO; -ALPRAZolam 0.25 MG (XANAX) TAB ONE; -BISACODYL 10 MG SUPP (DULCOLAX) PR PRN; -CALCIUM CARBONATE 500 MG (TUMS) TAB.CHEW PO PRN; -CYCLOBENZAPRINE 10 MG (FLEXERIL) TAB PO PRN; -DOCUSATE SODIUM 100 MG (COLACE) CAP PO PRN; -ENOXAPARIN 40 MG/0.4 ML (LOVENOX) SYR SC SCH; -FLEET ENEMA ADULT 1 EA BTL PR PRN; -LACTULOSE SYRUP 10GM/15ML (ENULOSE) 30ML UDC PO PRN; -LOPERAMIDE 2 MG (IMODIUM) TABLET PO PRN; -MELATONIN 3 MG TABLET PO PRN; -NICO-588 TD; +NICO-685 TD; -NON-FORMULARY MEDICATION 1 EA EA (Acetaminophen (Tylenol) 650 MG) PO SCH; -NON-FORMULARY MEDICATION 1 EA EA (Hydroxyzine HCl 25 MG) PO PRN; -ONDANSETRON 4 MG (ZOFRAN) ORAL DISSOLVE TAB PO PRN; +OXC5T PO; -RT-ALBUTEROL SULF 2.5 MG/3 ML PRE-MIX VIAL IH PRN; -diphenhydrAMINE 25 MG TAB (BENADRYL) PO PRN; -guaiFENesin/CODEINE (ROBITUSSIN AC) 10ML UDC PO PRN; -polyethylene glycoL POWDER 17 GM (MIRALAX) PACK PO PRN
[2020-12-01 14:40] VITALS: BP 145/98
--- NOTE | 2020-12-01 15:31 | ED Lower Extremity ---
General Chief Complaint: Lower Extremity Stated Complaint: LEFT HAND INFECTION Source: patient Exam Limitations: no limitations History of Present Illness Date Seen by Provider: Dec 01, 2020 Time Seen by Provider: 15:04 Initial Comments Patient presents to the ER by private conveyance with chief complaint that she was having some increased tenderness and pain in her right lower extremity as well as in her ring finger of her left hand with a new onset in the last couple days inability to completely extend her ring finger on the left hand. Patient does not have a known history of Dupuytren's contracture. She is not having any fever or chills but she is concerned that her pain is the same presentation when she had disseminated gonorrhea to her joints and had to go to for surgery. She has not recently been on any antibiotics or antipyretics. She is in physical therapy at [facility] outpatient. Her therapist told her that today she was doing very well. Allergies and Home Medications Allergies Coded Allergies: cephalexin (Verified Allergy, Unknown, 10/14/20) clindamycin (Verified Allergy, Unknown, 10/14/20) hydroxyzine (Verified Allergy, Unknown, Rash, 10/14/20) Home Medications ALPRAZolam 0.25 Mg Tab, 0.25 MG PO Q8H PRN for ANXIETY Prescribed by: SURI KLEIN on 10/23/20 1404 Cyclobenzaprine HCl 10 Mg Tablet, 10 MG PO TID PRN for MUSCLE CRAMPS, (Reported) Naproxen 500 Mg Tablet, 500 MG PO BID WITH MEALS, (Reported) Oxycodone Hcl 5 Mg Tab, 10 MG PO Q4H PRN for PAIN-SEVERE (8-10) Prescribed by: SURI KLEIN on 10/23/20 1404 Patient Home Medication List Home Medication List Reviewed: Yes Review of Systems Constitutional: No chills, No diaphoresis EENTM: No ear pain, No eye pain Respiratory: No cough, No wheezing Cardiovascular: No chest pain, No palpitations Gastrointestinal: No abdominal pain, No nausea Genitourinary: No discharge, No hesitancy : No Control/STD Prophylaxis: None Musculoskeletal: see HPI All Other Systems Reviewed Negative Unless Noted: Yes Past Twhtvum-Puwlyy-Smrvzq Hx Patient Social History Alcohol Use: Occasionally Uses Alcohol Beverage of Choice: Beer Recreational Drug Use: Yes Drug of Choice: THC Smoking Status: Current Everyday Smoker Type Used: Cigarettes 2nd Hand Smoke Exposure: No Recent Foreign Travel: No Contact w/Someone Who Travel: No Recent Hopitalizations: Yes (10/04/20 GONORHHEA INDUCED SEPTIC ARTHRITIS) Immunizations Up To Date Tetanus Booster (TDap): Less than 5yrs PED Vaccines UTD: No Seasonal Allergies Seasonal Allergies: Yes Past Medical History Surgeries: Yes Adenoidectomy, Orthopedic, Tonsillectomy, Tubal Ligation Respiratory: Yes Asthma Cardiac: Yes Hypertension Neurological: No Reproductive Disorders: No HEAD BAGGAGE PORTER History: Tubal Ligation Sexually Transmitted Disease: No Genitourinary: No Gastrointestinal: No Musculoskeletal: Yes Degenerate Disk Disease, Arthritis, Chronic Back Pain Endocrine: Yes (MORBID OBESITY) HEENT: Yes (S/P T&A) Tonsilitis Cancer: No Psychosocial: Yes Anxiety, Bipolar, Depression Integumentary: Yes (SORES FROM GONORRHEA INFECTION) Recent Skin Changes Blood Disorders: No Adverse Reaction/Blood Tranf: No Family Medical History Arthritis 19 MOTHER Cardiovascular disease 19 MOTHER Diabetes mellitus 19 FATHER (LUPUS) FH: lupus erythematosus No Pertinent Family Hx Physical Exam Vital Signs Vital Signs - First Documented 12/01/20 14:40 Temp 36.1 Pulse 67 Resp 16 B/P (MAP) 145/98 (114) Pulse Ox 98 O2 Delivery Room Air Capillary Refill : Height, Weight, BMI Height: 6'1.00" Weight: 318lbs. 0oz. 144.895600ls; 42.77 BMI Method:Stated General Appearance: no apparent distress, obese HEENT: PERRL/EOMI, pharynx normal Neck: full range of motion, normal inspection Cardiovascular: normal peripheral pulses, regular rate, rhythm Respiratory: no respiratory distress, no accessory muscle use Hips: bilateral hip non-tender, bilateral hip normal inspection, bilateral hip normal range of motion, bilateral hip no evidence of injury Legs: left leg non-tender, left leg normal inspection; bilateral leg normal range of motion, bilateral leg no evidence of injury; right leg pain, right leg soft tissue tenderness (Calf mild tenderness to palpation), right leg swelling (Mildly larger than left leg) Knees: bilateral knee non-tender; left knee normal inspection; bilateral knee normal range of motion; right knee other (Well-healed surgical scar over the anterior knee with mobile patella and no tenderness to manipulation) Ankles: bilateral ankle non-tender, bilateral ankle normal inspection, bilateral ankle normal range of motion, bilateral ankle no evidence of injury Neurologic/Tendon: normal sensation, normal motor functions, normal tendon functions Neurologic/Psychiatric: alert, oriented x 3, other (Anxious affect) Skin: normal color, warm/dry Left hand ring finger has about 10 to 15degrees lacking in total extension at the medial phalangeal joint. The flexor tendon is taut but does not have any nodules palpable on it. Progress/Results/Core Measures Results/Orders Lab Results Laboratory Tests Test 12/01/20 16:15 Range/Units White Blood Count 8.7 4.3-11.0 10^3/uL Red Blood Count 4.33 3.80-5.11 10^6/uL Hemoglobin 13.2 11.5-16.0 g/dL Hematocrit 41 35-52 % Mean Corpuscular Volume 95 80-99 fL Mean Corpuscular Hemoglobin 31 25-34 pg Mean Corpuscular Hemoglobin Concent 32 32-36 g/dL Red Cell Distribution Width 13.3 10.0-14.5 % Platelet Count 274 130-400 10^3/uL Mean Platelet Volume 10.9 9.0-12.2 fL Immature Granulocyte % (Auto) 0 % Neutrophils (%) (Auto) 62 42-75 % Lymphocytes (%) (Auto) 27 12-44 % Monocytes (%) (Auto) 9 0-12 % Eosinophils (%) (Auto) 2 0-10 % Basophils (%) (Auto) 0 0-10 % Neutrophils # (Auto) 5.4 1.8-7.8 10^3/uL Lymphocytes # (Auto) 2.4 1.0-4.0 10^3/uL Monocytes # (Auto) 0.8 0.0-1.0 10^3/uL Eosinophils # (Auto) 0.2 0.0-0.3 10^3/uL Basophils # (Auto) 0.0 0.0-0.1 10^3/uL Immature Granulocyte # (Auto) 0.0 0.0-0.1 10^3/uL Sodium Level 137 135-145 MMOL/L Potassium Level 3.7 3.6-5.0 MMOL/L Chloride Level 102 98-107 MMOL/L Carbon Dioxide Level 26 21-32 MMOL/L Anion Gap 9 5-14 MMOL/L Blood Urea Nitrogen 8 7-18 MG/DL Creatinine 0.62 0.60-1.30 MG/DL Estimat Glomerular Filtration Rate > 60 BUN/Creatinine Ratio 13 Glucose Level 87 70-105 MG/DL Calcium Level 8.8 8.5-10.1 MG/DL Corrected Calcium 9.0 8.5-10.1 MG/DL Total Bilirubin 0.4 0.1-1.0 MG/DL Aspartate Amino Transf (AST/SGOT) 9 5-34 U/L Alanine Aminotransferase (ALT/SGPT) 14 0-55 U/L Alkaline Phosphatase 68 40-136 U/L C-Reactive Protein High Sensitivity 0.55 H 0.00-0.50 MG/DL Total Protein 7.1 6.4-8.2 GM/DL Albumin 3.8 3.2-4.5 GM/DL Procalcitonin 0.03 <0.10 NG/ML My Orders Orders - JASMEET KASPER Cbc With Automated Diff (12/01/20 15:25) Comprehensive Metabolic Panel (12/01/20 15:25) Hs C Reactive Protein (12/01/20 15:25) Procalcitonin (Pct) (12/01/20 15:25) Fibrin Degradation Products (12/01/20 15:25) Hand, Left, 3 Views (12/01/20 15:25) Vital Signs/I&O 12/01/20 14:40 Temp 36.1 Pulse 67 Resp 16 B/P (MAP) 145/98 (114) Pulse Ox 98 O2 Delivery Room Air Progress Progress Note #1: Time: 15:33 Progress Note Her vital signs are aseptic. Her hand shows no evidence of a cellulitis or inflamed joint but rather I suspect she has a little Dupuytren's contracture erupting. She says it has been going on ever since her disseminated gonorrhea infection and she feels like it has gotten worse in the past 2 days. Her knee shows no erythema but is mildly more swollen than the other probably owing to the recent surgery. Because she is a smoker and is in rehab it is reasonable to consider the possibility of a DVT. She is not having any shortness of breath or chest pain. Plan to get a D-dimer and if that fails to rule out a blood clot we can have her get an ultrasound. Progress Note #2: Time: 17:04 Progress Note Patient states she has waited too long would like to go home. Was explained all of her labs are not back. Her markers for inflammation and infection are nonexistent however the D-dimer is still pending and it is unknown how we would treat her without that number. She declined to wait any longer and signed out AGAINST MEDICAL ADVICE. She was instructed to follow-up with primary care. Diagnostic Imaging Diagonstic Imaging: Xray Plain Films/CT/US/NM/MRI: hand (left) Comments [facility]. [place], [place] NAME: WINSOME MORTON [facility] REC#: [id number] PT STATUS: REG ER : 1980 PHYSICIAN: JASMEET KASPER MD ADMIT DATE: 12/01/20/ER Signed Date of Exam:12/01/20 HAND, LEFT, 3 VIEWS INDICATION: Left hand pain sepsis on October 03, now having tingling and numbness in the 4th finger. Swollen and tender. PROCEDURE: Three views of the left hand demonstrate no evidence of osteomyelitis. No air is seen within the soft tissues. There is no significant swelling identified. Minimal degenerative changes are present. IMPRESSION: There are minimal degenerative changes. No evidence of osteomyelitis or gas forming organism is present. Dictated by: Dictated on workstation # [id number] Dict: 12/01/20 1604 Trans: 12/01/[address] [facility] [id number] Interpreted by: JERRY SMITH MD Electronically signed by: JERRY SMITH MD 12/01/20 1611 Reviewed: Reviewed by Me Departure Impression Primary Impression: Dupuytren's contracture of left hand Additional Impression: Right leg pain Disposition: AGAINST MEDICAL ADVICE Condition: Against Medical Advice Departure-Patient Inst. Decision time for Depature: 17:00 Referrals: NO,LOCAL PHYSICIAN (PCP/Family) Primary Care Physician Patient Instructions: Muscle and Bone Pain (DC), Dupuytren's Contracture Add. Discharge Instructions: Follow-up with your primary care doctor. Return to the nearest ER if you have chest pain or shortness of air. Tylenol 1000 mg every 8 hours as necessary for pain. All discharge instructions reviewed with patient and/or family. Voiced understanding. JASMEET KASPER Dec 01, 2020 15:31
--- NOTE | 2020-12-01 16:10 | Diagnostic Imaging Report ---
INDICATION: Left hand pain sepsis on October 03, now having tingling and numbness in the 4th finger. Swollen and tender. PROCEDURE: Three views of the left hand demonstrate no evidence of osteomyelitis. No air is seen within the soft tissues. There is no significant swelling identified. Minimal degenerative changes are present. IMPRESSION: There are minimal degenerative changes. No evidence of osteomyelitis or gas forming organism is present. Dictated by: Dictated on workstation # [id number]
[2020-12-01 16:19] LABS: BASOPHILS % (AUTO) 0 % (0-10); EOSINOPHILS # (AUTO) 0.2 10^3/uL (0.0-0.3); EOSINOPHILS % (AUTO) 2 % (0-10); HEMATOCRIT 41 % (35-52); HEMOGLOBIN 13.2 g/dL (11.5-16.0); LYMPHOCYTES # (AUTO) 2.4 10^3/uL (1.0-4.0); LYMPHOCYTES % (AUTO) 27 % (12-44); MEAN CORPUSCULAR HEMOGLOBIN 31 pg (25-34); MEAN CORPUSCULAR HGB CONC 32 g/dL (32-36); MEAN CORPUSCULAR VOLUME 95 fL (80-99); MEAN PLATELET VOLUME 10.9 fL (9.0-12.2); MONOCYTES # (AUTO) 0.8 10^3/uL (0.0-1.0); MONOCYTES % (AUTO) 9 % (0-12); NEUTROPHILS # (AUTO) 5.4 10^3/uL (1.8-7.8); NEUTROPHILS % (AUTO) 62 % (42-75); PLATELET COUNT 274 10^3/uL (130-400); WHITE BLOOD COUNT 8.7 10^3/uL (4.3-11.0)
[2020-12-01 16:27] LABS: ALBUMIN 3.8 GM/DL (3.2-4.5); CHLORIDE 102 MMOL/L (98-107); POTASSIUM 3.7 MMOL/L (3.6-5.0); SODIUM 137 MMOL/L (135-145)
[2020-12-01 16:29] LABS: CALCIUM 8.8 MG/DL (8.5-10.1)
[2020-12-01 16:30] LABS: GLUCOSE 87 MG/DL (70-105); TOTAL PROTEIN 7.1 GM/DL (6.4-8.2)
[2020-12-01 16:31] LABS: CARBON DIOXIDE 26 MMOL/L (21-32)
[2020-12-01 16:32] LABS: BILIRUBIN,TOTAL 0.4 MG/DL (0.1-1.0)
[2020-12-01 16:33] LABS: ALKALINE PHOSPHATASE 68 U/L (40-136)
[2020-12-01 16:34] LABS: CREATININE SERUM 0.62 MG/DL (0.60-1.30); GFR ESTIMATED > 60
[2020-12-01 16:35] LABS: BUN/CREATININE RATIO 13
[2020-12-01 16:36] LABS: ALANINE AMINOTRANSFERASE 14 U/L (0-55)
== END 2020-12-01 16:57 | disposition left against medical advice (07) ==
LOC: EDUNIT# 14:31 → ER 14:37
DX: M72.0 Palmar fascial fibromatosis [Dupuytren] (principal); M79.604 Pain in right leg; E66.01 Morbid (severe) obesity due to excess calories; G89.29 Other chronic pain; M54.9 Dorsalgia, unspecified; F41.9 Anxiety disorder, unspecified; F17.210 Nicotine dependence, cigarettes, uncomplicated; Z68.41 Body mass index [BMI] 40.0-44.9, adult; Z82.61 Family history of arthritis; Z82.49 Family history of ischemic heart disease and other diseases of the circulatory system; Z83.3 Family history of diabetes mellitus; Z88.1 Allergy status to other antibiotic agents; Z88.8 Allergy status to other drugs, medicaments and biological substances; Z79.891 Long term (current) use of opiate analgesic
CPT/HCPCS: 36415; 73130; 80053; 84145; 85025; 85379; 86141; 99283

== ENCOUNTER → 2021-02-01 | Outpatient (RCR) | payer MEDICAID ==
[~2021-02-01] MED LIST changes: +ESCI20TA39; -ESCI20TA45
== END | disposition home or self-care (01) ==
PROVIDERS: ATTEND Internal Medicine
DX: R26.9 Unspecified abnormalities of gait and mobility (principal); R29.898 Other symptoms and signs involving the musculoskeletal system; Z98.890 Other specified postprocedural states

== ENCOUNTER 2021-03-03 12:40 | Outpatient (RCR) | payer MEDICAID | END 2021-03-03 15:57 | disposition home or self-care (01) | PROVIDERS: ATTEND Internal Medicine | DX: T84.53XA Infection and inflammatory reaction due to internal right knee prosthesis, initial encounter (principal); A41.9 Sepsis, unspecified organism; R26.9 Unspecified abnormalities of gait and mobility; R29.898 Other symptoms and signs involving the musculoskeletal system ==

== ENCOUNTER 2021-08-23 09:36 | Outpatient (RCR) | payer MEDICAID ==
[~2021-08-23 09:36] MED LIST changes: -SULF1TAB35 PO
== END 2021-08-23 10:47 | disposition home or self-care (01) ==
PROVIDERS: ATTEND Internal Medicine
DX: M25.561 Pain in right knee (principal); G89.29 Other chronic pain; J45.909 Unspecified asthma, uncomplicated; F32.9 Major depressive disorder, single episode, unspecified; Z72.0 Tobacco use